=== PATIENT | male | born 2000 | race Caucasian/White ===

== ENCOUNTER 2024-05-23 15:34 | Outpatient (CLI) | payer OTHER, SELFPAY ==
[2024-05-23 16:12] LABS: Hematocrit 45.1 % (42.0-52.0); Hemoglobin 15.3 g/dL (14.0-18.0); Mean Corpuscular HGB Conc 33.9 g/dl (32-36); Mean Corpuscular Hemoglobin 30.1 pg (26-34); Mean Corpuscular Volume 88.6 fl (80-100); Mean Platelet Volume 8.5 fl (7.4-10.4); Platelet Count Result 269 k/mm3 (150-375); Red Blood Count 5.09 M/mm3 (4.6-6.20); Red Cell Distribution Width 13.9 % (11.5-14.5)
[2024-05-23 16:27] LABS: Alanine Aminotransferase 34 U/L (6-50); Albumin Level 3.8 g/dL (3.5-5.1); Alkaline Phosphatase 95 U/L (38-126); Anion Gap 7 mmol/L (4-12); Aspartate Amino Transferase 27 U/L (17-59); Blood Urea Nitrogen 19 mg/dL (9-20); Calcium 9.3 mg/dL (8.4-10.2); Carbon Dioxide 28 mmol/L (22-30); Chloride 102 mmol/L (98-107); Cholesterol 116 mg/dL (0-200); Estimated Glomerular Filt Rate > 60; Glucose 120 mg/dL (65-110); HDL Direct 45 mg/dL; Potassium 4.3 mmol/L (3.4-5.0); Sodium 137 mmol/L (137-145); Triglycerides 70 mg/dL (<150)
--- OUTSIDE RECORDS SUMMARY | 2024-05-23 16:37 | XMS_ITS | Encounter Summary ---
Author Organization [facility] Address [address] [place] [place] [address] Care Team Providers Care Material Control Associate Name Role Phone Cierra Villarreal MD Primary Care Provider [phone] Encounter Details Date Type Department Care Team (Late st Contact Info) Description 11/11/2020 Telephone [facility] - Diabetes [address] [address] Denia Greenberg MD Social History Tobacco Use Types Packs/Day Years Used Date Smoking Tobacco: Never Smokeless Tobacco: Never Alcohol Use Standard Drinks/Week Comments No 0 (1 standard drink = 0.6 oz pur e alcohol) Sex and Gender Information Value Date Recorded Sex Assigned at Not on file Gender Identity Not on file Sexual Orientation Not on file COVID-19 Exposure Response Date Recorded In the last month, have you been in contact with someone who was confirmed or suspected to have Coronavirus / COVID-19? No / Unsure 10/16/2020 3:18 PM CDT documented as of this encounter Functional Status Functional Status Response Date of Assess ment Is person deaf or have serious hearing difficult y? No 10/03/2018 Is person blind or have serious difficulty seein g? No 10/03/2018 Does person have serious dif ficulty walking/climbing stairs? No 10/03/2018 Does person have difficulty dressing/bathing? Ye s 10/03/2018 Does person have difficulty doing errands alone? Yes 10/03/2018 Cognitive Status Response Date of Assessm ent Does person have difficulty concentrating/remembering/making decisions? Yes 10/03/2018 documented as of this encounter Miscellaneous Notes * Telephone Encounter - Eleanor Ramos RN - 11/11/2020 2:59 PM CDT Mom called to report Dex has a low grade temp and runny nose since Tuesday. I referred mom to rope rider. States bgs have been elevated. Negative ketones. I recommended mom to give corrections q 2hours. I asked mom to call if moderate/large ketones develop or if vomiting occurs. She states he has an appetite. Denies nausea/vomiting. To call exchange or emergency line if needed. Current bg/ketones 277 negative documented in this encounter Plan of Treatment Not on file documented as of this encounter Visit Diagnoses Not on filedocumented in this encounter Care Teams Material Control Associate Relationship Specialty Start Date End Date Cierra Villarreal MD [address] [place], [place] [phone] PCP - General Family Medicine 06/13/18 documented as of this encounter
--- OUTSIDE RECORDS SUMMARY | 2024-05-23 16:37 | XMS_ITS | Encounter Summary ---
Author Organization [facility] Address [address] [facility] [place] [address] Care Team Providers Care Vice President Education Name Role Phone Cierra Villarreal MD Primary Care Provider [phone] Encounter Details Date Type Department Care Team (Late st Contact Info) Description 03/15/2021 Telephone [facility] - Endocrinology [address] [place] [phone] Aundrea Yoo, DO [address] [place] [address] Social History Tobacco Use Types Packs/Day Years Used Date Smoking Tobacco: Never Smokeless Tobacco: Never Alcohol Use Standard Drinks/Week Comments No 0 (1 standard drink = 0.6 oz pur e alcohol) AUDIT-C Answer Date Recorded Q1: How often do you have a drink containing alc ohol? Never 02/09/2021 Average Number of Drinks Not on file 021 Frequency of Binge Drinking Not on file 01/22 Sex and Gender Information Value Date Recorded Sex Assigned at Not on file Gender Identity Not on file Sexual Orientation Not on file COVID-19 Exposure Response Date Recorded In the last month, have you been in contact with someone who was confirmed or suspected to have Coronavirus / COVID-19? No / Unsure 02/19/2021 3:26 PM RECONNAISSANCE MAN documented as of this encounter Functional Status Functional Status Response Date of Assess ment Is person deaf or have serious hearing difficult y? No 02/09/2021 Is person blind or have serious difficulty seein g? No 02/09/2021 Does person have serious dif ficulty walking/climbing stairs? Yes 02/09/2021 Does person have difficulty dressing/bathing? Ye s 10/03/2018 Does person have difficulty doing errands alone? Yes 02/09/2021 Cognitive Status Response Date of Assessm ent Does person have difficulty concentrating/remembering/making decisions? Yes 02/09/2021 documented as of this encounter Miscellaneous Notes * Telephone Encounter - Laurel Reid RN - 06/09/2021 1:39 PM CDT Monae from pharmacy calling with questions in regards to Precision strips. Was sent to [facility] [phone] * Telephone Encounter - Aundrea Yoo DO - 03/15/2021 3:41 PM RECONNAISSANCE MAN Endocrine after hours call Dex is a 20 y/o male with type 1 diabetes treated with multiple daily injections. Mom called through the answering service leaving message: I have a question about the dosage of the basaglar I returned mom's call and she provided additional information that she forgot to give Dex his basaglar last night. She asked if she should give 11 units now and 11 units at 10:30. I recommended okay to do if blood sugar is not very high. If blood sugar is very high, give 22 units now, 22 units tomorrow at 6 or 7 PM, 22 units at normal time on Tuesday. NNAISSANCE MAN documented in this encounter Plan of Treatment Not on file documented as of this encounter Visit Diagnoses Not on filedocumented in this encounter Care Teams Vice President Education Relationship Specialty Start Date End Date Cierra Villarreal MD [address] [place] [phone] PCP - General Family Medicine 06/13/18 documented as of this encounter
--- OUTSIDE RECORDS SUMMARY | 2024-05-23 16:37 | XMS_ITS | Encounter Summary ---
Author Organization [facility] Address [address] [facility] [place] [address] Care Team Providers Care Director Distribution Name Role Phone Cierra Villarreal MD Primary Care Provider [phone] Reason for Visit * Reason Onset Date Comments MEDICATION REFILL 04/06/2021 Encounter Details Date Type Department Care Team (Late st Contact Info) Description 04/06/2021 Refill [facility] - Diabetes [facility] [address] [place] [address] Jelena Pack, TRANSPORT TRUCK DRIVER-CARTRIDGE GAUGER [address] [place] [address] MEDICATION REFILL Social History Tobacco Use Types Packs/Day Years [...] on file Sexual Orientation Not on file documented as of this encounter Functional Status [...] Yes 02/09/2021 documented as of this encounter Plan of Treatment Not on file documented as of this encounter Visit Diagnoses Diagnosis Type 1 diabetes mellitus without complication (HCC)- Primary Type I (juvenile type) diabetes mellitus without mention of complication, not stated as uncontrolled documented in this encounter Care Teams Director Distribution Relationship Specialty Start Date End Date Cierra Villarreal MD [address] [place] [phone] PCP - General Family Medicine 06/13/18 documented as of this encounter
--- OUTSIDE RECORDS SUMMARY | 2024-05-23 16:37 | XMS_ITS | Encounter Summary ---
Author Organization [facility] Address [address] [facility] [place] [address] Care Team Providers Care First Aid Nurse Name Role Phone Cierra Villarreal MD Primary Care Provider [phone] Marilu Westfall MD Primary Care Provider [phone] Cierra Villarreal MD Primary Care Provider [phone] Reason for Visit * Reason Onset Date Comments Refill Request 04/23/2014 Please fax rx fo r test strips [facility] will [facility] on time. [facility] on [address] in [place]. Please change directions to test 12 times a day (not 10-12) Encounter Details Date Type Department Care Team (Late st Contact Info) Description 04/23/[address] [facility] - Diabetes [address] [address] Denia Greenberg MD Refill Request (Please fax rx for test strips to local [facility] as mail order will not arrive on time. [facility] on [address] in [place]. Please change directions to test 12 times a day (not 10-12)) Social History Tobacco Use Types Packs/Day Years Used Date Smoking Tobacco: Never Alcohol Use Standard Drinks/Week Comments Not Asked 0 (1 standard drink = 0.6 oz pur e alcohol) Sex and Gender Information Value Date Recorded Sex Assigned at Not on file Gender Identity Not on file Sexual Orientation Not on file documented as of this encounter Functional Status Functional Status Response Date of Assess ment Is person deaf or have maryellen us hearing difficulty? No 01/14/2014 Is person blind or have seri ous difficulty seeing? No 01/14/2014 Does person have serious dif ficulty walking/climbing stairs? No 01/14/2014 Does person have difficulty dressing/bathing? n/ a 01/14/2014 Does person have difficulty doing errands alone? hx of Downs Syndrome 01/14/2014 Cognitive Status Response Date of Assessm ent Does person have difficulty concentrating/remembering/making decisions? Yes 01/14/2014 documented as of this encounter Plan of Treatment Not on file documented as of this encounter Visit Diagnoses Not on filedocumented in this encounter Additional Health Concerns Infection Onset Date Last Indicated Resolved Time MRSA 01/28/2015 01/28/2015 10/22/2015 12:0 6 PM CDT documented as of this encounter Care Teams First Aid Nurse Relationship Specialty Start Date End Date Cierra Villarreal MD [address] [facility] [address] [place] [phone] PCP - General Family Medicine 11/27/13 05/31/17 Marilu Westfall MD [address] [place] [address] PCP - General 06/01/17 06/12/18 Cierra Villarreal MD [address] [place] [phone] PCP - General Family Medicine 06/13/18 documented as of this encounter
--- OUTSIDE RECORDS SUMMARY | 2024-05-23 16:37 | XMS_ITS | Clinical Summary ---
Author Organization [facility] Address [address] [facility] [place] [address] Care Team Providers Care Three Dimensional Art Instructor Name Role Phone Cierra Villarreal MD Primary Care Provider Source Comments [facility],non-owned Affiliates and Associated Physician Practices is amultiple site organization consisting of ambulatory clinics and hospital sitesin [place], [place], [place] and [place]. This disclosure is being madepursuant to the Care Everywhere program and may not contain all information available regarding this patient. Last updated 17.[facility] Allergies Active Allergy Reactions Criticality Noted Date Comments Latex Skin Reactions,Rash,Unknown Medium 01/28/20 15 Rash Rash Sulfa Drugs Rash Medium 07/16/2011 Medications * Be aware that medications may not be up to date on this document. Alwaysverify current medications with the patient. Medication Sig Dispensed Refills Start Date End Date Status Blood Glucose Monitoring Suppl (ACCU-CHEK SHARONDA SMARTVIEW) W/DEVICE KIT kit Use to test blood sugar 12 times daily 1 Kit 1 04/24/2014 Active Blood Glucose Monitoring Suppl (PRECISION XTRA MONITOR) [place] Use to test blood ketones when blood sugar is greater than 250 or when ill. 1 Device 1 02/25/2015 Active Blood Glucose Monitoring Suppl (ONE TOUCH ULTRA MINI) W/DEVICE KIT Use to test blood sugar 12 times daily 1 Kit 0 10/01/2015 Active GLUCAGON EMERGENCY injectionIndication s:Type 1 diabetes mellitus without complication, with long-term current use of insulin (HCC) Inject 1 mg into muscle as needed 2 kit 07/19/2017 Active Additional Information Patient not taking.Reason: Other, Informant: Other, Reported on 11/16/2023 ACCU-CHEK FASTCLIX LANCETS Use to check blood sugar 5-9 times a day or as directed. 204 Each 11 06/26/2018 Active polyethylene glycol 3350 (MIRALAX) packet Take 17 (seventeen) g by mouth once daily Active glucagon (GLUCAGEN) injection Inject 1 (one) mg into muscle as needed (administer for severe low blood sugar as directed.) 2 Each 10/17/2020 Active Additional Information Patient not taking.Reason: Other, Reported on 11/16/2023 PRECISION XTRA STRP Use to test blood ketones when blood sugar is > 250 or when ill. 100 strip 1 03/16/2021 Active Insulin Syringe-Needle U-100 (BD INSULIN SYRINGE ULTRAFINE) 31G X 15/64 0.3 ML syringeIndications: Type 1 diabetes mellitus without complication (HCC) Use to administer Humalog and Lantus as directed up to 6 injections daily 200 Each 11 04/06/2021 Active insulin lispro (HumaLOG;ADMelog) 100 UNIT/ML pen Administer 1 unit per 6-12 grams carbohydrates. Max daily dose 75 units. 30 mL 4 11/23/2021 Active glucagon (GlucaGen HypoKit) injection Inject 1 (one) mg into muscle as needed (for severe low blood sugar) 1 Each 1 02/09/2022 Active Additional Information Patient not taking.Reason: Other, Reported on 11/16/2023 Glucagon, rDNA, (Glucagon Emergency) 1 MG KIT Administer 1 mg intramuscularly for severe low blood sugar 2 Each 02/09/2022 Active insulin syringe-needle (Bd Ultrafine Ii) 31G X 5/16 0.3 ML syringeIndications: Type 1 diabetes mellitus without complication (HCC) USE FOR INSULIN UP TO 6 TIMES DAILY 200 Each 11 02/11/2022 Active Basaglar KwikPen (Basaglar) penIndications:Type 1 diabetes mellitus without complication, with long-term current use of insulin (HCC) ADMINISTER 18 UNITS UNDER THE SKIN AT BEDTIME OR DIRECTED 15 mL 1 08/18/2022 Active Additional Information Patient not taking.Reason: Other, Reported on 11/16/2023 blood glucose (OneTouch Verio) test stripIndications:Ty pe 1 diabetes mellitus without complication (HCC) USE TO TEST BLOOD SUGAR 4-6 TIMES DAILY 200 strip 11 09/28/2022 Active Lancets (ONETOUCH DELICA PLUS 33G EXTRA FINE LANCET)Indications: Type 1 diabetes mellitus without complication (HCC) USE TO TEST BLOOD GLUCOSE 5 TO 9 TIMES DAILY DIRECTED 200 Each 10/05/2022 Active Ketone Blood Test (PRECISION XTRA) STRPIndications:Typ e 1 diabetes mellitus without complication (HCC) Use to test blood ketones if blood sugar is over 250 or ill 25 strip 11 10/13/2022 Active acetone,urine, (Ketostix) stripIndications:Un controlled type 1 diabetes mellitus with hyperglycemia (HCC) Use as needed (use when blood sugar is greater than 300 or when ill.) 100 strip 11 10/13/2022 Active Additional Information Patient not taking.Reason: Other, Reported on 11/16/2023 OneTouch Delica Lancets 30G MISCIndications:Typ e 1 diabetes mellitus without complication (HCC) Use 1 Each as directed USE Up to 12 TIMES DAILY DIRECTED 200 Each 5 11/02/2022 Active Insulin Glargine (LANTUS SC) Inject 20 Units subcutaneously at bedtime Active Active Problems Problem Noted Date Diagnosed Date Elevated anti-tissue transglutaminase (tTG) IgA level 02/16/2018 Down's syndrome 01/08/2013 Overview (09/08/2016): Type 1 diabetes mellitus without complication Overview (10/03/2015): Diagnosed 01/14/2011 at [facility] Transferred to [facility] 04/20/2012 Assessment & Plan (08/23/2019 8:05 AM CDT): 1) no changes today 2) keep up the good work 3) return in 3 months Assessment & Plan (09/28/2018 10:26 AM CDT): 1) reduce dinner to 1 per 8 2) reduce snack to 1 per 12 3) call as needed to review blood sugars 4) return in [address] Greenberg Assessment & Plan (09/08/2016 8:58 AM CDT): 1) no changes at this time 2) keep up the good work 3) call as needed to review blood sugars 4) return in [address] Greenberg Assessment & Plan (05/17/2016 1:03 PM CDT): 1) no changes at this time 2) call as needed to review blood sugars 3) return in 3 months for [facility], [address] 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 (F LUZONE; FLULAVAL; FLUARIX; AFLURIA QUADRIVALENT; 6MO+), 0.5 ML (IIV4) 02/09/2022,01/23/2021,02/22/2019, 017,01/06/2016,02/24/2015,11/26/2013 Family History Medical History Relation Name Comments Diabetes Sister Relation Name Status Comments Sister Social History Tobacco Use Types Packs/Day Years Used Date Smoking Tobacco: Never Passive Smoke Exposure: Never Smokeless Tobacco: Never Tobacco Cessation:Counseling Given: Not Answered Alcohol Use Standard Drinks/Week Comments No 0 (1 standard drink = 0.6 oz pur e alcohol) AUDIT-C Answer Date Recorded Q1: How often do you have a drink containing alcohol? Never 11/22/2023 Q2: How many drinks containi ng alcohol do you have on a typical day when you are drinking? Patient does not drink Q3: How often do you have si x or more drinks on one occasion? Never 11/22/2023 Sex and Gender Information Value Date Recorded Sex Assigned at Not on file Gender Identity Not on file Sexual Orientation Not on file Last Filed Vital Signs Vital Sign Reading Time Taken Comments Blood Pressure 139/107 11/22/2023 9:30 AM CDT pt removed bp multiple times Pulse 117 11/22/2023 9:30 AM CDT Temperature 36.3 C (97.4 F) 11/22/2023 8:30 AM CDT Respiratory Rate 19 11/22/2023 9:30 AM CDT Oxygen Saturation 94% 11/22/2023 9:5 0 AM CDT Inhaled Oxygen Concentration - - Weight 71.1 kg (156 lb 12 oz) 11/22/2023 6:30 AM CDT Height 153.5 cm (5' 0.43 ) 11/22/2023 6 :30 AM CDT Body Mass Index 30.18 11/22/2023 6:30 AM CDT Plan of Treatment Health Maintenance Due Date Last Done Comments DIABETES RETINOPATHY SCREENING 05/15/2013 HIV SCREENING 2016 HPV VACCINE (1 - Male 3-dose series) 2016 MENINGOCOCCAL (Group B) VACCINE SHARED DECISION-MAKING (1 of 2 - Standard) 2017 HEPATITIS C SCREENING 11/21/2019 DIABETES-FOOT EXAM WITH MONOFILAMENT 11/26/2019 DIABETES-SERUM CREATININE 11/26/2019 10/17/2017 DTAP/TDAP/TD VACCINES (1 - Tdap) 2020 HEPATITIS B VACCINE (1 of 3 - 19+ 3-dose series) 2020 PNEUMOCOCCAL VACCINE (1 of 2 - PCV) 2020 DIABETES-HGB A1C 11/24/2022 05/25/2022, , 10/12/2021, Additional history exists COVID-19 VACCINE ( - season) 2023 12/03/2020, 05/26/2020, 05/03/2020 INFLUENZA VACCINE (#1) 2023 2, 01/23/2021, 02/22/2019, Additional history exists DEPRESSION SCREENING 02/22/2024 DIABETES - URINE PROTEIN SCREENING 02/22/2024 10/03/2018 ZOSTER VACCINE (1 of 2) 11/26/2051 HIB VACCINE Aged Out No longer eligi ble based on patient's age to complete this topic MENINGOCOCCAL GROUPS A/C/Y/W VACCINE Aged Out No longer eligible based on patient's age to complete this topic Procedures Procedure Name Priority Date/Time Associated Diagnosis Comments HEMOGLOBIN A1C - POCT INTERFACED Routine 05/25/2022 11:02 AM CDT MICROALB/CREAT RATIO URINE RANDOM PANEL Routine 10/03/2018 7:43 AM CDT Type 1 diabetes mellitus without complication BASIC METABOLIC PANEL (CALCIUM TOTAL) Routine 10/17/2017 12:37 PM CDT Type 1 diabetes mellitus without complication from Last 3 Months or Most Recently Relevant to Health Maintenance Results * (ABNORMAL) HEMOGLOBIN A1C - POCT INTERFACED (05/25/2022 11:02 AM CDT) Hemoglobin A1C POCT 7.1(H) <5.7 % 05/25/2022 11:14 AM CDT [facility] Estimated Average Glucose 157 mg/dL 05/25/2022 11:14 AM T [facility] Blood BLOOD SPECIMEN / Unknown 05/25/2022 11:02 AM CDT 05/25/2022 11:14 AM CDT Narrative [facility] - 05/25/2022 11:14 AM CDT HbA1c Interpretation: Normal: < 5.7% Pre-diabetes: 5.7-6.4% Diabetes: Equal to or greater than 6.5% This test should only be used to monitor, not diagnose diabetes. Test results diagnostic of diabetes should be repeated by another method with a different assay principle for confirmation. Treatment target values recommended by ADA and other clinical organizations should be used to evaluate metabolic control in patients. Patients with a hemoglobin of <7 or >24 should not be tested using this method. Patients known to have these conditions should be assayed by a test employing a different assay principle. Glycated hemoglobin F is not measured by the DCA HbA1c assay. At very high levels of hemoglobin F (> 10%), HbA1c is lower than expected. Patients with HbS or HbE should not be tested using this device. HbS or HbE cause a higher result than expected. Conditions such as hemolytic anemia, polycythemia, homozygous and HbC, can result in decreased life span of the red blood cells, which causes HbA1c results to be lower than expected. The Siemens DCA assay for the measurement of HbA1c is a National Glycohemoglobin Standardization Program (NGSP) certified method. Denia Greenberg MD LAB - POINT OF CARE ORDERABLES Performing Organization Address [facility] de Phone Number [facility] [address] [place] [phone] * MICROALB/CREAT RATIO URINE RANDOM PANEL (10/03/2018 7:43 AM CDT) Creatinine Urine 86.79 mg/dL 10/04/19 19 8:16 AM CDT [facility] Microalbumin Urine <0.5 <1.7 mg/dL 10/03/2018 8:16 AM T [facility] Microalbumin/Crea tinine Ratio <6 <30 mg/g 10/03/2018 8:16 AM T [facility] Urine URINE SPECIMEN OBTAINED BY CLEAN CATCH PROCEDURE / Unknown Collection / Unknown 10/03/2018 7:43 AM CDT 10/03/2018 7:55 AM CDT Alber TREJO LAB - URINE DANYELL LEONARDO ORDERABLES Performing Organization Address [facility] Co de Phone Number [facility] [address] [place] [phone] * BASIC METABOLIC PANEL (CALCIUM TOTAL) (10/17/2017 12:37 PM CDT) Glucose 79 70 - 105 mg/dL 10/17/2017 2:01 PM CDT [facility] Sodium 138 136 - 145 mmol/L 10/17/2017 2:01 PM CDT [facility] Potassium 4.3 3.5 - 5.1 mmol/L 10/17/2017 2:01 PM T [facility] Chloride 107 98 - 107 mmol/L 10/17/2017 2:01 PM CDT [facility] CO2 23 20 - 28 mmol/L 10/17/2017 2:01 PM T [facility] Calcium 9.42 9.08 - 10.48 mg/dL 10/17/2017 2:01 PM CDT [facility] Anion Gap 8 5 - 20 mmol/L 10/17/2017 2:01 PM CDT [facility] BUN 17.1 5.3 - 18.7 mg/dL 10/17/2017 2:01 PM T [facility] Creatinine 0.93 0.61 - 1.07 mg/dL 10/17/2017 2:01 PM CDT [facility] eGFR by MDRD mL/min/1.7 3m2 10/17/2017 2:01 PM T [facility] Comment: eGFR calculations are not performed for children under 18 years old. eGFR by MDRD mL/min/1.7 3m2 10/17/2017 2:01 PM T [facility] Comment: eGFR calculations are not performed for children under 18 years old. Blood BLOOD SPECIMEN / Unknown Venipuncture / Unknown 10/17/2017 12:37 PM CDT 10/17/2017 1:24 PM T Denia Greenberg MD LAB - CHEMISTRY LIBBY [facility]USSEIN [facility] Organization Address City/State/ZIP Co de Phone Number [facility] [address] [place] [address] from Last 3 Months or Most Recently Relevant to Health Maintenance Care Teams Three Dimensional Art Instructor Relationship Specialty Start Date End Date Cierra Villarreal MD [address] [place] [phone] PCP - General Family Medicine 06/13/18
--- OUTSIDE RECORDS SUMMARY | 2024-05-23 16:37 | XMS_ITS | Encounter Summary ---
Author Organization [facility] Address [address] [facility] [place] [address] Care Team Providers Care Communication Technician Name Role Phone Cierra Villarreal MD Primary Care Provider [phone] Reason for Visit * Reason Onset Date Comments Refill Request 06/25/2019 New prescription for syringes, Dex is using syringes for basaglar and admelog- 6 syringes a day, Only getting 1 box of 100 from pharmacy Encounter Details Date Type Department Care Team (Late st Contact Info) Description 06/25/2019 Telephone [facility] Pediatrics - Endocrinology [address] [place] [address] Ayaka Agarwal Refill Request (New prescription for syringesDex is using syringes for basaglar and admelog- 6 syringes a day, Only getting 1 box of 100 from pharmacy) Social History Tobacco Use Types Packs/Day Years [...] Yes 10/03/2018 documented as of this encounter Plan of Treatment Not on file documented as of this encounter Visit Diagnoses Not on filedocumented in this encounter Care Teams Communication Technician Relationship Specialty Start Date End Date Cierra Villarreal MD [address] [place] [phone] PCP - General Family Medicine 06/13/18 documented as of this encounter
--- OUTSIDE RECORDS SUMMARY | 2024-05-23 16:37 | XMS_ITS | Encounter Summary ---
Author Organization [facility] Address [address] [facility] [place] [address] Care Team Providers Care Manufacturing Scheduler Name Role Phone Marilu Westfall MD Primary Care Provider [phone] Cierra Villarreal MD Primary Care Provider Reason for Visit * Reason Onset Date Comments Blood Glucose (Sugar) Review 09/09/2017 Ple ase call mom to review blood sugars. She has noticed blood sugars around 2pm are in the 200-300 range lately. Encounter Details Date Type Department Care Team (Late st Contact Info) Description 09/09/2017 Telephone [facility] Pediatrics - Endocrinology [address] [place] [address] Ayaka Agarwal Blood Glucose (Sugar) Review (Please call mom to review blood sugars. She has noticed blood sugars around 2pm are in the 200-300 range lately. ) Social History Tobacco Use Types Packs/Day Years [...] or have maryellen us hearing difficulty? No 02/03/2015 Is person blind or have seri ous difficulty seeing? No 02/03/2015 Does person have serious dif ficulty walking/climbing stairs? No 02/03/2015 Does person have difficulty dressing/bathing? Ye s-age and delayed 02/03/2015 Does person have difficulty doing errands alone? Yes-age and delayed 02/03/2015 Cognitive Status Response Date of Assessm ent Does person have difficulty concentrating/remembering/making decisions? age and pt delayed 02/03/2015 documented as of this encounter Plan of Treatment Not on file documented as of this encounter Visit Diagnoses Not on filedocumented in this encounter Care Teams Manufacturing Scheduler Relationship Specialty Start Date End Date Marilu Westfall MD [address] [place] [address] PCP - General 06/01/17 06/12/18 Cierra Villarreal MD [address] [place] [phone] PCP - General Family Medicine 06/13/18 documented as of this encounter
--- OUTSIDE RECORDS SUMMARY | 2024-05-23 16:37 | XMS_ITS | Encounter Summary ---
Author Organization [facility] Address [address] [facility] [place] [address] Care Team Providers Care Head Doffer Name Role Phone Cierra Villarreal MD Primary Care Provider [phone] Marilu Westfall MD Primary Care Provider [phone] Cierra Villarreal MD Primary Care Provider [phone] Reason for Visit * Reason Onset Date Comments Blood Sugar Problem 10/24/2014 Mom is still noticing elevated blood sugars at the mid-afternoon check (between 1:15-2:00PM). Please call to review blood sugars and further changes that need to be made. Encounter Details Date Type Department Care Team (Late st Contact Info) Description 10/24/2014 Telephone [facility] Pediatrics - Diabetes [address] [address] Denia Greenberg MD Blood Sugar Problem (Mom is still noticing elevated blood sugars at the mid-afternoon check (between 1:15-2:00PM). Please call to review blood sugars and further changes that need to be made.) Social History Tobacco Use Types Packs/Day Years [...] documented as of this encounter Care Teams Head Doffer Relationship Specialty Start Date End Date Cierra Villarreal MD [address] [place] [phone] PCP - General Family Medicine 11/27/13 05/31/17 Marilu Westfall MD [address] [place] [address] PCP - General 06/01/17 06/12/18 Cierra Villarreal MD [address] [place] [phone] PCP - General Family Medicine 06/13/18 documented as of this encounter
--- OUTSIDE RECORDS SUMMARY | 2024-05-23 16:37 | XMS_ITS | Encounter Summary ---
Author Organization [facility] Address [address] [facility] [place] [address] Care Team Providers Care Daub Color Mixer Name Role Phone Cierra Villarreal MD Primary Care Provider Reason for Visit * Reason Comments Refill Request Encounter Details Date Type Department Care Team (Late st Contact Info) Description 11/16/2020 Refill [facility] Pediatrics - Diabetes [address] [address] Denia Greenberg MD Refill Request Social History Tobacco Use Types Packs/Day Years [...] Diagnosis Type 1 diabetes mellitus without complication (HCC) Type I (juvenile type) diabetes mellitus without mention of complication, not stated as uncontrolled documented in this encounter Care Teams Daub Color Mixer Relationship Specialty Start Date End Date Cierra Villarreal MD [address] [place], [place] [phone] PCP - General Family Medicine 06/13/18 documented as of this encounter
--- OUTSIDE RECORDS SUMMARY | 2024-05-23 16:37 | XMS_ITS | Encounter Summary ---
Author Organization [facility] Address [address] [facility] [address] Care Team Providers Care Rn Float Name Role Phone Cierra Villarreal MD Primary Care Provider Reason for Visit * Reason Comments Refill Request Encounter Details Date Type Department Care Team (Late st Contact Info) Description 03/06/2021 Refill [facility] Pediatrics - Diabetes [address] [address] Denia Greenberg MD Refill Request Social History [...] COVID-19? No / Unsure 02/19/2021 3:26 PM CERTIFIED ORTHOTIC FITTER documented as of this encounter Functional Status [...] on filedocumented in this encounter Care Teams Rn Float Relationship Specialty Start Date End Date Cierra Villarreal MD [address] [place] [phone] PCP - General Family Medicine 06/13/18 documented as of this encounter
--- OUTSIDE RECORDS SUMMARY | 2024-05-23 16:37 | XMS_ITS | Encounter Summary ---
Author Organization [facility] Address [address] [facility] [place] [address] Care Team Providers Care Inventory Accountant Name Role Phone Cierra Villarreal MD Primary Care Provider [phone] Encounter Details Date Type Department Care Team (Late st Contact Info) Description 11/13/2018 Telephone [facility] Pediatrics - Diabetes [address] [address] Alber Fiore, VARGHESE-SUPERVISOR WATER SOFTENER SERVICE [address] [place] [address] Social History Tobacco Use Types Packs/Day Years [...] encounter Miscellaneous Notes * Telephone Encounter - Augustina Schuster RN - 11/13/2018 9:19 AM CDT I spoke with Dex Cottrell's mom who called to report blood glucose logs. Please see doc flowsheet.Per protocol I have changed his dinner insulin to carb ratio to 1:7. documented in this encounter Plan of Treatment Not on file documented as of this encounter Visit Diagnoses Not on filedocumented in this encounter Care Teams Inventory Accountant Relationship Specialty Start Date End Date Cierra Villarreal MD [address] [place] [phone] PCP - General Family Medicine 06/13/18 documented as of this encounter
--- OUTSIDE RECORDS SUMMARY | 2024-05-23 16:37 | XMS_ITS | Encounter Summary ---
Author Organization [facility] Address [address] [facility] [place] [place] [address] Care Team Providers Care Group Social Worker Name Role Phone Cierra Villarreal MD Primary Care Provider [phone] Marilu Westfall MD Primary Care Provider [phone] Cierra Villarreal MD Primary Care Provider [phone] Reason for Visit * Reason Onset Date Comments MEDICATION REFILL 10/01/2015 Encounter Details Date Type Department Care Team (Late st Contact Info) Description 10/01/2015 Refill [facility] - Diabetes [address] [address] Keely Frye, VISUAL BASIC .NET DEVELOPER-HEARING STENOGRAPHER Retired MEDICATION REFILL Social History Tobacco Use Types [...] delayed 02/03/2015 documented as of this encounter Miscellaneous Notes * Telephone Encounter - Tammi Lopes RN - 10/01/2015 2:48 PM CDT Received prior authorization for accuchek test strips. Called and spoke with pharmacy. Pharmacy informed me they [place]. They can only get 200 test strips every 20 days with[place]ight [place]. Pharmacist ran through [employer] ultra mini meter and test strips 200 for 20 days and went through with no problem. documented in this encounter Plan of Treatment Not on file documented as of this encounter Visit Diagnoses Not on filedocumented in this encounter Additional Health Concerns Infection Onset Date Last Indicated Resolved Time MRSA 01/28/2015 01/28/2015 10/22/2015 12:0 6 PM CDT documented as of this encounter Care Teams Group Social Worker Relationship Specialty Start Date End Date Cierra Villarreal MD [address] [place] [phone] PCP - General Family Medicine 11/27/13 05/31/17 Marilu Westfall MD [address] [place] [address] PCP - General 06/01/17 06/12/18 Cierra Villarreal MD [address] [facility] [address] [place] [address] PCP - General Family Medicine 06/13/18 documented as of this encounter
--- OUTSIDE RECORDS SUMMARY | 2024-05-23 16:37 | XMS_ITS | Encounter Summary ---
Author Organization [facility] Address [address] [facility] [place] [address] Care Team Providers Care Sampler Radioactive Waste Name Role Phone Cierra Villarreal MD Primary Care Provider [phone] Reason for Visit * Reason Comments Refill Request Encounter Details Date Type Department Care Team (Late st Contact Info) Description 05/05/2019 Refill [facility] Pediatrics - Diabetes [address] [address] Denia Greenberg MD Refill Request Social History [...] uncontrolled documented in this encounter Care Teams Sampler Radioactive Waste Relationship Specialty Start Date End Date Cierra Villarreal MD [address] [place], [place] [phone] PCP - General Family Medicine 06/13/18 documented as of this encounter
--- OUTSIDE RECORDS SUMMARY | 2024-05-23 16:37 | XMS_ITS | Encounter Summary ---
Author Organization [facility] Address [address] [facility] [place] [address] Care Team Providers Care Client Analyst Name Role Phone Cierra Villarreal MD Primary Care Provider [phone] Marilu Westfall MD Primary Care Provider [phone] Cierra Villarreal MD Primary Care Provider [phone] Reason for Visit * Reason Onset Date Comments Blood Sugar Problem 02/20/2015 Encounter Details Date Type Department Care Team (Late st Contact Info) Description 02/20/2015 Telephone [facility] Pediatrics - Endocrinology [facility] [place] [address] Denia Greenberg MD Blood Sugar Problem Social History Tobacco Use Types Packs/Day Years [...] encounter Miscellaneous Notes * Telephone Encounter - Robbie Fonseca RN - 02/20/2015 11:22 AM CST I returned mom's call, lengthy conversation. Dex has been fighting a bug since the weekend. Hada low grade temp 99-100' for one day, has been sleeping in more. Seems to be feeling fine now. Bgs elevated at meals. I advised ok to adjust meal ratios until back to baseline. Has appt in 4 days. PLAN per injection protocol: B change from 1:6 to 1:5 L change from 1:15 to 1:12 D change from 1:9 to 1:8 I reviewed sick day management at length. Mom to call as needed. ERIES SPECIALIST documented in this encounter Plan of Treatment Not on file documented as of this encounter Visit Diagnoses Not on filedocumented in this encounter Additional Health Concerns Infection Onset Date Last Indicated Resolved Time MRSA 01/28/2015 01/28/2015 10/22/2015 12:0 6 PM CDT documented as of this encounter Care Teams Client Analyst Relationship Specialty Start Date End Date Cierra Villarreal MD [address] [facility] [address] [place], [place] PCP - General Family Medicine 11/27/13 05/31/17 Marilu Westfall MD [address] [place] [address] PCP - General 06/01/17 06/12/18 Cierra Villarreal MD [address] [place] [address] PCP - General Family Medicine 06/13/18 documented as of this encounter
--- OUTSIDE RECORDS SUMMARY | 2024-05-23 16:37 | XMS_ITS | Encounter Summary ---
Author Organization [facility] Address [address] [place] [address] Care Team Providers Care Fund Controller Name Role Phone Marilu Westfall MD Primary Care Provider [phone] Cierra Villarreal MD Primary Care Provider [phone] Reason for Visit * Reason Onset Date Comments Refill Request 05/22/2018 Please call in t 33g Delica lancets- 30g not covered any more. If those arent covered any lancets will do. Encounter Details Date Type Department Care Team (Late st Contact Info) Description 05/22/2018 Telephone [facility] Pediatrics - Endocrinology [address] [place] [address] Ayaka Agarwal Refill Request (Please call in the 33g Delica lancets- 30g not covered any more. If those arent covered any lancets will do. ) Social History Tobacco Use Types Packs/Day [...] on filedocumented in this encounter Care Teams Fund Controller Relationship Specialty Start Date End Date Marilu Westfall MD [address] [place] [address] PCP - General 06/01/17 06/12/18 Cierra Villarreal MD [address] [place] [phone] PCP - General Family Medicine 06/13/18 documented as of this encounter
--- OUTSIDE RECORDS SUMMARY | 2024-05-23 16:37 | XMS_ITS | Encounter Summary ---
Author Organization [facility] Address [address] [facility] [place] [address] Care Team Providers Care Shift Mgr Name Role Phone Marilu Westfall MD Primary Care Provider Cierra Villarreal MD Primary Care Provider Encounter Details Date Type Department Care Team (Late st Contact Info) Description 10/05/2017 Telephone [facility] - Diabetes [address] [address] Denia Greenberg MD Social History [...] on filedocumented in this encounter Care Teams Shift Mgr Relationship Specialty Start Date End Date Marilu Westfall MD [address] [place] [address] PCP - General 06/01/17 06/12/18 Cierra Villarreal MD [address] [place] [phone] PCP - General Family Medicine 06/13/18 documented as of this encounter
--- OUTSIDE RECORDS SUMMARY | 2024-05-23 16:37 | XMS_ITS | Encounter Summary ---
Author Organization [facility] Address [address] [facility] [place] [address] Care Team Providers Care Light Industrial Name Role Phone Cierra Villarreal MD Primary Care Provider Encounter Details Date Type Department Care Team (Late st Contact Info) Description 10/08/2022 Telephone [facility] Pediatrics - Diabetes [address] [address] Denia Greenberg MD Social History Tobacco Use Types Packs/Day Years Used Date Smoking Tobacco: Never Passive Smoke Exposure: Never Smokeless Tobacco: Never Alcohol Use Standard [...] encounter Miscellaneous Notes * Telephone Encounter - Cristi Tang - 10/27/2022 11:09 AM CDT Attempted to reach out to family in regards to pre-op teaching for Dex's procedure on the . He will be having a double ear exam with wax removal. Arrival time is 0700. NPO at 0000 with only clear liquids until 0530. Left message on machine for Mom to call back. * Telephone Encounter - Cristi Tang - 10/14/2022 4:05 PM CDT PA for Precision Xtra Ketone Strips for 100 strips per 30 days. Approved 10/14/22-10/14/23. Mom called and let know. * Telephone Encounter - Cristi Tang - 10/14/2022 1:14 PM CDT PA for Precision Xtra Ketone strips [facility] to [place] [facility] * Telephone Encounter - Cristi Tang - 10/08/2022 4:36 PM CDT School Letter faxed to [phone] documented in this encounter Plan of Treatment Not on file documented as of this encounter Visit Diagnoses Not on filedocumented in this encounter Care Teams Light Industrial Relationship Specialty Start Date End Date Cierra Villarreal MD [address] [place] [phone] PCP - General Family Medicine 06/13/18 documented as of this encounter
--- OUTSIDE RECORDS SUMMARY | 2024-05-23 16:37 | XMS_ITS | Encounter Summary ---
Author Organization [facility] Address [address] [place] [place] [address] Care Team Providers Care Hydrochloric Area Supervisor Name Role Phone Cierra Villarreal MD Primary Care Provider [phone] Marilu Westfall MD Primary Care Provider [phone] Cierra Villarreal MD Primary Care Provider [phone] Encounter Details Date Type Department Care Team (Late st Contact Info) Description 01/10/2017 Telephone [facility] - Diabetes [address] [address] Denia Greenberg MD Social History Tobacco Use [...] on filedocumented in this encounter Care Teams Hydrochloric Area Supervisor Relationship Specialty Start Date End Date Cierra Villarreal MD [address] [facility] [address] [place] [address] PCP - General Family Medicine 11/27/13 05/31/17 Marilu Westfall MD [address] [place] [address] PCP - General 06/01/17 06/12/18 Cierra Villarreal MD [address] [phone] PCP - General Family Medicine 06/13/18 documented as of this encounter
--- OUTSIDE RECORDS SUMMARY | 2024-05-23 16:37 | XMS_ITS | Encounter Summary ---
Author Organization [facility] Address [address] [facility] [place] [address] Care Team Providers Care Watchguard Name Role Phone Cierra Villarreal MD Primary Care Provider [phone] Encounter Details Date Type Department Care Team (Late st Contact Info) Description 06/02/2021 Telephone [facility] Pediatrics - Diabetes Mgmt [address] [place] [address] Jelena Pack, NAV[employer] SENIOR OFFICER-DIAGNOSTIC TECHNICIAN [facility] [place] [address] Social History Tobacco Use Types Packs/Day Years [...] Exposure Response Date Recorded In the last 10 days, have yo u been in contact with someone who was confirmed or suspected to have Coronavirus/COVID-19? No / Unsure 06/04/2021 4:06 PM CDT documented as of this encounter [...] Telephone Encounter - Eleanor Ramos RN - 06/04/2021 3:39 PM CDT Appeal resubmitted with Authorized Supervisor [employer] Designation form attached to [place]. * Telephone Encounter - Eleanor Ramos RN - 06/03/2021 1:26 PM CDT Mom called to report they have missed basaglar dose last night of 22 units. Unable to check for ketones. Denies any symptoms. Going to give normal correction now with meal. Plan to give 22 units now and then follow below: 13: now 1330 04/14: 5pm 0415: 9pm To call with any concerns or ketones. * Telephone Encounter - Eleanor Ramos RN - 06/02/2021 3:49 PM CDT Appeal letter sent to [place] for precision xtra blood ketone strips. documented in this encounter Plan of Treatment Not on file documented as of this encounter Visit Diagnoses Not on filedocumented in this encounter Care Teams Watchguard Relationship Specialty Start Date End Date Cierra Villarreal MD [address] [place] [phone] PCP - General Family Medicine 06/13/18 documented as of this encounter
--- OUTSIDE RECORDS SUMMARY | 2024-05-23 16:37 | XMS_ITS | Encounter Summary ---
Author Organization [facility] Address [address] [facility] [place] [address] Care Team Providers Care Mental Health Assistant Name Role Phone Chrissy Richards MD Primary Care Provider [phone] Cierra Villarreal MD Primary Care Provider [phone] Marilu Westfall MD Primary Care Provider [phone] Cierra Villarreal MD Primary Care Provider [phone] Reason for Visit * Reason Onset Date Comments Letter for School or Work 11/01/2012 Encounter Details Date Type Department Care Team (Late st Contact Info) Description 11/01/2012 Telephone [facility] Pediatrics - Diabetes [address] [address] Keely Frye, TELEPHONE INFORMATION CLERK-PHARMACY LABORATORY TECHNICIAN Retired Letter for School or Work Social History Tobacco Use Types Packs/Day Years Used Date Smoking Tobacco: Never Alcohol Use Standard Drinks/Week Comments Not Asked 0 (1 standard drink = 0.6 oz pur e alcohol) Sex and Gender Information Value Date Recorded Sex Assigned at Not on file Gender Identity Not on file Sexual Orientation Not on file documented as of this encounter Miscellaneous Notes * Telephone Encounter - Anat Yusuf RN - 11/01/2012 3:44 PM CDT Returned mother's call regarding need for school letter. Noted changes recommended on 10/25/12 to increase lunch to 1:20 and to increase pm snack to 0.5: 12. Will fax letter to school. documented in this encounter Plan of Treatment Not on file documented as of this encounter Visit Diagnoses Not on filedocumented in this encounter Additional Health Concerns Infection Onset Date Last Indicated Resolved Time MRSA 01/28/2015 01/28/2015 10/22/2015 12:0 6 PM CDT documented as of this encounter Care Teams Mental Health Assistant Relationship Specialty Start Date End Date Chrissy Richards MD [address] [place] [phone] PCP - General 07/02/11 11/26/13 Cierra Villarreal MD [address] [place] [phone] PCP - General Family Medicine 11/27/13 05/31/17 Marilu Westfall MD [address] [place] [address] PCP - General 06/01/17 06/12/18 Cierra Villarreal MD [address] [place] [phone] PCP - General Family Medicine 06/13/18 documented as of this encounter
--- OUTSIDE RECORDS SUMMARY | 2024-05-23 16:37 | XMS_ITS | Encounter Summary ---
Author Organization [facility] Address [address] [facility] [place] [address] Care Team Providers Care Parking Enforcement Officer Name Role Phone Chrissy Richards MD Primary Care Provider [phone] Cierra Villarreal MD Primary Care Provider [phone] Marilu Westfall MD Primary Care Provider [phone] Cierra Villarreal MD Primary Care Provider [phone] Reason for Visit * Reason Onset Date Comments Blood Sugar Problem 12/18/2012 Please call mom to review blood sugars and make changes Encounter Details Date Type Department Care Team (Late st Contact Info) Description 12/18/2012 Telephone [facility] Pediatrics - Diabetes [address] [address] Denia Greenberg MD Blood Sugar Problem (Please call mom to review blood sugars and make changes) Social History Tobacco Use Types Packs/Day Years Used Date Smoking Tobacco: Never Alcohol Use Standard Drinks/Week Comments Not Asked 0 (1 standard drink = 0.6 oz pur e alcohol) Sex and Gender Information Value Date Recorded Sex Assigned at Not on file Gender Identity Not on file Sexual Orientation Not on file documented as of this encounter Plan of Treatment Not on file documented as of this encounter Visit Diagnoses Not on filedocumented in this encounter Additional Health Concerns Infection Onset Date Last Indicated Resolved Time MRSA 01/28/2015 01/28/2015 10/22/2015 12:0 6 PM CDT documented as of this encounter Care Teams Parking Enforcement Officer Relationship Specialty Start Date End Date Chrissy Richards MD [address] [place] [address] PCP - General 07/02/11 11/26/13 Cierra Villarreal MD [address] [place] [phone] PCP - General Family Medicine 11/27/13 05/31/17 Marilu Westfall MD [address] [place] [address] PCP - General 06/01/17 06/12/18 Cierra Villarreal MD [address] [place] [address] [address] [place] [phone] PCP - General Family Medicine 06/13/18 documented as of this encounter
--- OUTSIDE RECORDS SUMMARY | 2024-05-23 16:37 | XMS_ITS | Encounter Summary ---
Author Organization [facility] Address [address] [facility] [place] [address] Care Team Providers Care Router Operator Pin Name Role Phone Cierra Villarreal MD Primary Care Provider [phone] Encounter Details Date Type Department Care Team (Late st Contact Info) Description 06/09/2021 Telephone [facility] Pediatrics - Diabetes [address] [address] Denia Greenberg MD Social History [...] Telephone Encounter - Eleanor Ramos RN - 09/03/2021 4:08 PM CDT Mom called to report that Dex has been running low intermittently at meal times. She states that he does not go to bed until 0100 in the morning. He wakes often at 1330/1400 and does not eat until 1500. Often eats 4 meals a day. She states she has been adjusting his doses as needed. We discussed subtracting 15g from total meal and dosing appropriately at that time. No patterns noted per mom. Per protocol, no changes at this time. To call as needed. B 1:5.5 L 1:8 D 1:8 Snack 1:12 Correction >150 20 units basaglar * Telephone Encounter - Lenora Land RN - 06/09/2021 4:27 PM CDT Mom tried e-mailing us blood sugars. Confirmed e-mail address with mom. Still haven't gotten the e-mail from mom. Sent mom an e-mail from us so she has our correct e-mail address. Mom's e-mail: [email or web address] documented in this encounter Plan of Treatment Not on file documented as of this encounter Visit Diagnoses Not on filedocumented in this encounter Care Teams Router Operator Pin Relationship Specialty Start Date End Date Cierra Villarreal MD [address] [place] [phone] PCP - General Family Medicine 06/13/18 documented as of this encounter
--- OUTSIDE RECORDS SUMMARY | 2024-05-23 16:37 | XMS_ITS | Encounter Summary ---
Author Organization [facility] Address [address] [facility] [place] [address] Care Team Providers Care Subway Car Repairer Name Role Phone Cierra Villarreal MD Primary Care Provider Encounter Details Date Type Department Care Team (Late st Contact Info) Description 08/21/2019 Telephone [facility] Pediatrics - Diabetes [address] [address] Alber Fiore APRN-DEVOPS SOLUTIONS ARCHITECT 1 [place] [address] Social History Tobacco Use Types Packs/Day Years [...] have Coronavirus / COVID-19? No / Unsure 08/21/2019 10:59 AM CDT documented as of this encounter Functional [...] on filedocumented in this encounter Care Teams Subway Car Repairer Relationship Specialty Start Date End Date Cierra Villarreal MD [address] [place] [phone] PCP - General Family Medicine 06/13/18 documented as of this encounter
--- OUTSIDE RECORDS SUMMARY | 2024-05-23 16:37 | XMS_ITS | Encounter Summary ---
Author Organization [facility] Address [address] [facility] [place] [address] Care Team Providers Care Sand Technician Name Role Phone Cierra Villarreal MD Primary Care Provider [phone] Marilu Westfall MD Primary Care Provider [phone] Cierra Villarreal MD Primary Care Provider [phone] Reason for Visit * Reason Onset Date Comments MEDICATION REFILL 06/26/2015 Encounter Details Date Type Department Care Team (Late st Contact Info) Description 06/26/2015 Refill [facility] - Diabetes [address] [address] Denia Greenberg MD MEDICATION REFILL Social History Tobacco Use Types [...] documented as of this encounter Care Teams Sand Technician Relationship Specialty Start Date End Date Cierra Villarreal MD [address] [place] [phone] PCP - General Family Medicine 11/27/13 05/31/17 Marilu Westfall MD [address] [place] [address] PCP - General 06/01/17 06/12/18 Cierra Villarreal MD [address] [facility] [address] [place] [address] PCP - General Family Medicine 06/13/18 documented as of this encounter
--- OUTSIDE RECORDS SUMMARY | 2024-05-23 16:37 | XMS_ITS | Encounter Summary ---
Author Organization [facility] Address [address] [facility] [address] Care Team Providers Care Crime Scene Examiner Name Role Phone Cierra Villarreal MD Primary Care Provider [phone] Reason for Visit * Reason Onset Date Comments MEDICATION REFILL 11/01/2022 Encounter Details Date Type Department Care Team (Late st Contact Info) Description 11/01/2022 Refill [facility] Pediatrics - Diabetes [address] [address] Jelena Pack MEDICATION REFILL Social History Tobacco Use Types Packs/Day Years Used Date Smoking Tobacco: Never Passive Smoke Exposure: Never Smokeless Tobacco: Never Alcohol Use Standard Drinks/Week Comments No 0 (1 standard drink = 0.6 oz pur e alcohol) AUDIT-C Answer Date Recorded Q1: How often do you have a drink containing alc ohol? Never 11/02/2022 Average Number of Drinks Not on file 023 Frequency of Binge Drinking Not on file 10/22 Sex and Gender Information Value Date Recorded [...] Diagnosis Type 1 diabetes mellitus without complication Type I (juvenile type) diabetes mellitus without mention of complication, not stated as uncontrolled documented in this encounter Care Teams Crime Scene Examiner Relationship Specialty Start Date End Date Cierra Villarreal MD [address] [place], [place] [phone] PCP - General Family Medicine 06/13/18 documented as of this encounter
--- OUTSIDE RECORDS SUMMARY | 2024-05-23 16:37 | XMS_ITS | Encounter Summary ---
Author Organization [facility] Address [address] [place] [address] Care Team Providers Care Tent Worker Name Role Phone Chirssy Richards MD Primary Care Provider [phone] Cierra Villarreal MD Primary Care Provider [phone] Marilu Westfall MD Primary Care Provider [phone] Cierra Villarreal MD Primary Care Provider [phone] Reason for Visit * Reason Onset Date Comments Refill Request 09/03/2013 Mom called, need s refill for syringes sent to [facility] in [place]. Encounter Details Date Type Department Care Team (Late st Contact Info) Description 09/03/2013 Telephone [facility] Pediatrics - Diabetes [address] [address] Denia Greenberg MD Refill Request (Mom called, needs refill for syringes sent to [facility] in [place]. ) Social History Tobacco Use Types Packs/Day [...] documented as of this encounter Care Teams Tent Worker Relationship Specialty Start Date End Date Chrissy Richards MD [address] [place] [address] PCP - General 07/02/11 11/26/13 Cierra Villarreal MD [address] [place] [phone] PCP - General Family Medicine 11/27/13 05/31/17 Marilu Westfall MD [address] [place] [address] PCP - General 06/01/17 06/12/18 Cierra Villarreal MD [address] [place] [phone] PCP - General Family Medicine 06/13/18 documented as of this encounter
--- OUTSIDE RECORDS SUMMARY | 2024-05-23 16:37 | XMS_ITS | Encounter Summary ---
Author Organization [facility] Address [address] [facility] [address] Care Team Providers Care Order Entry Name Role Phone Cierra Villarreal MD Primary Care Provider [phone] Encounter Details Date Type Department Care Team (Late st Contact Info) Description 05/26/2021 Refill [facility] Pediatrics - Diabetes Mgmt [address] [place] [address] Jelena Pack, METROLOGY MANAGER-HISTOPATHOLOGY TECHNICIAN [address] [place] [address] Social History Tobacco Use Types Packs/Day Years [...] Telephone Encounter - Eleanor Ramos RN - 05/27/2021 11:45 AM CDT Received denial from [place] for precision xtra ketone strips. Will send for urine ketone strips. * Telephone Encounter - Cristi Tang - 05/26/2021 4:16 PM CDT PA sent through CoverMyMeds to [place] for Precision Xtra blood ketone strips. documented in this encounter Plan of Treatment Not on file documented as of this encounter Visit Diagnoses Diagnosis Uncontrolled type 1 diabetes mellitus with hyperglycemia (HCC) documented in this encounter Care Teams Order Entry Relationship Specialty Start Date End Date Cierra Villarreal MD [address] [place], [place] [phone] PCP - General Family Medicine 06/13/18 documented as of this encounter
--- OUTSIDE RECORDS SUMMARY | 2024-05-23 16:37 | XMS_ITS | Encounter Summary ---
Author Organization [facility] Address [address] [facility] [place] [address] Care Team Providers Care Cake Puller Name Role Phone Cierra Villarreal MD Primary Care Provider Encounter Details Date Type Department Care Team (Late st Contact Info) Description 01/21/2020 Telephone [facility] Pediatrics - Endocrinology [address] [place] [address] Alber Fiore APRN-SENIOR ASSISTANT MANAGER [address] [place] [address] Social History Tobacco Use Types Packs/Day Years [...] or suspected to have Coronavirus / COVID-19? Unable to assess 01/09/2020 1:57 PM SUPERVISOR COMMISSARY PRODUCTION documented as of this encounter Functional Status [...] Telephone Encounter - Augustina Schuster RN - 01/21/2020 9:21 AM CST Diabetes Sick Call Patient: Dex Cottrell Date: 01/21/2020 Mom called into report the following: He did not take his insulin for snack last night and did not take his basaglar 22 units, typically given at 11pm. Current Blood Glucose: 398 Current Ketone result: moderate Last insulin given: Humalog: Dinner time yesterday Symptoms: none. Plan: Per Dr. Greenberg: Give 5 units now with syringe. Give 22 units of basaglar now. Push sugar free fluid. Recheck blood glucose and urine ketones in two hours. Schedule for getting basaglar back on track: 01/20 give basaglar 0930 12/ give basaglar at 1230 12/2 give basaglar at 1530 12/3 give basaglar at 2130 12/4 give basaglar at 2300 RVISOR [employer] documented in this encounter Plan of Treatment Not on file documented as of this encounter Visit Diagnoses Not on filedocumented in this encounter Care Teams Cake Puller Relationship Specialty Start Date End Date Cierra Villarreal MD [address] [place] [phone] PCP - General Family Medicine 06/13/18 documented as of this encounter
--- OUTSIDE RECORDS SUMMARY | 2024-05-23 16:37 | XMS_ITS | Encounter Summary ---
Author Organization [facility] Address [address] [facility] [place] [address] Care Team Providers Care Maintenance Worker Municipal Name Role Phone Cierra Villarreal MD Primary Care Provider [phone] Marilu Westfall MD Primary Care Provider [phone] Cierra Villarreal MD Primary Care Provider [phone] Reason for Visit * Reason Onset Date Comments Letter 10/18/2014 Please send an u pdated letter with the new lunch carb ratio of 1 per 8 to the [facility] [phone] Encounter Details Date Type Department Care Team (Late st Contact Info) Description 10/18/2014 Telephone [facility] Pediatrics - Diabetes [address] [address] Denia Greenberg MD Letter (Please send an updated letter with the new lunch carb ratio of 1 per 8 to the [facility] for [facility] [phone]) Social History Tobacco Use Types Packs/Day Years [...] documented as of this encounter Care Teams Maintenance Worker Municipal Relationship Specialty Start Date End Date Cierra Villarreal MD [address] [place] [phone] PCP - General Family Medicine 11/27/13 05/31/17 Marilu Westfall MD [address] [place] [address] PCP - General 06/01/17 06/12/18 Cierra Villarreal MD [address] [place] [phone] PCP - General Family Medicine 06/13/18 documented as of this encounter
--- OUTSIDE RECORDS SUMMARY | 2024-05-23 16:37 | XMS_ITS | Encounter Summary ---
Author Organization [facility] Address [address] [facility] [place] [address] Care Team Providers Care Cosmetics Presser Name Role Phone Cierra Villarreal MD Primary Care Provider Reason for Visit * Reason Onset Date Comments MEDICATION REFILL 11/24/2020 Encounter Details Date Type Department Care Team (Late st Contact Info) Description 11/24/[address] [facility] Pediatrics - Diabetes [address] [address] Denia Greenberg MD MEDICATION REFILL Social History [...] Telephone Encounter - Anat Yusuf RN - 11/24/2020 5:21 PM CDT Returned call to mother after receiving message from mother needs refill on syringes. documented in this encounter Plan of Treatment Not on file documented as of this encounter Visit Diagnoses Not on filedocumented in this encounter Care Teams Cosmetics Presser Relationship Specialty Start Date End Date Cierra Villarreal MD [address] [place] [phone] PCP - General Family Medicine 06/13/18 documented as of this encounter
--- OUTSIDE RECORDS SUMMARY | 2024-05-23 16:37 | XMS_ITS | Encounter Summary ---
Author Organization [facility] Address [address] [facility] [place] [address] Care Team Providers Care Voice Engineer Name Role Phone Chrissy Richards MD Primary Care Provider [phone] Cierra Villarreal MD Primary Care Provider [phone] Marilu Westfall MD Primary Care Provider [phone] Cierra Villarreal MD Primary Care Provider [phone] Reason for Visit * Reason Onset Date Comments General 10/12/2013 Encounter Details Date Type Department Care Team (Late st Contact Info) Description 10/12/2013 Telephone [facility] Pediatrics - Diabetes [address] [address] Denia Greenberg MD General Social History Tobacco Use Types Packs/Day Years [...] Telephone Encounter - Robbie Fonseca RN - 10/12/2013 4:50 PM CDT Our office was notified that we need to call the [facility] help desk [phone] to get a 4 prescription override for test strips for bg testing 5- 6x/day, [facility] [phone]. I called at [phone], office closed at 1645. Notified mother. documented in this encounter Plan of Treatment Not on file documented as of this encounter Visit Diagnoses Not on filedocumented in this encounter Additional Health Concerns Infection Onset Date Last Indicated Resolved Time MRSA 01/28/2015 01/28/2015 10/22/2015 12:0 6 PM CDT documented as of this encounter Care Teams Voice Engineer Relationship Specialty Start Date End Date Chrissy Richards MD [address] [place] [address] PCP - General 07/02/11 11/26/13 Cierra Villarreal MD [address] [place] [phone] PCP - General Family Medicine 11/27/13 05/31/17 Marilu Westfall MD [address] [place] [address] PCP - General 06/01/17 06/12/18 Cierra Villarreal MD [address] [place] [phone] PCP - General Family Medicine 06/13/18 documented as of this encounter
--- OUTSIDE RECORDS SUMMARY | 2024-05-23 16:37 | XMS_ITS | Encounter Summary ---
Author Organization [facility] Address [address] [facility] [place] [address] Care Team Providers Care Rn Telehealth Name Role Phone Cierra Villarreal MD Primary Care Provider Encounter Details Date Type Department Care Team (Late st Contact Info) Description 04/27/2019 Telephone [facility] Pediatrics - Diabetes [address] [address] Alber Fiore, VARGHESE-LOADER ENGINEER [address] [place] [address] Social History Tobacco Use Types Packs/Day Years [...] encounter Miscellaneous Notes * Telephone Encounter - Lissy Walsh RN - 04/30/2019 8:51 AM CDT PA sent to [place] via covermymeds for precision xtra test strips. Addendum: 05/03/19: received denial for precision xtra blood ketones test strips. Called to do peer to peer. Approval received for 6 month for 3 fills total. If additional supply is needed, a new PA must be submitted justifying use. * Telephone Encounter - Augustina Schuster RN - 04/27/2019 5:16 PM CST A prior authorization was put through for precision xtra test strips. R CUTTER MACHINE documented in this encounter Plan of Treatment Not on file documented as of this encounter Visit Diagnoses Not on filedocumented in this encounter Care Teams Rn Telehealth Relationship Specialty Start Date End Date Cierra Villarreal MD [address] [place] [phone] PCP - General Family Medicine 06/13/18 documented as of this encounter
--- OUTSIDE RECORDS SUMMARY | 2024-05-23 16:37 | XMS_ITS | Encounter Summary ---
Author Organization [facility] Address [address] [facility] [place] [address] Care Team Providers Care Training Specialist Name Role Phone Cierra Villarreal MD Primary Care Provider Reason for Visit * Reason Comments Refill Request Encounter Details Date Type Department Care Team (Late st Contact Info) Description 08/20/2020 Refill [facility] Pediatrics - Diabetes [address] [address] Alber Fiore APRN-PECAN CLEANER [address] [place] [address] Refill Request Social History Tobacco Use Types [...] on filedocumented in this encounter Care Teams Training Specialist Relationship Specialty Start Date End Date Cierra Villarreal MD [address] [place] [phone] PCP - General Family Medicine 06/13/18 documented as of this encounter
--- OUTSIDE RECORDS SUMMARY | 2024-05-23 16:37 | XMS_ITS | Encounter Summary ---
Author Organization [facility] Address [address] [place] [address] Care Team Providers Care Retail Reset Merchandiser Name Role Phone Cierra Villarreal MD Primary Care Provider [phone] Marilu Westfall MD Primary Care Provider [phone] Cierra Villarreal MD Primary Care Provider [phone] Reason for Visit * Reason Onset Date Comments MEDICATION REFILL 11/29/2013 Encounter Details Date Type Department Care Team (Late st Contact Info) Description 11/29/2013 Refill [facility] - Diabetes [address] [address] Keely Frye, LINER ROLL CHANGER-MACHINE OPERATOR Retired MEDICATION REFILL Social History Tobacco Use [...] documented as of this encounter Care Teams Retail Reset Merchandiser Relationship Specialty Start Date End Date Cierra Villarreal MD [address] [place] [address] PCP - General Family Medicine 11/27/13 05/31/17 Marilu Westfall MD [address] [place] [address] PCP - General 06/01/17 06/12/18 Cierra Villarreal MD [address] [facility] [address] [place] [phone] PCP - General Family Medicine 06/13/18 documented as of this encounter
--- OUTSIDE RECORDS SUMMARY | 2024-05-23 16:37 | XMS_ITS | Encounter Summary ---
Author Organization [facility] Address [address] [facility] [place] [address] Care Team Providers Care Supervisory Training Specialist Name Role Phone Cierra Villarreal MD Primary Care Provider [phone] Marilu Westfall MD Primary Care Provider [phone] Cierra Villarreal MD Primary Care Provider [phone] Reason for Visit * Reason Onset Date Comments Refill Request 04/23/[address] strip RX to 12 times a day. When we use 10-12 times per day the insurance company goes with 10 times per day. Per [employer] this is what should be on the rx for the max number of test strips. Encounter Details Date Type Department Care Team (Late st Contact Info) Description 04/23/2014 Telephone [facility] Pediatrics - Diabetes [address] [address] Denia Greenberg MD Refill Request (Please change test strip RX to 12 times a day. When we use 10-12 times per day the insurance company goes with 10 times per day. Per [employer] this is what should be on the rx for the max number of test strips. ) Social History Tobacco Use Types Packs/Day [...] documented as of this encounter Care Teams Supervisory Training Specialist Relationship Specialty Start Date End Date Cierra Villarreal MD [address] [facility] [address] [place] [phone] PCP - General Family Medicine 11/27/13 05/31/17 Marilu Westfall MD [address] [place] [address] PCP - General 06/01/17 06/12/18 Cierra Villarreal MD [address] [place] [phone] PCP - General Family Medicine 06/13/18 documented as of this encounter
--- OUTSIDE RECORDS SUMMARY | 2024-05-23 16:37 | XMS_ITS | Encounter Summary ---
Author Organization [facility] Address [address] [facility] [place] [address] Care Team Providers Care Practice Assistant Name Role Phone Cierra Villarreal MD Primary Care Provider Encounter Details Date Type Department Care Team (Late st Contact Info) Description 11/15/2019 Telephone [facility] Pediatrics - Diabetes [address] [address] Alber Fiore, VARGHESE-JAZZ SINGER [address] [place] [address] Social History Tobacco Use Types Packs/Day Years [...] Miscellaneous Notes * Telephone Encounter - Eleanor aWng RN - 11/15/2019 11:13 AM CDT PA sent for precision xtra blood ketone strips. documented in this encounter Plan of Treatment Not on file documented as of this encounter Visit Diagnoses Not on filedocumented in this encounter Care Teams Practice Assistant Relationship Specialty Start Date End Date Cierra Villarreal MD [address] [place] [phone] PCP - General Family Medicine 06/13/18 documented as of this encounter
--- OUTSIDE RECORDS SUMMARY | 2024-05-23 16:37 | XMS_ITS | Encounter Summary ---
Author Organization [facility] Address [address] [facility] [place] [address] Care Team Providers Care Shipping And Receiving Clerk Name Role Phone Cierra Villarreal MD Primary Care Provider [phone] Reason for Visit * Reason Onset Date Comments Opened In Error 12/17/2019 Encounter Details Date Type Department Care Team (Late st Contact Info) Description 12/17/2019 Refill [facility] Pediatrics - Endocrinology [address] [address] Alber Fiore, VETERANS SERVICES SPECIALIST-UNDERWRITING SALES REPRESENTATIVE [address] [place] [address] Opened In Error Social History Tobacco Use Types Packs/Day Years [...] on filedocumented in this encounter Care Teams Shipping And Receiving Clerk Relationship Specialty Start Date End Date Cierra Villarreal MD [address] [place] [phone] PCP - General Family Medicine 06/13/18 documented as of this encounter
[2024-05-23 16:38] LABS: LDL Cholesterol Direct 55 mg/dL
--- OUTSIDE RECORDS SUMMARY | 2024-05-23 16:38 | XMS_ITS | Encounter Summary ---
Author Organization [facility] Address [address] [facility] [place] [address] Care Team Providers Care Door Framer Name Role Phone Cierra Villarreal MD Primary Care Provider [phone] Marilu Westfall MD Primary Care Provider [phone] Cierra Villarreal MD Primary Care Provider [phone] Reason for Visit * Reason Onset Date Comments Blood Sugar Problem 08/13/2014 Please call mom. BS are increasing, had a runny nose but that has cleared up. BS this AM 270. Please call in the AM, has appts with other children this afternoon Encounter Details Date Type Department Care Team (Late st Contact Info) Description 08/13/2014 Telephone [facility] Pediatrics - Diabetes [address] [address] Denia Greenberg MD Blood Sugar Problem (Please call mom. BS are increasing, had a runny nose but that has cleared up. BS this AM 270. Please call in the AM, has appts with other children this afternoon) Social History Tobacco Use Types Packs/Day Years [...] Yes 01/14/2014 documented as of this encounter Miscellaneous Notes * Telephone Encounter - Anat Yusuf RN - 08/13/2014 12:46 PM CDT I attempted return call from mother to review blood sugars. Mother in car and not in position to talk at this time. To call back when can review blood sugars later today after 1500. * Telephone Encounter - Robbie Fonseca RN - 08/13/2014 10:18 AM CDT I returned mom's call for blood sugar review. No answer, left message to call back. documented in this encounter Plan of Treatment Not on file documented as of this encounter Visit Diagnoses Not on filedocumented in this encounter Additional Health Concerns Infection Onset Date Last Indicated Resolved Time MRSA 01/28/2015 01/28/2015 10/22/2015 12:0 6 PM CDT documented as of this encounter Care Teams Door Framer Relationship Specialty Start Date End Date Cierra Villarreal MD [address] [place] [phone] PCP - General Family Medicine 11/27/13 05/31/17 Marilu Westfall MD [address] [place] [address] PCP - General 06/01/17 06/12/18 Cierra Villarreal MD [address] [place] [phone] PCP - General Family Medicine 06/13/18 documented as of this encounter
--- OUTSIDE RECORDS SUMMARY | 2024-05-23 16:38 | XMS_ITS | Referral Summary ---
Author Organization 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 Social History Tobacco Use Types Packs/Day Years Used Date Smoking Tobacco: Never Personal Safety Answer Date Recorded Getting School Help Needed Not on file 04/18 Sex and Gender Information Value Date Recorded Sex Assigned at Not on file Legal Sex Male 8:34 AM EMBEDDED FIRMWARE DEVELOPER Gender Identity Not on file Sexual Orientation Not on file Last Filed Vital Signs Vital Sign Reading Time Taken Comments Blood Pressure 106/65 04/19/2021 2:26 PM EMBEDDED FIRMWARE DEVELOPER Pulse 88 04/19/2021 2:20 PM EMBEDDED FIRMWARE DEVELOPER Temperature 36.2 C (97.2 F) 04/19/2021 2:26 PM EMBEDDED FIRMWARE DEVELOPER Respiratory Rate 18 04/19/2021 2:20 PM EMBEDDED FIRMWARE DEVELOPER Oxygen Saturation 97% 04/19/2021 2:20 PM EMBEDDED FIRMWARE DEVELOPER Inhaled Oxygen Concentration - - Weight 69 kg (152 lb 1.9 oz) 04/19/2021 2:22 PM EMBEDDED FIRMWARE DEVELOPER Height 149.9 cm (4' 11 ) 04/19/2021 2:22 PM EMBEDDED FIRMWARE DEVELOPER Body Mass Index 30.72 04/19/2021 2:22 PM EMBEDDED FIRMWARE DEVELOPER Plan of Treatment Not on file Insurance [facility] Care Teams Naval Special Warfare Medic Relationship Specialty Start Date End Date Pablito Villarreal MD [address] [place] [address] PCP - General 07/14/20
--- OUTSIDE RECORDS SUMMARY | 2024-05-23 16:38 | XMS_ITS | Encounter Summary ---
Author Organization [facility] Address [address] [facility] [place] [address] Care Team Providers Care Manager Leadership Development Name Role Phone Cierra Villarreal MD Primary Care Provider [phone] Marilu Westfall MD Primary Care Provider [phone] Cierra Villarreal MD Primary Care Provider [phone] Reason for Visit * Reason Onset Date Comments Letter 08/15/2014 mom called to lynn smith you received a letter from Sangeeta regarding Dex Encounter Details Date Type Department Care Team (Late st Contact Info) Description 08/15/2014 Telephone [facility] Pediatrics - Diabetes [address] [address] Keely Frye, FLAKING ROLL OPERATOR-SUPERINTENDENT RADIO COMMUNICATIONS Retired Letter (mom called to verify you received a letter from Sangeeta regarding Dex) Social History Tobacco Use Types Packs/Day Years [...] documented as of this encounter Care Teams Manager Leadership Development Relationship Specialty Start Date End Date Cierra Villarreal MD [address] [facility] [address] [place] [address] PCP - General Family Medicine 11/27/13 05/31/17 Marilu Westfall MD [address] [place] [address] PCP - General 06/01/17 06/12/18 Cierra Villarreal MD [address] [facility] [address] [place] [address] PCP - General Family Medicine 06/13/18 documented as of this encounter
--- OUTSIDE RECORDS SUMMARY | 2024-05-23 16:38 | XMS_ITS | Encounter Summary ---
Author Organization [facility] Address [address] [facility] [place] [address] Care Team Providers Care Underwear Welter Name Role Phone Cierra Villarreal MD Primary Care Provider [phone] Marilu Westfall MD Primary Care Provider [phone] Cierra Villarreal MD Primary Care Provider [phone] Reason for Visit * Reason Onset Date Comments Refill Request 08/26/2014 has the test str ip been sent to [facility]. Encounter Details Date Type Department Care Team (Late st Contact Info) Description 08/26/2014 Telephone [facility] Pediatrics - Diabetes [address] [address] Denia Greenberg MD Refill Request (has the test strip been sent to [facility]. ) Social History Tobacco Use Types Packs/Day [...] documented as of this encounter Care Teams Underwear Welter Relationship Specialty Start Date End Date Cierra Villarreal MD [address] [facility] [address] [place] [address] PCP - General Family Medicine 11/27/13 05/31/17 Marilu Westfall MD [address] [place] [address] PCP - General 06/01/17 06/12/18 Cierra Villarreal MD [address] [facility] [address] [place] [address] PCP - General Family Medicine 06/13/18 documented as of this encounter
--- OUTSIDE RECORDS SUMMARY | 2024-05-23 16:38 | XMS_ITS | Encounter Summary ---
Author Organization [facility] Address [address] [facility] [place] [address] Care Team Providers Care Manager Business Management Name Role Phone Cierra Villarreal MD Primary Care Provider [phone] Marilu Westfall MD Primary Care Provider [phone] Cierra Villarreal MD Primary Care Provider [phone] Reason for Visit * Reason Onset Date Comments Letter 08/15/2014 Mom request a le tter be mailed to [facility] stating how many times Dex checks his blood sugars and uses syringes, so their manager of case management can request an increased amount. Blood Sugar Problem 08/15/2014 after change s made by Anat, 08/14-HS 312, 3AM 227, 08/15 AM 331, (dad did forget insulin for dinner last night) Encounter Details Date Type Department Care Team (Late st Contact Info) Description 08/15/2014 Telephone [facility] Pediatrics - Diabetes [address] [address] Denia Greenberg MD Letter (Mom request a letter be mailed to [facility] stating how many times Dex checks his blood sugars and uses syringes, so their manager of case management can request an increased amount. ); Blood Sugar Problem (after changes made by Anat 08/14-HS 312, 3AM 227, 08/15 AM 331, (dad did forget insulin for dinner last night)) Social History Tobacco Use Types Packs/Day Years [...] as of this encounter Care Teams Manager Business Management Relationship Specialty Start Date End Date Cierra Villarreal MD [address] [place] [address] PCP - General Family Medicine 11/27/13 05/31/17 Marilu Westfall MD [address] [place] [address] PCP - General 06/01/17 06/12/18 Cierra Villarreal MD [address] [place] [address] PCP - General Family Medicine 06/13/18 documented as of this encounter
--- OUTSIDE RECORDS SUMMARY | 2024-05-23 16:38 | XMS_ITS | Encounter Summary ---
Author Organization [facility] Address [address] [place] [address] Care Team Providers Care Pourer Metal Name Role Phone Cierra Villarreal MD Primary Care Provider [phone] Marilu Westfall MD Primary Care Provider [phone] Cierra Villarreal MD Primary Care Provider [phone] Reason for Visit * Reason Onset Date Comments MEDICATION REFILL 05/09/2017 Encounter Details Date Type Department Care Team (Late st Contact Info) Description 05/09/2017 Refill [facility] Pediatrics - Endocrinology [address] [place] [address] Alber Fiore, SECURITIES COMPLIANCE EXAMINER-PATHOLOGY TECHNOLOGIST [address] [place] [address] MEDICATION REFILL Social History Tobacco Use Types [...] uncontrolled documented in this encounter Care Teams Pourer Metal Relationship Specialty Start Date End Date Cierra Villarreal MD [address] [facility] [address] [place] [address] PCP - General Family Medicine 11/27/13 05/31/17 Marilu Westfall MD [address] [place] [address] PCP - General 06/01/17 06/12/18 Cierra Villarreal MD [address] [facility] [address] [place] [address] PCP - General Family Medicine 06/13/18 documented as of this encounter
--- OUTSIDE RECORDS SUMMARY | 2024-05-23 16:38 | XMS_ITS | Clinical Summary ---
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 Medical History Medical History Date Comments Type 1 diabetes mellitus wit h ketoacidosis and without coma (HCC) Type 1 diabetes me llitus with ketoacidosis - (Added by TW Conv) Social History Tobacco Use Types Packs/Day Years Used Date Smoking Tobacco: Never Personal Safety Answer Date Recorded Getting School Help Needed Not on file 04/18 Sex and Gender Information Value Date Recorded Sex Assigned at Not on file Legal Sex Male 8:34 AM SUPERVISOR SHAVING AND SPLITTING Gender Identity Not on file Sexual Orientation Not on file Obstetrics History Last Filed Vital Signs Vital Sign Reading Time Taken Comments Blood Pressure 106/65 04/19/2021 2:26 PM SUPERVISOR SHAVING AND SPLITTING Pulse 88 04/19/2021 2:20 PM SUPERVISOR SHAVING AND SPLITTING Temperature 36.2 C (97.2 F) 04/19/2021 2:26 PM SUPERVISOR SHAVING AND SPLITTING Respiratory Rate 18 04/19/2021 2:20 PM SUPERVISOR SHAVING AND SPLITTING Oxygen Saturation 97% 04/19/2021 2:20 PM SUPERVISOR SHAVING AND SPLITTING Inhaled Oxygen Concentration - - Weight 69 kg (152 lb 1.9 oz) 04/19/2021 2:22 PM SUPERVISOR SHAVING AND SPLITTING Height 149.9 cm (4' 11 ) 04/19/2021 2:22 PM SUPERVISOR SHAVING AND SPLITTING Body Mass Index 30.72 04/19/2021 2:22 PM SUPERVISOR SHAVING AND SPLITTING Plan of Treatment Health Maintenance Due Date Last Done Comments Albumin Creatinine Ratio, Urine 2001 Depression Screening 2001 Foot Exam 2001 Hemoglobin A1C 2001 Hepatitis C Screening 2001 TSH Level 2001 eGFR 2001 Dilated Eye Exam 11/26/2011 Lipid Panel 11/26/2011 HPV Vaccines (1 - Male 3-dos e series) 2016 Meningococcal B Vaccine (1 o f 2 - Standard) 2017 Regular Well Visit/Exam 18-64 11/26/2019 Pneumococcal vaccine <65 (1 of 2 - PCV) 2020 DTaP/Tdap/Td Vaccine (7 - Td or Tdap) 10/09/2023 10/08/2013, 12/21/2005, 05/27/2003, Additional history exists Covid-19 Vaccine (4 - 2023-2 5 season) 2023 12/03/2020, 05/26/2020, 05/03/2020 Influenza Vaccine (Season Ended) 2024 01/23/2021, 02/22/2019, 12/13/2017, Additional history exists Hepatitis B Screening Completed 06/12/2002 , 03/06/2002, 01/16/2002 Varicella Vaccines Completed 10/05/2007, 02/25/2003 Insurance [employer] Care Teams Tie Buyer Relationship Specialty Start Date End Date Pablito Villarreal MD [address] [place] [address] PCP - General 07/14/20
--- OUTSIDE RECORDS SUMMARY | 2024-05-23 16:38 | XMS_ITS | Encounter Summary ---
Author Organization [facility] Address [address] [facility] [place] [address] Care Team Providers Care Equip Tech Name Role Phone Cierra Villarreal MD Primary Care Provider [phone] Marilu Westfall MD Primary Care Provider [phone] Cierra Villarreal MD Primary Care Provider [phone] Reason for Visit * Reason Onset Date Comments Refill Request 05/09/2017 insulin syringes , please refill to [facility] Encounter Details Date Type Department Care Team (Late st Contact Info) Description 05/09/2017 Telephone [facility] Pediatrics - Endocrinology [address] [place] [address] Denia Greenberg MD Refill Request (insulin syringes, please refill to [facility]) Social History Tobacco Use Types Packs/Day Years [...] on filedocumented in this encounter Care Teams Equip Tech Relationship Specialty Start Date End Date Cierra Villarreal MD [address] [phone] PCP - General Family Medicine 11/27/13 05/31/17 Marilu Westfall MD [address] [place] [address] PCP - General 06/01/17 06/12/18 Cierra Villarreal MD [address] [place] [phone] PCP - General Family Medicine 06/13/18 documented as of this encounter
--- OUTSIDE RECORDS SUMMARY | 2024-05-23 16:38 | XMS_ITS | Clinical Summary ---
Author Organization [facility] Address [facility] [place] [address] Care Team Providers Care Compensation Manager Name Role Phone Jeffery Serra MD Primary Care Provider [phone] Allergies Active Allergy Reactions Criticality Noted Date Comments Latex Hives,Rash Medium 01/27/2015 Sulfa Antibiotics Rash Medium 07/16/2011 Medications GVOKE HYPOPEN 2-PACK 1 MG/0.2ML Solution Auto-injector Active LANTUS SOLOSTAR 100 UNIT/ML injection (PEN) Inject 20 Units into the skin nightly at bedtime. Active insulin lispro (HUMALOG/ADMELO G) 100 UNIT/ML injection (VIAL) Inject into the skin 4 (four) times daily before meals and nightly. Per SS per parent/regina n 1:8 with breakfast 1:12 with lunch and dinner 1:8 at bedtime. Active polyethylene glycol (GLYCOLAX) packet Take 240 mLs (17 g total) by mouth daily with supper. Dissolve powder in 240 mL milk. Active Active Problems Problem Noted Date Diagnosed Date DKA, type 1 ([facility]) 11/27/2023 Immunizations Name Administration Dates Next Due Fluzone (IIV3, Trivalent, 0.5 ML Prefilled Syrin ) 11/27/2023 Social History Tobacco Use Types Packs/Day Years Used Date Smoking Tobacco: Never Smokeless Tobacco: Never Tobacco Cessation:Counseling Given: Not Answered Alcohol Use Standard Drinks/Week Comments Never 0 (1 standard drink = 0.6 oz pur e alcohol) B1300 Health Literacy Answer Date Recor ded How often do you need to hav e someone help you when you read instructions, pamphlets, or other written material from your doctor or pharmacy? Patient unable to respond 11/27/2023 [facility] Utilities Answer Date Recorded In the past 12 months has th e electric, gas, oil, or water [employer] threatened to shut off services in your home? No 11/27/2023 Humiliation, Afraid, Rape, and Kick questionnair e Answer Date Recorded Within the last year, have y ou been afraid of your partner or ex-partner? No 11/27/2023 Within the last year, have y ou been humiliated or emotionally abused in other ways by your partner or ex-partner? No Within the last year, have y ou been kicked, hit, slapped, or otherwise physically hurt by your partner or ex-partner? No 11/27/2023 Within the last year, have y ou been raped or forced to have any kind of sexual activity by your partner or ex-partner? No 11/27/2023 Social Connection and Isolat ion Panel [NHANES] Answer Date Recorded In a typical week, how many times do you talk on the phone with family, friends, or neighbors? Patient unable to answer 11/27/2023 How often do you get togethe r with friends or relatives? More than three times a week 11/27/2023 How often do you attend chur or faith services? Patient unable to answer 11/27/2023 Do you belong to any clubs o r organizations such as hinduism groups, unions, fraternal or athletic groups, or school groups? Patient unable to answer 11/27/2023 How often do you attend meet ings of the clubs or organizations you belong to? Patient unable to answer 11/27/2023 Are you , , di vorced, , never , or living with a partner? Never 11/27/2023 AUDIT-C Answer Date Recorded Q1: How often do you have a drink containing alcohol? Never 11/27/2023 Q2: How many drinks containi ng alcohol do you have on a typical day when you are drinking? Patient does not drink Q3: How often do you have si x or more drinks on one occasion? Never 11/27/2023 Overall Financial Resource Strain (CARDIA) Answe r Date Recorded How hard is it for you to pa y for the very basics like food, housing, medical care, and heating? Not hard at all 11/27/2023 Macanese Wheeler of Occupat ional [facility] - Occupational Stress Questionnaire Answer Date Recorded Do you feel stress - tense, restless, nervous, or anxious, or unable to sleep at night because your mind is troubled all the time - these days? Patient unable to answer 11/27/2023 Exercise Vital Sign Answer Date Recorde d On average, how many days pe r week do you engage in moderate to strenuous exercise (like a brisk walk)? 2 days 11/27/2023 On average, how many minutes do you engage in exercise at this level? 30 min 11/27/2023 Hunger Vital Sign Answer Date Recorded Within the past 12 months, y ou worried that your food would run out before you got the money to buy more. Never true 11/27/19 24 Within the past 12 months, t he food you bought just didn't last and you didn't have money to get more. Never true 11/27/2023 PRAPARE - Transportation Answer Date Re corded In the past 12 months, has l ack of transportation kept you from medical appointments or from getting medications? No 07/2023 In the past 12 months, has l ack of transportation kept you from meetings, work, or from getting things needed for daily living? No 11/27/2023 Housing Stability Vital Sign Answer Jese e Recorded In the last 12 months, was t here a time when you were not able to pay the mortgage or rent on time? No 11/27/2023 In the past 12 months, how m any times have you moved where you were living? 1 11/27/2023 At any time in the past 12 m [facility], were you homeless or living in a retirement (including now)? No 11/27/2023 Sex and Gender Information Value Date Recorded Sex Assigned at Not on file Legal Sex Male 6:55 PM CDT Gender Identity Not on file Sexual Orientation Not on file Last Filed Vital Signs Vital Sign Reading Time Taken Comments Blood Pressure 139/70 12/03/2023 1:46 AM CDT Pulse 97 12/03/2023 1:46 AM CDT Temperature 36.6 C (97.8 F) 12/02/2023 4:39 PM CDT Respiratory Rate 18 12/02/2023 10:47 PM CDT Oxygen Saturation 98% 12/03/2023 1:46 AM CDT Inhaled Oxygen Concentration - - Weight 67.6 kg (149 lb) 12/02/2023 4:39 PM CDT Height 154.9 cm (5' 1 ) 12/02/2023 4:39 PM CDT Body Mass Index 28.15 12/02/2023 4:39 PM CDT Plan of Treatment Health Maintenance Due Date Last Done Comments Kidney Health Evaluation 2001 Lipid Panel 2001 Annual Physical 2004 Pneumococcal Vaccine: Pediatrics (0 to 5 Years) and At-Risk Patients (6 to 64 Years) (1 of 2 - PCV) 11/26/2007 HPV Vaccines (1 - Male 3-dose series) 2016 Meningococcal B Vaccine (1 of 2 - Standard) 2017 Diabetes: Retinopathy Eye Exam 11/26/2019 Hepatitis C 11/26/2019 Hemoglobin A1C 11/24/2022 05/25/2022, 01/22, 10/12/2021, Additional history exists DTaP, Tdap and Td Vaccines (6 - Td or Tdap) 10/09/2023 10/08/2013, 12/21/2005, 05/27/2003, Additional history exists COVID-19 Vaccine ( - season) 2023 01/06/2023, 02/24/2022, 12/03/2020, Additional history exists Hepatitis B Vaccines Completed 06/12/2002, 03/06/2002, 01/16/2002 Meningococcal Vaccine Completed 10/17/2018, 014 RSV Immunizations Under 20 Months Aged Out No longer eligible based on patient's age to complete this topic Additional Health Concerns Infection Onset Date Last Indicated 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
[2024-05-23 16:45] LABS: Creatinine Urine 128.2 mg/dL
[2024-05-23 16:58] LABS: Thyroid Stimulating Hormone < 0.015 uIU/mL (0.465-4.680)
[2024-05-23 17:08] LABS: MALB Creatinine Ratio < 4.7 mg/g (0-30); Microalbumin Urine Random < 6.0 mg/L (0-16.7)
[2024-05-23 17:25] LABS: Iron 90 ug/dL (49-181)
[2024-05-23 17:34] LABS: Percent Iron Saturation 31 % (20-50)
[2024-05-23 17:42] LABS: Free T4 Free Thyroxine 3.53 ng/dL (0.78-2.19)
[2024-05-23 17:49] LABS: Vitamin D 25 Hydroxy 41.1 ng/mL
[2024-05-27 16:18] LABS: Thyroid Stimulating Immunoglob <89 % baseline (<140)
== END 2024-05-23 15:35 | disposition home or self-care (01) ==
LOC: ANHLAB 15:36
PROVIDERS: PCP Family Medicine; Visit Provider Internal Medicine
DX: E10.9 Type 1 diabetes mellitus without complications (principal)
CPT/HCPCS: 36415; 80053; 80061; 82043; 82306; 82607; 83519; 83540; 83550; 84439; 84443; 84445; 85027

== ENCOUNTER 2024-07-11 17:07 | Outpatient (CLI) | payer OTHER, SELFPAY ==
--- OUTSIDE RECORDS SUMMARY | 2024-07-11 17:09 | XMS_ITS | Encounter Summary ---
Author Organization [facility] Address [address] [place] [address] Care Team Providers Care Slp Teacher Name Role Phone Cierra Villarreal MD Primary Care Provider [phone] Encounter Details Date Type Department Care Team (Late st Contact Info) Description 08/21/2019 Telephone [facility] Pediatrics - Diabetes [address] [address] Alber Fiore, VARGHESE-GUN SEALING MACHINE OPERATOR [address] [place] [address] Social History Tobacco Use Types Packs/Day Years Used Date Smoking Tobacco: Never Smokeless Tobacco: Never Alcohol Use Standard Drinks/Week Comments No 0 (1 standard drink = 0.6 oz pur e alcohol) Sex and Gender Information Value Date Recorded Sex Assigned at Not on file 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 POTTERY KILN BUILDER Gender Identity Not on file Sexual Orientation Not on file COVID-19 Exposure Response Date Recorded In the last month, have you been in contact with someone who was confirmed or suspected to have Coronavirus / COVID-19? No / Unsure 08/21/2019 10:59 AM CDT documented as of this encounter Functional Status * Is person deaf or have serious hearing difficulty? Answer Date of Assessment Author No 10/03/2018 8:25 AM Patricio Shay RN * Is person blind or have serious difficulty seeing? Answer Date of Assessment Author No 10/03/2018 8:25 AM Patricio Shay RN * Does person have serious difficulty walking/climbing stairs? Answer Date of Assessment Author No 10/03/2018 8:25 AM Patricio Shay RN * Does person have difficulty dressing/bathing? Answer Date of Assessment Author Yes 10/03/2018 8:25 AM Patricio Shay RN * Does person have difficulty doing errands alone? Answer Date of Assessment Author Yes 10/03/2018 8:25 AM Patricio Shay RN documented as of this encounter Mental Status * Does person have difficulty concentrating/remembering/making decisions? Answer Entry Date Author Yes 10/03/2018 8:25 AM Patricio Shay RN documented in this encounter Plan of Treatment Not on file documented as of this encounter Visit Diagnoses Not on filedocumented in this encounter Care Teams Slp Teacher Relationship Specialty Start Date End Date Cierra Villarreal MD [address] [place] [phone] PCP - General Family Medicine 06/13/18 documented as of this encounter
--- OUTSIDE RECORDS SUMMARY | 2024-07-11 17:09 | XMS_ITS | Encounter Summary ---
Author Organization [facility] Address [address] [facility] [place] [address] Care Team Providers Care Glass Checker Name Role Phone Marilu Westfall MD Primary Care Provider [phone] Cierra Villarreal MD Primary Care Provider Encounter Details Date Type Department Care Team (Late st Contact Info) Description 10/05/2017 Telephone [facility] - Diabetes [address] [address] Denia Greenberg MD Social History Tobacco Use Types Packs/Day Years Used Date Smoking Tobacco: Never Smokeless Tobacco: Never Alcohol Use Standard Drinks/Week Comments No 0 (1 standard drink = 0.6 oz pur e alcohol) Sex and Gender Information Value Date Recorded Sex Assigned at Not on file 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 ZIPPER 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 Answer Date of Assessment Author No 02/03/2015 9:09 AM Betzaida Alexis RN * Is person blind or have serious difficulty seeing? Answer Date of Assessment Author No 02/03/2015 9:09 AM Betzaida Alexis RN * Does person have serious difficulty walking/climbing stairs? Answer Date of Assessment Author No 02/03/2015 9:09 AM Betzaida Alexis RN * Does person have difficulty dressing/bathing? Answer Date of Assessment Author Yes 02/03/2015 9:09 AM Betzaida Alexis RN * Does person have difficulty doing errands alone? Answer Date of Assessment Author Yes 02/03/2015 9:09 AM Betzaida Alexis RN documented as of this encounter Mental Status * Does person have difficulty concentrating/remembering/making decisions? Answer Entry Date Author 02/03/2015 9:09 AM Betzaida Alexis RN documented in this encounter Plan of Treatment Not on file documented as of this encounter Visit Diagnoses Not on filedocumented in this encounter Care Teams Glass Checker Relationship Specialty Start Date End Date Marilu Westfall MD [address] [place] [address] PCP - General 06/01/17 06/12/18 Cierra Villarreal MD [address] [phone] PCP - General Family Medicine 06/13/18 documented as of this encounter
--- OUTSIDE RECORDS SUMMARY | 2024-07-11 17:09 | XMS_ITS | Encounter Summary ---
Author Organization [facility] Address [address] [facility] [place] [address] Care Team Providers Care Marble Cleaner Name Role Phone Cierra Villarreal MD Primary Care Provider [phone] Reason for Visit * Reason Onset Date Comments Refill Request 06/25/2019 New prescription for syringes, Dex is using syringes for basaglar and admelog- 6 syringes a day, Only getting 1 box of 100 from pharmacy Encounter Details Date Type Department Care Team (Late st Contact Info) Description 06/25/2019 Telephone [facility] - Endocrinology [address] [place] [address] Ayaka Agarwal Refill Request (New prescription [...] on file 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 Gender Identity Not on file Sexual Orientation [...] on filedocumented in this encounter Care Teams Marble Cleaner Relationship Specialty Start Date End Date Cierra Villarreal MD [address] [place] [phone] PCP - General Family Medicine 06/13/18 documented as of this encounter
--- OUTSIDE RECORDS SUMMARY | 2024-07-11 17:09 | XMS_ITS | Encounter Summary ---
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 Answer Date of Assessment Author No 02/03/2015 9:09 AM INDUSTRIAL CLEANER Betzaida Zuniga RN * Is person blind or have [...] Betzaida Alexis RN documented in this encounter Miscellaneous Notes * Telephone Encounter - Tammi Lopes, RN - 10/01/2015 2:48 PM CDT Received prior authorization for accuchek test strips. Called and spoke with pharmacy. Pharmacy informed me they switched to [place] Medicaid. They can only get 200 test strips every 20 days with[place]ight [place] Medicaid. Pharmacist ran through [employer] ultra mini meter and test strips 200 [...] documented as of this encounter Care Teams Doormaker Relationship Specialty Start Date End Date Cierra Villarreal MD [address] [place] [phone] PCP - General Family Medicine 11/27/13 05/31/17 Marilu Westfall MD [address] [place] [address] PCP - General 06/01/17 06/12/18 Cierra Villarreal MD [address] [place], [place] [phone] PCP - General Family Medicine 06/13/18 documented as of this encounter
--- OUTSIDE RECORDS SUMMARY | 2024-07-11 17:09 | XMS_ITS | Encounter Summary ---
Author Organization [facility] Address [address] [facility] [place] [address] Care Team Providers Care Teachers Assistant Name Role Phone Cierra Villarreal MD Primary Care Provider [phone] Marilu Westfall MD Primary Care Provider [phone] Cierra Villarreal MD Primary Care Provider [phone] Reason for Visit * Reason Onset Date Comments MEDICATION REFILL 06/26/2015 Encounter Details Date Type Department Care Team (Late st Contact Info) Description 06/26/2015 Refill [facility] - Diabetes [address] [address] Denia Greenberg MD MEDICATION REFILL Social History Tobacco Use Types Packs/Day Years Used Date Smoking Tobacco: Never Alcohol Use Standard Drinks/Week Comments No 0 (1 standard drink = 0.6 oz pur e alcohol) Sex and Gender Information Value Date Recorded Sex Assigned at Not on file 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 Answer Date of Assessment Author No 02/03/2015 9:09 AM DIESEL TRACTOR ENGINE MECHANIC Betzaida Zuniga RN * Is person blind [...] documented as of this encounter Care Teams Teachers Assistant Relationship Specialty Start Date End Date Cierra Villarreal MD [address] [facility] [address] [place] [phone] PCP - General Family Medicine 11/27/13 05/31/17 Marilu Westfall MD [address] [place] [address] PCP - General 06/01/17 06/12/18 Cierra Villarreal MD [address] [facility] [address] [place] [phone] PCP - General Family Medicine 06/13/18 documented as of this encounter
--- OUTSIDE RECORDS SUMMARY | 2024-07-11 17:09 | XMS_ITS | Encounter Summary ---
Author Organization [facility] Address [address] [place] [address] Care Team Providers Care Catholic Priest Name Role Phone Cierra Villarreal MD Primary Care Provider Encounter Details Date Type Department Care Team (Late st Contact Info) Description 11/15/2019 Telephone [facility] Pediatrics - Diabetes [address] [address] Alber Fiore APRN-[facility]IT[facility] [place] [address] Social History Tobacco Use Types Packs/Day Years Used Date Smoking Tobacco: Never Smokeless Tobacco: Never Alcohol Use Standard Drinks/Week Comments No 0 (1 standard drink = 0.6 oz pur e alcohol) Sex and Gender Information Value Date Recorded Sex Assigned at Not on file 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 Answer Date of Assessment Author No 10/03/2018 8:25 AM Patricio Shay RN * Is person blind or have serious difficulty seeing? Answer Date of Assessment Author No 10/03/2018 8:25 AM Particio Shay RN * Does person have serious difficulty walking/climbing stairs? Answer Date of Assessment Author No 10/03/2018 8:25 AM CDT Patricio Bhatti RN * Does person have difficulty dressing/bathing? Answer Date of Assessment Author Yes 10/03/2018 8:25 AM CDT Patricio Bhatti RN * Does person have difficulty doing errands alone? Answer Date of Assessment Author Yes 10/03/2018 8:25 AM CDT Patricio Bhatti RN documented as of this encounter Mental Status * Does person have difficulty concentrating/remembering/making decisions? Answer Entry Date Author Yes 10/03/2018 8:25 AM CDT Patricio Bhatti RN documented in this encounter Miscellaneous Notes * Telephone Encounter - Eleanor Wang RN - 11/15/2019 11:13 AM CDT PA sent for [employer] xtra blood ketone strips. documented in this encounter Plan of Treatment Not on file documented as of this encounter Visit Diagnoses Not on filedocumented in this encounter Care Teams Catholic Priest Relationship Specialty Start Date End Date Cierra Villarreal MD [address] [place] [phone] PCP - General Family Medicine 06/13/18 documented as of this encounter
--- OUTSIDE RECORDS SUMMARY | 2024-07-11 17:09 | XMS_ITS | Encounter Summary ---
Author Organization [facility] Address [address] [place] [address] Care Team Providers Care Membership Correspondent Name Role Phone Cierra Villarreal MD Primary Care Provider [phone] Marilu Westfall MD Primary Care Provider [phone] Cierra Villarreal MD Primary Care Provider [phone] Reason for Visit * Reason Onset Date Comments Blood Sugar Problem 10/24/2014 Mom is still noticing elevated blood sugars at the mid-afternoon check (between 1:15-2:00PM). Please call to review blood sugars and further changes that need to be made. 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 Answer Date of Assessment Author No 01/14/2014 9:10 AM Patricio Green RN * Is person blind or have serious difficulty seeing? Answer Date of Assessment Author No 01/14/2014 9:10 AM Patricio Green RN * Does person have serious difficulty walking/climbing stairs? Answer Date of Assessment Author No 01/14/2014 9:10 AM Patricio Green RN * Does person have difficulty dressing/bathing? Answer Date of Assessment Author 01/14/2014 9:10 AM Patricio Green RN * Does person have difficulty doing errands alone? Answer Date of Assessment Author 01/14/2014 9:10 AM Patricio Green RN documented as of this encounter Mental Status * Does person have difficulty concentrating/remembering/making decisions? 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
--- OUTSIDE RECORDS SUMMARY | 2024-07-11 17:09 | XMS_ITS | Data Portability ---
Author Organization [facility] Address [address] [place] [address] Care Team Providers Care Die Maker Name Role Phone CIERA DOZIER Primary Care Provider Unavailabl e Assessment No assessment recorded. Plan of Treatment Reminders Order Date Submit Date Provider Last Modified By Organization Details Last Modified Time Details Appointments None record ed. Lab None record ed. Referral None record ed. Procedures None record ed. Surgeries None record ed. Imaging None record ed. Medication Orders None record ed. Patient TargetsNo targets recorded. 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 I agree with the resident's assessment and plan as documented with the following addendum: None. Dr. Maribel Ho MD Attending Physician, [facility]. [email or web address] Not available 09/08/2023 10:27:03 Reason for Referral None Reported. Results Created Date Observation Date Name Description Value Unit Range Abnormal Flag Note LastModifiedBy Organization Detail LastModifiedTime 01/29/20 20 01/29/2020 XR, abdom en No observ ation record ed. [email or web address] Not Available 2019 19:11:52 11/28/19 24 ECG 12-le ad [facility] [address] [place] [address] [facility] [place] [address], [place] Test Date: 2023-02 0-06 Pat Name: TRISTA Love ment: 41 Sully carr ID: [id number] Room: [id number] Gender : Male Techni devin: KH : 2000-02 0-05 Reques aspen By: OKSANA Ng Order Number : [id number] Bebeto aguilar MD: Parveen Galicia Measur ements Interv als Gifford Rate: 146 P: 65 KS: 121 QRS: 73 QRSD: 93 T: 19 QT: 274 QTc: 428 Interp retive Statem ents SINUS TACHYC ARDIA, POSSIB LE ATRIAL FLUTTE R INCOMP LETE RIGHT BUNDLE BRANCH BLOCK [90+ ms QRS DURATI ON, TERMIN AL R IN V1/V2, 40+ ms S IN I/aVL/ V4/V5/ V6] ABNORM AL RHYTHM ECG No previo us ECG availa ble for compar macy Electr onical ly signed by Parveen Galicia at -6-2 024 23:30: 38 CDT [email or web address] [facility] [address] [facility], [place], [address], 12/14/2023 15:12:37 12/02/19 24 XR, chest [facility] [place] [address] [facility] [place] 1 [facility] [address] [place] [id number] EXAMIN ATION: Chest X-Ray 1 View ACCESS ION: [id number] EXAM DATE/T ODALYS: 2023 5:50 PM REASON FOR EXAM: Cough. Sully t has Down syndro me. COMPAR MACY: None. TECHNI QUE: Single uprigh t/semi uprigh t/supi ne fronta l projec tion view of the chest was obtain ed. FINDIN GS: There is no focal infilt rate or consol idativ e change . Heart size is within normal limits for techni que. Pulmon franky vascul ature is within normal limits for techni que. There is no large pleura l effusi on or pneumo thorax . ===== IMPRES MICHA:= ==== 1. NO ACUTE CARDIO PULMON FRANKY RAWLS. Referr ed By: Franco benites ly Signed By: Kyler chinchilla MD on 2023 6:29 PM Interp reted By: Kyler chinchilla MD, 2023 6:[address], [place], [address], 12/14/2023 15:12:37 Result Notes None recorded. 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 Procedures Surgical History None recorded. Imaging Results Imaging Date Name Status LastModified by Organiz ation Details LastModified Time 01/29/2020 XR, abdomen completed Information n ot available 02/04/2020 19:11:52 11/28/2023 ECG 12-lead completed [address], [place], [address], 12/14/2023 15:12:37 12/02/2023 XR, chest completed [address], [place], [address], 12/14/2023 15:12:37 Procedure Notes None recorded. Medical Equipment None Reported. Allergies Allergen ID Allergen Name Allergen Category Reaction Reaction Severity Criticality Documentation Date Start Date Code Code System Note Provider Name and Address Organization Details Recorded Time 764727 latex environme nt,medica tion Not available Not available Not available 01/20/20182014 63990 91 RxNorm Other react ions and sever ities : 'Skin React ions' . Nixon Rosario Attn: Jeremi g,[address] [facility], [place], [address] , [facility] 0 11:50:51 30253 Substance with sulfonami de structure and antibacte rial mechanism of action (substanc e) medicatio n rash Not available Not available 09/27/2016 91317 8003 SNOMED Avani Goldstein CMA [facility], [place] - [facility] 7 14:56:07 Medications Name Sig Start Date Stop Date Status Note LastModified by Organization Details LastModified Time Glucagon Emergency Kit 1 mg solution for injection active Not Available Not Availabl e Not Available Lantus U-100 Insulin 100 unit/mL subcutaneous solution 13 units by sub-q route. active Not Available Not Available No t Available insulin lispro (U-100) 100 unit/mL subcutaneous solution active Not Available Not Available Not Available Ketostix strips active Not Available Not Available Not Available Lantus Solostar U-100 Insulin 100 unit/mL (3 mL) subcutaneous pen INJECT 21 UNITS UNDER THE SKIN EVERY EVENING active Not Available Not Available No t Available Precision Xtra B-Ketone strips USE TO TEST BLOOD KETONES IF BLOOD SUGAR IS OVER 250 OR ILL active Not Available Not Available No t Available Accu-Chek FastClix Lancing Device active Not Available Not Availab le Not Available OneTouch Verio test strips TEST BLOOD SUGAR FIVE TIMES DAILY active Not Available Not Available No t Available TRUEplus Insulin 0.3 mL 31 gauge x 5/16 syringe USE 6 TIMES DAILY active Not Available Not Available No t Available TRUEplus Insulin 0.5 mL 29 gauge x 1/2 syringe USE WITH INSULIN FIVE TIMES DAILY active Not Available Not Available No t Available OneTouch Delica Lancets 30 gauge active Not Available Not Available Not Available TRUEplus Pen Needle 29 gauge x 1/2 USE SIX TIMES DAILY active Not Available Not Available No t Available TRUEplus Pen Needle 32 gauge x 5/32 USE WITH INSULIN FIVE TIMES DAILY active Not Available Not Available No t Available OneTouch Ultra Blue Test Strip active Not Available Not Available Not Available OneTouch Delica Plus Lancet 33 gauge TEST BLOOD SUGAR 5 TIMES DAILY active Not Available Not Available No t Available Gvoke HypoPen 2-Pack 1 mg/0.2 mL subcutaneous auto-injector active Not Available Not Availabl e Not Available Vitals Date Recorded Body height Body mass index (BMI) Body mass index (BMI) Percentile per age and sex Body weight Body temperature Heart rate Oxygen saturation Oxygen saturation in Arterial blood by Pulse oximetry Systolic blood pressure Diastolic blood pressure Provider Name and Address Organization Details Last Updated DateTime 9 152.4 cm 31.2 kg/m2 98 % 77382.3 4 g 98.3 [degF] 74 /min 96 % 96 % 104 mm[Hg] 70 mm[Hg] Edna Roche [facility] 9 16:59:08 Date Recorded Body temperature Body height Body mass index (BMI) Body weight Heart rate Oxygen saturation Oxygen saturation in Arterial blood by Pulse oximetry Systolic blood pressure Diastolic blood pressure Provider Name and Address Organization Details Last Updated DateTime 4 97.8 [degF] 149.86 cm 34.8 kg/m2 10737.2 4 g 108 /min 98 % 98 % 125 mm[Hg] 87 mm[Hg] Kristin Good MA [facility] 4 14:51:22 Social History Question Answer Notes LastModified by Fantex ion Details LastModified Time Tobacco Smoking Status Never Smoker Edna humphreys [facility] 10/16/2018 16:54:05 What Was The Date Of Your Most Recent Tobacco Screening? 08/13/2019 Information not available 08/13/2019 Sex: Unknown Functional Status Question Answer Note LastModified by Asteelizat ion Details LastModified Time Do you or have you ever used smokeless tobacco? Never used smokeless tobacco Information not available 08/13/2019 Do you or have you ever used e-cigarettes or vape? Never used electronic cigarettes [facility] Information not available 08/13/2019 Mental Status None recorded. Family History Nothing Reported. Medical History No medical history recorded. Immunizations Vaccine Type Date Status Note Provider Nam e and Address Organization Details Recorded Time Influenza, split virus, quadrivalent, PF 6 completed Cierra Villarreal MD Attn: [address] [place], [address], [place] [facility] 12/06/2019 11:50:57 Influenza, split virus, quadrivalent, PF 4 completed Cierra Villarreal MD Attn: Accounting[address] [place], [address], [place] [facility] 12/06/2019 11:50:57 COVID-19, mRNA, LNP-S, PF, 30 mcg/0.3 mL dose 1 completed Tana Hand[place] null, [place] [facility] 12/18/2020 12:59:38 COVID-19, mRNA, LNP-S, PF, 30 mcg/0.3 mL dose 1 completed [place] Hand[place], [place] [facility] 12/18/2020 12:59:43 Influenza, split virus, quadrivalent, PF 8 completed Not Available [facility] 03/10/2019 02:49:14 meningococcal MCV4P 9 completed Not Available [facility] 03/10/2019 02:43:38 DTaP-IPV 3 completed Cierra Villarreal MD Attn: Accounting[address] [place], [address], [place] [facility] 12/06/2019 11:53:42 OWxX-Qzp-GCK 3 completed Cierra Villarreal MD Attn: Accounting[address] [place], [address], [place] [facility] 12/06/2019 11:53:43 XMvL-Txf-KLO 3 completed Cierra Villarreal MD Attn: Accounting[address] [place], [address], [place] [facility] 12/06/2019 11:53:42 DTP-Hib 4 completed Cierra Villarreal MD Attn: Accounting[address] , [place], [address], [place] [facility] 12/06/2019 11:53:42 DTaP-IPV 6 completed Cierra Villarreal MD Attn: Accounting,[address] [facility], [place], [address], [place] [facility] 12/06/2019 11:53:42 Tdap 4 completed Cierra Villarreal MD Attn: Accounting,[address] [facility], [place], [place], [address] [place] [address], [place] [facility] 12/06/2019 11:53:43 Hep B, adolescent or pediatric 2 completed Cierra Villarreal MD Attn: Accounting,[address] [facility], [place], [place], [address] [place] [address], [place] [facility] 12/06/2019 11:53:43 Hep B, adolescent or pediatric 3 completed Cierra Villarreal MD Attn: Accounting,[address] [facility], [place], [place], [address] [place] [address], [place] [facility] 12/06/2019 11:53:42 Hep B, adolescent or pediatric 3 completed Cierra Villarreal MD Attn: Accounting,[address] [facility], [place], [address], [place] [facility] 12/06/2019 11:53:43 MMR 4 completed Cierra Villarreal MD Attn: Accounting[address] [facility], [place], [address], [place] [facility] 12/06/2019 11:53:42 MMR 6 completed Cierra Villarreal MD Attn: Accounting,[address] [facility], [place], [address], [place] [facility] 12/06/2019 11:53:42 varicella 4 completed Cierra Villarreal MD Attn: Accounting,[address] [facility], [place], [address], [place] [facility] 12/06/2019 11:53:42 varicella 8 completed Cierra Villarreal MD Attn: Accounting,[address] [facility], [place], [address], [place] [facility] 12/06/2019 11:53:43 meningococcal MCV4P 4 completed Cierra Villarreal MD Attn: Accounting,[address] [facility], [place], [address], [place] [facility] 12/06/2019 11:53:42 Hep A, unspecified formulation 1 completed Cierra Villarreal MD Attn: Accounting,[address] [facility], [place], [place], [address] [place] [address], [place] [facility] 12/06/2019 11:53:42 Hep A, unspecified formulation 4 completed Cierra Villarreal MD Attn: Accounting,[address] [facility], [place], [place], [address] [place] [address], [place] [facility] 12/06/2019 11:53:42 influenza, unspecified formulation 4 completed Cierra Villarreal MD Attn: Accounting,[address] [facility], [place], [address], [place] [facility] 12/06/2019 11:53:42 influenza, unspecified formulation 5 completed Cierra Villarreal MD Attn: Accounting,[address] [facility], [place], [address], [place] [facility] 12/06/2019 11:53:43 influenza, unspecified formulation 8 completed Cierra Villarreal MD Attn: Accounting,[address] [facility], [place], [address], [place] [facility] 12/06/2019 11:53:43 influenza, unspecified formulation 9 completed Cierra Villarreal MD Attn: Accounting,[address], [place], [address], [place] [facility] 12/06/2019 11:53:42 influenza, unspecified formulation 1 completed Cierra Villarreal MD Attn: Accounting,[address], [place], [address], [place] [facility] 12/06/2019 11:53:43 influenza, unspecified formulation 3 completed Cierra Villarreal MD Attn: Accounting,[address], [place], [address], [facility] 12/06/2019 11:50:57 Past Encounters Encounter ID Performer Location Encounter Start Date Encounter Closed Date Diagnosis/Indication Diagnosis SNOMED-CT Code Diagnosis ICD10 Code Diagnosis Note [id number] Tracy Alcantar-Yaw cline MD [facility] ([address]) [address] [place] [address] 09/27/2016 14:42:02 09/28/2016 13:30:51 History and physical examination, sports participation 636883492 Z02.5 - History of Downs Syndrome. Mom denies cardiac defects but pt sees cardiologi st regularly- Mom denies hearing defects, visual acuity defects- Discussed weight and importance of eating healthy as a family despite pt being predispose d to obesity- Discussed risk of thyroid disorder but mom denies symptoms at this time- Will require modificati on of sports in school which he [id number] Cierra Villarreal MD [address] [address] 12/13/2017 10:37:54 12/15/2017 10:49:42 Active or passive immunization 839206320 Z23 [id number] Cierra Villarreal MD [place] [address] [facility] [address] [place] [address] 01/20/2018 16:23:14 01/30/2018 10:18:03 Well child 530554291 Z00.129 Discussed diet, exercise and puberty. Complete t risomy 21 syndrome 88513516 Q90.9 reviewed developmen t and puberty in downs syndrome [id number] Cierra Villarreal MD [place] [address] [address] 10/16/2018 16:33:12 10/20/2018 10:08:00 Active or passive immunization 968731640 Z23 reviewed and updated Well child visit 8746970 09 Z00.129 Reviewed healthy eating and activity [id number] Cierra Villarreal MD [place] [address] [address] 08/13/2019 13:18:12 08/20/2019 12:05:11 Loss of hair 402635954 L65.9 Discussed dx and tx options- advised needs to have thyroid checked. He is due for his blood work with endocrin and will follow up in a few months if nothing comes of the endocrin work up . [id number] Cierra [facility]real MD [facility] [address] [place] [address] 09/24/2019 12:37:32 09/25/2019 13:38:12 Loss of hair 502843108 L65.9 resolved- blood work normal likely related to stress. Encouraged healthy hair care. [id number] Cierra Villarreal MD [address] [address] 12/06/2019 08:27:01 12/10/2019 11:43:32 Complete trisomy 21 syndrome 09255147 Q90.9 reviewed developmen t in downs syndrome- guardian paper work completed. Autistic disorder 333234 003 F84.0 overall stable with lots of family support. He is unable to perform self care [id number] ROSARIO CARRILLO MD [address] [address] 09/06/2023 14:36:34 09/08/2023 12:12:11 Autism spectrum disorder 71886338 F84.0 - Pts mother wanted the pt to have state ID- Filled in the form: Applicatio n for an [place] Person with a disability indentific ation card.- His mother had no concerns in the officePlan :- apt PRN Health Concerns Section Related Observation LastModified by Organization Detai ls LastModified Time None Recorded Concern Status LastModified by Organization Details LastModified Time None Recorded Advance Directives Directive None Recorded Payers Encounter Date Sequence Insurance Name Policy Number Policy Lane Covered Member ID Lane Member ID Guarantor Name 10/16/2018 1 [facility] PRIOR TO 08/21/2020 (MEDICAID REPLACEMENT - HMO) Trista Cottrell [id number] Bernice Cottrell 08/13/2019 1 [facility] PRIOR TO 08/21/2020 (MEDICAID REPLACEMENT - HMO) Trista Cottrell [id number] Bernice Cottrell 09/24/2019 1 [facility] PRIOR TO 08/21/2020 (MEDICAID REPLACEMENT - HMO) Trista Cottrell [id number] Bernice Cottrell 12/06/2019 1 [facility] PRIOR TO 08/21/2020 (MEDICAID REPLACEMENT - HMO) Trista Cottrell [id number] Bernice Cottrell 09/06/2023 1 [facility] (MEDICAID HMO) [id number] Trista Cottrell [id number] Bernice Cottrell Notes Date Note Type Note Provider Name and Address Organization Details Recorded Time 10/16/2018 text/html Generic HPI TemplateReported bypatient.Notes:Bolivar lebron doing well. He has T1DM and follows with endocrine. Mother reports he is very picky eater and has difficulty communicating. Cierra Villarreal MD Attn: [address] [place], [address], [facility] 10/19/2018 17:34:28 08/13/2019 text/html Generic HPI TemplateReported bypatient.Notes:Over the last few months has had increasing thinning of hair- with some patches that are senior publications specialist but continues to have some hair growth. Cierra Villarreal MD Attn: Accounting[address] [place], [address], [facility] 08/19/2019 22:17:57 09/24/2019 text/html Generic HPI TemplateReported bypatient.Notes:Hair has improved thickness and was seen by endocrine and blood work was normal. Cierra Villarreal MD Attn: Accounting,[address] [facility], [place], [address], [facility] 09/24/2019 15:51:59 12/06/2019 text/html Generic HPI TemplateReported bypatient.Notes:Overal l doing well. He has T1DM and follows with endocrine. Mother reports he is very picky eater and has difficulty communicating. Cierra Villarreal MD Attn: Accounting,[address] [facility], [place], [address], [facility] 12/09/2019 11:49:53 09/06/2023 text/html 22 yr old adult with ASD here with parents. Parents brought in application for [place] person with disability identification card form filled in. Mother states she has no concerns today. MARIBEL HO MD Attn: Accounting[address] [facility], [place], [address], [facility] 09/08/2023 10:27:06
--- OUTSIDE RECORDS SUMMARY | 2024-07-11 17:09 | XMS_ITS | Encounter Summary ---
Author Organization [facility] Address [address] [place] [address] Care Team Providers Care First Assistant Manager Name Role Phone Chrissy Richards MD Primary Care Provider [phone] Cierra Villarreal MD Primary Care Provider [phone] Marilu Westfall MD Primary Care Provider [phone] Cierra Villarreal MD Primary Care Provider [phone] Reason for Visit * Reason Onset Date Comments Letter for School or Work 11/01/2012 Encounter Details Date Type Department Care Team (Late st Contact Info) Description 11/01/2012 Telephone [facility] Pediatrics - Diabetes [address] [address] Keely Frye, RUNNER MAN-LOAN PROCESSOR Retired Letter for School or Work Social History Tobacco Use Types Packs/Day Years Used Date Smoking Tobacco: Never Alcohol Use Standard Drinks/Week Comments Not Asked 0 (1 standard drink = 0.6 oz pur e alcohol) Sex and Gender Information Value Date Recorded Sex Assigned at Not on file 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
--- OUTSIDE RECORDS SUMMARY | 2024-07-11 17:09 | XMS_ITS | Encounter Summary ---
Author Organization [facility] Address [address] [place] [address] Care Team Providers Care House Carpenter Name Role Phone Cierra Villarreal MD Primary Care Provider [phone] Reason for Visit * Reason Comments Refill Request Encounter Details Date Type Department Care Team (Late st Contact Info) Description 05/05/2019 Refill [facility] Pediatrics - Diabetes [address] [address] Denia Greenberg MD Refill Request Social History Tobacco Use Types Packs/Day Years Used Date Smoking Tobacco: Never Smokeless Tobacco: Never Alcohol Use Standard Drinks/Week Comments No 0 (1 standard drink = 0.6 oz pur e alcohol) Sex and Gender Information Value Date Recorded Sex Assigned at Not on file 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
--- OUTSIDE RECORDS SUMMARY | 2024-07-11 17:09 | XMS_ITS | Encounter Summary ---
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 No / Unsure 02/19/2021 3:26 PM RADIO TELEVISION TECHNICAL DIRECTOR documented as of this encounter Functional Status * Is person deaf or have serious hearing difficulty? Answer Date of Assessment Author No 02/09/2021 9:37 AM Guero Roy RN * Is person blind or have serious difficulty seeing? Answer Date of Assessment Author No 02/09/2021 9:37 AM Guero Roy RN * Does person have serious difficulty walking/climbing stairs? Answer Date of Assessment Author Yes 02/09/2021 9:37 AM Geuro Roy RN * Does person have difficulty dressing/bathing? Answer Date of Assessment Author Yes 10/03/2018 8:25 AM Patricio Shay RN * Does person have difficulty doing errands alone? Answer Date of Assessment Author Yes 02/09/2021 9:37 AM Guero Roy RN documented as of this encounter Mental Status * Does person have difficulty concentrating/remembering/making decisions? Answer Entry Date Author Yes 02/09/2021 9:37 AM Guero Roy RN documented in this encounter Plan of Treatment Not on file documented as of this encounter Visit Diagnoses Not on filedocumented in this encounter Care Teams Bonding Equipment Operator Relationship Specialty Start Date End Date Cierra Villarreal MD [address] [place] [address] PCP - General Family Medicine 06/13/18 documented as of this encounter
--- OUTSIDE RECORDS SUMMARY | 2024-07-11 17:09 | XMS_ITS | Encounter Summary ---
Author Organization [facility] Address [address] [place] [address] Care Team Providers Care Manager Life Sciences Name Role Phone Cierra Villarreal MD Primary Care Provider [phone] Encounter Details Date Type Department Care Team (Late st Contact Info) Description 04/27/2019 Telephone [facility] Pediatrics - Diabetes [address] [address] Alber Fiore APRN-EVP GENERAL COUNSEL 1 [place] [address] Social History Tobacco Use Types Packs/Day Years Used Date Smoking Tobacco: Never Smokeless Tobacco: Never Alcohol Use Standard Drinks/Week Comments No 0 (1 standard drink = 0.6 oz pur e alcohol) Sex and Gender Information Value Date Recorded Sex Assigned at Not on file 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 OPTICAL 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 Addendum: 05/03/19: [...] put through for precision xtra test strips. CAL EFFECTS LINE UP PERSON documented in this encounter Plan of Treatment Not on file documented as of this encounter Visit Diagnoses Not on filedocumented in this encounter Care Teams Manager Life Sciences Relationship Specialty Start Date End Date Cierra Villarreal MD [address] [place], [place] [phone] PCP - General Family Medicine 06/13/18 documented as of this encounter
--- OUTSIDE RECORDS SUMMARY | 2024-07-11 17:09 | XMS_ITS | Encounter Summary ---
Author Organization [facility] Address [address] [facility] [place] [address] Care Team Providers Care Network Control Supervisor Name Role Phone Cierra Villarreal MD Primary Care Provider [phone] Marilu Westfall MD Primary Care Provider [phone] Cierra Villarreal MD Primary Care Provider [phone] Reason for Visit * Reason Onset Date Comments MEDICATION REFILL 11/29/2013 Encounter Details Date Type Department Care Team (Late st Contact Info) Description 11/29/2013 Refill [facility] - Diabetes [address] [address] Keely Frye, FLOORING HELPER-PROMOTIONS PRODUCER Retired MEDICATION REFILL Social History Tobacco Use Types Packs/Day Years Used Date Smoking Tobacco: Never Alcohol Use Standard Drinks/Week Comments Not Asked 0 (1 standard drink = 0.6 oz pur e alcohol) Sex and Gender Information Value Date Recorded Sex Assigned at Not on file 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 Gender Identity Not on file Sexual Orientation Not on file documented as of this encounter Plan of Treatment Not on file documented as of this encounter Visit Diagnoses Not on filedocumented in this encounter Additional Health Concerns Infection Onset Date Last Indicated Resolved Time MRSA 01/28/2015 01/28/2015 10/22/2015 12:0 6 PM CDT documented as of this encounter Care Teams Network Control Supervisor Relationship Specialty Start Date End Date Cierra Villarreal MD [address] [facility] [address] [place] [address] PCP - General Family Medicine 11/27/13 05/31/17 Marilu Westfall MD [address] [place] [address] PCP - General 06/01/17 06/12/18 Cierra Villarreal MD [address] [facility] [address] [place] [address] PCP - General Family Medicine 06/13/18 documented as of this encounter
--- OUTSIDE RECORDS SUMMARY | 2024-07-11 17:09 | XMS_ITS | Encounter Summary ---
Author Organization [facility] Address [address] [facility] [place] [address] Care Team Providers Care Professor Of Violin Name Role Phone Cierra Villarreal MD Primary Care Provider [phone] Marilu Westfall MD Primary Care Provider [phone] Cierra Villarreal MD Primary Care Provider [phone] Reason for Visit * Reason Onset Date Comments MEDICATION REFILL 05/09/2017 Encounter Details Date Type Department Care Team (Late st Contact Info) Description 05/09/2017 Refill [facility] Pediatrics - Endocrinology [address] [place] [address] Alber Fiore, WAREHOUSE ORDER PULLER-STUDENT NURSE [address] [place] [address] MEDICATION REFILL Social History Tobacco Use Types Packs/Day Years Used Date Smoking Tobacco: Never Smokeless Tobacco: Never Alcohol Use Standard Drinks/Week Comments No 0 (1 standard drink = 0.6 oz pur e alcohol) Sex and Gender Information Value Date Recorded Sex Assigned at Not on file 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 YARD WAREHOUSE WORKER Gender Identity Not on file Sexual Orientation [...] uncontrolled documented in this encounter Care Teams Professor Of Violin Relationship Specialty Start Date End Date Cierra Villarreal MD [address] [place] [phone] PCP - General Family Medicine 11/27/13 05/31/17 Marilu Westfall MD [address] [place] [address] PCP - General 06/01/17 06/12/18 Cierra Villarreal MD [address] [place] [phone] PCP - General Family Medicine 06/13/18 documented as of this encounter
--- OUTSIDE RECORDS SUMMARY | 2024-07-11 17:09 | XMS_ITS | Encounter Summary ---
Author Organization [facility] Address [address] [facility] [place] [address] Care Team Providers Care Hand Nailer Name Role Phone Cierra Villarreal MD Primary Care Provider Encounter Details Date Type Department Care Team (Late st Contact Info) Description 01/21/2020 Telephone [facility] Pediatrics - Endocrinology [address] [place] [address] Alber Fiore APRN-FLATBED STITCHER 1 [place] [address] Social History Tobacco Use Types Packs/Day Years Used Date Smoking Tobacco: Never Smokeless Tobacco: Never Alcohol Use Standard Drinks/Week Comments No 0 (1 standard drink = 0.6 oz pur e alcohol) Sex and Gender Information Value Date Recorded Sex Assigned at Not on file 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 HEADEND TECHNICIAN Gender Identity Not on file Sexual Orientation Not on file COVID-19 Exposure Response Date Recorded In the last month, have you been in contact with someone who was confirmed or suspected to have Coronavirus / COVID-19? Unable to assess 01/09/2020 1:57 PM HEADEND TECHNICIAN documented as of this encounter Functional Status [...] Patricio Shay RN documented in this encounter Miscellaneous Notes [...] back on track: 01/20 give basaglar 0930 01/21 give basaglar at 1230 12 give basaglar at 1530 01/23 give basaglar at 2130 01/24 give basaglar at 2300 END TECHNICIAN documented in this encounter Plan of Treatment Not on file documented as of this encounter Visit Diagnoses Not on filedocumented in this encounter Care Teams Hand Nailer Relationship Specialty Start Date End Date Cierra Villarreal MD [address] [place] [phone] PCP - General Family Medicine 06/13/18 documented as of this encounter
--- OUTSIDE RECORDS SUMMARY | 2024-07-11 17:09 | XMS_ITS | Encounter Summary ---
Author Organization [facility] Address [address] [facility] [place] [address] Care Team Providers Care Showroom Consultant Name Role Phone Cierra Villarreal MD Primary Care Provider [phone] Encounter Details Date Type Department Care Team (Late st Contact Info) Description 06/02/2021 Telephone [facility] Pediatrics - Diabetes [facility] [address] [place] [address] Jelena Pack, MUD GRINDER-AUTOMOBILE REPOSSESSOR [facility] [place] [address] Social History Tobacco Use Types Packs/Day Years [...] on file 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 * Telephone Encounter - Eleanor Ramos RN - 06/03/2021 1:26 PM CDT Mom called to report they have missed basaglar dose last night of 22 units. Unable to check for ketones. Denies any symptoms. Going to give normal correction now with meal. Plan to give 22 units now and then follow below: 06/03: now 1330 0414: 5pm 04/15: 9pm To call with any concerns or ketones. * Telephone Encounter - Eleanor Ramos RN - 06/02/2021 3:49 PM CDT Appeal letter sent to [place] for precision xtra blood ketone strips. documented in this encounter Plan of Treatment Not on file documented as of this encounter Visit Diagnoses Not on filedocumented in this encounter Care Teams Showroom Consultant Relationship Specialty Start Date End Date Cierra Villarreal MD [address] [place] [phone] PCP - General Family Medicine 06/13/18 documented as of this encounter
--- OUTSIDE RECORDS SUMMARY | 2024-07-11 17:09 | XMS_ITS | Encounter Summary ---
Author Organization [facility] Address [address] [facility] [place] [address] Care Team Providers Care Cooperative Extension Agent Name Role Phone Cierra Villarreal MD Primary Care Provider Reason for Visit * Reason Comments Refill Request Encounter Details Date Type Department Care Team (Late st Contact Info) Description 11/16/2020 Refill [facility] Pediatrics - Diabetes [address] [address] Denia Greenberg MD Refill Request Social History Tobacco Use Types Packs/Day Years Used Date Smoking Tobacco: Never Smokeless Tobacco: Never Alcohol Use Standard Drinks/Week Comments No 0 (1 standard drink = 0.6 oz pur e alcohol) Sex and Gender Information Value Date Recorded Sex Assigned at Not on file 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
--- OUTSIDE RECORDS SUMMARY | 2024-07-11 17:09 | XMS_ITS | Encounter Summary ---
Author Organization [facility] Address [address] [facility] [place] [address] Care Team Providers Care Flight Data Technician Name Role Phone Cierra Villarreal MD Primary Care Provider [phone] Marilu Westfall MD Primary Care Provider [phone] Cierra Villarreal MD Primary Care Provider [phone] Reason for Visit * Reason Onset Date Comments Letter 10/18/2014 Please send an u pdated letter with the new lunch carb ratio of 1 per 8 to the [facility] [phone] Encounter Details Date Type Department Care Team (Late st Contact Info) Description 10/18/2014 Telephone [facility] Pediatrics - Diabetes [address] [address] Denia Greenberg MD Letter (Please send an updated letter with the new lunch carb ratio of 1 per 8 to the [facility] [phone]) Social History Tobacco Use Types Packs/Day Years Used Date Smoking Tobacco: Never Alcohol Use Standard Drinks/Week Comments No 0 (1 standard drink = 0.6 oz pur e alcohol) Sex and Gender Information Value Date Recorded Sex Assigned at Not on file 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
--- OUTSIDE RECORDS SUMMARY | 2024-07-11 17:09 | XMS_ITS | Encounter Summary ---
Author Organization [facility] Address [address] [facility] [place] [address] Care Team Providers Care Water Purifier Operator Name Role Phone Cierra Villarreal MD Primary Care Provider [phone] Marilu Westfall MD Primary Care Provider [phone] Cierra Villarreal MD Primary Care Provider [phone] Reason for Visit * Reason Onset Date Comments Blood Sugar Problem 02/20/2015 Encounter Details Date Type Department Care Team (Late st Contact Info) Description 02/20/2015 Telephone [facility] Pediatrics - Endocrinology [facility] [place] [address] Denia Greenberg MD Blood Sugar Problem Social History Tobacco Use Types Packs/Day Years Used Date Smoking Tobacco: Never Alcohol Use Standard Drinks/Week Comments No 0 (1 standard drink = 0.6 oz pur e alcohol) Sex and Gender Information Value Date Recorded Sex Assigned at Not on file 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 Answer Date of Assessment Author No 02/03/2015 9:09 AM SILK SCREEN FRAME ASSEMBLER Betzaida Zuniga RN * Is person blind [...] at length. Mom to call as needed. SCREEN FRAME ASSEMBLER documented in this encounter Plan of Treatment Not on file documented as of this encounter Visit Diagnoses Not on filedocumented in this encounter Additional Health Concerns Infection Onset Date Last Indicated Resolved Time MRSA 01/28/2015 01/28/2015 10/22/2015 12:0 6 PM CDT documented as of this encounter Care Teams Water Purifier Operator Relationship Specialty Start Date End Date Cierra Villarreal MD [address] [phone] PCP - General Family Medicine 11/27/13 05/31/17 Marilu Westfall MD [address] [place] [address] PCP - General 06/01/17 06/12/18 Cierra Villarreal MD [address] [phone] PCP - General Family Medicine 06/13/18 documented as of this encounter
--- OUTSIDE RECORDS SUMMARY | 2024-07-11 17:09 | XMS_ITS | Encounter Summary ---
Author Organization [facility] Address [address] [facility] [place] [address] Care Team Providers Care Apprentice Painter Brush Name Role Phone Cierra Villarreal MD Primary Care Provider Encounter Details Date Type Department Care Team (Late st Contact Info) Description 11/13/2018 Telephone [facility] Pediatrics - Diabetes [address] [address] Alber Fiore APRN-CRITICAL [place] [address] Social History Tobacco Use Types Packs/Day Years Used Date Smoking Tobacco: Never Smokeless Tobacco: Never Alcohol Use Standard Drinks/Week Comments No 0 (1 standard drink = 0.6 oz pur e alcohol) Sex and Gender Information Value Date Recorded Sex Assigned at Not on file 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 PULLEY MAN Gender Identity Not on file Sexual Orientation [...] on filedocumented in this encounter Care Teams Apprentice Painter Brush Relationship Specialty Start Date End Date Cierra Villarreal MD [address] [place] [phone] PCP - General Family Medicine 06/13/18 documented as of this encounter
--- OUTSIDE RECORDS SUMMARY | 2024-07-11 17:09 | XMS_ITS | Encounter Summary ---
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 Mom's e-mail: [email or web address] documented in this encounter Plan of Treatment Not on file documented as of this encounter Visit Diagnoses Not on filedocumented in this encounter Care Teams Supervisor Last Model Department Relationship Specialty Start Date End Date Cierra Villarreal MD [address] [place] [phone] PCP - General Family Medicine 06/13/18 documented as of this encounter
--- OUTSIDE RECORDS SUMMARY | 2024-07-11 17:09 | XMS_ITS | Encounter Summary ---
Author Organization [facility] Address [address] [place] [address] Care Team Providers Care Building Associate Name Role Phone Cierra Villarreal MD Primary Care Provider [phone] Reason for Visit * Reason Onset Date Comments MEDICATION REFILL 11/24/2020 Encounter Details Date Type Department Care Team (Late st Contact Info) Description 11/24/2020 Refill [facility] Pediatrics - Diabetes [address] [address] Denia Greenberg MD MEDICATION REFILL Social History Tobacco Use Types Packs/Day Years Used Date Smoking Tobacco: Never Smokeless Tobacco: Never Alcohol Use Standard Drinks/Week Comments No 0 (1 standard drink = 0.6 oz pur e alcohol) Sex and Gender Information Value Date Recorded Sex Assigned at Not on file 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 SYNTHETIC PLASTERER Gender Identity Not on file Sexual Orientation [...] of Assessment Author No 10/03/2018 8:25 AM EMILIAT Patricio Bhatti RN * Does person have difficulty dressing/bathing? Answer Date of Assessment Author Yes 10/03/2018 8:25 AM EMILIAT Patricio Bhatti RN * Does person have [...] on filedocumented in this encounter Care Teams Building Associate Relationship Specialty Start Date End Date Cierra Villarreal MD [address] [place] [phone] PCP - General Family Medicine 06/13/18 documented as of this encounter
--- OUTSIDE RECORDS SUMMARY | 2024-07-11 17:09 | XMS_ITS | Encounter Summary ---
Author Organization [facility] Address [address] [facility] [place] [address] Care Team Providers Care Mechanical Maintenance Technician Name Role Phone Cierra Villarreal MD Primary Care Provider Reason for Visit * Reason Comments Refill Request Encounter Details Date Type Department Care Team (Late st Contact Info) Description 08/20/2020 Refill [facility] Pediatrics - Diabetes [address] [address] Alber Fiore APRN-TIE WORKER 1 [place] [address] Refill Request Social History Tobacco Use Types Packs/Day Years Used Date Smoking Tobacco: Never Smokeless Tobacco: Never Alcohol Use Standard Drinks/Week Comments No 0 (1 standard drink = 0.6 oz pur e alcohol) Sex and Gender Information Value Date Recorded Sex Assigned at Not on file 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 RUSSIAN RUBBER Gender Identity Not on file Sexual Orientation Not on file documented as of this encounter Functional Status * Is person deaf or have serious hearing difficulty? Answer Date of Assessment Author No 10/03/2018 8:25 AM CDT Patricio Bhatti RN * Is person blind or have [...] on filedocumented in this encounter Care Teams Mechanical Maintenance Technician Relationship Specialty Start Date End Date Cierra Villarreal MD [address] [place] [phone] PCP - General Family Medicine 06/13/18 documented as of this encounter
--- OUTSIDE RECORDS SUMMARY | 2024-07-11 17:09 | XMS_ITS | Encounter Summary ---
Author Organization [facility] Address [address] [place] [address] Care Team Providers Care Material Dispatcher Name Role Phone Cierra Villarreal MD Primary Care Provider [phone] Encounter Details Date Type Department Care Team (Late st Contact Info) Description 03/15/2021 Telephone [facility] Pediatric[facility] - Endocrinology [address] [place] [address] Aundrea Yoo, DO [address] [place] [address] Social History Tobacco Use Types Packs/Day Years [...] on file 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 FELT DYEING MACHINE TENDER Gender Identity Not on file Sexual Orientation Not on file COVID-19 Exposure Response Date Recorded In the last month, have you been in contact with someone who was confirmed or suspected to have Coronavirus / COVID-19? No / Unsure 02/19/2021 3:26 PM FELT DYEING MACHINE TENDER documented as of this encounter Functional Status * Is person deaf or have serious hearing difficulty? Answer Date of Assessment Author No 02/09/2021 9:37 AM Guero Roy RN * Is person blind or have serious difficulty seeing? Answer Date of Assessment Author No 02/09/2021 9:37 AM FELT DYEING MACHINE TENDER Guero Olguin RN * Does person have serious difficulty walking/climbing stairs? Answer Date of Assessment Author Yes 02/09/2021 9:37 AM Guero Roy RN * Does person have difficulty dressing/bathing? Answer Date of Assessment Author Yes 10/03/2018 8:25 AM CDT Patricio Bhatti RN * Does person have difficulty doing errands alone? Answer Date of Assessment Author Yes 02/09/2021 9:37 AM FELT DYEING MACHINE TENDER Guero Olguin RN documented as of this encounter Mental Status * Does person have difficulty concentrating/remembering/making decisions? Answer Entry Date Author Yes 02/09/2021 9:37 AM Guero Roy RN documented in this encounter Miscellaneous Notes * Telephone Encounter - Laurel Reid RN - 06/09/2021 1:39 PM CDT Monae from pharmacy calling with questions in regards to Precision strips. Was sent to [facility] [phone] * Telephone Encounter - Aundrea Yoo DO - 03/15/2021 3:41 PM FELT DYEING MACHINE TENDER Endocrine after hours call Dex is a [...] 22 units at normal time on Tuesday. DYEING MACHINE TENDER documented in this encounter Plan of Treatment Not on file documented as of this encounter Visit Diagnoses Not on filedocumented in this encounter Care Teams Material Dispatcher Relationship Specialty Start Date End Date Cierra Villarreal MD [address] [place] [phone] PCP - General Family Medicine 06/13/18 documented as of this encounter
--- OUTSIDE RECORDS SUMMARY | 2024-07-11 17:09 | XMS_ITS | Encounter Summary ---
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 Never 11/02/2022 7:51 AM CDT Belen Panda RN * Is person deaf or have serious [...] uncontrolled documented in this encounter Care Teams Parts Salesman Relationship Specialty Start Date End Date Cierra Villarreal MD [address] [place] [phone] PCP - General Family Medicine 06/13/18 documented as of this encounter
--- OUTSIDE RECORDS SUMMARY | 2024-07-11 17:09 | XMS_ITS | Encounter Summary ---
Author Organization [facility] Address [address] [place] [address] Care Team Providers Care Fire Boss Name Role Phone Cierra Villarreal MD Primary Care Provider Encounter Details Date Type Department Care Team (Late st Contact Info) Description 11/11/2020 Telephone [facility] Pediatrics - Diabetes [address] [address] Denia Greenberg MD Social History Tobacco Use Types Packs/Day Years Used Date Smoking Tobacco: Never Smokeless Tobacco: Never Alcohol Use Standard Drinks/Week Comments No 0 (1 standard drink = 0.6 oz pur e alcohol) Sex and Gender Information Value Date Recorded Sex Assigned at Not on file 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 Answer Date of Assessment Author No 10/03/2018 8:25 AM EMILIAT Patricio Bhatti RN * Does person have difficulty dressing/bathing? Answer Date of Assessment Author Yes 10/03/2018 8:25 AM EMILIAT Patricio Bhatti RN * Does person have difficulty doing errands alone? Answer Date of Assessment Author Yes 10/03/2018 8:25 AM EMILIAT Patricio Bhatti RN documented as of this encounter Mental Status * Does person have difficulty concentrating/remembering/making decisions? Answer Entry Date Author Yes 10/03/2018 8:25 AM EMILIAT Patricio Bhatti RN documented in this encounter Miscellaneous Notes * Telephone Encounter - Eleanor Ramos RN - 11/11/2020 2:59 PM CDT Mom called to report Dex has a low grade temp and runny nose since Tuesday. I referred mom to dictating machine transcriber. States bgs have been elevated. Negative ketones. [...] on filedocumented in this encounter Care Teams Fire Boss Relationship Specialty Start Date End Date Cierra Villarreal MD [address] [place], [place] [phone] PCP - General Family Medicine 06/13/18 documented as of this encounter
--- OUTSIDE RECORDS SUMMARY | 2024-07-11 17:09 | XMS_ITS | Encounter Summary ---
Author Organization [facility] Address [address] [place] [address] Care Team Providers Care Support Services Tech Name Role Phone Cierra Villarreal MD Primary Care Provider [phone] Encounter Details Date Type Department Care Team (Late st Contact Info) Description 05/26/2021 Refill [facility] Pediatrics - Diabetes Mgmt [address] [place] [address] Jelena Pack, GIMP TACKER-AUDIO VISUAL DESIGN ENGINEER [address] [place] [address] Social History Tobacco Use Types Packs/Day Years [...] on file 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 HEALTH AND NUTRITION SPECIALIST Gender Identity Not on file Sexual Orientation [...] 05/27/2021 11:45 AM CDT Received denial from [facility] for precision xtra ketone strips. Will send for urine ketone strips. * Telephone Encounter - Cristi Tang - 05/26/2021 4:16 PM CDT PA sent through [employer] to [facility] for Precision Xtra blood ketone strips. documented in this encounter Plan of Treatment Not on file documented as of this encounter Visit Diagnoses Diagnosis Uncontrolled type 1 diabetes mellitus with hyperglycemia (HCC) documented in this encounter Care Teams Support Services Tech Relationship Specialty Start Date End Date Cierra Villarreal MD [address] [phone] PCP - General Family Medicine 06/13/18 documented as of this encounter
--- OUTSIDE RECORDS SUMMARY | 2024-07-11 17:09 | XMS_ITS | Encounter Summary ---
Author Organization [facility] Address [address] [place] [address] Care Team Providers Care Plastic Surgery Manager Name Role Phone Chrissy Richards MD Primary Care Provider [phone] Cierra Villarreal MD Primary Care Provider [phone] Marilu Westfall MD Primary Care Provider [phone] Cierra Villarreal MD Primary Care Provider [phone] Reason for Visit * Reason Onset Date Comments General 10/12/2013 Encounter Details Date Type Department Care Team (Late st Contact Info) Description 10/12/2013 Telephone [facility] Pediatrics - Diabetes [address] [address] Denia Greenberg MD General Social History Tobacco Use Types Packs/Day Years Used Date Smoking Tobacco: Never Alcohol Use Standard Drinks/Week Comments Not Asked 0 (1 standard drink = 0.6 oz pur e alcohol) Sex and Gender Information Value Date Recorded Sex Assigned at Not on file 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 I called at [phone], office closed at [phone]. Notified mother. documented in this encounter Plan of Treatment Not on file documented as of this encounter Visit Diagnoses Not on filedocumented in this encounter Additional Health Concerns Infection Onset Date Last Indicated Resolved Time MRSA 01/28/2015 01/28/2015 10/22/2015 12:0 6 PM CDT documented as of this encounter Care Teams Plastic Surgery Manager Relationship Specialty Start Date End Date Chrissy Richards MD [address] [place] [phone] PCP - General 07/02/11 11/26/13 Cierra Villarreal MD [address] [place] [phone] PCP - General Family Medicine 11/27/13 05/31/17 Marilu Westfall MD [address] [place] [address] PCP - General 06/01/17 06/12/18 Cierra Villarreal MD [address] [place] [phone] PCP - General Family Medicine 06/13/18 documented as of this encounter
--- OUTSIDE RECORDS SUMMARY | 2024-07-11 17:09 | XMS_ITS | Clinical Summary ---
Author Organization [facility] Address [address] [place] [address] Care Team Providers Care Voice Engineer Name Role Phone Cierra Villarreal MD Primary Care Provider Source Comments [facility],non-owned Affiliates and Associated Physician Practices is amultiple site organization consisting of ambulatory clinics and hospital sitesin [place], [place], [place] and [place]. This disclosure is being madepursuant to the Care Everywhere program and may not contain all information available regarding this patient. Last updated 17.[facility] Allergies Active Allergy Reactions Criticality Noted Date Comments Latex Skin Reactions,Rash,Unknown Medium 01/28/20 15 Rash Rash Sulfa Drugs Rash Medium 07/16/2011 Medications * Be aware that medications may not be up to date on this document. Alwaysverify current medications with the patient. Blood Glucose Monitoring Suppl (ACCU-CHEK SHARONDA SMARTVIEW) W/DEVICE KIT kit Use to test blood sugar 12 times daily 1 Kit 1 04/25/19 15 Active Blood Glucose Monitoring Suppl (PRECISION XTRA MONITOR) [place] Use to test blood ketones when blood sugar is greater than 250 or when ill. 1 Device 1 02/25/19 16 Active Blood Glucose Monitoring Suppl (ONE TOUCH ULTRA MINI) W/DEVICE KIT Use to test blood sugar 12 times daily 1 Kit 0 10/01/19 16 Active GLUCAGON EMERGENCY injectionIndicati ons:Type 1 diabetes mellitus without complication, with long-term current use of insulin (HCC) Inject 1 mg into muscle as needed 2 kit 07/20/19 18 Active Additional Information Patient not taking.Reason: Other, Informant: Other, Reported on 11/16/2023 ACCU-CHEK FASTCLIX LANCETS Use to check blood sugar 5-9 times a day or as directed. 204 Each 11 06/27/19 19 Active polyethylene glycol 3350 (MIRALAX) packet Take 17 (seventeen) g by mouth once daily Active glucagon (GLUCAGEN) injection Inject 1 (one) mg into muscle as needed (administer for severe low blood sugar as directed.) 2 Each 10/18/19 21 Active Additional Information Patient not taking.Reason: Other, Reported on 11/16/2023 PRECISION XTRA STRP Use to test blood ketones when blood sugar is > 250 or when ill. 100 strip 1 03/16/19 22 Active Insulin Syringe-Needle U-100 (BD INSULIN SYRINGE ULTRAFINE) 31G X 15/64 0.3 ML syringeIndication s:Type 1 diabetes mellitus without complication (HCC) Use to administer Humalog and Lantus as directed up to 6 injections daily 200 Each 11 04/06/19 22 Active insulin lispro (HumaLOG;ADMelog) 100 UNIT/ML pen Administer 1 unit per 6-12 grams carbohydrates. Max daily dose 75 units. 30 mL 4 11/24/19 22 Active glucagon (GlucaGen HypoKit) injection Inject 1 (one) mg into muscle as needed (for severe low blood sugar) 1 Each 1 02/10/20 22 Active Additional Information Patient not taking.Reason: Other, Reported on 11/16/2023 Glucagon, rDNA, (Glucagon Emergency) 1 MG KIT Administer 1 mg intramuscularly for severe low blood sugar 2 Each 02/10/20 22 Active insulin syringe-needle (Bd Ultrafine Ii) 31G X 5/16 0.3 ML syringeIndication s:Type 1 diabetes mellitus without complication (HCC) USE FOR INSULIN UP TO 6 TIMES DAILY 200 Each 11 02/12/20 22 Active Basaglar KwikPen (Basaglar) penIndications:Ty pe 1 diabetes mellitus without complication, with long-term current use of insulin (HCC) ADMINISTER 18 UNITS UNDER THE SKIN AT BEDTIME OR DIRECTED 15 mL 1 08/19/19 Active Additional Information Patient not taking.Reason: Other, Reported on 11/16/2023 blood glucose (OneTouch Verio) test stripIndications: Type 1 diabetes mellitus without complication (HCC) USE TO TEST BLOOD SUGAR 4-6 TIMES DAILY 200 strip 11 09/29/19 Active Lancets (ONETOUCH DELICA PLUS 33G EXTRA FINE LANCET)Indication s:Type 1 diabetes mellitus without complication (HCC) USE TO TEST BLOOD GLUCOSE 5 TO 9 TIMES DAILY DIRECTED 200 Each 10/06/19 Active Ketone Blood Test (PRECISION XTRA) STRPIndications:T ype 1 diabetes mellitus without complication (HCC) Use to test blood ketones if blood sugar is over 250 or ill 25 strip 11 10/14/19 Active acetone,urine, (Ketostix) stripIndications: Uncontrolled type 1 diabetes mellitus with hyperglycemia (HCC) Use as needed (use when blood sugar is greater than 300 or when ill.) 100 strip 11 10/14/19 Active Additional Information Patient not taking.Reason: Other, Reported on 11/16/2023 OneTouch Delica Lancets 30G MISCIndications:T ype 1 diabetes mellitus without complication (HCC) Use 1 Each as directed USE Up to 12 TIMES DAILY DIRECTED 200 Each 5 11/03/19 Active Insulin Glargine (LANTUS SC) Inject 20 Units subcutaneously at bedtime Active Active Problems Problem Noted Date Diagnosed Date Elevated anti-tissue transglutaminase (tTG) IgA level 02/16/2018 Down's syndrome 01/08/2013 Overview (09/08/2016): Type 1 diabetes mellitus without complication Overview (10/03/2015): Diagnosed 01/14/2011 at [facility] Transferred to [facility] 04/20/2012 Assessment & Plan (08/23/2019 8:05 AM [...] 09/30/2015 Bilateral impacted cerumen 0 03/02/2018 Immunizations Immunization Administration Dates Next Due Gaudena primary monoval ent 12+ yr 0.3mL Purple cap 12/03/2020,05/26/2020,05/03/2020 INFLUENZA VACCINE 01/09/2013 INFLUENZA VACCINE, QUADR. 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 Gender Identity Not on file Sexual Orientation Not on file Last Filed Vital Signs Vital Sign Reading Time Taken Comments Blood Pressure 139/107 11/22/2023 9:30 AM CDT pt removed bp multiple times Pulse 117 11/22/2023 9:30 AM CDT Temperature 36.3 C (97.4 F) 11/22/2023 8:30 AM CDT Respiratory Rate 19 11/22/2023 9:30 AM CDT Oxygen Saturation 94% 11/22/2023 9: 50 AM CDT Inhaled Oxygen Concentration - - [...] ( - season) 2023 12/03/2020, 05/26/2020, 05/03/2020 DEPRESSION SCREENING 02/22/2024 DIABETES - URINE PROTEIN SCREENING 02/22/2024 10/03/2018 INFLUENZA VACCINE (Season Ended) 2024 02/09/2022, 01/23/2021, 02/22/2019, Additional history exists ZOSTER VACCINE (1 of 2) 11/26/2051 HIB [...] - POCT INTERFACED (05/25/2022 11:02 AM CDT) [facility] Hemoglobin A1C POCT 7.1(H) <5.7 % 05/25/2022 11:14 AM CDT [facility] Estimated Average Glucose 157 mg/dL 05/25/2022 11:14 AM T [facility] Blood BLOOD SPECIMEN / Unknown 05/25/2022 11:02 AM CDT 05/25/2022 11:14 AM CDT Narrative [facility] - 05/25/2022 11:14 AM CDT HbA1c [...] MD LAB - POINT OF CARE ORDERABLES Final Result Performing Organization Address [facility] de Phone Number [facility] [address] [place] [phone] * MICROALB/CREAT RATIO URINE RANDOM PANEL (10/03/2018 7:43 AM CDT) Creatinine Urine 86.79 mg/dL 10/04/19 19 8:16 AM CDT [facility] Microalbumin Urine <0.5 <1.7 mg/dL 10/03/2018 8:16 AM T [facility] Microalbumin/Crea tinine Ratio <6 <30 mg/g 10/03/2018 8:16 AM T [facility] Urine URINE SPECIMEN OBTAINED BY CLEAN CATCH PROCEDURE / Unknown Collection / Unknown 10/03/2018 7:43 AM CDT 10/03/2018 7:55 AM CDT Alber Fiore APRN-ENDOSCOPY TECHNICAN LAB - URINE CHEMISTRY O RDERABLES Final Result Performing Organization Address [facility] de Phone Number [facility] [address] [place] [address] * BASIC METABOLIC PANEL (CALCIUM TOTAL) (10/17/2017 12:37 PM CDT) Glucose 79 70 - 105 mg/dL 10/17/2017 2:01 PM CDT [facility] Sodium 138 136 - 145 mmol/L 10/17/2017 2:01 PM CDT [facility] Potassium 4.3 3.5 - 5.1 mmol/L 10/17/2017 2:01 PM T [facility] Chloride 107 98 - 107 mmol/L 10/17/2017 2:01 PM CDT [facility] CO2 23 20 - 28 mmol/L 10/17/2017 2:01 PM CDT [facility] Calcium 9.42 9.08 - 10.48 mg/dL 10/17/2017 2:01 PM T [facility] Anion Gap 8 5 - 20 mmol/L 10/17/2017 2:01 PM CDT [facility] BUN 17.1 5.3 - 18.7 mg/dL 10/17/2017 2:01 PM T [facility] Creatinine 0.93 0.61 - 1.07 mg/dL 10/17/2017 2:01 PM T [facility] eGFR by MDRD mL/min/1.7 3m2 10/17/2017 2:01 PM [facility] Comment: eGFR calculations are not performed for children under 18 years old. eGFR by MDRD mL/min/1.7 3m2 10/17/2017 2:01 PM T [facility] Comment: eGFR calculations are not performed for children under 18 years old. Blood BLOOD SPECIMEN / Unknown Venipuncture / Unknown 10/17/2017 12:37 PM CDT 10/17/2017 1:24 PM CDT Denia Greenberg MD LAB - CHEMISTRY ORDERABLES Shannan lebron Result [facility] [address] [facility] [place] [address] from Last 3 Months or Most Recently Relevant to Health Maintenance Insurance [employer]AN [facility] Care Teams Voice Engineer Relationship Specialty Start Date End Date Cierra Villarreal MD [address] [facility] [address] [place] [address] PCP - General Family Medicine 06/13/18
--- OUTSIDE RECORDS SUMMARY | 2024-07-11 17:09 | XMS_ITS | Encounter Summary ---
Author Organization [facility] Address [address] [place] [address] Care Team Providers Care Vaccine Key Customer Leader Name Role Phone Cierra Villarreal MD Primary Care Provider [phone] Marilu Westfall MD Primary Care Provider [phone] Cierra Villarreal MD Primary Care Provider [phone] Encounter Details Date Type Department Care Team (Late st Contact Info) Description 01/10/2017 Telephone [facility] - Diabetes [address] [address] Denia Greenberg MD Social History Tobacco Use Types Packs/Day Years Used Date Smoking Tobacco: Never Smokeless Tobacco: Never Alcohol Use Standard Drinks/Week Comments No 0 (1 standard drink = 0.6 oz pur e alcohol) Sex and Gender Information Value Date Recorded Sex Assigned at Not on file 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 Answer Date of Assessment Author No 02/03/2015 9:09 AM AUDIOLOGY DOCTOR Betzaida Zuniga RN * Is person blind [...] on filedocumented in this encounter Care Teams Vaccine Key Customer Leader Relationship Specialty Start Date End Date Cierra Villarreal MD [address] [place] [phone] PCP - General Family Medicine 11/27/13 05/31/17 Marilu Westfall MD [address] [place] [address] PCP - General 06/01/17 06/12/18 Cierra Villarreal MD [address] [place] [phone] PCP - General Family Medicine 06/13/18 documented as of this encounter
--- OUTSIDE RECORDS SUMMARY | 2024-07-11 17:09 | XMS_ITS | Encounter Summary ---
Author Organization [facility] Address [address] [place] [address] Care Team Providers Care Air Hoist Operator Name Role Phone Cierra Villarreal MD Primary Care Provider [phone] Reason for Visit * Reason Onset Date Comments Opened In Error 12/17/2019 Encounter Details Date Type Department Care Team (Late st Contact Info) Description 12/17/2019 Refill [facility] Pediatrics - Endocrinology [address] [facility] 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
--- OUTSIDE RECORDS SUMMARY | 2024-07-11 17:09 | XMS_ITS | Encounter Summary ---
Author Organization [facility] Address [address] [facility] [place] [address] Care Team Providers Care Clinical Specialist Name Role Phone Marilu Westfall MD Primary Care Provider [phone] Cierra Villarreal MD Primary Care Provider Reason for Visit * Reason Onset Date Comments Blood Glucose (Sugar) Review 09/09/2017 Ple ase call mom to review blood sugars. She has noticed blood sugars around 2pm are in the 200-300 range lately. Encounter Details Date Type Department Care Team (Late st Contact Info) Description 09/09/[address] 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 Answer Date of Assessment Author Yes 02/03/2015 9:09 AM Betzaida Alexis RN * Does person have difficulty doing errands alone? Answer Date of Assessment Author Yes 02/03/2015 9:09 AM Betzaida Alexis RN documented as of this encounter Mental Status * Does person have difficulty concentrating/remembering/making decisions? Answer Entry Date Author 02/03/2015 9:09 AM Deshawn Alexis RN documented in this encounter Plan of Treatment Not on file documented as of this encounter Visit Diagnoses Not on filedocumented in this encounter Care Teams Clinical Specialist Relationship Specialty Start Date End Date Marilu Westfall MD [address] [place] [address] PCP - General 06/01/17 06/12/18 Cierra Villarreal MD [address] [place] [phone] PCP - General Family Medicine 06/13/18 documented as of this encounter
--- OUTSIDE RECORDS SUMMARY | 2024-07-11 17:09 | XMS_ITS | Encounter Summary ---
Author Organization [facility] Address [address] [facility] [place] [address] Care Team Providers Care Physical Therapy Technician Name Role Phone Chrissy Richards MD Primary Care Provider [phone] Cierra Villarreal MD Primary Care Provider [phone] Marilu Westfall MD Primary Care Provider [phone] Cierra Villarreal MD Primary Care Provider [phone] Reason for Visit * Reason Onset Date Comments Refill Request 09/03/2013 Mom called, need s refill for syringes sent to [facility] in [place]. Encounter Details Date Type Department Care Team (Late st Contact Info) Description 09/03/2013 Telephone [facility] Pediatrics - Diabetes [address] [address] Denia Greenberg MD Refill Request (Mom called, needs refill for syringes sent to [facility] in [place]. 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 Gender Identity Not on file Sexual Orientation Not on file documented as of this encounter Plan of Treatment Not on file documented as of this encounter Visit Diagnoses Not on filedocumented in this encounter Additional Health Concerns Infection Onset Date Last Indicated Resolved Time MRSA 01/28/2015 01/28/2015 10/22/2015 12:0 6 PM CDT documented as of this encounter Care Teams Physical Therapy Technician Relationship Specialty Start Date End Date Chrissy Richards MD [address] [place] [phone] PCP - General 07/02/11 11/26/13 Cierra Villarreal MD [address] [place] [phone] PCP - General Family Medicine 11/27/13 05/31/17 Marilu Westfall MD [address] [place] [phone] PCP - General 06/01/17 06/12/18 Cierra Villarreal MD [address] [place] [phone] PCP - General Family Medicine 06/13/18 documented as of this encounter
--- OUTSIDE RECORDS SUMMARY | 2024-07-11 17:09 | XMS_ITS | Encounter Summary ---
Author Organization [facility] Address [address] [place] [address] Care Team Providers Care Weight Reducing Technician Name Role Phone Cierra Villarreal MD Primary Care Provider [phone] Marilu Westfall MD Primary Care Provider [phone] Cierra Villarreal MD Primary Care Provider [phone] Reason for Visit * Reason Onset Date Comments Refill Request 05/09/2017 insulin syringes , [facility] Encounter Details Date Type Department Care Team (Late st Contact Info) Description 05/09/2017 Telephone [facility] Pediatrics - Endocrinology [address] [place] [address] Denia Greenberg MD Refill Request (insulin syringes, [facility]) Social History Tobacco Use Types Packs/Day Years Used Date Smoking Tobacco: Never Smokeless Tobacco: Never Alcohol Use Standard Drinks/Week Comments No 0 (1 standard drink = 0.6 oz pur e alcohol) Sex and Gender Information Value Date Recorded Sex Assigned at Not on file 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
--- OUTSIDE RECORDS SUMMARY | 2024-07-11 17:09 | XMS_ITS | Encounter Summary ---
Author Organization [facility] Address [address] [facility] [place] [address] Care Team Providers Care Camp Nurse Name Role Phone Cierra Villarreal MD Primary Care Provider [phone] Marilu Westfall MD Primary Care Provider [phone] Cierra Villarreal MD Primary Care Provider [phone] Reason for Visit * Reason Onset Date Comments Refill Request 04/23/2014 Please fax rx fo r test [facility] on [facility]. [facility] on [address] in [place]. Please change directions to test 12 times a day (not 10-12) Encounter Details Date Type Department Care Team (Late st Contact Info) Description 04/23/2014 Telephone [facility] Pediatrics - Diabetes [address] [address] Denia Greenberg MD Refill Request (Please fax rx for test strips to local [facility] as mail order will not arrive on time. [facility] on [address] in [place]. 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
--- OUTSIDE RECORDS SUMMARY | 2024-07-11 17:09 | XMS_ITS | Encounter Summary ---
Author Organization [facility] Address [address] [facility] [place] [address] Care Team Providers Care Computerized Mill Mill Recorder Name Role Phone Cierra Villarreal MD Primary Care Provider [phone] Marilu Westfall MD Primary Care Provider [phone] Cierra Villarreal MD Primary Care Provider [phone] Reason for Visit * Reason Onset Date [...] (Late st Contact Info) Description 04/23/2014 Telephone [facility] Pediatrics - Diabetes [address] [address] Denia Greenberg MD Refill Request (Please change [...] file 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
--- OUTSIDE RECORDS SUMMARY | 2024-07-11 17:09 | XMS_ITS | Encounter Summary ---
Author Organization [facility] Address [address] [facility] [place] [address] Care Team Providers Care Geriatrics Physician Name Role Phone Cierra Villarreal MD Primary Care Provider [phone] Reason for Visit * Reason Onset Date Comments MEDICATION REFILL 04/06/2021 Encounter Details Date Type Department Care Team (Late st Contact Info) Description 04/06/2021 Refill [facility] Pediatrics - Diabetes [facility] [address] [place] [address] Jelena Pack, ENT SURGEON-GLORY HOLE TENDER [address] [place] [address] MEDICATION REFILL Social History Tobacco Use Types [...] on file 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
--- OUTSIDE RECORDS SUMMARY | 2024-07-11 17:09 | XMS_ITS | Encounter Summary ---
Author Organization [facility] Address [address] [place] [address] Care Team Providers Care All Around Presser Name Role Phone Marilu Westfall MD Primary Care Provider Cierra Villarreal MD Primary Care Provider [phone] Reason for Visit * Reason Onset Date Comments Refill Request 05/22/2018 Please call in t 33g Delica lancets- 30g not covered any more. If those arent covered any lancets will do. 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
--- OUTSIDE RECORDS SUMMARY | 2024-07-11 17:09 | XMS_ITS | Encounter Summary ---
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 Answer Date of Assessment Author No 02/09/2021 9:37 AM FIRE AND SAFETY HELPER Guero Olguin RN * Is person blind or have [...] for Precision Xtra Ketone strips [facility] * Telephone Encounter - Cristi Tang - 10/08/2022 4:36 PM CDT School Letter faxed to [phone] documented in this encounter Plan of Treatment Not on file documented as of this encounter Visit Diagnoses Not on filedocumented in this encounter Care Teams Splicer Helper Relationship Specialty Start Date End Date Cierra Villarreal MD [address] [place] [phone] PCP - General Family Medicine 06/13/18 documented as of this encounter
--- OUTSIDE RECORDS SUMMARY | 2024-07-11 17:09 | XMS_ITS | Encounter Summary ---
Author Organization [facility] Address [address] [place] [address] Care Team Providers Care Bundle Shaker Name Role Phone Chirssy Richards MD Primary Care Provider [phone] Cierra Villarreal MD Primary Care Provider [phone] Marilu Westfall MD Primary Care Provider [phone] Cierra Villarreal MD Primary Care Provider [phone] Reason for Visit * Reason Onset Date Comments Blood Sugar Problem 12/18/2012 Please call mom to review blood sugars and make changes Encounter Details Date Type Department Care Team (Late st Contact Info) Description 12/18/2012 Telephone [facility] Pediatrics - Diabetes [address] [address] Denia Greenberg MD Blood Sugar Problem (Please call mom to review blood sugars and make changes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 Gender Identity Not on file Sexual Orientation Not on file documented as of this encounter Plan of Treatment Not on file documented as of this encounter Visit Diagnoses Not on filedocumented in this encounter Additional Health Concerns Infection Onset Date Last Indicated Resolved Time MRSA 01/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
--- OUTSIDE RECORDS SUMMARY | 2024-07-11 17:10 | XMS_ITS | Referral Summary ---
Author Organization [facility] Address [address] [place] [address] Care Team Providers Care Window Trimmer Apprentice Name Role Phone Pablito Villarreal MD Primary Care Provider [phone] Jimmy Velez MD Unavailable Encounters Date Type Department Care Team Description 06/11/2024 Orders Only [facility] Surgery [facility] Floor [address] [place] [phone] Yoselin Sol RN Graves' disease (Primary Dx) from Last 3 Months Allergies Active Allergy Reactions Criticality Noted Date [...] on file Legal Sex Male 8:34 AM BUILDING ARCHITECTURAL DESIGNER Gender Identity Not on file Sexual Orientation Not on file Last Filed Vital Signs Vital Sign Reading Time Taken Comments Blood Pressure 106/65 04/19/2021 2:26 PM BUILDING ARCHITECTURAL DESIGNER Pulse 88 04/19/2021 2:20 PM BUILDING ARCHITECTURAL DESIGNER Temperature 36.2 C (97.2 F) 04/19/2021 2:26 PM BUILDING ARCHITECTURAL DESIGNER Respiratory Rate 18 04/19/2021 2:20 PM BUILDING ARCHITECTURAL DESIGNER Oxygen Saturation 97% 04/19/2021 2:20 PM BUILDING ARCHITECTURAL DESIGNER Inhaled Oxygen Concentration - - Weight 69 kg (152 lb 1.9 oz) 04/19/2021 2:22 PM BUILDING ARCHITECTURAL DESIGNER Height 149.9 cm (4' 11 ) 04/19/2021 2:22 PM BUILDING ARCHITECTURAL DESIGNER Body Mass Index 30.72 04/19/2021 2:22 PM BUILDING ARCHITECTURAL DESIGNER Plan of Treatment Not on file [place] [address] [place] [address] Care Teams Window Trimmer Apprentice Relationship Specialty Start Date End Date Pablito Villarreal MD [address] [place] [address] PCP - General 07/14/20 Jimmy Velez MD [address] [place] [address] Referring Physician Internal Medicine 06/06/24
--- OUTSIDE RECORDS SUMMARY | 2024-07-11 17:10 | XMS_ITS | Encounter Summary ---
Author Organization [facility] Address [address] [place] [address] Care Team Providers Care Transfer Station Attendant Name Role Phone Cierra Villarreal MD Primary Care Provider [phone] Marilu Westfall MD Primary Care Provider [phone] Cierra Villarreal MD Primary Care Provider [phone] Reason for Visit * Reason Onset Date Comments Letter 08/15/2014 mom called to lynn simth you received a letter from [place] regarding Dex Encounter Details Date Type Department Care Team (Late st Contact Info) Description 08/15/2014 Telephone [facility] Pediatrics - Diabetes [address] [address] Keely Frye, FACTORY HELPER-KIDS CLUB ATTENDANT Retired Letter (mom called to verify you received a letter from [place] regarding Dex) Social History Tobacco Use Types Packs/Day Years Used Date Smoking Tobacco: Never Alcohol Use Standard Drinks/Week Comments No 0 (1 standard drink = 0.6 oz pur e alcohol) Sex and Gender Information Value Date Recorded Sex Assigned at Not on file 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 WATCHER Gender Identity Not on file Sexual Orientation [...] Infection Onset Date Last Indicated Resolved Time [facility] 01/28/2015 01/28/2015 10/22/2015 12:0 6 PM CDT documented as of this encounter Care Teams Transfer Station Attendant Relationship Specialty Start Date End Date Cierra Villarreal MD [address] [place] [phone] PCP - General Family Medicine 11/27/13 05/31/17 Marilu Westfall MD [address] [place] [address] PCP - General 06/01/17 06/12/18 Cierra Villarreal MD [address] [place] [phone] PCP - General Family Medicine 06/13/18 documented as of this encounter
--- OUTSIDE RECORDS SUMMARY | 2024-07-11 17:10 | XMS_ITS | Encounter Summary ---
Author Organization [facility] Address [address] [facility] [place] [address] Care Team Providers Care Bacteriologist Industrial Name Role Phone Cierra iVllarreal MD Primary Care Provider [phone] Marilu Westfall MD Primary Care Provider [phone] Cierra Villarreal MD Primary Care Provider [phone] Reason for Visit * Reason Onset Date Comments Refill Request 08/26/2014 has the test str ip been sent to [facility]. Encounter Details Date Type Department Care Team (Late st Contact Info) Description 08/26/2014 Telephone [facility] Pediatrics - Diabetes [address] [address] Denia Greenberg MD Refill Request (has the test strip been sent to [facility]. 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
--- OUTSIDE RECORDS SUMMARY | 2024-07-11 17:10 | XMS_ITS | Encounter Summary ---
Author Organization [facility] Address [address] [facility] [place] [address] Care Team Providers Care Trainmaster Name Role Phone Cierra Villarreal MD Primary Care Provider [phone] Marilu Westfall MD Primary Care Provider [phone] Cierra Villarreal MD Primary Care Provider [phone] Reason for Visit * Reason Onset Date Comments Blood Sugar Problem 08/13/2014 Please call mom. BS are increasing, had a runny nose but that has cleared up. BS this AM 270. 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
--- OUTSIDE RECORDS SUMMARY | 2024-07-11 17:10 | XMS_ITS | Clinical Summary ---
Author Organization 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 Encounters Date Type Department Care Team Description 06/11/2024 Orders Only [facility] Floor [address] [place] [address] Yoselin Sol RN Graves' disease (Primary Dx) from Last 3 Months Medical History Medical History Date Comments Type [...] on file Legal Sex Male 8:34 AM PATENT DRAFTER Gender Identity Not on file Sexual Orientation Not on file Obstetrics History Last Filed Vital Signs Vital Sign Reading Time Taken Comments Blood Pressure 106/65 04/19/2021 2:26 PM PATENT DRAFTER Pulse 88 04/19/2021 2:20 PM PATENT DRAFTER Temperature 36.2 C (97.2 F) 04/19/2021 2:26 PM PATENT DRAFTER Respiratory Rate 18 04/19/2021 2:20 PM PATENT DRAFTER Oxygen Saturation 97% 04/19/2021 2:20 PM PATENT DRAFTER Inhaled Oxygen Concentration - - Weight 69 kg (152 lb 1.9 oz) 04/19/2021 2:22 PM PATENT DRAFTER Height 149.9 cm (4' 11 ) 04/19/2021 2:22 PM PATENT DRAFTER Body Mass Index 30.72 04/19/2021 2:22 PM PATENT DRAFTER Plan of Treatment Health Maintenance Due Date [...] 01/16/2002 Varicella Vaccines Completed 10/05/2007, 02/25/2003 Insurance [facility] Care Teams Application Helper Relationship Specialty Start Date End Date Pablito Villarreal MD [address] [place] [address] PCP - General 07/14/20 Jimmy Velez MD [address] [address] Referring Physician Internal Medicine 06/06/24
--- OUTSIDE RECORDS SUMMARY | 2024-07-11 17:10 | XMS_ITS | Encounter Summary ---
Author Organization [facility] Address [address] [facility] [place] [address] Care Team Providers Care Lead Janitor Name Role Phone Cierra Villarreal MD Primary Care Provider [phone] Marilu Westfall MD Primary Care Provider [phone] Cierra Villarreal MD Primary Care Provider [phone] Reason for Visit * Reason Onset Date Comments Letter 08/15/2014 Mom request a le tter be mailed to [place] stating how many times Dex checks his blood sugars and uses syringes, so their hospice case manager can request an increased amount. Blood Sugar Problem 08/15/2014 after change s made by Anat, 08/14-HS 312, 3AM 227, 08/15 AM 331, (dad did forget insulin for dinner last night) Encounter Details Date Type Department Care Team (Late st Contact Info) Description 08/15/2014 Telephone [facility] Pediatrics - Diabetes [address] [address] Denia Greenberg MD Letter (Mom request a letter be mailed to [place] stating how many times Dex checks his blood sugars and uses syringes, so their hospice case manager can request an increased amount. 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
[2024-07-11 19:10] LABS: Alanine Aminotransferase 38 U/L (6-50); Albumin Level 4.1 g/dL (3.5-5.1); Alkaline Phosphatase 104 U/L (38-126); Anion Gap 9 mmol/L (4-12); Aspartate Amino Transferase 36 U/L (17-59); Bilirubin,Total 0.8 mg/dL (0.2-1.3); Blood Urea Nitrogen 20 mg/dL (9-20); Calcium 9.9 mg/dL (8.4-10.2); Carbon Dioxide 23 mmol/L (22-30); Chloride 107 mmol/L (98-107); Estimated Glomerular Filt Rate > 60; Glucose 64 mg/dL (65-110); Potassium 5.2 mmol/L (3.4-5.0); Sodium 139 mmol/L (137-145)
[2024-07-11 19:37] LABS: Free T4 Free Thyroxine 4.05 ng/dL (0.78-2.19)
[2024-07-11 19:41] LABS: Thyroid Stimulating Hormone < 0.015 uIU/mL (0.465-4.680); Total Triiodothyronine (T3) 5.27 NG/ML (0.97-1.69)
== END 2024-07-11 17:08 | disposition home or self-care (01) ==
LOC: ANHLAB 17:08
PROVIDERS: PCP Family Medicine; Visit Provider Internal Medicine
DX: E05.00 Thyrotoxicosis with diffuse goiter without thyrotoxic crisis or storm (principal); E10.9 Type 1 diabetes mellitus without complications; R63.4 Abnormal weight loss
CPT/HCPCS: 36415; 80053; 84439; 84443; 84480

== ENCOUNTER 2024-08-08 15:57 | Outpatient (CLI) | payer OTHER, SELFPAY ==
[2024-08-08 16:32] LABS: Alanine Aminotransferase 33 U/L (6-50); Albumin Level 3.6 g/dL (3.5-5.1); Alkaline Phosphatase 95 U/L (38-126); Anion Gap 7 mmol/L (4-12); Aspartate Amino Transferase 29 U/L (17-59); Bilirubin,Total 0.5 mg/dL (0.2-1.3); Blood Urea Nitrogen 18 mg/dL (9-20); Calcium 9.2 mg/dL (8.4-10.2); Carbon Dioxide 28 mmol/L (22-30); Chloride 103 mmol/L (98-107); Estimated Glomerular Filt Rate > 60; Glucose 175 mg/dL (65-110); Potassium 4.5 mmol/L (3.4-5.0); Sodium 138 mmol/L (137-145); Total Protein 6.4 g/dL (6.3-8.2)
[2024-08-08 17:03] LABS: Thyroid Stimulating Hormone < 0.015 uIU/mL (0.465-4.680); Total Triiodothyronine (T3) 2.01 NG/ML (0.82-1.58)
[2024-08-08 17:10] LABS: Free T4 Free Thyroxine 3.56 ng/dL (0.78-2.19)
--- OUTSIDE RECORDS SUMMARY | 2024-08-08 17:33 | XMS_ITS | Encounter Summary ---
Author Organization [facility] Address [address] [place] [address] Care Team Providers Care Product Safety Tester Name Role Phone Cierra Villarreal MD Primary Care Provider [phone] Marilu Westfall MD Primary Care Provider [phone] Cierra Villarreal MD Primary Care Provider [phone] Reason for Visit * Reason Onset Date Comments MEDICATION REFILL 06/26/2015 Encounter Details Date Type Department Care Team (Late st Contact Info) Description 06/26/2015 Refill [facility] - Diabetes [address] [address] Denia Greenberg MD MEDICATION REFILL Social History Tobacco Use Types Packs/Day Years Used Date Smoking Tobacco: Never Alcohol Use Standard Drinks/Week Comments No 0 (1 standard drink = 0.6 oz pur e alcohol) Sex and Gender Information Value Date Recorded Sex Assigned at Not on file 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 EDITOR PRODUCER Gender Identity Not on file Sexual Orientation Not on file documented as of this encounter Functional Status * Is person deaf or have serious hearing difficulty? Answer Date of Assessment Author No 02/03/2015 9:09 AM EDITOR PRODUCER Betzaida Zuniga RN * Is person blind [...] documented as of this encounter Care Teams Product Safety Tester Relationship Specialty Start Date End Date Cierra Villarreal MD [address] [facility] [address] [place] [phone] PCP - General Family Medicine 11/27/13 05/31/17 Marilu Westfall MD [address] [place] [address] PCP - General 06/01/17 06/12/18 Cierra Villarreal MD [address] [place] [phone] PCP - General Family Medicine 06/13/18 documented as of this encounter
--- OUTSIDE RECORDS SUMMARY | 2024-08-08 17:33 | XMS_ITS | Encounter Summary ---
Author Organization [facility] Address [address] [place] [address] Care Team Providers Care Batting Machine Operator Insulation Name Role Phone Chrissy Richards MD Primary Care Provider [phone] Cierra Villarreal MD Primary Care Provider [phone] Marilu Westfall MD Primary Care Provider [phone] Cierra Villarreal MD Primary Care Provider [phone] Reason for Visit * Reason Onset Date Comments Blood Sugar Problem 12/18/2012 Please call mom to review blood sugars and make changes Encounter Details Date Type Department Care Team (Late st Contact Info) Description 12/18/2012 Telephone [facility] Pediatrics - Diabetes [address] [address] Denia Greenberg MD Blood Sugar Problem (Please call mom to review blood sugars and make changes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 PATIENT MONITOR Gender Identity Not on file Sexual Orientation Not on file documented as of this encounter Plan of Treatment Not on file documented as of this encounter Visit Diagnoses Not on filedocumented in this encounter Additional Health Concerns Infection Onset Date Last Indicated Resolved Time MRSA 01/28/2015 01/28/2015 10/22/2015 12:0 6 PM CDT documented as of this encounter Care Teams Batting Machine Operator Insulation Relationship Specialty Start Date End Date Chrissy Richards MD [address] [place] [address] PCP - General 07/02/11 11/26/13 Cierra Villarreal MD [address] [place] [phone] PCP - General Family Medicine 11/27/13 05/31/17 Marilu Westfall MD [address] [place] [address] PCP - General 06/01/17 06/12/18 Cierra Villarreal MD [address] [place] [phone] PCP - General Family Medicine 06/13/18 documented as of this encounter
--- OUTSIDE RECORDS SUMMARY | 2024-08-08 17:33 | XMS_ITS | Encounter Summary ---
Author Organization [facility] Address [address] [facility] [address] Care Team Providers Care Revenue Stamp Cutter Name Role Phone Cierra Villarreal MD Primary Care Provider Reason for Visit * Reason Onset Date Comments Opened In Error 12/17/2019 Encounter Details Date Type Department Care Team (Late st Contact Info) Description 12/17/2019 Refill [facility] Pediatrics - Endocrinology [address] [facility] 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
--- OUTSIDE RECORDS SUMMARY | 2024-08-08 17:33 | XMS_ITS | Encounter Summary ---
Author Organization [facility] Address [address] [facility] [place] [address] Care Team Providers Care Mortgage Advisor Name Role Phone Cierra Villarreal MD Primary Care Provider [phone] Encounter Details Date Type Department Care Team (Late st Contact Info) Description 06/02/2021 Telephone [facility] Pediatrics - Diabetes [facility] [address] [place] [address] Jelena Pack, CHARGING CRANE OPERATOR-COBOL MAINFRAME DEVELOPER [facility] [place] [address] Social History Tobacco Use Types Packs/Day Years [...] on file 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 * Telephone Encounter - Eleanor Ramos RN [...] 3:49 PM CDT Appeal letter sent to [place] for precision xtra blood ketone strips. documented in this encounter Plan of Treatment Not on file documented as of this encounter Visit Diagnoses Not on filedocumented in this encounter Care Teams Mortgage Advisor Relationship Specialty Start Date End Date Cierra Villarreal MD [address] [place] [phone] PCP - General Family Medicine 06/13/18 documented as of this encounter
--- OUTSIDE RECORDS SUMMARY | 2024-08-08 17:33 | XMS_ITS | Encounter Summary ---
Author Organization [facility] Address [address] [place] [address] Care Team Providers Care Log Raft Worker Name Role Phone Cierra Villarreal MD Primary Care Provider Encounter Details Date Type Department Care Team (Late st Contact Info) Description 11/15/2019 Telephone [facility] Pediatrics - Diabetes [address] [address] Alber Fiore [place] [address] Social History Tobacco Use Types Packs/Day Years Used Date Smoking Tobacco: Never Smokeless Tobacco: Never Alcohol Use Standard Drinks/Week Comments No 0 (1 standard drink = 0.6 oz pur e alcohol) Sex and Gender Information Value Date Recorded Sex Assigned at Not on file 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 documented in this encounter Plan of Treatment Not on file documented as of this encounter Visit Diagnoses Not on filedocumented in this encounter Care Teams Log Raft Worker Relationship Specialty Start Date End Date Cierra Villarreal MD [address] [place] [phone] PCP - General Family Medicine 06/13/18 documented as of this encounter
--- OUTSIDE RECORDS SUMMARY | 2024-08-08 17:33 | XMS_ITS | Encounter Summary ---
Author Organization [facility] Address [address] [facility] [place] [address] Care Team Providers Care Pipe Fitter Ammonia Name Role Phone Marilu Westfall MD Primary Care Provider [phone] Cierra Villarreal MD Primary Care Provider [phone] Reason for Visit * Reason Onset Date Comments Refill Request 05/22/2018 Please call in t 33g Delica lancets- 30g not covered any more. If those arent covered any lancets will do. Encounter Details Date Type Department Care Team (Late st Contact Info) Description 05/22/2018 Telephone [facility] Pediatrics - Endocrinology [address] [place] [address] Ayaka Agarwal Refill Request (Please call in [...] on file 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 CENTRIFUGE SEPARATOR OPERATOR Gender Identity Not on file Sexual [...] on filedocumented in this encounter Care Teams Pipe Fitter Ammonia Relationship Specialty Start Date End Date Marilu Westfall MD [address] [place] [address] PCP - General 06/01/17 06/12/18 Cierra Villarreal MD [address] [place] [phone] PCP - General Family Medicine 06/13/18 documented as of this encounter
--- OUTSIDE RECORDS SUMMARY | 2024-08-08 17:33 | XMS_ITS | Encounter Summary ---
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 Will send for urine ketone strips. * Telephone Encounter - Cristi Tang - 05/26/2021 4:16 PM CDT PA sent through [employer] to [place] for Precision Xtra blood ketone strips. documented in this encounter Plan of Treatment Not on file documented as of this encounter Visit Diagnoses Diagnosis Uncontrolled type 1 diabetes mellitus with hyperglycemia (HCC) documented in this encounter Care Teams Grinder Relationship Specialty Start Date End Date Cierra Villarreal MD [address] [phone] PCP - General Family Medicine 06/13/18 documented as of this encounter
--- OUTSIDE RECORDS SUMMARY | 2024-08-08 17:33 | XMS_ITS | Encounter Summary ---
Author Organization [facility] Address [address] [facility] [place] [address] Care Team Providers Care File Machine Operator Name Role Phone Cierra Villarreal MD Primary Care Provider Reason for Visit * Reason Comments Refill Request Encounter Details Date Type Department Care Team (Late st Contact Info) Description 08/20/[address] 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
--- OUTSIDE RECORDS SUMMARY | 2024-08-08 17:33 | XMS_ITS | Encounter Summary ---
Author Organization [facility] Address [address] [facility] [place] [address] Care Team Providers Care Ham Rolling Machine Operator Name Role Phone Cierra Villarreal MD Primary Care Provider [phone] Marilu Westfall MD Primary Care Provider [phone] Cierra Villarreal MD Primary Care Provider [phone] Reason for Visit * Reason Onset Date Comments MEDICATION REFILL 10/01/2015 Encounter Details Date Type Department Care Team (Late st Contact Info) Description 10/01/2015 Refill [facility] - Diabetes [address] [address] Keely Frye, POOL HALL INSPECTOR-VINYL FLOORING INSTALLER Retired MEDICATION REFILL Social History Tobacco Use Types Packs/Day Years Used Date Smoking Tobacco: Never Alcohol Use Standard Drinks/Week Comments No 0 (1 standard drink = 0.6 oz pur e alcohol) Sex and Gender Information Value Date Recorded Sex Assigned at Not on file 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 REPAIR SERVICE DISPATCHER Gender Identity Not on file Sexual Orientation Not on file documented as of this encounter Functional Status * Is person deaf or have serious hearing difficulty? Answer Date of Assessment Author No 02/03/2015 9:09 AM REPAIR SERVICE DISPATCHER Betzaida Zuniga RN * Is person blind [...] Pharmacy informed me they switched [place] straight [place] Medicaid. They can only get 200 test strips every 20 days withstraight [place] Medicaid. Pharmacist ran through [employer] ultra mini meter and test strips 200 [...] documented as of this encounter Care Teams Ham Rolling Machine Operator Relationship Specialty Start Date End Date Cierra Villarreal MD [address] [place] [phone] PCP - General Family Medicine 11/27/13 05/31/17 Marilu Westfall MD [address] [place] [address] PCP - General 06/01/17 06/12/18 Cierra Villarreal MD [address] [place], [place] [phone] PCP - General Family Medicine 06/13/18 documented as of this encounter
--- OUTSIDE RECORDS SUMMARY | 2024-08-08 17:33 | XMS_ITS | Encounter Summary ---
Author Organization [facility] Address [address] [facility] [address] [place] [address] Phone Care Team Providers Care Vp Celebrity Services Name Role Phone Pablito Villarreal MD Primary Care Provider [phone] Jimmy Velez MD Unavailable [phone] Reason for Visit * Reason Onset Date Comments Medical Question/Miscellaneous 08/07/2024 Encounter Details Date Type Department Care Team (Late st Contact Info) Description 08/07/2024 Telephone [facility] Surgery [address] [facility] Floor 8 [place] [address] Marianne Aparicio MD [address] [facility] [phone] [place], [place] [id number] Medical Question/Miscellaneous Social History Tobacco Use Types Packs/Day Years Used Date Smoking Tobacco: Never Personal Safety Answer Date Recorded Getting School Help Needed Not on file 04/18 Sex and Gender Information Value Date Recorded Sex Assigned at Not on file Legal Sex Male 8:34 AM BEAD STRINGER Gender Identity Not on file Sexual Orientation Not on file documented as of this encounter Miscellaneous Notes * Telephone Encounter - Amor Andrade - 08/07/2024 3:16 PM CDT Patient Query: Ultrasound Was an attempt to transfer to the assigned clinical staff or backline? No Reason for call?: patient's mother wanting to speak with RN with several questions about the Ultrasound for 08/14. Who is the caller: Bernice What is the best number for them to contact for a call back: [phone] Last office visit: Visit date not found Date of Surgery: No surgery found documented in this encounter Plan of Treatment Not on file documented as of this encounter Visit Diagnoses Not on filedocumented in this encounter Care Teams Vp Celebrity Services Relationship Specialty Start Date End Date Pablito Villarreal MD [address] [place] [address] PCP - General 07/14/20 Jimmy Velez MD [address] [address] Referring Physician Internal Medicine 06/06/24 documented as of this encounter
--- OUTSIDE RECORDS SUMMARY | 2024-08-08 17:33 | XMS_ITS | Encounter Summary ---
Author Organization [facility] Address [address] [facility] [place] [address] Care Team Providers Care Motor Room Controller Name Role Phone Cierra Villarreal MD Primary Care Provider [phone] Encounter Details Date Type Department Care Team (Late st Contact Info) Description 03/15/2021 Telephone [facility] Pediatrics - Endocrinology [address] [place] [address] Aundrea Yoo, DO [address] [place] [address] Social History Tobacco Use Types Packs/Day Years [...] on file 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 POT HOLDER BINDER Gender Identity Not on file Sexual Orientation Not on file COVID-19 Exposure Response Date Recorded In the last month, have you been in contact with someone who was confirmed or suspected to have Coronavirus / COVID-19? No / Unsure 02/19/2021 3:26 PM POT HOLDER BINDER documented as of this encounter Functional Status * Is person deaf or have serious hearing difficulty? Answer Date of Assessment Author No 02/09/2021 9:37 AM Guero Roy RN * Is person blind or have serious difficulty seeing? Answer Date of Assessment Author No 02/09/2021 9:37 AM POT HOLDER BINDER Guero Olguin RN * Does person have serious difficulty walking/climbing stairs? Answer Date of Assessment Author Yes 02/09/2021 9:37 AM Guero Roy RN * Does person have difficulty dressing/bathing? Answer Date of Assessment Author Yes 10/03/2018 8:25 AM CDT Patricio Bhatti RN * Does person have difficulty doing errands alone? Answer Date of Assessment Author Yes 02/09/2021 9:37 AM POT HOLDER BINDER Guero Olguin RN documented as of this encounter Mental Status * Does person have difficulty concentrating/remembering/making decisions? Answer Entry Date Author Yes 02/09/2021 9:37 AM Guero Roy RN documented in this encounter Miscellaneous Notes * Telephone Encounter - Laurel Reid RN - 06/09/2021 1:39 PM CDT Monae from pharmacy calling with questions in regards to Precision strips. Was sent to [facility] [phone] * Telephone Encounter - Aundrea Yoo DO - 03/15/2021 3:41 PM POT HOLDER BINDER Endocrine after hours call Dex is a [...] 22 units at normal time on Tuesday. HOLDER BINDER documented in this encounter Plan of Treatment Not on file documented as of this encounter Visit Diagnoses Not on filedocumented in this encounter Care Teams Motor Room Controller Relationship Specialty Start Date End Date Cierra Villarreal MD [address] [place] [phone] PCP - General Family Medicine 06/13/18 documented as of this encounter
--- OUTSIDE RECORDS SUMMARY | 2024-08-08 17:33 | XMS_ITS | Encounter Summary ---
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
--- OUTSIDE RECORDS SUMMARY | 2024-08-08 17:33 | XMS_ITS | Encounter Summary ---
Author Organization [facility] Address [address] [facility] [place] [address] Care Team Providers Care Drawer In Hand Name Role Phone Cierra Villarreal MD Primary Care Provider Encounter Details Date Type Department Care Team (Late st Contact Info) Description 04/27/2019 Telephone [facility] Pediatrics - Diabetes [address] [address] Alber Fiore APRN-[place] [address] Social History Tobacco Use Types Packs/Day Years Used Date Smoking Tobacco: Never Smokeless Tobacco: Never Alcohol Use Standard Drinks/Week Comments No 0 (1 standard drink = 0.6 oz pur e alcohol) Sex and Gender Information Value Date Recorded Sex Assigned at Not on file 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 DENTAL CERAMIST Gender Identity Not on file Sexual Orientation [...] 04/30/2019 8:51 AM CDT PA sent to [place] via [employer] for precision xtra test strips. Addendum: 05/03/19: [...] put through for precision xtra test strips. [place] CERAMIST documented in this encounter Plan of Treatment Not on file documented as of this encounter Visit Diagnoses Not on filedocumented in this encounter Care Teams Drawer In Hand Relationship Specialty Start Date End Date Cierra Villarreal MD [address] [place], [place] [phone] PCP - General Family Medicine 06/13/18 documented as of this encounter
--- OUTSIDE RECORDS SUMMARY | 2024-08-08 17:33 | XMS_ITS | Encounter Summary ---
Author Organization [facility] Address [address] [facility] [place] [address] Care Team Providers Care Homebound Teacher Name Role Phone Cierra Villarreal MD Primary Care Provider [phone] Marilu Westfall MD Primary Care Provider [phone] Cierra Villarreal MD Primary Care Provider [phone] Reason for Visit * Reason Onset Date Comments Blood Sugar Problem 02/20/2015 Encounter Details Date Type Department Care Team (Late st Contact Info) Description 02/20/2015 Telephone [facility] Pediatrics - Endocrinology [facility] [place] [address] Denia Greenberg MD Blood Sugar Problem Social History Tobacco Use Types Packs/Day Years Used Date Smoking Tobacco: Never Alcohol Use Standard Drinks/Week Comments No 0 (1 standard drink = 0.6 oz pur e alcohol) Sex and Gender Information Value Date Recorded Sex Assigned at Not on file 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 SCIENCE INTERPRETER Gender Identity Not on file Sexual Orientation Not on file documented as of this encounter Functional Status * Is person deaf or have serious hearing difficulty? Answer Date of Assessment Author No 02/03/2015 9:09 AM SCIENCE INTERPRETER Betzaida Zuniga RN * Is person blind [...] at length. Mom to call as needed. 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
--- OUTSIDE RECORDS SUMMARY | 2024-08-08 17:33 | XMS_ITS | Encounter Summary ---
Author Organization [facility] Address [address] [facility] [place] [address] Care Team Providers Care Manager Revenue Name Role Phone Cierra Villarreal MD Primary Care Provider [phone] Marilu Westfall MD Primary Care Provider [phone] Cierra Villarreal MD Primary Care Provider [phone] Reason for Visit * Reason Onset Date Comments Letter 10/18/2014 Please send an u pdated letter with the new lunch carb ratio of 1 per 8 to the [facility] [phone] Encounter Details Date Type Department Care Team (Late st Contact Info) Description 10/18/2014 Telephone [facility] Pediatrics - Diabetes [address] [address] Denia Greenberg MD Letter (Please send an updated letter with the new lunch carb ratio of 1 per 8 to the [facility] [phone]) Social History Tobacco Use Types Packs/Day Years Used Date Smoking Tobacco: Never Alcohol Use Standard Drinks/Week Comments No 0 (1 standard drink = 0.6 oz pur e alcohol) Sex and Gender Information Value Date Recorded Sex Assigned at Not on file 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 WIND UP OPERATOR Gender Identity Not on file Sexual [...] as of this encounter Care Teams Manager Revenue Relationship Specialty Start Date End Date Cierra Villarreal MD [address] [facility] [address] [place] [address] PCP - General Family Medicine 11/27/13 05/31/17 Marilu Westfall MD [address] [place] [address] PCP - General 06/01/17 06/12/18 Cierra Villarreal MD [address] [place] [address] PCP - General Family Medicine 06/13/18 documented as of this encounter
--- OUTSIDE RECORDS SUMMARY | 2024-08-08 17:33 | XMS_ITS | Encounter Summary ---
Author Organization [facility] Address [address] [facility] [place] [address] Care Team Providers Care Wildlife Biology Internship Name Role Phone Cierra Villarreal MD Primary Care Provider Reason for Visit * Reason Comments Refill Request Encounter Details Date Type Department Care Team (Late st Contact Info) Description 05/05/2019 Refill [facility] Pediatrics - Diabetes [address] [address] Denia Greenberg MD Refill Request Social History Tobacco Use Types Packs/Day Years Used Date Smoking Tobacco: Never Smokeless Tobacco: Never Alcohol Use Standard Drinks/Week Comments No 0 (1 standard drink = 0.6 oz pur e alcohol) Sex and Gender Information Value Date Recorded Sex Assigned at Not on file 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
--- OUTSIDE RECORDS SUMMARY | 2024-08-08 17:33 | XMS_ITS | Encounter Summary ---
Author Organization [facility] Address [address] [facility] [place] [address] Care Team Providers Care Head Of Drama Name Role Phone Cierra Villarreal MD Primary Care Provider [phone] Marilu Westfall MD Primary Care Provider [phone] Cierra Villarreal MD Primary Care Provider [phone] Reason for Visit * Reason Onset Date Comments Refill Request 04/23/2014 Please fax rx fo [facility] will [facility] arrive on time. [facility] on [address] in [place]. Please change directions to test 12 times a day (not 10-12) Encounter Details Date Type Department Care Team (Late st Contact Info) Description 04/23/2014 Telephone [facility] Pediatrics - Diabetes [address] [address] Denia Greenberg MD Refill Request (Please fax rx for test strips to local [facility] as mail order will not arrive on time. [facility] on [address] in [place]. Please change directions to test 12 times a day (not 10-12)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 SPIRAL TUBE WINDER Gender Identity Not on file Sexual Orientation [...] as of this encounter Care Teams Head Of Drama Relationship Specialty Start Date End Date Cierra Villarreal MD [address] [place] [phone] PCP - General Family Medicine 11/27/13 05/31/17 Marilu Westfall MD [address] [place] [address] PCP - General 06/01/17 06/12/18 Cierra Villarreal MD [address] [place] [phone] PCP - General Family Medicine 06/13/18 documented as of this encounter
--- OUTSIDE RECORDS SUMMARY | 2024-08-08 17:33 | XMS_ITS | Encounter Summary ---
Author Organization [facility] Address [address] [place] [address] Care Team Providers Care Clinical Data Research Name Role Phone Cierra Villarreal MD Primary Care Provider [phone] Reason for Visit * Reason Onset Date Comments MEDICATION REFILL 04/06/2021 Encounter Details Date Type Department Care Team (Late st Contact Info) Description 04/06/2021 Refill [facility] Pediatrics - Diabetes [facility] [address] [place] [address] Jelena Pack, NURSERY SUPERVISOR-SYSTEMS APPLICATIONS PROGRAMMING LEAD [address] [place] [address] MEDICATION REFILL Social History Tobacco Use Types [...] on file 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 IT AUDIT MANAGER Gender Identity Not on file Sexual [...] uncontrolled documented in this encounter Care Teams Clinical Data Research Relationship Specialty Start Date End Date Cierra Villarreal MD [address] [place] [phone] PCP - General Family Medicine 06/13/18 documented as of this encounter
--- OUTSIDE RECORDS SUMMARY | 2024-08-08 17:33 | XMS_ITS | Encounter Summary ---
Author Organization [facility] Address [address] [facility] [place] [address] Care Team Providers Care Business Developer Name Role Phone Cierra Villarreal MD Primary Care Provider [phone] Marilu Westfall MD Primary Care Provider [phone] Cierra Villarreal MD Primary Care Provider [phone] Reason for Visit * Reason Onset Date Comments Blood Sugar Problem 10/24/2014 Mom is still noticing elevated blood sugars at the mid-afternoon check (between 1:15-2:00PM). Please call to review blood sugars and further changes that need to be made. Encounter Details Date Type Department Care Team (Late st Contact Info) Description 10/24/2014 Telephone [facility] Pediatrics - Diabetes [address] [address] Denia Greenberg MD Blood Sugar Problem (Mom [...] on file 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 DATA CONTROL CLERK SUPERVISOR Gender Identity Not on file Sexual Orientation [...] documented as of this encounter Care Teams Business Developer Relationship Specialty Start Date End Date Cierra Villarreal MD [address] [phone] PCP - General Family Medicine 11/27/13 05/31/17 Marilu Westfall MD [address] [place] [phone] PCP - General 06/01/17 06/12/18 Cierra Villarreal MD [address] [facility] [address] [place] [address] PCP - General Family Medicine 06/13/18 documented as of this encounter
--- OUTSIDE RECORDS SUMMARY | 2024-08-08 17:33 | XMS_ITS | Encounter Summary ---
Author Organization [facility] Address [address] [place] [address] Care Team Providers Care Traffic I Manager Name Role Phone Cierra Villarreal MD Primary Care Provider Encounter Details Date Type Department Care Team (Late st Contact Info) Description 08/21/2019 Telephone [facility] Pediatrics - Diabetes [address] [address] Alber Fiore, VARGHESE-JITNEY DRIVER [address] [place] [address] Social History Tobacco Use Types Packs/Day Years Used Date Smoking Tobacco: Never Smokeless Tobacco: Never Alcohol Use Standard Drinks/Week Comments No 0 (1 standard drink = 0.6 oz pur e alcohol) Sex and Gender Information Value Date Recorded Sex Assigned at Not on file 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 TESTING DIRECTOR Gender Identity Not on file Sexual [...] on filedocumented in this encounter Care Teams Traffic I Manager Relationship Specialty Start Date End Date Cierra Villarreal MD [address] [place] [phone] PCP - General Family Medicine 06/13/18 documented as of this encounter
--- OUTSIDE RECORDS SUMMARY | 2024-08-08 17:33 | XMS_ITS | Encounter Summary ---
Author Organization [facility] Address [address] [place] [address] Care Team Providers Care Midwife [facility] Owner Name Role Phone Cierra Villarreal MD Primary Care Provider [phone] Encounter Details Date Type Department Care Team (Late st Contact Info) Description 11/11/2020 Telephone [facility] Pediatrics - Diabetes [address] [address] Denia Greenberg MD Social History Tobacco Use Types Packs/Day Years Used Date Smoking Tobacco: Never Smokeless Tobacco: Never Alcohol Use Standard Drinks/Week Comments No 0 (1 standard drink = 0.6 oz pur e alcohol) Sex and Gender Information Value Date Recorded Sex Assigned at Not on file 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 TITLE OFFICER Gender Identity Not on file Sexual Orientation [...] nose since Tuesday. I referred mom to lockstitch sleeve setter. States bgs have been elevated. Negative ketones. [...] on filedocumented in this encounter Care Teams Midwife [facility] Birth Center Owner Relationship Specialty Start Date End Date Cierra Villarreal MD [address] [place], [place] [phone] PCP - General Family Medicine 06/13/18 documented as of this encounter
--- OUTSIDE RECORDS SUMMARY | 2024-08-08 17:33 | XMS_ITS | Clinical Summary ---
Author Organization [facility] Address [address] [facility] [place] [address] Care Team Providers Care Cone Tender Name Role Phone Cierra Villarreal MD Primary Care Provider Source Comments [facility],non-owned Affiliates and Associated Physician Practices is amultiple site organization consisting of ambulatory clinics and hospital sitesin [place], [place], [place] and [place]. This disclosure is being madepursuant to the Care Everywhere program and may not contain all information available regarding this patient. 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 Gender Identity Not on file Sexual [...] 6:30 AM CDT Height 153.5 cm (5' 0.43) 11/22/2023 6 :30 AM CDT Body Mass [...] - POCT INTERFACED (05/25/2022 11:02 AM CDT) [facility] Hemoglobin A1C POCT 7.1(H) <5.7 % 05/25/2022 11:14 AM CDT [facility] Estimated Average Glucose 157 mg/dL 05/25/2022 11:14 AM T [facility] Blood BLOOD SPECIMEN / Unknown 05/25/2022 11:02 AM CDT 05/25/2022 11:14 AM CDT Narrative [facility] - 05/25/2022 11:14 AM CDT HbA1c [...] CARE ORDERABLES Final Result Performing Organization Address [facility] de Phone Number [facility] [address] [place] [phone] * MICROALB/CREAT RATIO URINE RANDOM PANEL (10/03/2018 7:43 AM CDT) Creatinine Urine 86.79 mg/dL 10/04/19 19 8:16 AM CDT [facility] Microalbumin Urine <0.5 <1.7 mg/dL 10/03/2018 8:16 AM T [facility] Microalbumin/Crea tinine Ratio <6 <30 mg/g 10/03/2018 8:16 AM T [facility] Urine URINE SPECIMEN OBTAINED BY CLEAN CATCH PROCEDURE / Unknown Collection / Unknown 10/03/2018 7:43 AM CDT 10/03/2018 7:55 AM CDT Alber Fiore APRN-PUBLIC RELATIONS WRITER LAB - URINE CHEMISTRY O RDERABLES Final Result Performing Organization Address [facility] de Phone Number [facility] [address] [place] [phone] * BASIC METABOLIC PANEL (CALCIUM TOTAL) (10/17/2017 12:37 PM CDT) Glucose 79 70 - 105 mg/dL 10/17/2017 2:01 PM CDT [facility] Sodium 138 136 - 145 mmol/L 10/17/2017 2:01 PM CDT [facility] Potassium 4.3 3.5 - 5.1 mmol/L 10/17/2017 2:01 PM T [facility] Chloride 107 98 - 107 mmol/L 10/17/2017 2:01 PM CDT [facility] CO2 23 20 - 28 mmol/L 10/17/2017 2:01 PM CDT [facility] Calcium 9.42 9.08 - 10.48 mg/dL 10/17/2017 2:01 PM T [facility] Anion Gap 8 5 - 20 mmol/L 10/17/2017 2:01 PM CDT [facility] BUN 17.1 5.3 - 18.7 mg/dL 10/17/2017 2:01 PM T [facility] Creatinine 0.93 0.61 - 1.07 mg/dL 10/17/2017 2:01 PM T [facility] eGFR by MDRD mL/min/1.7 3m2 10/17/2017 2:01 PM [facility] Comment: eGFR calculations are not performed for children under 18 years old. eGFR by MDRD mL/min/1.7 3m2 10/17/2017 2:01 PM T [facility] Comment: eGFR calculations are not performed for children under 18 years old. Blood BLOOD SPECIMEN / Unknown Venipuncture / Unknown 10/17/2017 12:37 PM CDT 10/17/2017 1:24 PM CDT Denia Greenberg MD LAB - CHEMISTRY ORDERABLES Shannan lebron Result [facility] [address] [facility] [place] [place] [address] from Last 3 Months or Most Recently Relevant to Health Maintenance Insurance [employer] [facility] Care Teams Cone Tender Relationship Specialty Start Date End Date Cierra Villarreal MD [address] [facility] [address] [place] [address] PCP - General Family Medicine 06/13/18
--- OUTSIDE RECORDS SUMMARY | 2024-08-08 17:33 | XMS_ITS | Encounter Summary ---
Author Organization [facility] Address [address] [facility] [address] Care Team Providers Care Enhanced Environmental Operator Name Role Phone Cierra Villarreal MD Primary Care Provider [phone] Reason for Visit * Reason Comments Refill Request Encounter Details Date Type Department Care Team (Late st Contact Info) Description 03/06/2021 Refill [facility] Pediatrics - Diabetes [address] [address] Denia Greenberg MD Refill Request Social History [...] on file 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 OPERATIONS EXPERT Gender Identity Not on file Sexual Orientation Not on file COVID-19 Exposure Response Date Recorded In the last month, have you been in contact with someone who was confirmed or suspected to have Coronavirus / COVID-19? No / Unsure 02/19/2021 3:26 PM OPERATIONS EXPERT documented as of this encounter Functional Status [...] on filedocumented in this encounter Care Teams Enhanced Environmental Operator Relationship Specialty Start Date End Date Cierra Villarreal MD [address] [place] [phone] PCP - General Family Medicine 06/13/18 documented as of this encounter
--- OUTSIDE RECORDS SUMMARY | 2024-08-08 17:33 | XMS_ITS | Encounter Summary ---
Author Organization [facility] Address [address] [facility] [place] [address] Care Team Providers Care Typing Office Worker Name Role Phone Cierra Villarreal MD Primary Care Provider [phone] Encounter Details Date Type Department Care Team (Late st Contact Info) Description 11/13/2018 Telephone [facility] Pediatrics - Diabetes [address] [address] Alber Fiore APRN-[facility] [place] [address] Social History Tobacco Use Types Packs/Day Years Used Date Smoking Tobacco: Never Smokeless Tobacco: Never Alcohol Use Standard Drinks/Week Comments No 0 (1 standard drink = 0.6 oz pur e alcohol) Sex and Gender Information Value Date Recorded Sex Assigned at Not on file 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
--- OUTSIDE RECORDS SUMMARY | 2024-08-08 17:33 | XMS_ITS | Encounter Summary ---
Author Organization [facility] Address [address] [facility] [place] [address] Care Team Providers Care Campaign Consultant Name Role Phone Cierra Villarreal MD Primary Care Provider Encounter Details Date Type Department Care Team (Late st Contact Info) Description 01/21/2020 Telephone [facility] Pediatrics - Endocrinology [address] [place] [address] Alber Fiore APRN-NOZZLE AND SLEEVE WORKER [address] [place] [address] Social History Tobacco Use Types Packs/Day Years Used Date Smoking Tobacco: Never Smokeless Tobacco: Never Alcohol Use Standard Drinks/Week Comments No 0 (1 standard drink = 0.6 oz pur e alcohol) Sex and Gender Information Value Date Recorded Sex Assigned at Not on file 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 NETBACKUP ADMIN Gender Identity Not on file Sexual Orientation Not on file COVID-19 Exposure Response Date Recorded In the last month, have you been in contact with someone who was confirmed or suspected to have Coronavirus / COVID-19? Unable to assess 01/09/2020 1:57 PM NETBACKUP ADMIN documented as of this encounter Functional Status [...] at 2130 01/24 give basaglar at 2300 ACKUP ADMIN documented in this encounter Plan of Treatment Not on file documented as of this encounter Visit Diagnoses Not on filedocumented in this encounter Care Teams Campaign Consultant Relationship Specialty Start Date End Date Cierra Villarreal MD [address] [place] [phone] PCP - General Family Medicine 06/13/18 documented as of this encounter
--- OUTSIDE RECORDS SUMMARY | 2024-08-08 17:33 | XMS_ITS | Encounter Summary ---
Author Organization [facility] Address [address] [facility] [place] [address] Care Team Providers Care Narcotics And/Or Vice Detective Name Role Phone Chrissy Richards MD Primary Care Provider [phone] Cierra Villarreal MD Primary Care Provider [phone] Marilu Westfall MD Primary Care Provider [phone] Cierra Villarreal MD Primary Care Provider [phone] Reason for Visit * Reason Onset Date Comments General 10/12/2013 Encounter Details Date Type Department Care Team (Late st Contact Info) Description 10/12/2013 Telephone [facility] Pediatrics - Diabetes [address] [address] Denia Greenberg MD General Social History Tobacco Use Types Packs/Day Years Used Date Smoking Tobacco: Never Alcohol Use Standard Drinks/Week Comments Not Asked 0 (1 standard drink = 0.6 oz pur e alcohol) Sex and Gender Information Value Date Recorded Sex Assigned at Not on file 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 [phone]. I called at [phone], office closed at 1645. Notified mother. documented in this encounter Plan of Treatment Not on file documented as of this encounter Visit Diagnoses Not on filedocumented in this encounter Additional Health Concerns Infection Onset Date Last Indicated Resolved Time MRSA 01/28/2015 01/28/2015 10/22/2015 12:0 6 PM CDT documented as of this encounter Care Teams Narcotics And/Or Vice Detective Relationship Specialty Start Date End Date Chrissy Richards MD [address] [place] [phone] PCP - General 07/02/11 11/26/13 Cierra Villarreal MD [address] [place] [phone] PCP - General Family Medicine 11/27/13 05/31/17 Marilu Westfall MD [address] [place] [address] PCP - General 06/01/17 06/12/18 Cierra Villarreal MD [address] [place] [phone] PCP - General Family Medicine 06/13/18 documented as of this encounter
--- OUTSIDE RECORDS SUMMARY | 2024-08-08 17:33 | XMS_ITS | Encounter Summary ---
Author Organization [facility] Address [address] [facility] [place] [address] Care Team Providers Care Equity Director Name Role Phone Cierra Villarreal MD Primary Care Provider [phone] Marilu Westfall MD Primary Care Provider [phone] Cierra Villarreal MD Primary Care Provider [phone] Encounter Details Date Type Department Care Team (Late st Contact Info) Description 01/10/2017 Telephone [facility] - Diabetes [address] [address] Denia Greenberg MD Social History Tobacco Use Types Packs/Day Years Used Date Smoking Tobacco: Never Smokeless Tobacco: Never Alcohol Use Standard Drinks/Week Comments No 0 (1 standard drink = 0.6 oz pur e alcohol) Sex and Gender Information Value Date Recorded Sex Assigned at Not on file 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 CHANGE MANAGEMENT EXPERT Gender Identity Not on file Sexual Orientation Not on file documented as of this encounter Functional Status * Is person deaf or have serious hearing difficulty? Answer Date of Assessment Author No 02/03/2015 9:09 AM CHANGE MANAGEMENT EXPERT Betzaida Zuniga RN * Is person blind [...] on filedocumented in this encounter Care Teams Equity Director Relationship Specialty Start Date End Date Cierra Villarreal MD [address] [place] [phone] PCP - General Family Medicine 11/27/13 05/31/17 Marilu Westfall MD [address] [place] [address] PCP - General 06/01/17 06/12/18 Cierra Villarreal MD [address] [place] [phone] PCP - General Family Medicine 06/13/18 documented as of this encounter
--- OUTSIDE RECORDS SUMMARY | 2024-08-08 17:33 | XMS_ITS | Encounter Summary ---
Author Organization [facility] Address [address] [facility] [place] [address] Care Team Providers Care Court Recorder Name Role Phone Chrissy Richards MD Primary Care Provider [phone] Cierra Villarreal MD Primary Care Provider [phone] Marilu Westfall MD Primary Care Provider [phone] Cierra Villarreal MD Primary Care Provider [phone] Reason for Visit * Reason Onset Date Comments Refill Request 09/03/2013 Mom called, need s refill for syringes sent to [facility] [place]. Encounter Details Date Type Department Care Team (Late st Contact Info) Description 09/03/[address] [facility] Pediatrics - Diabetes [address] [address] Denia Greenberg MD Refill Request (Mom called, needs refill for syringes sent to [facility] in [place]. 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 Gender Identity Not on file Sexual Orientation Not on file documented as of this encounter Plan of Treatment Not on file documented as of this encounter Visit Diagnoses Not on filedocumented in this encounter Additional Health Concerns Infection Onset Date Last Indicated Resolved Time MRSA 01/28/2015 01/28/2015 10/22/2015 12:0 6 PM CDT documented as of this encounter Care Teams Court Recorder Relationship Specialty Start Date End Date Chrissy Richards MD [address] [place] [phone] PCP - General 07/02/11 11/26/13 Cierra Villarreal MD [address] [place] [phone] PCP - General Family Medicine 11/27/13 05/31/17 Marilu Westfall MD [address] [place] [phone] PCP - General 06/01/17 06/12/18 Cierra Villarreal MD [address] [place] [phone] PCP - General Family Medicine 06/13/18 documented as of this encounter
--- OUTSIDE RECORDS SUMMARY | 2024-08-08 17:33 | XMS_ITS | Encounter Summary ---
Author Organization [facility] Address [address] [place] [address] Care Team Providers Care Special Librarian Name Role Phone Cierra Villarreal MD Primary Care Provider Reason for Visit * Reason Comments Refill Request Encounter Details Date Type Department Care Team (Late st Contact Info) Description 11/16/2020 Refill [facility] Pediatrics - Diabetes [address] [address] Denia Greenberg MD Refill Request Social History Tobacco Use Types Packs/Day Years Used Date Smoking Tobacco: Never Smokeless Tobacco: Never Alcohol Use Standard Drinks/Week Comments No 0 (1 standard drink = 0.6 oz pur e alcohol) Sex and Gender Information Value Date Recorded Sex Assigned at Not on file 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
--- OUTSIDE RECORDS SUMMARY | 2024-08-08 17:33 | XMS_ITS | Encounter Summary ---
Author Organization [facility] Address [address] [place] [address] Care Team Providers Care Ornament Setter Name Role Phone Cierra Villarreal MD Primary Care Provider [phone] Marilu Westfall MD Primary Care Provider [phone] Cierra Villarreal MD Primary Care Provider [phone] Reason for Visit * Reason Onset Date Comments MEDICATION REFILL 11/29/2013 Encounter Details Date Type Department Care Team (Late st Contact Info) Description 11/29/2013 Refill [facility] - Diabetes [address] [address] Keely Frye, POLE TESTER-BALANCE BRIDGE ASSEMBLER Retired MEDICATION REFILL Social History Tobacco Use Types Packs/Day Years Used Date Smoking Tobacco: Never Alcohol Use Standard Drinks/Week Comments Not Asked 0 (1 standard drink = 0.6 oz pur e alcohol) Sex and Gender Information Value Date Recorded Sex Assigned at Not on file 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 FINAL DRESSING CUTTER Gender Identity Not on file Sexual Orientation Not on file documented as of this encounter Plan of Treatment Not on file documented as of this encounter Visit Diagnoses Not on filedocumented in this encounter Additional Health Concerns Infection Onset Date Last Indicated Resolved Time MRSA 01/28/2015 01/28/2015 10/22/2015 12:0 6 PM CDT documented as of this encounter Care Teams Ornament Setter Relationship Specialty Start Date End Date Cierra Villarreal MD [address] [facility] [address] [place] [phone] PCP - General Family Medicine 11/27/13 05/31/17 Marilu Westfall MD [address] [place] [phone] PCP - General 06/01/17 06/12/18 Cierra Villarreal MD [address] [facility] [address] [place] [address] PCP - General Family Medicine 06/13/18 documented as of this encounter
--- OUTSIDE RECORDS SUMMARY | 2024-08-08 17:33 | XMS_ITS | Encounter Summary ---
Author Organization [facility] Address [address] [facility] [place] [address] Care Team Providers Care Health Policy Analyst Name Role Phone Chrissy Richards MD Primary Care Provider [phone] Cierra Villarreal MD Primary Care Provider [phone] Marilu Westfall MD Primary Care Provider [phone] Cierra Villarreal MD Primary Care Provider [phone] Reason for Visit * Reason Onset Date Comments Letter for School or Work 11/01/2012 Encounter Details Date Type Department Care Team (Late st Contact Info) Description 11/01/2012 Telephone [facility] Pediatrics - Diabetes [address] [address] Keely Frye, ROLLER MAKER-DESIGN EDITOR Retired Letter for School or Work Social History Tobacco Use Types Packs/Day Years Used Date Smoking Tobacco: Never Alcohol Use Standard Drinks/Week Comments Not Asked 0 (1 standard drink = 0.6 oz pur e alcohol) Sex and Gender Information Value Date Recorded Sex Assigned at Not on file 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 TILE MOLDER HAND Gender Identity Not on file Sexual Orientation [...] documented as of this encounter Care Teams Health Policy Analyst Relationship Specialty Start Date End Date Chrissy Richards MD [address] [place] [phone] PCP - General 07/02/11 11/26/13 Cierra Villarreal MD [address] [place] [phone] PCP - General Family Medicine 11/27/13 05/31/17 Marilu Westfall MD [address] [place] [phone] PCP - General 06/01/17 06/12/18 Cierra Villarreal MD [address] [place] [phone] PCP - General Family Medicine 06/13/18 documented as of this encounter
--- OUTSIDE RECORDS SUMMARY | 2024-08-08 17:33 | XMS_ITS | Encounter Summary ---
Author Organization [facility] Address [address] [place] [address] Care Team Providers Care Board Member Name Role Phone Cierra Villarreal MD Primary Care Provider Reason for Visit * Reason Onset Date Comments Refill Request 06/25/2019 New prescription for syringes, Dex is using syringes for basaglar and admelog- 6 syringes a day, Only getting 1 box of 100 from pharmacy Encounter Details Date Type Department Care Team (Late st Contact Info) Description 06/25/2019 Telephone [facility] Pediatrics - Endocrinology [address] [place] [address] Ayaka Agarwal Refill Request (New prescription [...] on file 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 SPANISH 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
--- OUTSIDE RECORDS SUMMARY | 2024-08-08 17:33 | XMS_ITS | Encounter Summary ---
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
--- OUTSIDE RECORDS SUMMARY | 2024-08-08 17:33 | XMS_ITS | Encounter Summary ---
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 Answer Date of Assessment Author No 02/09/2021 9:37 AM HAIR SPINNING MACHINE OPERATOR Guero Olguin RN * Is person blind [...] for Precision Xtra Ketone strips sent to [place] through [employer] * Telephone Encounter - Cristi Tang - 10/08/2022 4:36 PM CDT School Letter faxed to [phone] documented in this encounter Plan of Treatment Not on file documented as of this encounter Visit Diagnoses Not on filedocumented in this encounter Care Teams Food Science Professor Relationship Specialty Start Date End Date Cierra Villarreal MD [address] [place] [phone] PCP - General Family Medicine 06/13/18 documented as of this encounter
--- OUTSIDE RECORDS SUMMARY | 2024-08-08 17:33 | XMS_ITS | Encounter Summary ---
Author Organization [facility] Address [address] [place] [address] Phone Care Team Providers Care Technology Specialist Name Role Phone Pablito Villarreal MD Primary Care Provider [phone] Jimmy Velez MD Unavailable [phone] Encounter Details Date Type Department Care Team (Late st Contact Info) Description 08/08/2024 Telephone [facility] Floor [address] [place] [address] Yoselin Sol RN Social History Tobacco Use Types Packs/Day Years Used Date Smoking Tobacco: Never Personal Safety Answer Date Recorded Getting School Help Needed Not on file 04/18 Sex and Gender Information Value Date Recorded Sex Assigned at Not on file Legal Sex Male 8:34 AM COLLECTION ADVISOR Gender Identity Not on file Sexual Orientation Not on file documented as of this encounter Miscellaneous Notes * Telephone Encounter - Yoselin Sol RN - 08/08/2024 9:20 AM CDT Returned pt's mother's phone call and left message to call back if she still has questions to discuss. Office number provided. Yoselin Sol RN Clinical Nurse Coordinator to Dr. Hernan Swain and Dr. [facility] Department of Surgery - Division of Surgical Oncology documented in this encounter Plan of Treatment Not on file documented as of this encounter Visit Diagnoses Not on filedocumented in this encounter Care Teams Technology Specialist Relationship Specialty Start Date End Date Pablito Villarreal MD [address] [place] [address] PCP - General 07/14/20 Jimmy Velez MD [address] [address] Referring Physician Internal Medicine 06/06/24 documented as of this encounter
--- OUTSIDE RECORDS SUMMARY | 2024-08-08 17:33 | XMS_ITS | Encounter Summary ---
Author Organization [facility] Address [address] [place] [address] Care Team Providers Care Driller Operator Name Role Phone Marilu Westfall MD Primary Care Provider Cierra Villarreal MD Primary Care Provider Reason for Visit * Reason Onset Date Comments Blood Glucose (Sugar) Review 09/09/2017 Ple ase call mom to review blood sugars. She has noticed blood sugars around 2pm are in the 200-300 range lately. 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
--- OUTSIDE RECORDS SUMMARY | 2024-08-08 17:33 | XMS_ITS | Encounter Summary ---
Author Organization [facility] Address [address] [facility] [place] [address] Care Team Providers Care Machinist Outside Name Role Phone Cierra Villarreal MD Primary Care Provider [phone] Reason for Visit * Reason Onset Date Comments MEDICATION REFILL 11/24/2020 Encounter Details Date Type Department Care Team (Late st Contact Info) Description 11/24/2020 Refill [facility] Pediatrics - Diabetes [address] [address] Denia Greenberg MD MEDICATION REFILL Social History Tobacco Use Types Packs/Day Years Used Date Smoking Tobacco: Never Smokeless Tobacco: Never Alcohol Use Standard Drinks/Week Comments No 0 (1 standard drink = 0.6 oz pur e alcohol) Sex and Gender Information Value Date Recorded Sex Assigned at Not on file 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 SENIOR C DEVELOPER Gender Identity Not on file Sexual [...] on filedocumented in this encounter Care Teams Machinist Outside Relationship Specialty Start Date End Date Cierra Villarreal MD [address] [place] [phone] PCP - General Family Medicine 06/13/18 documented as of this encounter
--- OUTSIDE RECORDS SUMMARY | 2024-08-08 17:33 | XMS_ITS | Encounter Summary ---
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 Mom's e-mail: [email or web address] documented in this encounter Plan of Treatment Not on file documented as of this encounter Visit Diagnoses Not on filedocumented in this encounter Care Teams Extraction Machine Operator Relationship Specialty Start Date End Date Cierra Villarreal MD [address] [place] [phone] PCP - General Family Medicine 06/13/18 documented as of this encounter
--- OUTSIDE RECORDS SUMMARY | 2024-08-08 17:33 | XMS_ITS | Data Portability ---
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 I agree with the resident's assessment and plan as documented with the following addendum: None. Dr. Maribel Ho MD Attending Physician, [facility]. [email or web address] Not available 09/08/2023 10:27:03 Reason for Referral None Reported. Results Created Date Observation Date Name Description Value Unit Range Abnormal Flag Note LastModifiedBy Organization Detail LastModifiedTime 01/29/20 20 01/29/2020 XR, abdom en No observ ation record ed. [email or web address] Not Available 2019 19:11:52 11/28/19 24 ECG 12-le ad [facility] [address] [facility] [place] [address] [facility] [place] [address], [place] Test Date: 2023-02 0-06 Pat Name: TRISTA Love ment: 41 [address] carr ID: [id number] Room: [id number] Gender : Male Techni devin: KH : 2000-02 0-05 Reques aspen By: OKSANA Ng Order Number : [id number] Bebeto aguilar MD: Parveen Galicia Measur ements Interv als [place] Rate: 146 P: 65 VT: 121 QRS: 73 QRSD: 93 T: 19 [...] at -6-2 024 23:30: 38 CDT [email or web address] [facility] system, [place], [address], 12/14/2023 15:12:37 12/02/19 24 XR, chest [facility] [place] [address] [facility] - [place] [address] [facility] [address] [place] [address] EXAMIN ATION: Chest X-Ray 1 View ACCESS ION: [id number] EXAM DATE/T ODALYS: 2023 5:50 PM REASON [...] By: Kyler chinchilla MD, 2023 6:27 PM [email or web address] [facility] system, [place], [address], 12/14/2023 15:12:37 Result Notes Documentation Provider Name and Address Organization Details Recorded Time Xr, Chest : [facility] [place] [address] [address] EXAMINATION: Chest X-Ray 1 View EXAM DATE/TIME: 12/02/2023 5:50 PM REASON FOR EXAM: Cough. Patient has Down syndrome. COMPARISON: None. TECHNIQUE: Single upright/semiupright/supine frontal projection view of the chest was obtained. FINDINGS: There is no focal infiltrate or consolidative change. Heart size is within normal limits for technique. Pulmonary vasculature is within normal limits for technique. There is no large pleural effusion or pneumothorax. ===== IMPRESSION:===== 1. NO ACUTE CARDIOPULMONARY FINDINGS. Referred By: Interpreted By: Kyler Wise MD, 12/02/2023 6:27 PM Ciera Dozier MD Attn: Accounting,[address] [facility], [place], [address], [facility] 12/14/2023 15:12:38 Problems Name Problem SNOMED Code Status Onset Date Resolution Date Notes Provider Name and Address Organization Details Recorded Time Type 1 diabetes mellitus 43944648 Active 013 Nixon Rosario Attn: Monalisain g,[address] [facility], [place], [address], [facility] 0 11:52:48 Reflex sympathetic dystrophy of lower extremity Active 012 Nixon Rosario Attn: Jeremi aguilar,[address] [facility], [place], [address], [facility] 0 11:52:48 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Veezeon on 11/06/2023 through Direct Message along with the following message body content: Patient Name: TRISTA HUMPHRIES. Patient : 2000. Patient . Karina Davis 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 Mother stated patient has had nausea and vomiting today. Labs in ED showed BHB 2.3, glucose 362, Cr 1.11. Patient was agitated, not allowing staff to treat him, ripping off EKG leads. Given Bendryl 25 mg IV x2, Haldol 5 mg IV, Ativan 2 mg IV x2 without significant improvement. Patient started on Precedex infusion. ICU consulted for further care. Past Medical History: Diagnosis Date Diabetes mellitus ([facility]) Down syndrome, unspecified ([facility]) History reviewed. No pertinent surgical history. Social History Tobacco Use Smoking status: Never Smokeless tobacco: Never Substance Use Topics Alcohol use: Never Drug use: Never No family history on file. Prior to Admission medications Not on File Allergies Allergen Reactions Latex Rash, Hives and Unknown Rash Rash Sulfa Antibiotics Rash ROS: Review of Systems Unable to perform ROS: Psychiatric disorder Gastrointestinal: Positive for nausea and vomiting. Physical Exam Filed Vitals: 11/26/23 1841 11/26/23 1915 11/26/23192411/26/232040 BP: (!) 138/99 110/66 Pulse: Resp: Temp: 97.6 degreeF (36.4 degreeC) TempSrc: Temporal SpO2: Weight: 70.8 kg (156 lb) Height: 1.549 m (5' 1) No intake/output data recorded. Physical Exam: Physical Exam Constitutional: Comments: Sleeping Cardiovascular: Rate and Rhythm: Regular rhythm. Tachycardia present. Pulses: Normal pulses. Heart sounds: Normal heart sounds. Pulmonary: Effort: Pulmonary effort is normal. Breath sounds: Normal breath sounds. No wheezing, rhonchi or rales. Abdominal: Palpations: Abdomen is soft. Musculoskeletal: Right lower leg: No edema. Left lower leg: No edema. Neurological: Comments: Lethargic but will arouse to stimulation Data: Recent Labs Lab 11/26/231949 WBC 10.93 RBC 5.52 HGB 16.3 HCT 49.9 MCV 90.4 MCH 29.5 MCHC 32.7 PLT 355 RDW 13.4 MPV 9.3 Recent Labs Lab 11/26/231949 NA 139 K 4.8 CL 101 CO2 18.6* AGAP 19.4* BUN 21* CR 1.11 BUNCREATININ 18.9 GLU 362* CA 10.5* Recent Labs Lab 11/26/231949 TP 7.7 ALB 3.6 TBIL 1.2 ALKP 124 AST 21 ALT 31 No results for input(s): APTT, INR in the last 168 hours. Invalid input(s): PT No results for input(s): TROP, CPK, MB in the last 168 hours. No results for input(s): LACTICACID, PROCT in the last 168 hours. No results for input(s): PH, PCO2, PO2, [id number], BICARBWB, BASEDEFICIT, BASEEXCESS in the last 168 hours. Physician/QUALITY ASSURANCE SPECIALIST/PA can use ideal body weight (IBW) to determine the target ordered volume for Crystalloid Fluid Administration if all of the following conditions are met. [place] body weight (IBW) was used to determine target ordered volume for Crystalloid Fluid Administration. Last Recorded Weight 11/26/231914 Weight: 70.8 kg (156 lb) [place] body weight: 52.3 kg (115 lb 4.8 oz) Adjusted ideal body weight: 59.7 kg (131 lb 9.3 oz) Patient is obese (defined as BMI >30). Body mass index is 29.48 kg/mA?. Imaging: --- EKG/tele: --- Microbiology: --- Glucose (over past 24h): --- Net I/O (this admission): --- Assessment/Plan: Assessment: DKA Agitation IDDM Down's syndrome Plan: -Will continue Precedex and wean as tolerated. Goal to keep patient from pulling at lines, hurting self/staff. -Will obtain EKG when able -DKA protocol -Will place additional PIV -Follow UOP, electrolytes -BMP q4h -Supportive Care INFECTIOUS DISEASES: -Risk Stratification for CDI: _ (7) History of CDI _ (3) Tube Feeding _ (2) Renal Failure requiring HD or transplant _ (2) Use of Immunosuppressants (past 90 days) _ (2) Antibiotics w/in past 14 days _ (2) Receipt of cephalosporins _ (2) Underlying infection (treatment with Abx) _ (2) Non-surgical admission X (2) ICU admission _ (1) Malignancy (chemo or radiation past 5 years) _ (1) Age > 65 _ (1) Previous Hospitalization w/in 30 days Total Score= + 2 (Score greater than 7 = increased risk for CDI) -Plan: 1. Will utilize H2RA's over PPI's except when specifically contraindicated. 2. Will de-escalate all antibiotics as quickly as possible. Nutrition: NPO DVT prophylaxis: Lovenox GI prophylaxis: NA IV access: PIV Tubes: NA Family discussion: Mother updated by ED staff Activity: bed rest Code status: Full Code I spent 60 minutes of critical care time providing direct care to this critically ill patient excluding teaching and procedures. 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 Mother stated patient has had nausea and vomiting today. Labs in ED showed BHB 2.3, glucose 362, Cr 1.11. Patient was agitated, not allowing staff to treat him, ripping off EKG leads. Given Bendryl 25 mg IV x2, Haldol 5 mg IV, Ativan 2 mg IV x2 without significant improvement. Patient started on Precedex infusion. ICU consulted for further care. Past Medical History: Diagnosis Date Diabetes mellitus (CMS/HCC HHS/HCC) Down syndrome, unspecified (HHS/HCC) History reviewed. No pertinent surgical history. Social History Tobacco Use Smoking status: Never Smokeless tobacco: Never Substance Use Topics Alcohol use: Never Drug use: Never No family history on file. Prior to Admission medications Not on File Allergies Allergen Reactions Latex Rash, Hives and Unknown Rash Rash Sulfa Antibiotics Rash ROS: Review of Systems Unable to perform ROS: Psychiatric disorder Gastrointestinal: Positive for nausea and vomiting. Physical Exam Filed Vitals: 11/26/23 1841 10/05/191411/26/23192411/26/232040 BP: (!) 138/99 110/66 Pulse: Resp: Temp: 97.6 degreeF (36.4 degreeC) TempSrc: Temporal SpO2: Weight: 70.8 kg (156 lb) Height: 1.549 m (5' 1) No intake/output data recorded. Physical Exam: Physical Exam Constitutional: Comments: Sleeping Cardiovascular: Rate and Rhythm: Regular rhythm. Tachycardia present. Pulses: Normal pulses. Heart sounds: Normal heart sounds. Pulmonary: Effort: Pulmonary effort is normal. Breath sounds: Normal breath sounds. No wheezing, rhonchi or rales. Abdominal: Palpations: Abdomen is soft. Musculoskeletal: Right lower leg: No edema. Left lower leg: No edema. Neurological: Comments: Lethargic but will arouse to stimulation Data: Recent Labs Lab 11/26/231949 WBC 10.93 RBC 5.52 HGB 16.3 HCT 49.9 MCV 90.4 MCH 29.5 MCHC 32.7 PLT 355 RDW 13.4 MPV 9.3 Recent Labs Lab 11/26/231949 NA 139 K 4.8 CL 101 CO2 18.6* AGAP 19.4* BUN 21* CR 1.11 BUNCREATININ 18.9 GLU 362* CA 10.5* Recent Labs Lab 11/26/231949 TP 7.7 ALB 3.6 TBIL 1.2 ALKP 124 AST 21 ALT 31 No results for input(s): APTT, INR in the last 168 hours. Invalid input(s): PT No results for input(s): TROP, CPK, MB in the last 168 hours. No results for input(s): LACTICACID, PROCT in the last 168 hours. No results for input(s): PH, PCO2, PO2, [id number], BICARBWB, BASEDEFICIT, BASEEXCESS in the last 168 hours. Physician/QUALITY ASSURANCE SPECIALIST/PA can use ideal body weight (IBW) to determine the target ordered volume for Crystalloid Fluid Administration if all of the following conditions are met. [place] body weight (IBW) was used to determine target ordered volume for Crystalloid Fluid Administration. Last Recorded Weight 11/26/231914 Weight: 70.8 kg (156 lb) [place] body weight: 52.3 kg (115 lb 4.8 oz) Adjusted ideal body weight: 59.7 kg (131 lb 9.3 oz) Patient is obese (defined as BMI >30). Body mass index is 29.48 kg/mA?. Imaging: --- EKG/tele: --- Microbiology: --- Glucose (over past 24h): --- Net I/O (this admission): --- Assessment/Plan: Assessment: DKA Agitation IDDM Down's syndrome Plan: -Will continue Precedex and wean as tolerated. Goal to keep patient from pulling at lines, hurting self/staff. -Will obtain EKG when able -DKA protocol -Will place additional PIV -Follow UOP, electrolytes -BMP q4h -Supportive Care When patient is transitioned off of insulin infusion and deemed to be stable from a metabolic standpoint, would discharge home. Prolonged hospitalization may lead to continued need for sedatives. INFECTIOUS DISEASES: -Risk Stratification for CDI: _ (7) History of CDI _ (3) Tube Feeding _ (2) Renal Failure requiring HD or transplant _ (2) Use of Immunosuppressants (past 90 days) _ (2) Antibiotics w/in past 14 days _ (2) Receipt of cephalosporins _ (2) Underlying infection (treatment with Abx) _ (2) Non-surgical admission X (2) ICU admission _ (1) Malignancy (chemo or radiation past 5 years) _ (1) Age > 65 _ (1) Previous Hospitalization w/in 30 days Total Score= + 2 (Score greater than 7 = increased risk for CDI) -Plan: 1. Will utilize H2RA's over PPI's except when specifically contraindicated. 2. Will de-escalate all antibiotics as quickly as possible. Nutrition: NPO DVT prophylaxis: Lovenox GI prophylaxis: NA IV access: PIV Tubes: NA Family discussion: Mother updated by ED staff Activity: bed rest Code status: Full Code I spent 60 minutes of critical care time providing direct care to this critically ill patient excluding teaching and procedures. 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 Mother stated patient has had nausea and vomiting today. Labs in ED showed BHB 2.3, glucose 362, Cr 1.11. Patient was agitated, not allowing staff to treat him, ripping off EKG leads. Given Bendryl 25 mg IV x2, Haldol 5 mg IV, Ativan 2 mg IV x2 without significant improvement. Patient started on Precedex infusion. ICU consulted for further care. Past Medical History: Diagnosis Date Diabetes mellitus ([facility]) Down syndrome, unspecified ([facility]) History reviewed. No pertinent surgical history. Social History Tobacco Use Smoking status: Never Smokeless tobacco: Never Substance Use Topics Alcohol use: Never Drug use: Never No family history on file. Prior to Admission medications Not on File Allergies Allergen Reactions Latex Rash, Hives and Unknown Rash Rash Sulfa Antibiotics Rash ROS: Review of Systems Unable to perform ROS: Psychiatric disorder Gastrointestinal: Positive for nausea and vomiting. Physical Exam Filed Vitals: 11/26/23 1841 11/26/23 1915 11/26/23 1925 11/26/232040 BP: (!) 138/99 110/66 Pulse: Resp: Temp: 97.6 degreeF (36.4 degreeC) TempSrc: Temporal SpO2: Weight: 70.8 kg (156 lb) Height: 1.549 m (5' 1) No intake/output data recorded. Physical Exam: Physical Exam Constitutional: Comments: Sleeping Cardiovascular: Rate and Rhythm: Regular rhythm. Tachycardia present. Pulses: Normal pulses. Heart sounds: Normal heart sounds. Pulmonary: Effort: Pulmonary effort is normal. Breath sounds: Normal breath sounds. No wheezing, rhonchi or rales. Abdominal: Palpations: Abdomen is soft. Musculoskeletal: Right lower leg: No edema. Left lower leg: No edema. Neurological: Comments: Lethargic but will arouse to stimulation Data: Recent Labs Lab 11/26/231949 WBC 10.93 RBC 5.52 HGB 16.3 HCT 49.9 MCV 90.4 MCH 29.5 MCHC 32.7 PLT 355 RDW 13.4 MPV 9.3 Recent Labs Lab 11/26/231949 NA 139 K 4.8 CL 101 CO2 18.6* AGAP 19.4* BUN 21* CR 1.11 BUNCREATININ 18.9 GLU 362* CA 10.5* Recent Labs Lab 11/26/231949 TP 7.7 ALB 3.6 TBIL 1.2 ALKP 124 AST 21 ALT 31 No results for input(s): APTT, INR in the last 168 hours. Invalid input(s): PT No results for input(s): TROP, CPK, MB in the last 168 hours. No results for input(s): LACTICACID, PROCT in the last 168 hours. No results for input(s): PH, PCO2, PO2, [id number], BICARBWB, BASEDEFICIT, BASEEXCESS in the last 168 hours. Physician/QUALITY ASSURANCE SPECIALIST/PA can use ideal body weight (IBW) to determine the target ordered volume for Crystalloid Fluid Administration if all of the following conditions are met. [place] body weight (IBW) was used to determine target ordered volume for Crystalloid Fluid Administration. Last Recorded Weight 11/26/231914 Weight: 70.8 kg (156 lb) [place] body weight: 52.3 kg (115 lb 4.8 oz) Adjusted ideal body weight: 59.7 kg (131 lb 9.3 oz) Patient is obese (defined as BMI >30). Body mass index is 29.48 kg/mA?. Imaging: --- EKG/tele: --- Microbiology: --- Glucose (over past 24h): --- Net I/O (this admission): --- Assessment/Plan: Assessment: DKA Agitation IDDM Down's syndrome Plan: -Will hold on Precedex for now and consider ketamine and versed for sedation. Goal to keep patient from pulling at lines, hurting self/staff. -Will obtain EKG when able -DKA protocol -Will place additional PIV -Follow UOP, electrolytes -BMP q4h -Supportive Care When patient is transitioned off of insulin infusion and deemed to be stable from a metabolic standpoint, would discharge home. Prolonged hospitalization may lead to continued need for sedatives. INFECTIOUS DISEASES: -Risk Stratification for CDI: _ (7) History of CDI _ (3) Tube Feeding _ (2) Renal Failure requiring HD or transplant _ (2) Use of Immunosuppressants (past 90 days) _ (2) Antibiotics w/in past 14 days _ (2) Receipt of cephalosporins _ (2) Underlying infection (treatment with Abx) _ (2) Non-surgical admission X (2) ICU admission _ (1) Malignancy (chemo or radiation past 5 years) _ (1) Age > 65 _ (1) Previous Hospitalization w/in 30 days Total Score= + 2 (Score greater than 7 = increased risk for CDI) -Plan: 1. Will utilize H2RA's over PPI's except when specifically contraindicated. 2. Will de-escalate all antibiotics as quickly as possible. Nutrition: NPO DVT prophylaxis: Lovenox GI prophylaxis: NA IV access: PIV Tubes: NA Family discussion: Mother updated by ED staff Activity: bed rest Code status: Full Code I spent 60 minutes of critical care time providing direct care to this critically ill patient excluding teaching and procedures. Cleve Payan DO 11/26/23 10:14 PM Signed by: CLEVE PAYAN 11/26/2023 11:13 PM Cierra Villarreal MD Attn: Polly,[address] [place], [address], [place] [facility] 11/30/2023 09:18:50 Medical Equipment None Reported. Allergies Allergen ID Allergen Name Allergen Category Reaction Reaction Severity Criticality Documentation Date Start Date Code Code System Note Provider Name and Address Organization Details Recorded Time 056620 latex environme nt,medica tion Not available Not available Not available 01/20/20182014 68673 91 RxNorm Other react ions and sever ities : 'Skin React ions' . Nixon Rosario Attn: Jeremi g,[address] [facility] [place], [address], [facility] 0 11:50:51 23900 Substance with sulfonami de structure and antibacte rial mechanism of action (substanc e) medicatio n rash Not available Not available 09/27/2016 21402 8003 SNOMED Avani Goldstein CMA null, [place] [facility] 7 14:56:07 Medications Name Sig Start Date [...] e Not Available Vitals Date Recorded Body temperature Body height Body mass index (BMI) Body weight Heart rate Oxygen saturation Oxygen saturation in Arterial blood by Pulse oximetry Systolic blood pressure Diastolic blood pressure Provider Name and Address Organization Details Last Updated DateTime 4 97.8 [degF] 149.86 cm 34.8 kg/m2 60382.2 4 g 108 /min 98 % 98 % 125 mm[Hg] 87 mm[Hg] Kristin Good MA [facility] 4 14:51:22 Date Recorded Body height Body mass index (BMI) Body mass index (BMI) [Percentile] Per age and sex Body weight Body temperature Heart rate Oxygen saturation Oxygen saturation in Arterial blood by Pulse oximetry Systolic blood pressure Diastolic blood pressure Provider Name and Address Organization Details Last Updated DateTime 9 152.4 cm 31.2 kg/m2 98 % 29956.3 4 g 98.3 [degF] 74 /min 96 % 96 % 104 mm[Hg] 70 mm[Hg] Edna Lamascarltonhelen [facility] 9 16:59:08 Social History Question Answer Notes LastModified by Xceive Details LastModified Time Tobacco Smoking Status Never Smoker Edna Kaley [facility] 10/16/2018 16:54:05 What Was The Date Of Your Most Recent Tobacco Screening? 08/13/2019 Information not available 08/13/2019 Sex: Unknown Functional Status Question Answer Note LastModified by Xceive Details LastModified Time Do you or have you ever used smokeless tobacco? Never used smokeless tobacco Information not available 08/13/2019 Do you or have you ever used e-cigarettes or vape? Never used electronic cigarettes Information not available 08/13/2019 Mental Status None recorded. Family History Nothing Reported. Medical History No medical history recorded. Immunizations Vaccine Type Date Status Note Provider Nam e and Address Organization Details Recorded Time Influenza, split virus, quadrivalent, PF 6 completed Cierra Villarreal MD Attn: Accounting,[address] [place], [address], [facility] 12/06/2019 11:50:57 Influenza, split virus, quadrivalent, PF 4 completed Cierra Villarreal MD Attn: Accounting,[address] [facility], [place], [address], [place] [facility] 12/06/2019 11:50:57 COVID-19, mRNA, LNP-S, PF, 30 mcg/0.3 mL dose 1 completed Tana Handley null, [place] [facility] 12/18/2020 12:59:38 COVID-19, mRNA, LNP-S, PF, 30 mcg/0.3 mL dose 1 completed Tana Handley null, [place] [facility] 12/18/2020 12:59:43 Influenza, split virus, quadrivalent, PF 8 completed Not Available [facility] 03/10/2019 02:49:14 meningococcal MCV4P 9 completed Not Available [facility] 03/10/2019 02:43:38 DTaP-IPV 3 completed Cierra Villarreal MD Attn: Accounting,[address] [facility], [place], [address], [place] [facility] 12/06/2019 11:53:42 FWuA-Pet-TMT 3 completed Cierra Villarreal MD Attn: Accounting,[address] [facility], [place], [address], [place] [facility] 12/06/2019 11:53:43 SSeU-Kdy-XMD 3 completed Cierra Villarreal MD Attn: Accounting,[address] [facility], [place], [address], [place] [facility] 12/06/2019 11:53:42 DTP-Hib 4 completed Cierra Villarreal MD Attn: Accounting,[address] [facility], [place], [address], [place] [facility] 12/06/2019 11:53:42 DTaP-IPV 6 completed Cierra Villarreal MD Attn: Accounting,204 1 [place], [address], [place] [facility] 12/06/2019 11:53:42 Tdap 4 completed Cierra Villarreal MD Attn: Accounting,204 1 [facility], [place], [address], [place] [facility] 12/06/2019 11:53:43 Hep B, adolescent or pediatric 2 completed Cierra Villarreal MD Attn: Accounting,204 1 [facility], [place], [address], [place] [facility] 12/06/2019 11:53:43 Hep B, adolescent or pediatric 3 completed Cierra Villarreal MD Attn: Accounting,204 1 [facility], [place], [address], [place] [facility] 12/06/2019 11:53:42 Hep B, adolescent or pediatric 3 completed Cierra Villarreal MD Attn: Accounting,204 1 [facility], [place], [address], [place] [facility] 12/06/2019 11:53:43 MMR 4 completed Cierra Villarreal MD Attn: Accounting,204 1 [facility], [place], [address], [place] [facility] 12/06/2019 11:53:42 MMR 6 completed Cierra Villarreal MD Attn: Accounting,204 1 [facility], [place], [address], [place] [facility] 12/06/2019 11:53:42 varicella 4 completed Cierra Villarreal MD Attn: Accounting,204 1 [facility], [place], [address], [place] [facility] 12/06/2019 11:53:42 varicella 8 completed Cierra Villarreal MD Attn: Accounting,204 1 [facility], [place], [address], [place] [facility] 12/06/2019 11:53:43 meningococcal MCV4P 4 completed Cierra Villarreal MD Attn: Accounting,204 1 [facility], [place], [place], [address] [place] [address], [place] [facility] 12/06/2019 11:53:42 Hep A, unspecified formulation 1 completed Cierra Villarreal MD Attn: Accounting,204 1 [facility], [place], [address], [place] [facility] 12/06/2019 11:53:42 Hep A, unspecified formulation 4 completed Cierra Villarreal MD Attn: Accounting,204 1 [facility], [place], [place], [address] [place] [address], [place] [facility] 12/06/2019 11:53:42 influenza, unspecified formulation 4 completed Cierra Villarreal MD Attn: Accounting,204 1 [facility], [place], [place], [address] [place] [address], [place] [facility] 12/06/2019 11:53:42 influenza, unspecified formulation 5 completed Cierra Villarreal MD Attn: Accounting,204 1 [facility], [place], [place], [address] [place] [address], [place] [facility] 12/06/2019 11:53:43 influenza, unspecified formulation 8 completed Cierra Villarreal MD Attn: Accounting,204 1 [facility], [place], [place], [address] [place] [address], [place] [facility] 12/06/2019 11:53:43 influenza, unspecified formulation 9 completed Cierra Villarreal MD Attn: Accounting,204 1 [facility], [place], [place], [address] [place] [address], [place] [facility] 12/06/2019 11:53:42 influenza, unspecified formulation 1 completed Cierra Villarreal MD Attn: Accounting,204 1 [facility], [place], [address] [place] [address], [place] [facility] 12/06/2019 11:53:43 influenza, unspecified formulation 3 completed Cierra Villarreal MD Attn: Accounting,204 1 [facility], [place], [place], [address] [place] [address], [facility] - [facility] 12/06/2019 11:50:57 Past Encounters Encounter ID Performer Location Encounter Start Date Encounter Closed Date Diagnosis/Indication Diagnosis SNOMED-CT Code Diagnosis ICD10 Code Diagnosis Note [id number] MD Nadya Morgan FP (VERENA 300) [address] [facility] [place] [address] 09/27/2016 14:42:02 09/28/2016 13:30:51 History and physical examination, sports participation 615800918 Z02.5 - History of Downs Syndrome. Mom denies cardiac defects but pt sees cardiologi st regularly- Mom denies hearing defects, visual acuity defects- Discussed weight and importance of eating healthy as a family despite pt being predispose d to obesity- Discussed risk of thyroid disorder but mom denies symptoms at this time- Will require modificati on of sports in school which he [id number] MD OF [facility] [address] [address] 12/13/2017 10:37:54 12/15/2017 10:49:42 Active or passive immunization 949520806 Z23 [id number] MD OF [facility] [address] [address] 01/20/2018 16:23:14 01/30/2018 10:18:03 Well child 667177733 Z00.129 Discussed diet, exercise and puberty. 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 He is due for his blood work with endocrin and will follow up in a few months if nothing comes of the endocrin work up . [id number] Cierra Villarreal MD [facility] [address] [address] 09/24/2019 12:37:32 09/25/2019 13:38:12 Loss of hair 813889025 L65.9 resolved- blood work normal likely related to stress. Encouraged healthy hair care. 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 Autistic disorder 007470 003 F84.0 overall stable with lots of family support. He is unable to perform self care [id number] ROSARIO CARRILLO MD [place] [address] [address] 09/06/2023 14:36:34 09/08/2023 12:12:11 Autism spectrum disorder 89057435 F84.0 - Pts mother wanted the pt to have state ID- Filled in the form: Applicatio n for an [place] Person with a disability indentific ation card.- His mother had no concerns in the officePlan :- apt PRN Health Concerns Section Related Observation LastModified by Organization Detai ls LastModified Time None Recorded Concern Status LastModified by Organization Details LastModified Time None Recorded Advance Directives Directive None Recorded Payers Insurance Date Sequence Insurance Name Policy Number Policy Lane Covered Member ID Lane Member ID Guarantor Name 09/06/2023 1 [facility] - DOS PRIOR TO 2020 (MEDICAID REPLACEMENT - HMO) Trista Humphries [id number] Bernice Humphries 09/06/2023 1 [facility] (MEDICAID HMO) [id number] Trista Humphries [id number] Bernice Humphries 09/06/2023 1 [facility] (MEDICAID HMO) Trista Humphries [id number] Bernice Humphries Notes Date Note Type Note Provider Name and Address Organization Details Recorded Time 10/16/2018 text/html Generic HPI TemplateReported bypatient.Notes:Bolivar leborn doing well. He has T1DM and follows with endocrine. Mother reports he is very picky eater and has difficulty communicating. Cierra Villarreal MD Attn: Accounting,20 [address] [facility], [place], [address], [facility] - [facility] 10/19/2018 17:34:28 08/13/2019 text/html Generic HPI TemplateReported bypatient.Notes:Over the last few months has had increasing thinning of hair- with some patches that are supervisory it specialist but continues to have some hair growth. Cierra Villarreal MD Attn: Accounting,20 [address] [place], [address], [facility] - [facility] 08/19/2019 22:17:57 09/24/2019 text/html Generic HPI TemplateReported bypatient.Notes:Hair has improved thickness and was seen by endocrine and blood work was normal. Cierra Villarreal MD Attn: Accounting, 41 [facility], [place], [address], [facility] - [facility] 09/24/2019 15:51:59 12/06/2019 text/html Generic HPI TemplateReported bypatient.Notes:Bolivar lebron doing well. He has T1DM and follows with endocrine. Mother reports he is very picky eater and has difficulty communicating. Cierra Villarreal MD Attn: Accounting,20 [address] [facility], [place], [address], [place] [facility] 12/09/2019 11:49:53 09/06/2023 text/html 22 yr old adult with ASD here with parents. Parents brought in application for [place] person with disability identification card form filled in. Mother states she has no concerns today. MARIBEL HO MD Attn: Accounting,20 [address] [place], [address], [place] [facility] 09/08/2023 10:27:06
--- OUTSIDE RECORDS SUMMARY | 2024-08-08 17:34 | XMS_ITS | Encounter Summary ---
Author Organization [facility] Address [address] [facility] [place] [address] Care Team Providers Care Metal Polisher Name Role Phone Marilu Westfall MD Primary Care Provider [phone] Cierra Villarreal MD Primary Care Provider [phone] Encounter Details Date Type Department Care Team (Late st Contact Info) Description 10/05/2017 Telephone [facility] - Diabetes [address] [address] Denia Greenberg MD Social History Tobacco Use Types Packs/Day Years Used Date Smoking Tobacco: Never Smokeless Tobacco: Never Alcohol Use Standard Drinks/Week Comments No 0 (1 standard drink = 0.6 oz pur e alcohol) Sex and Gender Information Value Date Recorded Sex Assigned at Not on file 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
--- OUTSIDE RECORDS SUMMARY | 2024-08-08 17:34 | XMS_ITS | Encounter Summary ---
Author Organization [facility] Address [address] [facility] [place] [address] Care Team Providers Care Gmat Tutor Name Role Phone Cierra Villarreal MD Primary Care Provider [phone] Marilu Westfall MD Primary Care Provider [phone] Cirera Villarreal MD Primary Care Provider [phone] Reason for Visit * Reason Onset Date Comments Refill Request 05/09/2017 insulin syringes , [facility] to [facility] Encounter Details Date Type Department Care Team (Late st Contact Info) Description 05/09/2017 Telephone [facility] Pediatrics - Endocrinology [address] [place] [address] Denia Greenberg MD Refill Request (insulin syringes, please refill to [facility]) Social History Tobacco Use Types Packs/Day Years Used Date Smoking Tobacco: Never Smokeless Tobacco: Never Alcohol Use Standard Drinks/Week Comments No 0 (1 standard drink = 0.6 oz pur e alcohol) Sex and Gender Information Value Date Recorded Sex Assigned at Not on file 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
--- OUTSIDE RECORDS SUMMARY | 2024-08-08 17:34 | XMS_ITS | Encounter Summary ---
Author Organization [facility] Address [address] [facility] [place] [address] Care Team Providers Care Glass Unloading Equipment Tender Name Role Phone Cierra Villarreal MD Primary Care Provider [phone] Marilu Westfall MD Primary Care Provider [phone] Cierra Villarreal MD Primary Care Provider [phone] Reason for Visit * Reason Onset Date Comments Letter 08/15/2014 mom called to lynn smith you received a letter from [place] regarding Dex Encounter Details Date Type Department Care Team (Late st Contact Info) Description 08/15/2014 Telephone [facility] Pediatrics - Diabetes [address] [address] Keely Frye, EDGING SUPERVISOR-OPERATIONS SUPPORT PROFESSIONALS Retired Letter (mom called to verify you received a letter from [place] regarding Dex) Social History Tobacco Use Types Packs/Day Years Used Date Smoking Tobacco: Never Alcohol Use Standard Drinks/Week Comments No 0 (1 standard drink = 0.6 oz pur e alcohol) Sex and Gender Information Value Date Recorded Sex Assigned at Not on file 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 Gender Identity Not on file Sexual Orientation [...] Infection Onset Date Last Indicated Resolved Time RUST 01/28/2015 01/28/2015 10/22/2015 12:0 6 PM CDT documented as of this encounter Care Teams Glass Unloading Equipment Tender Relationship Specialty Start Date End Date Cierra Villarreal MD [address] [place] [address] PCP - General Family Medicine 11/27/13 05/31/17 Marilu Westfall MD [address] [place] [address] PCP - General 06/01/17 06/12/18 Cierra Villarreal MD [address] [place] [address] PCP - General Family Medicine 06/13/18 documented as of this encounter
--- OUTSIDE RECORDS SUMMARY | 2024-08-08 17:34 | XMS_ITS | Referral Summary ---
Author Organization [facility] Address [address] [place] [address] Care Team Providers Care Aquaculture Farm Manager Name Role Phone Pablito Villarreal MD Primary Care Provider [phone] Jimmy Velez MD Unavailable [phone] Encounters Date Type Department Care Team Description 08/08/2024 Telephone [facility] Surgery [address] [place] [address] Floor 5 [place] [address] Yoselin Sol RN 08/07/2024 Telephone [facility] Surgery [address] [place] [address] Floor 8 [place] [address] Marianne Aparicio MD Medical Question/Miscellaneous 06/11/2024 Orders Only [facility] Surgery [address] [place] [address] Floor 5 [place] [address] Yoselin Sol, NEIDA Graves' disease (Primary Dx) from Last 3 [...] on file Legal Sex Male 8:34 AM EMERGENCY MEDCL EMT Gender Identity Not on file Sexual Orientation Not on file Last Filed Vital Signs Vital Sign Reading Time Taken Comments Blood Pressure 106/65 04/19/2021 2:26 PM EMERGENCY MEDCL EMT Pulse 88 04/19/2021 2:20 PM EMERGENCY MEDCL EMT Temperature 36.2 C (97.2 F) 04/19/2021 2:26 PM EMERGENCY MEDCL EMT Respiratory Rate 18 04/19/2021 2:20 PM EMERGENCY MEDCL EMT Oxygen Saturation 97% 04/19/2021 2:20 PM EMERGENCY MEDCL EMT Inhaled Oxygen Concentration - - Weight 69 kg (152 lb 1.9 oz) 04/19/2021 2:22 PM EMERGENCY MEDCL EMT Height 149.9 cm (4' 11) 04/19/2021 2:22 PM EMERGENCY MEDCL EMT Body Mass Index 30.72 04/19/2021 2:22 PM EMERGENCY MEDCL EMT Plan of Treatment Not on file Insurance Care Teams Aquaculture Farm Manager Relationship Specialty Start Date End Date Pablito Villarreal MD [address] [place] [address] PCP - General 07/14/20 Jimmy Velez MD [address] [address] Referring Physician Internal Medicine 06/06/24
--- OUTSIDE RECORDS SUMMARY | 2024-08-08 17:34 | XMS_ITS | Encounter Summary ---
Author Organization [facility] [employer] Address [address] [facility] [place] [address] Care Team Providers Care Assistant Store Leader Name Role Phone Cierra Villarreal MD Primary Care Provider [phone] Marilu Westfall MD Primary Care Provider [phone] Cierra Villarreal MD Primary Care Provider [phone] Reason for Visit * Reason Onset Date Comments Letter 08/15/2014 Mom request a le tter be mailed to [place] stating how many times Dex checks his blood sugars and uses syringes, so their case maker can request an increased amount. Blood Sugar Problem 08/15/2014 after change s made by Anat, 08/14-HS 312, 3AM 227, 08/15 AM 331, (dad did forget insulin for dinner last night) Encounter Details Date Type Department Care Team (Late st Contact Info) Description 08/15/2014 Telephone [facility] Pediatrics - Diabetes [address] [address] Denia Greenberg MD Letter (Mom request a letter be mailed to [place] stating how many times Dex checks his blood sugars and uses syringes, so their case maker can request an increased amount. 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
--- OUTSIDE RECORDS SUMMARY | 2024-08-08 17:34 | XMS_ITS | Encounter Summary ---
Author Organization [facility] Address [address] [facility] [address] Care Team Providers Care School Library Media Specialist Name Role Phone Cierra Villarreal MD Primary Care Provider [phone] Marilu Westfall MD Primary Care Provider [phone] Cierra Villarreal MD Primary Care Provider [phone] Reason for Visit * Reason Onset Date Comments Refill Request 08/26/2014 has the test str ip been sent to [facility]. Encounter Details Date Type Department Care Team (Late st Contact Info) Description 08/26/2014 Telephone [facility] Pediatrics - Diabetes [address] [address] Denia Greenberg MD Refill Request (has the test strip been sent to [facility]. 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
--- OUTSIDE RECORDS SUMMARY | 2024-08-08 17:34 | XMS_ITS | Encounter Summary ---
Author Organization [facility] Address [address] [facility] [place] [address] Care Team Providers Care Manager Costing Name Role Phone Cierra Villarreal MD Primary Care Provider [phone] Marilu Westfall MD Primary Care Provider [phone] Cierra Villarreal MD Primary Care Provider [phone] Reason for Visit * Reason Onset Date Comments Blood Sugar Problem 08/13/2014 Please call mom. BS are increasing, had a runny nose but that has cleared up. BS this AM 270. 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
--- OUTSIDE RECORDS SUMMARY | 2024-08-08 17:34 | XMS_ITS | Encounter Summary ---
Author Organization [facility] Address [address] [place] [address] Care Team Providers Care Behavioral Health Specialist Name Role Phone Cierra Villarreal MD Primary Care Provider [phone] Marilu Westfall MD Primary Care Provider [phone] Cierra Villarreal MD Primary Care Provider [phone] Reason for Visit * Reason Onset Date Comments MEDICATION REFILL 05/09/2017 Encounter Details Date Type Department Care Team (Late st Contact Info) Description 05/09/2017 Refill [facility] Pediatrics - Endocrinology [address] [place] [address] Alber Fiore, HAND BUTTON SPLITTER-BICYCLE RACER [address] [place] [address] MEDICATION REFILL Social History Tobacco Use Types Packs/Day Years Used Date Smoking Tobacco: Never Smokeless Tobacco: Never Alcohol Use Standard Drinks/Week Comments No 0 (1 standard drink = 0.6 oz pur e alcohol) Sex and Gender Information Value Date Recorded Sex Assigned at Not on file 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
--- OUTSIDE RECORDS SUMMARY | 2024-08-08 17:34 | XMS_ITS | Clinical Summary ---
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 Encounters Date Type Department Care Team Description 08/08/2024 Telephone [facility] Surgery [address] [place] [address] Floor 5 [place] [address] Yoselin Sol RN 08/07/2024 Telephone [facility] [address] [place] [address] Floor 8 [place] [address] Marianne Aparicio MD Medical Question/Miscellaneous 06/11/2024 Orders Only [facility] [address] [place] [address] Floor 5 [place] [address] Yoselin Sol RN Graves' disease [...] on file Legal Sex Male 8:34 AM METAL STAMPING MACHINE OPERATOR Gender Identity Not on file Sexual Orientation Not on file Obstetrics History Last Filed Vital Signs Vital Sign Reading Time Taken Comments Blood Pressure 106/65 04/19/2021 2:26 PM METAL STAMPING MACHINE OPERATOR Pulse 88 04/19/2021 2:20 PM METAL STAMPING MACHINE OPERATOR Temperature 36.2 C (97.2 F) 04/19/2021 2:26 PM METAL STAMPING MACHINE OPERATOR Respiratory Rate 18 04/19/2021 2:20 PM METAL STAMPING MACHINE OPERATOR Oxygen Saturation 97% 04/19/2021 2:20 PM METAL STAMPING MACHINE OPERATOR Inhaled Oxygen Concentration - - Weight 69 kg (152 lb 1.9 oz) 04/19/2021 2:22 PM METAL STAMPING MACHINE OPERATOR Height 149.9 cm (4' 11) 04/19/2021 2:22 PM METAL STAMPING MACHINE OPERATOR Body Mass Index 30.72 04/19/2021 2:22 PM METAL STAMPING MACHINE OPERATOR Plan of Treatment Health Maintenance Due Date [...] 01/16/2002 Varicella Vaccines Completed 10/05/2007, 02/25/[address] [place] [address] [place] [address] [place] [address] Care Teams Embossing Unit Operator Relationship Specialty Start Date End Date Pablito Villarreal MD [address] [place] [address] PCP - General 07/14/20 Jimmy Velez MD [address] [address] Referring Physician Internal Medicine 06/06/24
== END 2024-08-08 15:58 | disposition home or self-care (01) ==
LOC: ANHLAB 15:58
PROVIDERS: PCP Family Medicine; Visit Provider Internal Medicine
DX: E05.90 Thyrotoxicosis, unspecified without thyrotoxic crisis or storm (principal); E10.9 Type 1 diabetes mellitus without complications; R63.4 Abnormal weight loss; E05.00 Thyrotoxicosis with diffuse goiter without thyrotoxic crisis or storm
CPT/HCPCS: 36415; 80053; 84439; 84443; 84480

== ENCOUNTER 2024-09-21 14:42 | Outpatient (CLI) | payer OTHER, SELFPAY ==
--- OUTSIDE RECORDS SUMMARY | 2024-09-21 14:45 | XMS_ITS | Encounter Summary ---
Author Organization [facility] Address [address] [place] [address] Care Team Providers Care Garnett Fixer Name Role Phone Cierra Villarreal MD Primary Care Provider [phone] Marilu Westfall MD Primary Care Provider [phone] Cierra Villarreal MD Primary Care Provider [phone] Reason for Visit * Reason Onset Date Comments Blood Sugar Problem 10/24/2014 Mom is still noticing elevated blood sugars at the mid-afternoon check (between 1:15-2:00PM). Please call to review blood sugars and further changes that need to be made. 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 Gender Identity Not on file Sexual Orientation [...] Entry Date Author Yes 01/14/2014 9:10 AM Patrciio Green RN documented in this encounter Plan of Treatment Not on file documented as of this encounter Visit Diagnoses Not on filedocumented in this encounter Additional Health Concerns Infection Onset Date Last Indicated Resolved Time MRSA 01/28/2015 01/28/2015 10/22/2015 12:0 6 PM CDT documented as of this encounter Care Teams Garnett Fixer Relationship Specialty Start Date End Date Cierra Villarreal MD [address] [address] PCP - General Family Medicine 11/27/13 05/31/17 Marilu Westfall MD [address] [place] [address] PCP - General 06/01/17 06/12/18 Cierra Villarreal MD [address] [facility] [address] [place] [address] PCP - General Family Medicine 06/13/18 documented as of this encounter
--- OUTSIDE RECORDS SUMMARY | 2024-09-21 14:45 | XMS_ITS | Clinical Summary ---
Author Organization [facility] [employer] Address [address] [facility] [place] [address] Care Team Providers Care Pattern Generator Operator Name Role Phone Cierra Villarreal MD Primary Care Provider Source Comments [facility],non-owned Affiliates and Associated Physician Practices is amultiple site organization consisting of ambulatory clinics and hospital sitesin [place], [place], [place] and [place]. This disclosure is being madepursuant to the Care Everywhere program and may not contain all information available regarding this patient. Last updated 17.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 Gender Identity Not on file Sexual [...] URINE PROTEIN SCREENING 02/22/2024 10/03/2018 INFLUENZA VACCINE (#1) 2024 2, 01/23/2021, 02/22/2019, Additional history exists ZOSTER VACCINE [...] - POCT INTERFACED (05/25/2022 11:02 AM CDT) [facility] Hemoglobin A1C POCT 7.1(H) <5.7 % 05/25/2022 11:14 AM CDT [facility] Estimated Average Glucose 157 mg/dL 05/25/2022 11:14 AM T [facility] Blood BLOOD SPECIMEN / Unknown 05/25/2022 11:02 AM CDT 05/25/2022 11:14 AM CDT Narrative [facility] - 05/25/2022 11:14 AM CDT [...] CARE ORDERABLES Final Result Performing Organization Address [facility] de Phone Number [facility] [address] [place] [address] * MICROALB/CREAT RATIO URINE RANDOM PANEL (10/03/2018 7:43 AM CDT) Creatinine Urine 86.79 mg/dL 10/04/19 19 8:16 AM CDT [facility] Microalbumin Urine <0.5 <1.7 mg/dL 10/03/2018 8:16 AM T [facility] Microalbumin/Crea tinine Ratio <6 <30 mg/g 10/03/2018 8:16 AM T [facility] Urine URINE SPECIMEN OBTAINED BY CLEAN CATCH PROCEDURE / Unknown Collection / Unknown 10/03/2018 7:43 AM CDT 10/03/2018 7:55 AM CDT Alber Fiore APRN-CARPET WEAVER LAB - URINE CHEMISTRY O RDERABLES Final Result Performing Organization Address [facility] de Phone Number [facility] [address] [place] [address] * BASIC METABOLIC PANEL (CALCIUM TOTAL) (10/17/2017 12:37 PM CDT) Glucose 79 70 - 105 mg/dL 10/17/2017 2:01 PM CDT [facility] Sodium 138 136 - 145 mmol/L 10/17/2017 2:01 PM CDT [facility] Potassium 4.3 3.5 - 5.1 mmol/L 10/17/2017 2:01 PM T [facility] Chloride 107 98 - 107 mmol/L 10/17/2017 2:01 PM CDT [facility] CO2 23 20 - 28 mmol/L 10/17/2017 2:01 PM CDT [facility] Calcium 9.42 9.08 - 10.48 mg/dL 10/17/2017 2:01 PM T [facility] Anion Gap 8 5 - 20 mmol/L 10/17/2017 2:01 PM CDT [facility] BUN 17.1 5.3 - 18.7 mg/dL 10/17/2017 2:01 PM T [facility] Creatinine 0.93 0.61 - 1.07 mg/dL 10/17/2017 2:01 PM T [facility] eGFR by MDRD mL/min/1.7 3m2 10/17/2017 2:01 PM [facility] Comment: eGFR calculations are not performed for children under 18 years old. eGFR by MDRD mL/min/1.7 3m2 10/17/2017 2:01 PM T [facility] Comment: eGFR calculations are not performed for children under 18 years old. Blood BLOOD SPECIMEN / Unknown Venipuncture / Unknown 10/17/2017 12:37 PM CDT 10/17/2017 1:24 PM CDT Denia Gerenberg MD LAB - CHEMISTRY ORDERABLES Shannan lebron Result [facility] [address] [facility] [place] [address] from Last 3 Months or Most Recently Relevant to Health Maintenance Insurance F?rsat Bu F?rsat [employer] [facility] Care Teams Pattern Generator Operator Relationship Specialty Start Date End Date Cierra Villarreal MD [address] [facility] [address] [place] [address] PCP - General Family Medicine 06/13/18
--- OUTSIDE RECORDS SUMMARY | 2024-09-21 14:45 | XMS_ITS | Encounter Summary ---
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 Answer Date of Assessment Author No 02/09/2021 9:37 AM SILVER CLEANER Guero Olguin RN * Is person blind [...] for Precision Xtra Ketone strips [facility] [place] [facility] * Telephone Encounter - Cristi Tang - 10/08/2022 4:36 PM CDT School Letter faxed to [phone] documented in this encounter Plan of Treatment Not on file documented as of this encounter Visit Diagnoses Not on filedocumented in this encounter Care Teams Data Communications Software Consultant Relationship Specialty Start Date End Date Cierra Villarreal MD [address] [place] [phone] PCP - General Family Medicine 06/13/18 documented as of this encounter
--- OUTSIDE RECORDS SUMMARY | 2024-09-21 14:45 | XMS_ITS | Encounter Summary ---
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 Mom's e-mail: [email or web address] documented in this encounter Plan of Treatment Not on file documented as of this encounter Visit Diagnoses Not on filedocumented in this encounter Care Teams Multimedia Manager Relationship Specialty Start Date End Date Cierra Villarreal MD [address] [place] [phone] PCP - General Family Medicine 06/13/18 documented as of this encounter
--- OUTSIDE RECORDS SUMMARY | 2024-09-21 14:45 | XMS_ITS | Encounter Summary ---
Author Organization [facility] Address [address] [place] [address] Care Team Providers Care Synthetic Soil Blocks Pulper Name Role Phone Cierra Villarreal MD Primary Care Provider [phone] Marilu Westfall MD Primary Care Provider [phone] Cierra Villarreal MD Primary Care Provider [phone] Reason for Visit * Reason Onset Date Comments MEDICATION REFILL 06/26/2015 Encounter Details Date Type Department Care Team (Late st Contact Info) Description 06/26/2015 Refill [facility] - Diabetes [address] [address] Denia Greenberg MD MEDICATION REFILL Social History Tobacco Use Types Packs/Day Years Used Date Smoking Tobacco: Never Alcohol Use Standard Drinks/Week Comments No 0 (1 standard drink = 0.6 oz pur e alcohol) Sex and Gender Information Value Date Recorded Sex Assigned at Not on file 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 Answer Date of Assessment Author No 02/03/2015 9:09 AM PAPER CAP MACHINE OPERATOR Betzaida Zuniga RN * Is person blind [...] documented as of this encounter Care Teams Synthetic Soil Blocks Pulper Relationship Specialty Start Date End Date Cierra Villarreal MD [address] [facility] [address] [place] [phone] PCP - General Family Medicine 11/27/13 05/31/17 Marilu Westfall MD [address] [place] [address] PCP - General 06/01/17 06/12/18 Cierra Villarreal MD [address] [place] [phone] PCP - General Family Medicine 06/13/18 documented as of this encounter
--- OUTSIDE RECORDS SUMMARY | 2024-09-21 14:45 | XMS_ITS | Encounter Summary ---
Author Organization [facility] Address [address] [facility] [place] [address] Care Team Providers Care Tape Weaver Name Role Phone Cierra Villarreal MD Primary Care Provider Reason for Visit * Reason Comments Refill Request Encounter Details Date Type Department Care Team (Late st Contact Info) Description 05/05/2019 Refill [facility] Pediatrics - Diabetes [address] [address] Denia Greenberg MD Refill Request Social History Tobacco Use Types Packs/Day Years Used Date Smoking Tobacco: Never Smokeless Tobacco: Never Alcohol Use Standard Drinks/Week Comments No 0 (1 standard drink = 0.6 oz pur e alcohol) Sex and Gender Information Value Date Recorded Sex Assigned at Not on file 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
--- OUTSIDE RECORDS SUMMARY | 2024-09-21 14:45 | XMS_ITS | Encounter Summary ---
Author Organization [facility] Address [address] [facility] [place] [address] Care Team Providers Care Product Lead Name Role Phone Cierra Villarreal MD Primary Care Provider Encounter Details Date Type Department Care Team (Late st Contact Info) Description 11/13/2018 Telephone [facility] Pediatrics - Diabetes [address] [address] Alber Fiore APRN-[facility] [place] [address] Social History Tobacco Use Types Packs/Day Years Used Date Smoking Tobacco: Never Smokeless Tobacco: Never Alcohol Use Standard Drinks/Week Comments No 0 (1 standard drink = 0.6 oz pur e alcohol) Sex and Gender Information Value Date Recorded Sex Assigned at Not on file 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
--- OUTSIDE RECORDS SUMMARY | 2024-09-21 14:45 | XMS_ITS | Encounter Summary ---
Author Organization [facility] Address [address] [facility] [place] [place] [address] Care Team Providers Care Willow Machine Operator Name Role Phone Cierra Villarreal MD Primary Care Provider Encounter Details Date Type Department Care Team (Late st Contact Info) Description 04/27/2019 Telephone [facility] Pediatrics - Diabetes [address] [address] Alber Fiore APRN-SKIN TOGGLER [address] [place] [address] Social History Tobacco Use Types Packs/Day Years Used Date Smoking Tobacco: Never Smokeless Tobacco: Never Alcohol Use Standard Drinks/Week Comments No 0 (1 standard drink = 0.6 oz pur e alcohol) Sex and Gender Information Value Date Recorded Sex Assigned at Not on file 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 Addendum: 05/03/19: [...] put through for precision xtra test strips. SMISSION AND COORDINATION ENGINEER documented in this encounter Plan of Treatment Not on file documented as of this encounter Visit Diagnoses Not on filedocumented in this encounter Care Teams Willow Machine Operator Relationship Specialty Start Date End Date Cierra Villarreal MD [address] [place], [place] [phone] PCP - General Family Medicine 06/13/18 documented as of this encounter
--- OUTSIDE RECORDS SUMMARY | 2024-09-21 14:45 | XMS_ITS | Encounter Summary ---
Author Organization [facility] Address [address] [place] [address] Care Team Providers Care Carpet Cleaning Technician Name Role Phone Marilu Westfall MD Primary Care Provider [phone] Cierra Villarreal MD Primary Care Provider [phone] Reason for Visit * Reason Onset Date Comments Refill Request 05/22/2018 Please call in t 33g Delica lancets- 30g not covered any more. If those arent covered any lancets will do. 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
--- OUTSIDE RECORDS SUMMARY | 2024-09-21 14:45 | XMS_ITS | Encounter Summary ---
Author Organization [facility] Address [address] [place] [address] Care Team Providers Care Evening Or Night Nurse Supervisor Name Role Phone Cierra Villarreal MD Primary Care Provider [phone] Encounter Details Date Type Department Care Team (Late st Contact Info) Description 06/02/2021 Telephone [facility] Pediatrics - Diabetes [facility] [address] [place] [address] Jelena Pack, PLANT NURSERY WORKER-INSTALLATION TECH [facility] [place] [address] Social History Tobacco Use Types Packs/Day Years [...] on file 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 * Telephone Encounter - Eleanor Ramos RN [...] 3:49 PM CDT Appeal letter sent to [place] for precision xtra blood ketone strips. documented in this encounter Plan of Treatment Not on file documented as of this encounter Visit Diagnoses Not on filedocumented in this encounter Care Teams Evening Or Night Nurse Supervisor Relationship Specialty Start Date End Date Cierra Villarreal MD [address] [place] [phone] PCP - General Family Medicine 06/13/18 documented as of this encounter
--- OUTSIDE RECORDS SUMMARY | 2024-09-21 14:45 | XMS_ITS | Encounter Summary ---
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
--- OUTSIDE RECORDS SUMMARY | 2024-09-21 14:45 | XMS_ITS | Encounter Summary ---
Author Organization [facility] Address [address] [facility] [place] [address] Care Team Providers Care Wire Harness Assembler Name Role Phone Cierra Villarreal MD Primary Care Provider [phone] Marilu Westfall MD Primary Care Provider [phone] Cierra Villarreal MD Primary Care Provider [phone] Reason for Visit * Reason Onset Date Comments Letter 10/18/2014 Please send an u pdated letter with the new lunch carb ratio of 1 per 8 to the [facility] [phone] Encounter Details Date Type Department Care Team (Late st Contact Info) Description 10/18/2014 Telephone [facility] Pediatrics - Diabetes [address] [address] Denia Greenberg MD Letter (Please send an updated letter with the new lunch carb ratio of 1 per 8 to the [facility] [phone]) Social History Tobacco Use Types Packs/Day Years Used Date Smoking Tobacco: Never Alcohol Use Standard Drinks/Week Comments No 0 (1 standard drink = 0.6 oz pur e alcohol) Sex and Gender Information Value Date Recorded Sex Assigned at Not on file 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
--- OUTSIDE RECORDS SUMMARY | 2024-09-21 14:45 | XMS_ITS | Encounter Summary ---
Author Organization [facility] Address [address] [facility] [place] [address] Care Team Providers Care Investigation Division Lieutenant Name Role Phone Cierra Villarreal MD Primary Care Provider Reason for Visit * Reason Onset Date Comments Opened In Error 12/17/2019 Encounter Details Date Type Department Care Team (Late st Contact Info) Description 12/17/2019 Refill [facility] Pediatrics - Endocrinology [address] [facility] 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
--- OUTSIDE RECORDS SUMMARY | 2024-09-21 14:45 | XMS_ITS | Encounter Summary ---
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 Will send for urine ketone strips. * Telephone Encounter - Cristi Tang - 05/26/2021 4:16 PM CDT PA sent through [employer] to [facility] for Precision Xtra blood ketone strips. documented in this encounter Plan of Treatment Not on file documented as of this encounter Visit Diagnoses Diagnosis Uncontrolled type 1 diabetes mellitus with hyperglycemia (HCC) documented in this encounter Care Teams Handle Assembler Relationship Specialty Start Date End Date Cierra Villarreal MD [address] [phone] PCP - General Family Medicine 06/13/18 documented as of this encounter
--- OUTSIDE RECORDS SUMMARY | 2024-09-21 14:46 | XMS_ITS | Referral Summary ---
Author Organization [facility] Address [address] [place] [address] Care Team Providers Care Waiter/Waitress Second Class Name Role Phone Pablito Villarreal MD Primary Care Provider [phone] Jimmy Velez MD Unavailable [phone] Encounters Date Type Department Care Team Description 08/10/2024 Telephone [facility] Surgery [address] [place] [address] Floor 5 [place] [address] Yoselin Sol RN 08/08/2024 Telephone [facility] Surgery [address] [place] [address] Floor 5 [place] [address] Yoselin Sol, NEIDA 08/07/2024 Telephone [facility] Surgery [address] [place] [address] Floor 8 [place] [address] Marianne Aparicio MD Medical Question/Miscellaneous from Last 3 Months Allergies Active Allergy [...] on file Legal Sex Male 8:34 AM VACUUM TANK TENDER Gender Identity Not on file Sexual Orientation Not on file Last Filed Vital Signs Vital Sign Reading Time Taken Comments Blood Pressure 106/65 04/19/2021 2:26 PM VACUUM TANK TENDER Pulse 88 04/19/2021 2:20 PM VACUUM TANK TENDER Temperature 36.2 C (97.2 F) 04/19/2021 2:26 PM VACUUM TANK TENDER Respiratory Rate 18 04/19/2021 2:20 PM VACUUM TANK TENDER Oxygen Saturation 97% 04/19/2021 2:20 PM VACUUM TANK TENDER Inhaled Oxygen Concentration - - Weight 69 kg (152 lb 1.9 oz) 04/19/2021 2:22 PM VACUUM TANK TENDER Height 149.9 cm (4' 11) 04/19/2021 2:22 PM VACUUM TANK TENDER Body Mass Index 30.72 04/19/2021 2:22 PM VACUUM TANK TENDER Plan of Treatment Not on file Insurance Care Teams Waiter/Waitress Second Class Relationship Specialty Start Date End Date Pablito Villarreal MD [address] [place] [address] PCP - General 07/14/20 Jimmy Velez MD [address] [address] Referring Physician Internal Medicine 06/06/24
--- OUTSIDE RECORDS SUMMARY | 2024-09-21 14:46 | XMS_ITS | Encounter Summary ---
Author Organization [facility] Address [address] [facility] [place] [address] Care Team Providers Care Hand I Tube Bender Name Role Phone Cierra Villarreal MD Primary Care Provider [phone] Marilu Westfall MD Primary Care Provider [phone] Cierra Villarreal MD Primary Care Provider [phone] Reason for Visit * Reason Onset Date Comments Refill Request 04/23/2014 [facility]. [facility] on [address] in [place]. Please change directions to test 12 times a day (not 10-12) Encounter Details Date Type Department Care Team (Late st Contact Info) Description 04/23/2014 Telephone [facility] Pediatrics - Diabetes [address] [address] Denia Greenberg MD Refill Request (Please fax rx for test strips to local [facility] as mail order will not arrive on time. [facility] on [address] in [place]. 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
--- OUTSIDE RECORDS SUMMARY | 2024-09-21 14:46 | XMS_ITS | Encounter Summary ---
Author Organization [facility] Address [address] [facility] [place] [address] Care Team Providers Care Wealth Management Director Name Role Phone Cierra Villarreal MD Primary Care Provider [phone] Marilu Westfall MD Primary Care Provider [phone] Cierra Villarreal MD Primary Care Provider [phone] Reason for Visit * Reason Onset Date Comments MEDICATION REFILL 10/01/2015 Encounter Details Date Type Department Care Team (Late st Contact Info) Description 10/01/2015 Refill [facility] - Diabetes [address] [address] Keely Frye, GEOPHYSICAL PROSPECTING PERMIT AGENT-CORPORATE STATISTICAL FINANCIAL ANALYST Retired MEDICATION REFILL Social History Tobacco Use Types Packs/Day Years Used Date Smoking Tobacco: Never Alcohol Use Standard Drinks/Week Comments No 0 (1 standard drink = 0.6 oz pur e alcohol) Sex and Gender Information Value Date Recorded Sex Assigned at Not on file 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 LIBRARY 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 Answer Date of Assessment Author No 02/03/2015 9:09 AM LIBRARY ASSISTANT Betzaida Zuniga RN * Is person blind [...] Pharmacy informed me [place]. They can only get 200 test strips every 20 days with[place]ight [place]. Pharmacist ran through [employer] ultra mini meter and test strips 200 [...] documented as of this encounter Care Teams Wealth Management Director Relationship Specialty Start Date End Date Cierra Villarreal MD [address] [place] [phone] PCP - General Family Medicine 11/27/13 05/31/17 Marilu Westfall MD [address] [place] [address] PCP - General 06/01/17 06/12/18 Cierra Villarreal MD [address] [place], [place] [phone] PCP - General Family Medicine 06/13/18 documented as of this encounter
--- OUTSIDE RECORDS SUMMARY | 2024-09-21 14:46 | XMS_ITS | Encounter Summary ---
Author Organization [facility] Address [address] [facility] [place] [address] Care Team Providers Care Park Superintendent Name Role Phone Chrissy Richards MD Primary Care Provider [phone] Cierra Villarreal MD Primary Care Provider [phone] Marilu Westfall MD Primary Care Provider [phone] Cierra Villarreal MD Primary Care Provider [phone] Reason for Visit * Reason Onset Date Comments Letter for School or Work 11/01/2012 Encounter Details Date Type Department Care Team (Late st Contact Info) Description 11/01/2012 Telephone [facility] Pediatrics - Diabetes [address] [address] Keely Frye, CUTTER OUT-AIR QUALITY CONSULTANT Retired Letter for School or Work Social History Tobacco Use Types Packs/Day Years Used Date Smoking Tobacco: Never Alcohol Use Standard Drinks/Week Comments Not Asked 0 (1 standard drink = 0.6 oz pur e alcohol) Sex and Gender Information Value Date Recorded Sex Assigned at Not on file 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 ACTIVE DIRECTORY SPECIALIST Gender Identity Not on file Sexual [...] documented as of this encounter Care Teams Park Superintendent Relationship Specialty Start Date End Date Chrissy iRchards MD [address] [place] [address] PCP - General 07/02/11 11/26/13 Cierra Villarreal MD [address] [place] [phone] PCP - General Family Medicine 11/27/13 05/31/17 Marilu Westfall MD [address] [place] [address] PCP - General 06/01/17 06/12/18 Cierra Villarreal MD [address] [place] [phone] PCP - General Family Medicine 06/13/18 documented as of this encounter
--- OUTSIDE RECORDS SUMMARY | 2024-09-21 14:46 | XMS_ITS | Encounter Summary ---
Author Organization [facility] Address [address] [facility] [place] [address] Care Team Providers Care Pasteuriser Operator Name Role Phone Cierra Villarreal MD Primary Care Provider [phone] Marilu Westfall MD Primary Care Provider [phone] Cierra Villarreal MD Primary Care Provider [phone] Reason for Visit * Reason Onset Date Comments Letter 08/15/2014 mom called to lynn smith you received a letter from [employer]ange[employer] regarding Dex Encounter Details Date Type Department Care Team (Late st Contact Info) Description 08/15/2014 Telephone [facility] Pediatrics - Diabetes [address] [address] Keely Frye, RESOURCE CONSERVATIONIST-TAFE REGISTRAR Retired Letter (mom called to verify you received a letter from [place] regarding Dex) Social History Tobacco Use Types Packs/Day Years Used Date Smoking Tobacco: Never Alcohol Use Standard Drinks/Week Comments No 0 (1 standard drink = 0.6 oz pur e alcohol) Sex and Gender Information Value Date Recorded Sex Assigned at Not on file 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 PASTRY DECORATOR Gender Identity Not on file Sexual Orientation [...] Infection Onset Date Last Indicated Resolved Time [facility] 01/28/2015 01/28/2015 10/22/2015 12:0 6 PM CDT documented as of this encounter Care Teams Pasteuriser Operator Relationship Specialty Start Date End Date Cierra Villarreal MD [address] [place] [phone] PCP - General Family Medicine 11/27/13 05/31/17 Marilu Westfall MD [address] [place] [address] PCP - General 06/01/17 06/12/18 Cierra Villarreal MD [address] [place] [phone] PCP - General Family Medicine 06/13/18 documented as of this encounter
--- OUTSIDE RECORDS SUMMARY | 2024-09-21 14:46 | XMS_ITS | Encounter Summary ---
Author Organization [facility] Address [address] [facility] [place] [address] Care Team Providers Care Marketing Coordinator Name Role Phone Cierra Villarreal MD Primary Care Provider [phone] Reason for Visit * Reason Onset Date Comments Refill Request 06/25/2019 New prescription for syringes, Dex is using syringes for basaglar and admelog- 6 syringes a day, Only getting 1 box of 100 from pharmacy Encounter Details Date Type Department Care Team (Late st Contact Info) Description 06/25/2019 Telephone [facility] Pediatrics - Endocrinology [address] [place] [address] Ayaka Agarwal Refill Request (New prescription [...] on file 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 OPERA SINGER Gender Identity Not on file Sexual Orientation [...] on filedocumented in this encounter Care Teams Marketing Coordinator Relationship Specialty Start Date End Date Cierra Villarreal MD [address] [place] [phone] PCP - General Family Medicine 06/13/18 documented as of this encounter
--- OUTSIDE RECORDS SUMMARY | 2024-09-21 14:46 | XMS_ITS | Encounter Summary ---
Author Organization [facility] Address [address] [facility] [place] [address] Care Team Providers Care Barrel And Receiver Aligner Name Role Phone Cierra Villarreal MD Primary Care Provider [phone] Marilu Westfall MD Primary Care Provider [phone] Cierra Villarreal MD Primary Care Provider [phone] Reason for Visit * Reason Onset Date Comments MEDICATION REFILL 11/29/2013 Encounter Details Date Type Department Care Team (Late st Contact Info) Description 11/29/2013 Refill [facility] - Diabetes [address] [address] Keely Frye, BUSINESS ANALYSIS SPECIALIST-UPPER CASER Retired MEDICATION REFILL Social History Tobacco Use Types Packs/Day Years Used Date Smoking Tobacco: Never Alcohol Use Standard Drinks/Week Comments Not Asked 0 (1 standard drink = 0.6 oz pur e alcohol) Sex and Gender Information Value Date Recorded Sex Assigned at Not on file 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 JACKERMAN Gender Identity Not on file Sexual Orientation Not on file documented as of this encounter Plan of Treatment Not on file documented as of this encounter Visit Diagnoses Not on filedocumented in this encounter Additional Health Concerns Infection Onset Date Last Indicated Resolved Time MRSA 01/28/2015 01/28/2015 10/22/2015 12:0 6 PM CDT documented as of this encounter Care Teams Barrel And Receiver Aligner Relationship Specialty Start Date End Date Cierra Villarreal MD [address] [facility] [address] [place] [address] PCP - General Family Medicine 11/27/13 05/31/17 Marilu Westfall MD [address] [place] [address] PCP - General 06/01/17 06/12/18 Cierra Villarreal MD [address] [facility] [address] [place] [address] PCP - General Family Medicine 06/13/18 documented as of this encounter
--- OUTSIDE RECORDS SUMMARY | 2024-09-21 14:46 | XMS_ITS | Encounter Summary ---
Author Organization [facility] Address [address] [facility] [address] Care Team Providers Care Clothing Patternmaker Name Role Phone Cierra Villarreal MD Primary Care Provider [phone] Reason for Visit * Reason Comments Refill Request Encounter Details Date Type Department Care Team (Late st Contact Info) Description 08/20/2020 Refill [facility] Pediatrics - Diabetes [address] [address] Alber Fiore APRN-RESOLUTION AGENT [address] [place] [address] Refill Request Social History Tobacco Use Types Packs/Day Years Used Date Smoking Tobacco: Never Smokeless Tobacco: Never Alcohol Use Standard Drinks/Week Comments No 0 (1 standard drink = 0.6 oz pur e alcohol) Sex and Gender Information Value Date Recorded Sex Assigned at Not on file 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 CHEF GERMAN Gender Identity Not on file Sexual Orientation [...] on filedocumented in this encounter Care Teams Clothing Patternmaker Relationship Specialty Start Date End Date Cierra Villarreal MD [address] [place] [phone] PCP - General Family Medicine 06/13/18 documented as of this encounter
--- OUTSIDE RECORDS SUMMARY | 2024-09-21 14:46 | XMS_ITS | Encounter Summary ---
Author Organization [facility] Address [address] [facility] [place] [address] Care Team Providers Care Keyliner Name Role Phone Cierra Villarreal MD Primary Care Provider [phone] Marilu Westfall MD Primary Care Provider [phone] Cierra Villarreal MD Primary Care Provider [phone] Reason for Visit * Reason Onset Date Comments Refill Request 08/26/2014 has the test str ip been sent to [facility]. Encounter Details Date Type Department Care Team (Late st Contact Info) Description 08/26/2014 Telephone [facility] Pediatrics - Diabetes [address] [address] Denia Greenberg MD Refill Request (has the test strip been sent to [facility]. ) Social History Tobacco Use Types Packs/Day Years Used Date Smoking Tobacco: Never Alcohol Use Standard Drinks/Week Comments No 0 (1 standard drink = 0.6 oz pur e alcohol) Sex and Gender Information Value Date Recorded Sex Assigned at Not on file 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 SEARCH ENGINEER Gender Identity Not on file Sexual [...] documented as of this encounter Care Teams Keyliner Relationship Specialty Start Date End Date Cierra Villarreal MD [address] [place] [phone] PCP - General Family Medicine 11/27/13 05/31/17 Marilu Westfall MD [address] [place] [address] PCP - General 06/01/17 06/12/18 Cierra Villarreal MD [address] [place] [phone] PCP - General Family Medicine 06/13/18 documented as of this encounter
--- OUTSIDE RECORDS SUMMARY | 2024-09-21 14:46 | XMS_ITS | Encounter Summary ---
Author Organization [facility] Address [address] [facility] [address] Care Team Providers Care Computer Hardware Technician Name Role Phone Cierra Villarreal MD Primary Care Provider Encounter Details Date Type Department Care Team (Late st Contact Info) Description 08/21/2019 Telephone [facility] Pediatrics - Diabetes [address] [address] Alber Fiore, VARGHESE-AIRCRAFT LINE ASSEMBLER [address] [place] [address] Social History Tobacco Use Types Packs/Day Years Used Date Smoking Tobacco: Never Smokeless Tobacco: Never Alcohol Use Standard Drinks/Week Comments No 0 (1 standard drink = 0.6 oz pur e alcohol) Sex and Gender Information Value Date Recorded Sex Assigned at Not on file 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 BIOMEDICAL ENGINEERING INTERNSHIP Gender Identity Not on file Sexual Orientation [...] on filedocumented in this encounter Care Teams Computer Hardware Technician Relationship Specialty Start Date End Date Cierra Villarreal MD [address] [place] [phone] PCP - General Family Medicine 06/13/18 documented as of this encounter
--- OUTSIDE RECORDS SUMMARY | 2024-09-21 14:46 | XMS_ITS | Encounter Summary ---
Author Organization [facility] Address [address] [place] [address] Care Team Providers Care Supervisor Microbiology Technologists Name Role Phone Chrissy Richards MD Primary Care Provider [phone] Cierra Villarreal MD Primary Care Provider [phone] Marilu Westfall MD Primary Care Provider [phone] Cierra Villarreal MD Primary Care Provider [phone] Reason for Visit * Reason Onset Date Comments Refill Request 09/03/2013 Mom called, need s refill for syringes sent to [facility] in [place]. Encounter Details Date Type Department Care Team (Late st Contact Info) Description 09/03/2013 Telephone [facility] Pediatrics - Diabetes [address] [address] Denia Greenberg MD Refill Request (Mom called, needs refill for syringes sent to [facility] in [place]. 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 TUGBOAT OPERATOR Gender Identity Not on file Sexual Orientation Not on file documented as of this encounter Plan of Treatment Not on file documented as of this encounter Visit Diagnoses Not on filedocumented in this encounter Additional Health Concerns Infection Onset Date Last Indicated Resolved Time MRSA 01/28/2015 01/28/2015 10/22/2015 12:0 6 PM CDT documented as of this encounter Care Teams Supervisor Microbiology Technologists Relationship Specialty Start Date End Date Chrissy Richards MD [address] [place] [phone] PCP - General 07/02/11 11/26/13 Cierra Villarreal MD [address] [place] [phone] PCP - General Family Medicine 11/27/13 05/31/17 Marilu Westfall MD [address] [place] [address] PCP - General 06/01/17 06/12/18 Cierra Villarreal MD [address] [place] [phone] PCP - General Family Medicine 06/13/18 documented as of this encounter
--- OUTSIDE RECORDS SUMMARY | 2024-09-21 14:46 | XMS_ITS | Encounter Summary ---
Author Organization [facility] Address [address] [facility] [place] [address] Care Team Providers Care Loom Blower Name Role Phone Cierra Villarreal MD Primary Care Provider Encounter Details Date Type Department Care Team (Late st Contact Info) Description 01/21/2020 Telephone [facility] Pediatrics - Endocrinology [address] [place] [address] Alber Fiore APRN-RECONCILIATION MACHINE OPERATOR [address] [place] [address] Social History Tobacco Use Types Packs/Day Years Used Date Smoking Tobacco: Never Smokeless Tobacco: Never Alcohol Use Standard Drinks/Week Comments No 0 (1 standard drink = 0.6 oz pur e alcohol) Sex and Gender Information Value Date Recorded Sex Assigned at Not on file 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 RESIDENT SERVICES 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 Unable to assess 01/09/2020 1:57 PM RESIDENT SERVICES DIRECTOR documented as of this encounter Functional [...] at 2130 01/24 give basaglar at 2300 DENT SERVICES DIRECTOR documented in this encounter Plan of Treatment Not on file documented as of this encounter Visit Diagnoses Not on filedocumented in this encounter Care Teams Loom Blower Relationship Specialty Start Date End Date Cierra Villarreal MD [address] [place] [phone] PCP - General Family Medicine 06/13/18 documented as of this encounter
--- OUTSIDE RECORDS SUMMARY | 2024-09-21 14:46 | XMS_ITS | Encounter Summary ---
Author Organization [facility] Address [address] [place] [address] Care Team Providers Care Airplane Pilot Crop Dusting Name Role Phone Cierra Villarreal MD Primary Care Provider [phone] Reason for Visit * Reason Onset Date Comments MEDICATION REFILL 04/06/2021 Encounter Details Date Type Department Care Team (Late st Contact Info) Description 04/06/2021 Refill [facility] Pediatrics - Diabetes [facility] [address] [place] [address] Jelena Pack, TECHNICAL ASSOC-INDUSTRIAL CONVEYOR BELT REPAIRER [address] [place] [address] MEDICATION REFILL Social History Tobacco Use Types [...] on file 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 TUNNEL KILN OPERATOR Gender Identity Not on file Sexual [...] uncontrolled documented in this encounter Care Teams Airplane Pilot Crop Dusting Relationship Specialty Start Date End Date Cierra Villarreal MD [address] [place] [phone] PCP - General Family Medicine 06/13/18 documented as of this encounter
--- OUTSIDE RECORDS SUMMARY | 2024-09-21 14:46 | XMS_ITS | Encounter Summary ---
Author Organization [facility] Address [address] [place] [address] Care Team Providers Care Associate Teacher Name Role Phone Chrissy Richards MD Primary Care Provider [phone] Cierra Villarreal MD Primary Care Provider [phone] Marilu Westfall MD Primary Care Provider [phone] Cierra Villarreal MD Primary Care Provider [phone] Reason for Visit * Reason Onset Date Comments Blood Sugar Problem 12/18/2012 Please call mom to review blood sugars and make changes Encounter Details Date Type Department Care Team (Late st Contact Info) Description 12/18/2012 Telephone [facility] Pediatrics - Diabetes [address] [address] Denia Greenberg MD Blood Sugar Problem (Please [...] file 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 PROJECT ENGINEERING MANAGER Gender Identity Not on file Sexual Orientation Not on file documented as of this encounter Plan of Treatment Not on file documented as of this encounter Visit Diagnoses Not on filedocumented in this encounter Additional Health Concerns Infection Onset Date Last Indicated Resolved Time MRSA 01/28/2015 01/28/2015 10/22/2015 12:0 6 PM CDT documented as of this encounter Care Teams Associate Teacher Relationship Specialty Start Date End Date Chrissy Richards MD [address] [place] [address] PCP - General 07/02/11 11/26/13 Cierra Villarreal MD [address] [place] [phone] PCP - General Family Medicine 11/27/13 05/31/17 Marilu Westfall MD [address] [place] [address] PCP - General 06/01/17 06/12/18 Cierra Villarreal MD [address] [place] [phone] PCP - General Family Medicine 06/13/18 documented as of this encounter
--- OUTSIDE RECORDS SUMMARY | 2024-09-21 14:46 | XMS_ITS | Encounter Summary ---
Author Organization [facility] Address [address] [facility] [place] [address] Care Team Providers Care Automotive Lube Technician Name Role Phone Cierra Villarreal MD Primary Care Provider [phone] Encounter Details Date Type Department Care Team (Late st Contact Info) Description 03/15/2021 Telephone [facility] Pediatrics - Endocrinology [address] [place] [address] Aundrea Yoo, DO [address] [place] [address] Social History Tobacco Use Types Packs/Day Years [...] on file 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 CROTCH PIECE BASTER Gender Identity Not on file Sexual Orientation Not on file COVID-19 Exposure Response Date Recorded In the last month, have you been in contact with someone who was confirmed or suspected to have Coronavirus / COVID-19? No / Unsure 02/19/2021 3:26 PM CROTCH PIECE BASTER documented as of this encounter Functional Status * Is person deaf or have serious hearing difficulty? Answer Date of Assessment Author No 02/09/2021 9:37 AM Guero Roy RN * Is person blind or have serious difficulty seeing? Answer Date of Assessment Author No 02/09/2021 9:37 AM CROTCH PIECE BASTER Guero Olguin RN * Does person have serious difficulty walking/climbing stairs? Answer Date of Assessment Author Yes 02/09/2021 9:37 AM Guero Roy RN * Does person have difficulty dressing/bathing? Answer Date of Assessment Author Yes 10/03/2018 8:25 AM CDT Patricio Bhatti RN * Does person have difficulty doing errands alone? Answer Date of Assessment Author Yes 02/09/2021 9:37 AM CROTCH PIECE BASTER Guero Olguin RN documented as of this encounter Mental Status * Does person have difficulty concentrating/remembering/making decisions? Answer Entry Date Author Yes 02/09/2021 9:37 AM Guero Roy RN documented in this encounter Miscellaneous Notes * Telephone Encounter - Laurel Reid RN - 06/09/2021 1:39 PM CDT Monae from pharmacy calling with questions in regards to Precision strips. Was sent to [facility] [phone] * Telephone Encounter - Aundrea Yoo DO - 03/15/2021 3:41 PM CROTCH PIECE BASTER Endocrine after hours call Dex is a [...] 22 units at normal time on Tuesday. CH PIECE BASTER documented in this encounter Plan of Treatment Not on file documented as of this encounter Visit Diagnoses Not on filedocumented in this encounter Care Teams Automotive Lube Technician Relationship Specialty Start Date End Date Cierra Villarreal MD [address] [place] [phone] PCP - General Family Medicine 06/13/18 documented as of this encounter
--- OUTSIDE RECORDS SUMMARY | 2024-09-21 14:46 | XMS_ITS | Encounter Summary ---
Author Organization [facility] Address [address] [facility] [place] [address] Care Team Providers Care Visitor Services Assistant Name Role Phone Cierra Villarreal MD Primary Care Provider [phone] Marilu Westfall MD Primary Care Provider [phone] Cierra Villarreal MD Primary Care Provider [phone] Encounter Details Date Type Department Care Team (Late st Contact Info) Description 01/10/2017 Telephone [facility] - Diabetes [address] [address] Denia Greenberg MD Social History Tobacco Use Types Packs/Day Years Used Date Smoking Tobacco: Never Smokeless Tobacco: Never Alcohol Use Standard Drinks/Week Comments No 0 (1 standard drink = 0.6 oz pur e alcohol) Sex and Gender Information Value Date Recorded Sex Assigned at Not on file 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 TECHNICIAN TERMINAL AND REPEATER Gender Identity Not on file Sexual Orientation Not on file documented as of this encounter Functional Status * Is person deaf or have serious hearing difficulty? Answer Date of Assessment Author No 02/03/2015 9:09 AM TECHNICIAN TERMINAL AND REPEATER Betzaida Zuniga RN * Is person blind [...] Assessment Author Yes 02/03/2015 9:09 AM Betzaida Aleixs RN documented as of this encounter Mental Status * Does person have difficulty concentrating/remembering/making decisions? Answer Entry Date Author 02/03/2015 9:09 AM Betzaida Alexis RN documented in this encounter Plan of Treatment Not on file documented as of this encounter Visit Diagnoses Not on filedocumented in this encounter Care Teams Visitor Services Assistant Relationship Specialty Start Date End Date Cierra Villarreal MD [address] [place] [phone] PCP - General Family Medicine 11/27/13 05/31/17 Marilu Westfall MD [address] [place] [address] PCP - General 06/01/17 06/12/18 Cierra Villarreal MD [address] [place] [phone] PCP - General Family Medicine 06/13/18 documented as of this encounter
--- OUTSIDE RECORDS SUMMARY | 2024-09-21 14:46 | XMS_ITS | Encounter Summary ---
Author Organization [facility] Address [address] [facility] [place] [address] Care Team Providers Care Roller Inspector Name Role Phone Marilu Westfall MD Primary Care Provider [phone] Cierra Villarreal MD Primary Care Provider Encounter Details Date Type Department Care Team (Late st Contact Info) Description 10/05/2017 Telephone [facility] - Diabetes [address] [address] Denia Greenberg MD Social History Tobacco Use Types Packs/Day Years Used Date Smoking Tobacco: Never Smokeless Tobacco: Never Alcohol Use Standard Drinks/Week Comments No 0 (1 standard drink = 0.6 oz pur e alcohol) Sex and Gender Information Value Date Recorded Sex Assigned at Not on file 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 AUTO DAMAGE APPRAISER Gender Identity Not on file Sexual Orientation [...] on filedocumented in this encounter Care Teams Roller Inspector Relationship Specialty Start Date End Date Marilu Westfall MD [address] [place] [address] PCP - General 06/01/17 06/12/18 Cierra Villarreal MD [address] [phone] PCP - General Family Medicine 06/13/18 documented as of this encounter
--- OUTSIDE RECORDS SUMMARY | 2024-09-21 14:46 | XMS_ITS | Encounter Summary ---
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 Gender Identity Not on file Sexual [...] of Assessment Author 01/14/2014 9:10 AM Patricio rGeen RN * Does person have difficulty doing [...] documented as of this encounter Care Teams Construction Electrician Relationship Specialty Start Date End Date Cierra Villarreal MD [address] [place] [phone] PCP - General Family Medicine 11/27/13 05/31/17 Marilu Westfall MD [address] [place] [address] PCP - General 06/01/17 06/12/18 Cierra Villarreal MD [address] [place] [phone] PCP - General Family Medicine 06/13/18 documented as of this encounter
--- OUTSIDE RECORDS SUMMARY | 2024-09-21 14:46 | XMS_ITS | Encounter Summary ---
Author Organization [facility] Address [address] [place] [address] Care Team Providers Care Wire Machine Cutter Name Role Phone Cierra Villarreal MD Primary Care Provider [phone] Marilu Westfall MD Primary Care Provider [phone] Cierra Villarreal MD Primary Care Provider [phone] Reason for Visit * Reason Onset Date Comments MEDICATION REFILL 05/09/2017 Encounter Details Date Type Department Care Team (Late st Contact Info) Description 05/09/2017 Refill [facility] Pediatrics - Endocrinology [address] [place] [address] Alber Fiore, RAILWAY SIGNAL OPERATOR-TABLE WORKER [address] [place] [address] MEDICATION REFILL Social History Tobacco Use Types Packs/Day Years Used Date Smoking Tobacco: Never Smokeless Tobacco: Never Alcohol Use Standard Drinks/Week Comments No 0 (1 standard drink = 0.6 oz pur e alcohol) Sex and Gender Information Value Date Recorded Sex Assigned at Not on file 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
--- OUTSIDE RECORDS SUMMARY | 2024-09-21 14:46 | XMS_ITS | Encounter Summary ---
Author Organization [facility] Address [address] [facility] [place] [address] Care Team Providers Care Director Of Financial Reporting Name Role Phone Cierra Villarreal MD Primary Care Provider [phone] Reason for Visit * Reason Onset Date Comments MEDICATION REFILL 11/24/2020 Encounter Details Date Type Department Care Team (Late st Contact Info) Description 11/24/2020 Refill [facility] Pediatrics - Diabetes [address] [address] Denia Greenberg MD MEDICATION REFILL Social History Tobacco Use Types Packs/Day Years Used Date Smoking Tobacco: Never Smokeless Tobacco: Never Alcohol Use Standard Drinks/Week Comments No 0 (1 standard drink = 0.6 oz pur e alcohol) Sex and Gender Information Value Date Recorded Sex Assigned at Not on file 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 KETTLE COOK Gender Identity Not on file Sexual Orientation [...] on filedocumented in this encounter Care Teams Director Of Financial Reporting Relationship Specialty Start Date End Date Cierra Villarreal MD [address] [place] [phone] PCP - General Family Medicine 06/13/18 documented as of this encounter
--- OUTSIDE RECORDS SUMMARY | 2024-09-21 14:46 | XMS_ITS | Encounter Summary ---
Author Organization [facility] Address [address] [facility] [place] [address] Care Team Providers Care Irrigation District Manager Name Role Phone Cierra Villarreal MD Primary Care Provider [phone] Encounter Details Date Type Department Care Team (Late st Contact Info) Description 11/11/2020 Telephone [facility] Pediatrics - Diabetes [address] [address] Denia Greenberg MD Social History Tobacco Use Types Packs/Day Years Used Date Smoking Tobacco: Never Smokeless Tobacco: Never Alcohol Use Standard Drinks/Week Comments No 0 (1 standard drink = 0.6 oz pur e alcohol) Sex and Gender Information Value Date Recorded Sex Assigned at Not on file 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 I referred mom to inspection supervisor. States bgs have been elevated. Negative ketones. [...] on filedocumented in this encounter Care Teams Irrigation District Manager Relationship Specialty Start Date End Date Cierra Villarreal MD [address] [place], [place] [phone] PCP - General Family Medicine 06/13/18 documented as of this encounter
--- OUTSIDE RECORDS SUMMARY | 2024-09-21 14:46 | XMS_ITS | Encounter Summary ---
Author Organization [facility] Address [address] [facility] [place] [address] Care Team Providers Care Geopolitics Teacher Name Role Phone Cierra Villarreal MD Primary Care Provider [phone] Marilu Westfall MD Primary Care Provider [phone] Cierra Villarreal MD Primary Care Provider [phone] Reason for Visit * Reason Onset Date Comments Refill Request 05/09/2017 insulin syringes , please refill to [facility] Encounter Details Date Type Department Care Team (Late st Contact Info) Description 05/09/2017 Telephone [facility] Pediatric[facility] - Endocrinology [address] [place] [address] Denia Greenberg MD Refill Request (insulin syringes, please refill to [facility]) Social History Tobacco Use Types Packs/Day Years Used Date Smoking Tobacco: Never Smokeless Tobacco: Never Alcohol Use Standard Drinks/Week Comments No 0 (1 standard drink = 0.6 oz pur e alcohol) Sex and Gender Information Value Date Recorded Sex Assigned at Not on file 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
--- OUTSIDE RECORDS SUMMARY | 2024-09-21 14:46 | XMS_ITS | Encounter Summary ---
Author Organization [facility] Address [address] [facility] [place] [address] Care Team Providers Care Operating System Programmer Name Role Phone Chrissy Richards MD Primary Care Provider [phone] Cierra Villarreal MD Primary Care Provider [phone] Marilu Westfall MD Primary Care Provider [phone] Cierra Villarreal MD Primary Care Provider [phone] Reason for Visit * Reason Onset Date Comments General 10/12/2013 Encounter Details Date Type Department Care Team (Late st Contact Info) Description 10/12/2013 Telephone [facility] Pediatrics - Diabetes [address] [address] Denia Greenberg MD General Social History Tobacco Use Types Packs/Day Years Used Date Smoking Tobacco: Never Alcohol Use Standard Drinks/Week Comments Not Asked 0 (1 standard drink = 0.6 oz pur e alcohol) Sex and Gender Information Value Date Recorded Sex Assigned at Not on file 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 I called at [phone], office closed at 1645. Notified mother. documented in this encounter Plan of Treatment Not on file documented as of this encounter Visit Diagnoses Not on filedocumented in this encounter Additional Health Concerns Infection Onset Date Last Indicated Resolved Time MRSA 01/28/2015 01/28/2015 10/22/2015 12:0 6 PM CDT documented as of this encounter Care Teams Operating System Programmer Relationship Specialty Start Date End Date Chrissy Richards MD [address] [place] [phone] PCP - General 07/02/11 11/26/13 Cierra Villarreal MD [address] [place] [phone] PCP - General Family Medicine 11/27/13 05/31/17 Marilu Westfall MD [address] [place] [address] PCP - General 06/01/17 06/12/18 Cierra Villarreal MD [address] [place] [phone] PCP - General Family Medicine 06/13/18 documented as of this encounter
--- OUTSIDE RECORDS SUMMARY | 2024-09-21 14:46 | XMS_ITS | Encounter Summary ---
Author Organization [facility] Address [address] [facility] [place] [address] Care Team Providers Care Movement Therapist Name Role Phone Cierra Villarreal MD Primary Care Provider [phone] Encounter Details Date Type Department Care Team (Late st Contact Info) Description 11/15/2019 Telephone [facility] Pediatrics - Diabetes [address] [address] Alber Fiore APRN-[facility] [address] Social History Tobacco Use Types Packs/Day Years Used Date Smoking Tobacco: Never Smokeless Tobacco: Never Alcohol Use Standard Drinks/Week Comments No 0 (1 standard drink = 0.6 oz pur e alcohol) Sex and Gender Information Value Date Recorded Sex Assigned at Not on file 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 documented in this encounter Plan of Treatment Not on file documented as of this encounter Visit Diagnoses Not on filedocumented in this encounter Care Teams Movement Therapist Relationship Specialty Start Date End Date Cierra Villarreal MD [address] [place] [phone] PCP - General Family Medicine 06/13/18 documented as of this encounter
--- OUTSIDE RECORDS SUMMARY | 2024-09-21 14:46 | XMS_ITS | Encounter Summary ---
Author Organization [facility] Address [address] [facility] [place] [address] Care Team Providers Care Remote Coders Name Role Phone Cierra Villarreal MD Primary Care Provider [phone] Reason for Visit * Reason Comments Refill Request Encounter Details Date Type Department Care Team (Late st Contact Info) Description 03/06/2021 Refill [facility] Pediatrics - Diabetes [address] [address] Denia Greenberg MD Refill Request Social History [...] on file 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 RIBBON HAND Gender Identity Not on file Sexual Orientation Not on file COVID-19 Exposure Response Date Recorded In the last month, have you been in contact with someone who was confirmed or suspected to have Coronavirus / COVID-19? No / Unsure 02/19/2021 3:26 PM RIBBON HAND documented as of this encounter Functional Status [...] on filedocumented in this encounter Care Teams Remote Coders Relationship Specialty Start Date End Date Cierra Villarreal MD [address] [place] [phone] PCP - General Family Medicine 06/13/18 documented as of this encounter
--- OUTSIDE RECORDS SUMMARY | 2024-09-21 14:46 | XMS_ITS | Encounter Summary ---
Author Organization [facility] Address [address] [facility] [place] [address] Care Team Providers Care Care Center Manager Name Role Phone Cierra Villarreal MD Primary Care Provider [phone] Marilu Westfall MD Primary Care Provider [phone] Cierra Villarreal MD Primary Care Provider [phone] Reason for Visit * Reason Onset Date Comments Blood Sugar Problem 02/20/2015 Encounter Details Date Type Department Care Team (Late st Contact Info) Description 02/20/2015 Telephone [facility] Pediatrics - Endocrinology [facility] [place] [address] Denia Greenberg MD Blood Sugar Problem Social History Tobacco Use Types Packs/Day Years Used Date Smoking Tobacco: Never Alcohol Use Standard Drinks/Week Comments No 0 (1 standard drink = 0.6 oz pur e alcohol) Sex and Gender Information Value Date Recorded Sex Assigned at Not on file 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 Answer Date of Assessment Author No 02/03/2015 9:09 AM WEB APPLICATION TESTER Betzaida Zuniga RN * Is person blind [...] at length. Mom to call as needed. APPLICATION TESTER documented in this encounter Plan of Treatment Not on file documented as of this encounter Visit Diagnoses Not on filedocumented in this encounter Additional Health Concerns Infection Onset Date Last Indicated Resolved Time MRSA 01/28/2015 01/28/2015 10/22/2015 12:0 6 PM CDT documented as of this encounter Care Teams Care Center Manager Relationship Specialty Start Date End Date Cierra Villarreal MD [address] [phone] PCP - General Family Medicine 11/27/13 05/31/17 Marilu Westfall MD [address] [place] [address] PCP - General 06/01/17 06/12/18 Cierra Villarreal MD [address] [phone] PCP - General Family Medicine 06/13/18 documented as of this encounter
--- OUTSIDE RECORDS SUMMARY | 2024-09-21 14:46 | XMS_ITS | Encounter Summary ---
Author Organization [facility] Address [address] [facility] [place] [address] Care Team Providers Care Steel Fabricating Supervisor Name Role Phone Cierra Villarreal MD Primary Care Provider [phone] Marilu Westfall MD Primary Care Provider [phone] Cierra Villarreal MD Primary Care Provider [phone] Reason for Visit * Reason Onset Date Comments Blood Sugar Problem 08/13/2014 Please call mom. BS are increasing, had a runny nose but that has cleared up. BS this AM 270. Please call in the AM, has appts with other children this afternoon Encounter Details Date Type Department Care Team (Late st Contact Info) Description 08/13/[address] [facility] Pediatrics - Diabetes [address] [address] Denia Greenberg MD Blood Sugar Problem (Please [...] on file 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 TRACK PATROL Gender Identity Not on file Sexual Orientation [...] documented as of this encounter Care Teams Steel Fabricating Supervisor Relationship Specialty Start Date End Date Cierra Villarreal MD [address] [facility] [address] [place] [address] PCP - General Family Medicine 11/27/13 05/31/17 Marilu Westfall MD [address] [place] [address] PCP - General 06/01/17 06/12/18 Cierra Villarreal MD [address] [facility] [address] [place] [address] PCP - General Family Medicine 06/13/18 documented as of this encounter
--- OUTSIDE RECORDS SUMMARY | 2024-09-21 14:46 | XMS_ITS | Clinical Summary ---
Author Organization 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 Encounters Date Type Department Care Team Description 08/10/2024 Telephone [facility] Surgery [address] [place] [address] Floor 5 [place] [address] Yoselin Sol RN 08/08/2024 Telephone [facility] Surgery [address] [place] [address] Floor 5 [place] [address] Yoselin Sol RN 08/07/2024 Telephone [facility] Surgery [address] [place] [address] Floor 8 [place] [address] Marianne Aparicio MD Medical Question/Miscellaneous from Last 3 Months Medical History Medical [...] on file Legal Sex Male 8:34 AM ASSOCIATE PROPERTY MANAGER Gender Identity Not on file Sexual Orientation Not on file Obstetrics History Last Filed Vital Signs Vital Sign Reading Time Taken Comments Blood Pressure 106/65 04/19/2021 2:26 PM ASSOCIATE PROPERTY MANAGER Pulse 88 04/19/2021 2:20 PM ASSOCIATE PROPERTY MANAGER Temperature 36.2 C (97.2 F) 04/19/2021 2:26 PM ASSOCIATE PROPERTY MANAGER Respiratory Rate 18 04/19/2021 2:20 PM ASSOCIATE PROPERTY MANAGER Oxygen Saturation 97% 04/19/2021 2:20 PM ASSOCIATE PROPERTY MANAGER Inhaled Oxygen Concentration - - Weight 69 kg (152 lb 1.9 oz) 04/19/2021 2:22 PM ASSOCIATE PROPERTY MANAGER Height 149.9 cm (4' 11) 04/19/2021 2:22 PM ASSOCIATE PROPERTY MANAGER Body Mass Index 30.72 04/19/2021 2:22 PM ASSOCIATE PROPERTY MANAGER Plan of Treatment Health Maintenance Due Date [...] season) 2023 12/03/2020, 05/26/2020, 05/03/2020 Influenza Vaccine (#1) 2024 , 02/22/2019, 12/13/2017, Additional history exists Hepatitis B Screening Completed 06/12/2002 , 03/06/2002, 01/16/2002 Varicella Vaccines Completed 10/05/2007, 02/25/[address] [place] [address] [facility] Care Teams Motorcycle Technician Relationship Specialty Start Date End Date Pablito Villarreal MD [address] [place] [address] PCP - General 07/14/20 Jimmy Velez MD [address] [address] Referring Physician Internal Medicine 06/06/24
--- OUTSIDE RECORDS SUMMARY | 2024-09-21 14:46 | XMS_ITS | Encounter Summary ---
Author Organization [facility] Address [address] [facility] [place] [address] Care Team Providers Care Pinion And Wheel Truer Name Role Phone Cierra Villarreal MD Primary Care Provider Reason for Visit * Reason Comments Refill Request Encounter Details Date Type Department Care Team (Late st Contact Info) Description 11/16/2020 Refill [facility] Pediatrics - Diabetes [address] [address] Denia Greenberg MD Refill Request Social History Tobacco Use Types Packs/Day Years Used Date Smoking Tobacco: Never Smokeless Tobacco: Never Alcohol Use Standard Drinks/Week Comments No 0 (1 standard drink = 0.6 oz pur e alcohol) Sex and Gender Information Value Date Recorded Sex Assigned at Not on file 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
--- OUTSIDE RECORDS SUMMARY | 2024-09-21 14:46 | XMS_ITS | Encounter Summary ---
Author Organization [facility] Address [address] [facility] [place] [address] Care Team Providers Care Software Client Architect Name Role Phone Marilu Westfall MD Primary Care Provider [phone] Cierra Villarreal MD Primary Care Provider Reason for Visit * Reason Onset Date Comments Blood Glucose (Sugar) Review 09/09/2017 Ple ase call mom to review blood sugars. She has noticed blood sugars around 2pm are in the 200-300 range lately. 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
--- OUTSIDE RECORDS SUMMARY | 2024-09-21 14:47 | XMS_ITS | Clinical Summary ---
Author Organization [facility] Address [facility] [place] [address] Care Team Providers Care Financial Reporting Advisor Name Role Phone Jeffery Serra MD Primary Care Provider [phone] Allergies Active Allergy Reactions Criticality Noted Date [...] Noted Date Diagnosed Date DKA, type 1 ([facility]) 11/27/2023 Immunizations Immunization Administration Dates Next Due Fluzone (IIV3, Trivalent, [...] or pharmacy? Patient unable to respond 11/27/2023 [facility] Utilities Answer Date Recorded In the past 12 months has th e electric, gas, oil, or water [employer] threatened to shut off services in your [...] How often do you attend chur or church services? Patient unable to answer 11/27/2023 Do you belong to any clubs o r organizations such as caodaism groups, unions, fraternal or athletic groups, or [...] and heating? Not hard at all 11/27/2023 [place] of Occupat ional [facility] - Occupational Stress Questionnaire Answer Date Recorded [...] any time in the past 12 m [facility], were you homeless or living in a correction (including now)? No 11/27/2023 Sex and Gender [...] 4:39 PM CDT Height 154.9 cm (5' 1) 12/02/2023 4:39 PM CDT Body Mass Index 28.15 12/02/2023 4:39 PM CDT Plan of Treatment Health Maintenance Due Date Last Done Comments Kidney Health Evaluation 2001 Lipid Panel 2001 Annual Physical 2004 HPV Vaccines (1 - Male 3-dose series) 2016 Meningococcal B Vaccine (1 of 2 - Standard) 2017 Diabetes: Retinopathy Eye Exam 11/26/2019 Hepatitis C 11/26/2019 Pneumococcal Vaccine: Pediatrics (0 to 5 Years) and At-Risk Patients (6 to 49 Years) (1 of 2 - PCV) 2020 Hemoglobin A1C 11/24/2022 05/25/2022, 01/22, 10/12/2021, Additional history exists DTaP, Tdap and Td Vaccines (6 - Td or Tdap) 10/09/2023 10/08/2013, 12/21/2005, 05/27/2003, Additional history exists COVID-19 Vaccine ( - 2023- season) 2023 01/06/2023, 02/24/2022, 12/03/2020, Additional history [...] 1:37 AM 11/28/2023 11:51 AM Care Teams Financial Reporting Advisor Relationship Specialty Start Date End Date Jeffery Serra MD [address] [phone] PCP - General FAMILY PRACTICE 12/02/23
--- OUTSIDE RECORDS SUMMARY | 2024-09-21 14:47 | XMS_ITS | Encounter Summary ---
Author Organization [facility] Address [address] [facility] [place] [address] Care Team Providers Care Client Relations Representative Name Role Phone Cierra Villarreal MD Primary Care Provider [phone] Marilu Westfall MD Primary Care Provider [phone] Cierra Villarreal MD Primary Care Provider [phone] Reason for Visit * Reason Onset Date Comments Letter 08/15/2014 Mom request a le tter be mailed to Dennis stating how many times Dex checks his blood sugars and uses syringes, so their keycase assembler can request an increased amount. Blood Sugar Problem 08/15/2014 after change s made by Anat, 08/14-HS 312, 3AM 227, 08/15 AM 331, (dad did forget insulin for dinner last night) Encounter Details Date Type Department Care Team (Late st Contact Info) Description 08/15/2014 Telephone [facility] Pediatrics - Diabetes [address] [address] Denia Greenberg MD Letter (Mom request a letter be mailed to Dennis stating how many times Dex checks his blood sugars and uses syringes, so their keycase assembler can request an increased amount. 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
[2024-09-21 15:20] LABS: Hematocrit 44.5 % (42.0-52.0); Hemoglobin 15.0 g/dL (14.0-18.0); Mean Corpuscular HGB Conc 33.7 g/dl (32-36); Mean Corpuscular Hemoglobin 30.5 pg (26-34); Mean Corpuscular Volume 90.4 fl (80-100); Platelet Count Result 249 k/mm3 (150-375); Red Blood Count 4.92 M/mm3 (4.6-6.20); White Blood Count 5.8 K/mm3 (4.5-10.0)
[2024-09-21 15:32] LABS: Alanine Aminotransferase 26 U/L (6-50); Albumin Level 3.6 g/dL (3.5-5.1); Alkaline Phosphatase 105 U/L (38-126); Anion Gap 6 mmol/L (4-12); Aspartate Amino Transferase 24 U/L (17-59); Bilirubin,Total 0.7 mg/dL (0.2-1.3); Blood Urea Nitrogen 16 mg/dL (9-20); Calcium 9.4 mg/dL (8.4-10.2); Carbon Dioxide 27 mmol/L (22-30); Chloride 103 mmol/L (98-107); Estimated Glomerular Filt Rate > 60; Glucose 113 mg/dL (65-110); Potassium 3.9 mmol/L (3.4-5.0); Sodium 136 mmol/L (137-145); Total Protein 6.5 g/dL (6.3-8.2)
[2024-09-21 15:49] LABS: Free T4 Free Thyroxine 3.15 ng/dL (0.78-2.19)
[2024-09-21 16:05] LABS: Thyroid Stimulating Hormone < 0.015 uIU/mL (0.465-4.680); Total Triiodothyronine (T3) 1.82 NG/ML (0.82-1.58)
== END 2024-09-21 14:43 | disposition home or self-care (01) ==
LOC: ANHLAB 14:43
PROVIDERS: PCP Family Medicine; Visit Provider Internal Medicine
DX: E05.00 Thyrotoxicosis with diffuse goiter without thyrotoxic crisis or storm (principal); E10.9 Type 1 diabetes mellitus without complications; R63.4 Abnormal weight loss
CPT/HCPCS: 36415; 80053; 84439; 84443; 84480; 85027

== ENCOUNTER 2024-10-25 14:19 | Outpatient (CLI) | payer OTHER, SELFPAY ==
--- OUTSIDE RECORDS SUMMARY | 2024-10-25 14:30 | XMS_ITS | Encounter Summary ---
Author Organization [facility] Address [address] [place] [address] Care Team Providers Care Framing Manager Name Role Phone Cierra Villarreal MD Primary Care Provider [phone] Encounter Details Date Type Department Care Team (Late st Contact Info) Description 06/09/2021 Telephone [facility] Pediatrics - Diabetes [address] [address] Denia Greenberg MD Social History [...] on file 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 RECOVERY RN Gender Identity Not on file Sexual Orientation [...] has our correct e-mail address. Mom's e-mail: [email or web address] documented in this encounter Plan of Treatment Not on file documented as of this encounter Visit Diagnoses Not on filedocumented in this encounter Care Teams Framing Manager Relationship Specialty Start Date End Date Cierra Villarreal MD [address] [place] [phone] PCP - General Family Medicine 06/13/18 documented as of this encounter
--- OUTSIDE RECORDS SUMMARY | 2024-10-25 14:31 | XMS_ITS | Encounter Summary ---
Author Organization [facility] Address [address] [facility] [place] [address] Care Team Providers Care Sand Technician Name Role Phone Cierra Villarreal MD Primary Care Provider [phone] Marilu Westfall MD Primary Care Provider [phone] Cierra Villarreal MD Primary Care Provider [phone] Encounter Details Date Type Department Care Team (Late st Contact Info) Description 01/10/2017 Telephone [facility] - Diabetes [address] [address] Denia Greenberg MD Social History Tobacco Use Types Packs/Day Years Used Date Smoking Tobacco: Never Smokeless Tobacco: Never Alcohol Use Standard Drinks/Week Comments No 0 (1 standard drink = 0.6 oz pur e alcohol) Sex and Gender Information Value Date Recorded Sex Assigned at Not on file 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 PLUGMAN Gender Identity Not on file Sexual Orientation Not on file documented as of this encounter Functional Status * Is person deaf or have serious hearing difficulty? Answer Date of Assessment Author No 02/03/2015 9:09 AM PLUGMAN Betzaida Zuniga RN * Is person blind [...] on filedocumented in this encounter Care Teams Sand Technician Relationship Specialty Start Date End Date Cierra Villarreal MD [address] [place] [phone] PCP - General Family Medicine 11/27/13 05/31/17 Marilu Westfall MD [address] [place] [address] PCP - General 06/01/17 06/12/18 Cierra Villarreal MD [address] [place] [phone] PCP - General Family Medicine 06/13/18 documented as of this encounter
--- OUTSIDE RECORDS SUMMARY | 2024-10-25 14:31 | XMS_ITS | Encounter Summary ---
Author Organization [facility] Address [address] [facility] [place] [address] Care Team Providers Care Lab Scientist Name Role Phone Cierra Villarreal MD Primary Care Provider [phone] Encounter Details Date Type Department Care Team (Late st Contact Info) Description 04/27/2019 Telephone [facility] Pediatrics - Diabetes [address] [address] Alber Fiore APRN-AERONAUTICAL ENGINEER [address] [place] [address] Social History Tobacco Use Types Packs/Day Years Used Date Smoking Tobacco: Never Smokeless Tobacco: Never Alcohol Use Standard Drinks/Week Comments No 0 (1 standard drink = 0.6 oz pur e alcohol) Sex and Gender Information Value Date Recorded Sex Assigned at Not on file 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 Addendum: 05/03/19: [...] put through for precision xtra test strips. GER [employer] documented in this encounter Plan of Treatment Not on file documented as of this encounter Visit Diagnoses Not on filedocumented in this encounter Care Teams Lab Scientist Relationship Specialty Start Date End Date Cierra Villarreal MD [address] [place], [place] [phone] PCP - General Family Medicine 06/13/18 documented as of this encounter
--- OUTSIDE RECORDS SUMMARY | 2024-10-25 14:31 | XMS_ITS | Encounter Summary ---
Author Organization 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 No / Unsure 02/19/2021 3:26 PM INTERNATIONAL SOURCING MANAGER documented as of this encounter Functional Status [...] on filedocumented in this encounter Care Teams Reconciliation Specialist Relationship Specialty Start Date End Date Cierra Villarreal MD [address] [place] [phone] PCP - General Family Medicine 06/13/18 documented as of this encounter
--- OUTSIDE RECORDS SUMMARY | 2024-10-25 14:31 | XMS_ITS | Encounter Summary ---
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 No / Unsure 02/19/2021 3:26 PM STEAM FRAME OPERATOR documented as of this encounter Functional Status * Is person deaf or have serious hearing difficulty? Answer Date of Assessment Author No 02/09/2021 9:37 AM Guero Roy RN * Is person blind or have serious difficulty seeing? Answer Date of Assessment Author No 02/09/2021 9:37 AM STEAM FRAME OPERATOR Guero Olguin RN * Does person have serious difficulty walking/climbing stairs? Answer Date of Assessment Author Yes 02/09/2021 9:37 AM Guero Roy RN * Does person have difficulty dressing/bathing? Answer Date of Assessment Author Yes 10/03/2018 8:25 AM CDT Patricio Bhatti RN * Does person have difficulty doing errands alone? Answer Date of Assessment Author Yes 02/09/2021 9:37 AM STEAM FRAME OPERATOR Guero Olguin RN documented as of this encounter Mental Status * Does person have difficulty concentrating/remembering/making decisions? Answer Entry Date Author Yes 02/09/2021 9:37 AM Guero Roy RN documented in this encounter Miscellaneous Notes * Telephone Encounter - Laurel Reid RN - 06/09/2021 1:39 PM CDT Monae from pharmacy calling with questions in regards to Precision strips. Was sent to [facility] [phone] * Telephone Encounter - Aundrea Yoo DO - 03/15/2021 3:41 PM STEAM FRAME OPERATOR Endocrine after hours call Dex is a [...] 22 units at normal time on Tuesday. M FRAME OPERATOR documented in this encounter Plan of Treatment Not on file documented as of this encounter Visit Diagnoses Not on filedocumented in this encounter Care Teams Architectural Job Captain Relationship Specialty Start Date End Date Cierra Villarreal MD [address] [place] [phone] PCP - General Family Medicine 06/13/18 documented as of this encounter
--- OUTSIDE RECORDS SUMMARY | 2024-10-25 14:31 | XMS_ITS | Encounter Summary ---
Author Organization [facility] Address [address] [facility] [place] [address] Care Team Providers Care Special Projects Manager Name Role Phone Cierra Villarreal MD Primary Care Provider [phone] Reason for Visit * Reason Onset Date Comments Opened In Error 12/17/2019 Encounter Details Date Type Department Care Team (Late st Contact Info) Description 12/17/2019 Refill [facility] Pediatrics - Endocrinology [address] [facility] 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
--- OUTSIDE RECORDS SUMMARY | 2024-10-25 14:31 | XMS_ITS | Encounter Summary ---
Author Organization [facility] Address [address] [facility] [place] [address] Care Team Providers Care Salvage Machine Operator Name Role Phone Cierra Villarreal MD Primary Care Provider Encounter Details Date Type Department Care Team (Late st Contact Info) Description 01/21/2020 Telephone [facility] Pediatrics - Endocrinology [address] [place] [address] Alber Fiore APRN-AIRCRAFT INSTRUMENT TESTER [address] [place] [address] Social History Tobacco Use Types Packs/Day Years Used Date Smoking Tobacco: Never Smokeless Tobacco: Never Alcohol Use Standard Drinks/Week Comments No 0 (1 standard drink = 0.6 oz pur e alcohol) Sex and Gender Information Value Date Recorded Sex Assigned at Not on file 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 TYPEWRITERS FUNCTIONAL TESTER Gender Identity Not on file Sexual Orientation Not on file COVID-19 Exposure Response Date Recorded In the last month, have you been in contact with someone who was confirmed or suspected to have Coronavirus / COVID-19? Unable to assess 01/09/2020 1:57 PM TYPEWRITERS FUNCTIONAL TESTER documented as of this encounter Functional Status [...] at 2130 01/24 give basaglar at 2300 WRITERS FUNCTIONAL TESTER documented in this encounter Plan of Treatment Not on file documented as of this encounter Visit Diagnoses Not on filedocumented in this encounter Care Teams Salvage Machine Operator Relationship Specialty Start Date End Date Cierra Villarreal MD [address] [place] [phone] PCP - General Family Medicine 06/13/18 documented as of this encounter
--- OUTSIDE RECORDS SUMMARY | 2024-10-25 14:31 | XMS_ITS | Encounter Summary ---
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
--- OUTSIDE RECORDS SUMMARY | 2024-10-25 14:31 | XMS_ITS | Clinical Summary ---
Author Organization [facility] Address [facility] [place] [address] Care Team Providers Care Insurance Account Manager Name Role Phone Jeffery Serra MD Primary Care Provider [phone] Allergies Active Allergy Reactions Criticality Noted Date [...] Noted Date Diagnosed Date DKA, type 1 ([facility]CC [facility]) 11/27/2023 Immunizations Immunization Administration Dates Next Due [...] or pharmacy? Patient unable to respond 11/27/2023 [facility] Utilities Answer Date Recorded In the past 12 months has th e electric, gas, oil, or water [employer] threatened to shut off services in your [...] How often do you attend chur or mosque services? Patient unable to answer 11/27/2023 Do you belong to any clubs o r organizations such as restoration groups, unions, fraternal or athletic groups, or [...] and heating? Not hard at all 11/27/2023 [place] of Occupat ional [facility] - Occupational Stress Questionnaire Answer Date Recorded [...] any time in the past 12 m [facility], were you homeless or living in a [place] health [place] facility (including now)? No 11/27/2023 Sex and Gender [...] Additional history exists COVID-19 Vaccine ( - 2024- season) 2024 01/06/2023, 02/24/2022, 12/03/2020, Additional history exists Hepatitis [...] 1:37 AM 11/28/2023 11:51 AM Care Teams Insurance Account Manager Relationship Specialty Start Date End Date Jeffery Serra MD [address] [phone] PCP - General FAMILY PRACTICE 12/02/23
--- OUTSIDE RECORDS SUMMARY | 2024-10-25 14:31 | XMS_ITS | Encounter Summary ---
Author Organization [facility] Address [address] [facility] [place] [address] Care Team Providers Care Administrative Staff Supervisor Name Role Phone Chrissy Richards MD Primary Care Provider [phone] Cierra Villarreal MD Primary Care Provider [phone] Marilu Westfall MD Primary Care Provider [phone] Cierra Villarreal MD Primary Care Provider [phone] Reason for Visit * Reason Onset Date Comments Refill Request 09/03/2013 Mom called, need s refill for syringes sent to [facility] in [place]. Encounter Details Date Type Department Care Team (Late st Contact Info) Description 09/03/2013 Telephone [facility] Pediatrics - Diabetes [address] [address] Denia Greenberg MD Refill Request (Mom called, needs refill for syringes sent to [facility] in [place]. 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 Gender Identity Not on file Sexual Orientation Not on file documented as of this encounter Plan of Treatment Not on file documented as of this encounter Visit Diagnoses Not on filedocumented in this encounter Additional Health Concerns Infection Onset Date Last Indicated Resolved Time MRSA 01/28/2015 01/28/2015 10/22/2015 12:0 6 PM CDT documented as of this encounter Care Teams Administrative Staff Supervisor Relationship Specialty Start Date End Date Chrissy Richards MD [address] [place] [phone] PCP - General 07/02/11 11/26/13 Cierra Villarreal MD [address] [place] [phone] PCP - General Family Medicine 11/27/13 05/31/17 Marilu Westfall MD [address] [place] [address] PCP - General 06/01/17 06/12/18 Cierra Villarreal MD [address] [place] [phone] PCP - General Family Medicine 06/13/18 documented as of this encounter
--- OUTSIDE RECORDS SUMMARY | 2024-10-25 14:31 | XMS_ITS | Encounter Summary ---
Author Organization [facility] Address [address] [place] [address] Care Team Providers Care Auto Tune Up Mechanic Name Role Phone Chrissy Richards MD Primary Care Provider [phone] Cierra Villarreal MD Primary Care Provider [phone] Marilu Westfall MD Primary Care Provider [phone] Cierra Villarreal MD Primary Care Provider [phone] Reason for Visit * Reason Onset Date Comments Blood Sugar Problem 12/18/2012 Please call mom to review blood sugars and make changes Encounter Details Date Type Department Care Team (Late st Contact Info) Description 12/18/2012 Telephone [facility] Pediatrics - Diabetes [address] [address] Denia Greenberg MD Blood Sugar Problem (Please call mom to review blood sugars and make changes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 Gender Identity Not on file Sexual Orientation Not on file documented as of this encounter Plan of Treatment Not on file documented as of this encounter Visit Diagnoses Not on filedocumented in this encounter Additional Health Concerns Infection Onset Date Last Indicated Resolved Time MRSA 01/28/2015 01/28/2015 10/22/2015 12:0 6 PM CDT documented as of this encounter Care Teams Auto Tune Up Mechanic Relationship Specialty Start Date End Date Chrissy Richards MD [address] [place] [address] PCP - General 07/02/11 11/26/13 Cierra Villarreal MD [address] [place] [phone] PCP - General Family Medicine 11/27/13 05/31/17 Marilu Westfall MD [address] [place] [address] PCP - General 06/01/17 06/12/18 Cierra Villarreal MD [address] [place] [phone] PCP - General Family Medicine 06/13/18 documented as of this encounter
--- OUTSIDE RECORDS SUMMARY | 2024-10-25 14:31 | XMS_ITS | Encounter Summary ---
Author Organization [facility] Address [address] [place] [place] [address] Care Team Providers Care Senior Research Engineer Name Role Phone Cierra Villarreal MD Primary Care Provider [phone] Marilu Westfall MD Primary Care Provider [phone] Cierra Villarreal MD Primary Care Provider [phone] Reason for Visit * Reason Onset Date Comments Refill Request 05/09/2017 insulin syringes , [facility] Encounter Details Date Type Department Care Team (Late st Contact Info) Description 05/09/2017 Telephone [facility] Pediatrics - Endocrinology [address] [place] [address] Denia Greenberg MD Refill Request (insulin syringes, [facility]) Social History Tobacco Use Types Packs/Day Years Used Date Smoking Tobacco: Never Smokeless Tobacco: Never Alcohol Use Standard Drinks/Week Comments No 0 (1 standard drink = 0.6 oz pur e alcohol) Sex and Gender Information Value Date Recorded Sex Assigned at Not on file 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 [address] [place] [address] PCP - General Family Medicine 11/27/13 05/31/17 Marilu Westfall MD [address] [place] [address] PCP - General 06/01/17 06/12/18 Cierra Villarreal MD [address] [place] [address] PCP - General Family Medicine 06/13/18 documented as of this encounter
--- OUTSIDE RECORDS SUMMARY | 2024-10-25 14:31 | XMS_ITS | Encounter Summary ---
Author Organization [facility] Address [address] [facility] [place] [address] Care Team Providers Care Molder Punch Name Role Phone Cierra Villarreal MD Primary Care Provider [phone] Marilu Westfall MD Primary Care Provider [phone] Cierra Villarreal MD Primary Care Provider [phone] Reason for Visit * Reason Onset Date Comments Blood Sugar Problem 10/24/2014 Mom is still noticing elevated blood sugars at the mid-afternoon check (between 1:15-2:00PM). Please call to review blood sugars and further changes that need to be made. Encounter Details Date Type Department Care Team (Late st Contact Info) Description 10/24/2014 Telephone [facility] Pediatrics - Diabetes [address] [address] Deina Greenberg MD Blood Sugar Problem (Mom is [...] on file 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 QUARTER SEAMER Gender Identity Not on file Sexual Orientation [...] documented as of this encounter Care Teams Molder Punch Relationship Specialty Start Date End Date Cierra Villarreal MD [address] [phone] PCP - General Family Medicine 11/27/13 05/31/17 Marilu Westfall MD [address] [place] [address] PCP - General 06/01/17 06/12/18 Cierra Villarreal MD [address] [facility] [address] [place] [address] PCP - General Family Medicine 06/13/18 documented as of this encounter
--- OUTSIDE RECORDS SUMMARY | 2024-10-25 14:31 | XMS_ITS | Encounter Summary ---
Author Organization [facility] [employer] Address [address] [facility] [place] [address] Care Team Providers Care Neuropsychology Medical Consultant Name Role Phone Cierra Villarreal MD Primary Care Provider [phone] Marilu Westfall MD Primary Care Provider [phone] Cierra Villarreal MD Primary Care Provider [phone] Reason for Visit * Reason Onset Date Comments Letter 08/15/2014 Mom request a le tter be mailed to [employer] stating how many times Dex checks his blood sugars and uses syringes, so their sample case porter can request an increased amount. Blood Sugar Problem 08/15/2014 after change s made by Anat, 08/14-HS 312, 3AM 227, 08/15 AM 331, (dad did forget insulin for dinner last night) Encounter Details Date Type Department Care Team (Late st Contact Info) Description 08/15/2014 Telephone [facility] Pediatrics - Diabetes [address] [address] Denia Greenberg MD Letter (Mom request a letter be mailed to [employer] stating how many times Dex checks his blood sugars and uses syringes, so their sample case porter can request an increased amount. 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
--- OUTSIDE RECORDS SUMMARY | 2024-10-25 14:31 | XMS_ITS | Encounter Summary ---
Author Organization [facility] Address [address] [place] [address] Care Team Providers Care Engine Room Helper Name Role Phone Cierra Villarreal MD Primary Care Provider [phone] Reason for Visit * Reason Onset Date Comments MEDICATION REFILL 04/06/2021 Encounter Details Date Type Department Care Team (Late st Contact Info) Description 04/06/2021 Refill [facility] Pediatrics - Diabetes [facility] [address] [place] [address] Jelena Pack, FAA CERTIFIED POWERPLANT MECHANIC-MANTEL CRAFTSMAN [address] [place] [address] MEDICATION REFILL Social History Tobacco Use Types [...] on file 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
--- OUTSIDE RECORDS SUMMARY | 2024-10-25 14:31 | XMS_ITS | Encounter Summary ---
Author Organization [facility] Address [address] [facility] [address] Care Team Providers Care Emergency Response Officer Name Role Phone Cierra Villarreal MD Primary Care Provider [phone] Reason for Visit * Reason Comments Refill Request Encounter Details Date Type Department Care Team (Late st Contact Info) Description 11/16/2020 Refill [facility] Pediatrics - Diabetes [address] [address] Denia Greenberg MD Refill Request Social History Tobacco Use Types Packs/Day Years Used Date Smoking Tobacco: Never Smokeless Tobacco: Never Alcohol Use Standard Drinks/Week Comments No 0 (1 standard drink = 0.6 oz pur e alcohol) Sex and Gender Information Value Date Recorded Sex Assigned at Not on file 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 YOUTUBER Gender Identity Not on file Sexual Orientation [...] uncontrolled documented in this encounter Care Teams Emergency Response Officer Relationship Specialty Start Date End Date Cierra Villarreal MD [address] [place] [phone] PCP - General Family Medicine 06/13/18 documented as of this encounter
--- OUTSIDE RECORDS SUMMARY | 2024-10-25 14:31 | XMS_ITS | Encounter Summary ---
Author Organization [facility] Address [address] [facility] [place] [address] Care Team Providers Care Policy Service Coordinator Name Role Phone Cierra Villarreal MD Primary Care Provider [phone] Encounter Details Date Type Department Care Team (Late st Contact Info) Description 06/02/2021 Telephone [facility] Pediatrics - Diabetes [facility] [address] [place] [address] Jelena Pack, WRECKING CRANE ENGINE OPERATOR-PRINT PRODUCTION MANAGER [facility] [place] [address] Social History Tobacco Use Types Packs/Day Years [...] on file 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 * Telephone Encounter - Eleanor Ramos RN [...] 3:49 PM CDT Appeal letter sent to [employer] for precision xtra blood ketone strips. documented in this encounter Plan of Treatment Not on file documented as of this encounter Visit Diagnoses Not on filedocumented in this encounter Care Teams Policy Service Coordinator Relationship Specialty Start Date End Date Cierra Villarreal MD [address] [place] [phone] PCP - General Family Medicine 06/13/18 documented as of this encounter
--- OUTSIDE RECORDS SUMMARY | 2024-10-25 14:31 | XMS_ITS | Encounter Summary ---
Author Organization [facility] Address [address] [facility] [place] [address] Care Team Providers Care Research Advisor Name Role Phone Cierra Villarreal MD Primary Care Provider [phone] Marilu Westfall MD Primary Care Provider [phone] Cierra Villarreal MD Primary Care Provider [phone] Reason for Visit * Reason Onset Date Comments Letter 08/15/2014 mom called to lynn smith you received a letter from Sangeeta regarding Dex Encounter Details Date Type Department Care Team (Late st Contact Info) Description 08/15/2014 Telephone [facility] Pediatrics - Diabetes [address] [address] Keely Frye, CAP SEWER-OUTPATIENT FACILITY PHYSICAL THERAPIST Retired Letter (mom called to verify you received a letter from Sangeeta regarding Dex) Social History Tobacco Use Types Packs/Day Years Used Date Smoking Tobacco: Never Alcohol Use Standard Drinks/Week Comments No 0 (1 standard drink = 0.6 oz pur e alcohol) Sex and Gender Information Value Date Recorded Sex Assigned at Not on file 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 Gender Identity Not on file Sexual Orientation [...] Infection Onset Date Last Indicated Resolved Time [facility] 01/28/2015 01/28/2015 10/22/2015 12:0 6 PM CDT documented as of this encounter Care Teams Research Advisor Relationship Specialty Start Date End Date Cierra Villarreal MD [address] [place] [phone] PCP - General Family Medicine 11/27/13 05/31/17 Marilu Westfall MD [address] [place] [address] PCP - General 06/01/17 06/12/18 Cierra Villarreal MD [address] [place] [phone] PCP - General Family Medicine 06/13/18 documented as of this encounter
--- OUTSIDE RECORDS SUMMARY | 2024-10-25 14:31 | XMS_ITS | Encounter Summary ---
Author Organization [facility] Address [address] [facility] [place] [address] Care Team Providers Care Piano Mechanic Name Role Phone Cierra Villarreal MD Primary Care Provider Reason for Visit * Reason Comments Refill Request Encounter Details Date Type Department Care Team (Late st Contact Info) Description 08/20/2020 Refill [facility] Pediatrics - Diabetes [address] [address] Alber Fiore APRN-HUNTING AND FISHING GUIDE [address] [place] [address] Refill Request Social History Tobacco Use Types Packs/Day Years Used Date Smoking Tobacco: Never Smokeless Tobacco: Never Alcohol Use Standard Drinks/Week Comments No 0 (1 standard drink = 0.6 oz pur e alcohol) Sex and Gender Information Value Date Recorded Sex Assigned at Not on file 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
--- OUTSIDE RECORDS SUMMARY | 2024-10-25 14:31 | XMS_ITS | Clinical Summary ---
Author Organization [facility] [employer] Address [address] [place] [address] Care Team Providers Care Industrial Manufacturing Technician Name Role Phone Cierra Villarreal MD Primary Care Provider [phone] Source Comments [facility],non-owned Affiliates and Associated Physician Practices is amultiple site organization consisting of ambulatory clinics and hospital sitesin [place], [place], [place] and [place]. This disclosure is being madepursuant to the Care Everywhere program and may not contain all information available regarding this patient. 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 Gender Identity Not on file Sexual [...] 11/24/2022 05/25/2022, , 10/12/2021, Additional history exists DEPRESSION SCREENING 02/22/2024 DIABETES - URINE PROTEIN SCREENING 02/22/2024 10/03/2018 COVID-19 VACCINE ( season) 2024 12/03/2020, 05/26/2020, 05/03/2020 INFLUENZA VACCINE (#1) 2024 2, 01/23/2021, 02/22/2019, [...] - POCT INTERFACED (05/25/2022 11:02 AM CDT) [facility] Hemoglobin A1C POCT 7.1(H) <5.7 % 05/25/2022 11:14 AM CDT [facility] Estimated Average Glucose 157 mg/dL 05/25/2022 11:14 AM T [facility] Blood BLOOD SPECIMEN / Unknown 05/25/2022 11:02 AM CDT 05/25/2022 11:14 AM CDT Narrative [facility] - 05/25/2022 11:14 AM CDT [...] CARE ORDERABLES Final Result Performing Organization Address [facility] de Phone Number [facility] [address] [place] [address] * MICROALB/CREAT RATIO URINE RANDOM PANEL (10/03/2018 7:43 AM CDT) Creatinine Urine 86.79 mg/dL 10/04/19 19 8:16 AM CDT [facility] Microalbumin Urine <0.5 <1.7 mg/dL 10/03/2018 8:16 AM T [facility] Microalbumin/Crea tinine Ratio <6 <30 mg/g 10/03/2018 8:16 AM T [facility] Urine URINE SPECIMEN OBTAINED BY CLEAN CATCH PROCEDURE / Unknown Collection / Unknown 10/03/2018 7:43 AM CDT 10/03/2018 7:55 AM CDT Alber Fiore APRN-SNIPPER LAB - URINE CHEMISTRY O RDERABLES Final Result Performing Organization Address [facility] de Phone Number [facility] [address] [place] [address] * BASIC METABOLIC PANEL (CALCIUM TOTAL) (10/17/2017 12:37 PM CDT) Glucose 79 70 - 105 mg/dL 10/17/2017 2:01 PM CDT [facility] Sodium 138 136 - 145 mmol/L 10/17/2017 2:01 PM CDT [facility] Potassium 4.3 3.5 - 5.1 mmol/L 10/17/2017 2:01 PM T [facility] Chloride 107 98 - 107 mmol/L 10/17/2017 2:01 PM CDT [facility] CO2 23 20 - 28 mmol/L 10/17/2017 2:01 PM CDT [facility] Calcium 9.42 9.08 - 10.48 mg/dL 10/17/2017 2:01 PM T [facility] Anion Gap 8 5 - 20 mmol/L 10/17/2017 2:01 PM CDT [facility] BUN 17.1 5.3 - 18.7 mg/dL 10/17/2017 2:01 PM T [facility] Creatinine 0.93 0.61 - 1.07 mg/dL 10/17/2017 2:01 PM T [facility] eGFR by MDRD mL/min/1.7 3m2 10/17/2017 2:01 PM [facility] Comment: eGFR calculations are not performed for children under 18 years old. eGFR by MDRD mL/min/1.7 3m2 10/17/2017 2:01 PM T [facility] Comment: eGFR calculations are not performed for children under 18 years old. Blood BLOOD SPECIMEN / Unknown Venipuncture / Unknown 10/17/2017 12:37 PM CDT 10/17/2017 1:24 PM CDT Denia Greenberg MD LAB - CHEMISTRY ORDERABLES Shannan lebron Result [facility] [address] [facility] [place] [address] from Last 3 Months or Most Recently Relevant to Health Maintenance Insurance Functional Neuromodulation HEALTH PLAN [facility] Care Teams Industrial Manufacturing Technician Relationship Specialty Start Date End Date Cierra Villarreal MD [address] [facility] [address] [place] [address] PCP - General Family Medicine 06/13/18
--- OUTSIDE RECORDS SUMMARY | 2024-10-25 14:31 | XMS_ITS | Encounter Summary ---
Author Organization [facility] Address [address] [facility] [place] [address] Care Team Providers Care Public Address System Mechanic Name Role Phone Cierra Villarreal MD Primary Care Provider [phone] Marilu Westfall MD Primary Care Provider [phone] Cierra Villarreal MD Primary Care Provider [phone] Reason for Visit * Reason Onset Date Comments MEDICATION REFILL 05/09/2017 Encounter Details Date Type Department Care Team (Late st Contact Info) Description 05/09/2017 Refill [facility] Pediatrics - Endocrinology [address] [place] [address] Alber Fiore, APPAREL EMBROIDERY DIGITIZER-PROCUREMENT SERVICES MANAGER [address] [place] [address] MEDICATION REFILL Social History Tobacco Use Types Packs/Day Years Used Date Smoking Tobacco: Never Smokeless Tobacco: Never Alcohol Use Standard Drinks/Week Comments No 0 (1 standard drink = 0.6 oz pur e alcohol) Sex and Gender Information Value Date Recorded Sex Assigned at Not on file 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
--- OUTSIDE RECORDS SUMMARY | 2024-10-25 14:31 | XMS_ITS | Encounter Summary ---
Author Organization [facility] Address [address] [place] [address] Care Team Providers Care Sleeping Bag Filler Name Role Phone Cierra Villarreal MD Primary Care Provider Encounter Details Date Type Department Care Team (Late st Contact Info) Description 11/13/2018 Telephone [facility] Pediatrics - Diabetes [address] [address] Alber Fiore APRN-[facility] [place] [address] Social History Tobacco Use Types Packs/Day Years Used Date Smoking Tobacco: Never Smokeless Tobacco: Never Alcohol Use Standard Drinks/Week Comments No 0 (1 standard drink = 0.6 oz pur e alcohol) Sex and Gender Information Value Date Recorded Sex Assigned at Not on file 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
--- OUTSIDE RECORDS SUMMARY | 2024-10-25 14:31 | XMS_ITS | Encounter Summary ---
Author Organization [facility] Address [address] [place] [address] Care Team Providers Care Casino Worker Name Role Phone Marilu Westfall MD Primary Care Provider Cierra Villarreal MD Primary Care Provider Encounter Details Date Type Department Care Team (Late st Contact Info) Description 10/05/2017 Telephone [facility] - Diabetes [address] [address] Denia Greenberg MD Social History Tobacco Use Types Packs/Day Years Used Date Smoking Tobacco: Never Smokeless Tobacco: Never Alcohol Use Standard Drinks/Week Comments No 0 (1 standard drink = 0.6 oz pur e alcohol) Sex and Gender Information Value Date Recorded Sex Assigned at Not on file 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
--- OUTSIDE RECORDS SUMMARY | 2024-10-25 14:31 | XMS_ITS | Encounter Summary ---
Author Organization [facility] Address [address] [place] [address] Care Team Providers Care Hematology Supervisor Name Role Phone Cierra Villarreal MD Primary Care Provider [phone] Marilu Westfall MD Primary Care Provider [phone] Cierra Villarreal MD Primary Care Provider [phone] Reason for Visit * Reason Onset Date [...] st Contact Info) Description 04/23/2014 Telephone [facility] Pediatrics - Diabetes [address] [address] Denia Greenberg MD Refill Request (Please change [...] file 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 MANAGER MEDIA RELATIONS Gender Identity Not on file Sexual Orientation [...] documented as of this encounter Care Teams Hematology Supervisor Relationship Specialty Start Date End Date Cierra Villarreal MD [address] [place] [phone] PCP - General Family Medicine 11/27/13 05/31/17 Marilu Westfall MD [address] [place] [address] PCP - General 06/01/17 06/12/18 Cierra Villarreal MD [address] [place] [phone] PCP - General Family Medicine 06/13/18 documented as of this encounter
--- OUTSIDE RECORDS SUMMARY | 2024-10-25 14:31 | XMS_ITS | Encounter Summary ---
Author Organization [facility] Address [address] [facility] [place] [address] Care Team Providers Care Order Management Specialist Name Role Phone Cierra Villarreal MD Primary Care Provider [phone] Marilu Westfall MD Primary Care Provider [phone] Cierra Villarreal MD Primary Care Provider [phone] Reason for Visit * Reason Onset Date Comments MEDICATION REFILL 10/01/2015 Encounter Details Date Type Department Care Team (Late st Contact Info) Description 10/01/2015 Refill [facility] - Diabetes [address] [address] Keely Frye, COAL HAULER-INDUSTRIAL RELATIONS MANAGER Retired MEDICATION REFILL Social History Tobacco Use Types Packs/Day Years Used Date Smoking Tobacco: Never Alcohol Use Standard Drinks/Week Comments No 0 (1 standard drink = 0.6 oz pur e alcohol) Sex and Gender Information Value Date Recorded Sex Assigned at Not on file 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 Answer Date of Assessment Author No 02/03/2015 9:09 AM SAMMYING MACHINE OPERATOR Betzaida Zuniga RN * Is [...] Pharmacy informed me they switched to straight [place] Medicaid. They can only get 200 test strips every 20 days withstraight [place] Medicaid. Pharmacist ran through [employer] ultra mini meter and test strips 200 [...] documented as of this encounter Care Teams Order Management Specialist Relationship Specialty Start Date End Date Cierra Villarreal MD [address] [place] [phone] PCP - General Family Medicine 11/27/13 05/31/17 Marilu Westfall MD [address] [place] [address] PCP - General 06/01/17 06/12/18 Cierra Villarreal MD [address] [place] [phone] PCP - General Family Medicine 06/13/18 documented as of this encounter
--- OUTSIDE RECORDS SUMMARY | 2024-10-25 14:31 | XMS_ITS | Encounter Summary ---
Author Organization [facility] Address [address] [facility] [place] [facility] [place] [address] Care Team Providers Care Cotton Seed Culler Name Role Phone Cierra Villarreal MD Primary Care Provider [phone] Marilu Westfall MD Primary Care Provider [phone] Cierra Villarreal MD Primary Care Provider [phone] Reason for Visit * Reason Onset Date Comments Blood Sugar Problem 02/20/2015 Encounter Details Date Type Department Care Team (Late st Contact Info) Description 02/20/2015 Telephone [facility] Pediatrics - Endocrinology [facility] [place] [address] Denia Greenberg MD Blood Sugar Problem Social History Tobacco Use Types Packs/Day Years Used Date Smoking Tobacco: Never Alcohol Use Standard Drinks/Week Comments No 0 (1 standard drink = 0.6 oz pur e alcohol) Sex and Gender Information Value Date Recorded Sex Assigned at Not on file 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 THREAD CUTTER TENDER Gender Identity Not on file Sexual Orientation Not on file documented as of this encounter Functional Status * Is person deaf or have serious hearing difficulty? Answer Date of Assessment Author No 02/03/2015 9:09 AM THREAD CUTTER TENDER Betzaida Zuniga RN * Is person blind or have serious difficulty seeing? Answer Date of Assessment Author No 02/03/2015 9:09 AM Betzaida Alexis RN * Does person have serious difficulty walking/climbing stairs? Answer Date of Assessment Author No 02/03/2015 9:09 AM Betzaida Alexis RN * Does person have difficulty dressing/bathing? Answer Date of Assessment Author Yes 02/03/2015 9:09 AM Beztaida Alexis RN * Does person have difficulty [...] at length. Mom to call as needed. 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
--- OUTSIDE RECORDS SUMMARY | 2024-10-25 14:31 | XMS_ITS | Encounter Summary ---
Author Organization [facility] Address [address] [facility] [place] [address] Care Team Providers Care Draw String Knotter Name Role Phone Chrissy Richards MD Primary Care Provider [phone] Cierra Villarreal MD Primary Care Provider [phone] Marilu Westfall MD Primary Care Provider [phone] Cierra Villarreal MD Primary Care Provider [phone] Reason for Visit * Reason Onset Date Comments Letter for School or Work 11/01/2012 Encounter Details Date Type Department Care Team (Late st Contact Info) Description 11/01/2012 Telephone [facility] Pediatrics - Diabetes [address] [address] Keely Frye, SENIOR ANDROID SOFTWARE ENGINEER-YOUTH DEVELOPMENT PROFESSIONAL Retired Letter for School or Work Social History Tobacco Use Types Packs/Day Years Used Date Smoking Tobacco: Never Alcohol Use Standard Drinks/Week Comments Not Asked 0 (1 standard drink = 0.6 oz pur e alcohol) Sex and Gender Information Value Date Recorded Sex Assigned at Not on file 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 OFF TRACK BETTING MANAGER Gender Identity Not on file Sexual [...] documented as of this encounter Care Teams Draw String Knotter Relationship Specialty Start Date End Date Chrissy Richards MD [address] [place] [address] PCP - General 07/02/11 11/26/13 Cierra Villarreal MD [address] [place] [phone] PCP - General Family Medicine 11/27/13 05/31/17 Marilu Westfall MD [address] [place] [address] PCP - General 06/01/17 06/12/18 Cierra Villarreal MD [address] [place] [phone] PCP - General Family Medicine 06/13/18 documented as of this encounter
--- OUTSIDE RECORDS SUMMARY | 2024-10-25 14:31 | XMS_ITS | Clinical Summary ---
Author Organization [facility] Address [address] [place] [address] Care Team Providers Care Handle Rounder Operator Name Role Phone Pablito Villarreal MD Primary Care Provider [phone] Jimmy Velez MD Unavailable [phone] Allergies Active Allergy Reactions Criticality Noted Date Comments Latex Rash,Unknown Medium 01/27/2015 Rash Rash Sulfa (Sulfonamide Antibiotics) Medications propranoloL (INDERAL) 10 mg tablet TAKE 1 TABLET BY MOUTH EVERY 12 HOURS. HOLD IF SYSTOLIC BLOOD PRESSURE IS LESS THAN 100 OR HEART RATE IS LESS THAN 50 Active polyethylene glycol (MIRALAX) 17 gram packet Take 1 packet (17 g total) by mouth daily Active OneTouch Delica Plus Lancet 33 gauge misc USE TO TEST FIVE TIMES DAILY. 5 Active insulin lispro (HumaLOG, ADMELOG) 100 unit/mL pen for injection Administer 1 unit per 6-12 grams carbohydrates. Max daily dose 75 units. 2 Active insulin glargine (LANTUS) 100 unit/mL (3 mL) pen for injection INJECT 20 UNITS UNDER THE SKIN EVERY EVENING 3 Active glucagon (Gvoke HypoPen 1-Pack) 1 mg/0.2 mL auto-injector Active Contour Plus Test Strip strip USE FOUR TIMES DAILY DIRECTED TO TEST BLOOD SUGAR 5 Active Contour Plus Blue Meter misc USE TO MONITOR BLOOD SUGAR SIX TIMES DAILY 5 Active Precision Xtra B-Ketone strip IF BLOOD SUGAR ABOVE 300 5 Active TRUEplus Insulin 0.3 mL 31 gauge x 07/06 syringe USE SIX TIMES EVERY DAY. 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 Encounters Date Type Department Care Team Description 10/09/2024 Telephone [facility] Surgery [address] [place] [address] 8 [place] [address] Marianne Aparicio Med Refill 10/05/2024 2:15 PM CDT Office Visit [facility] Medicine Surgery [address] [place] [address] 5 [place] [address] Marianne Aparicio MD Graves disease (Primary Dx) 10/05/2024 10:05 AM CDT - 10/05/2024 11:59 PM CDT Hospital Encounter [facility] [address] [place] [address] Graves' disease Discharge Disposition: Discharge to home or self care 08/10/2024 [facility] [address] [place] [address] 5 [place] [address] Yoselin Sol RN 08/08/2024 Telephone [facility] Medicine Surgery [address] [place] [address] 5 [place] [address] Yoselin Sol RN 08/07/2024 Telephone [facility] Medicine Surgery [address] [place] [address] 8 [place] [address] Marianne Aparicio MD Medical Question/Miscellaneo us from Last 3 Months Medical History Medical History Date Comments Type 1 diabetes mellitus wit h ketoacidosis and without coma (HCC) Type 1 diabetes me llitus with ketoacidosis - (Added by TW Conv) Social History Tobacco Use Types Packs/Day Years Used Date Smoking Tobacco: Never Smokeless Tobacco: Never Tobacco Cessation:Counseling Given: Not Answered Sex and Gender Information Value Date Recorded Sex Assigned at Not on file Legal Sex Male 8:34 AM BUSINESS RISK CONSULTANT Gender Identity Not on file Sexual Orientation Not on file Obstetrics History Last Filed Vital Signs Vital Sign Reading Time Taken Comments Blood Pressure 102/64 10/05/2024 1:43 PM CDT Pulse 79 10/05/2024 1:43 PM CDT Temperature 36.8 C (98.3 F) 10/05/2024 1:43 PM CDT Respiratory Rate 16 10/05/2024 1:43 PM CDT Oxygen Saturation 96% 10/05/2024 1:43 PM CDT Inhaled Oxygen Concentration - - Weight 58.1 kg (128 lb) 10/05/2024 1:43 PM CDT Height 152.4 cm (5') 10/05/2024 1:43 PM CDT Body Mass Index 25 10/05/2024 1:43 PM CDT Plan of Treatment Health Maintenance [...] 05/26/2020, 05/03/2020 Influenza Vaccine (#1) 2024 , 12/27/2022, 02/09/2022, Additional history exists Hepatitis B Screening Completed 06/12/2002 , 03/06/2002, 01/16/2002 Varicella Vaccines Completed 10/05/2007, 02/25/2003 Procedures Procedure Name Priority Date/Time Associated Diagnosis Comments US THYROID Schedule Routine, Read Routine (OP Routine) 10/05/2024 10:41 AM CDT Graves' disease from Last 3 Months Results * US Thyroid (10/05/2024 10:41 AM CDT) Anatomical Region Laterality Modality Head and Neck N/A Ultrasound 10/05/2024 10:4 3 AM CDT Impressions 10/05/2024 12:51 PM CDT 1. Enlarged and hypervascular thyroid compatible with Graves' disease. Dictated by: Jaswant Vaca M.D. The radiology attending physician has personally reviewed this study, and had reviewed and/or edited this written report and agrees with it. Electronically signed by: Giuseppe Omer M.D. Narrative 10/05/2024 12:51 PM CDT EXAMINATION: THYROID SONOGRAM HISTORY: Hyperthyroidism. Prior Biopsy: No. Patient Risk Factors: None Prior Ultrasound: None FINDINGS: The thyroid is enlarged in size. Furthermore, the thyroid gland is hypervascular with significant internal vascularity. Size right lobe: 4.9 cm craniocaudal, 1.8 cm transverse, 2.4 cm AP. Size left lobe: 5.2 cm craniocaudal, 2 cm transverse, 1.9 cm AP. Size isthmus: 0.4 cm AP. Estimated total number of nodules >/= 1 cm: 0 Number of spongiform nodules >/= 2 cm not described below (TR1): 0 Number of mixed cystic and solid nodules >/= 1.5 cm not described below (TR2): 0 Procedure Note Giuseppe Omer MD - 10/05/2024 EXAMINATION: THYROID SONOGRAM HISTORY: Hyperthyroidism. Prior Biopsy: No. Patient Risk Factors: None Prior Ultrasound: None FINDINGS: The thyroid is enlarged in size. Furthermore, the thyroid gland is hypervascular with significant internal vascularity. Size right lobe: 4.9 cm craniocaudal, 1.8 cm transverse, 2.4 cm AP. Size left lobe: 5.2 cm craniocaudal, 2 cm transverse, 1.9 cm AP. Size isthmus: 0.4 cm AP. Estimated total number of nodules >/= 1 cm: 0 Number of spongiform nodules >/= 2 cm not described below (TR1): 0 Number of mixed cystic and solid nodules >/= 1.5 cm not described below (TR2): 0 IMPRESSION: 1. Enlarged and hypervascular thyroid compatible with Graves' disease. Dictated by: Jaswant Vaca M.D. The radiology attending physician has personally reviewed this study, and had reviewed and/or edited this written report and agrees with it. Electronically signed by: Giuseppe Omer M.D. Marianne Aparicio MD [facility] PROCEDURES Final Result from Last [address] [address] Care Teams Handle Rounder Operator Relationship Specialty Start Date End Date Pablito Villarreal MD [address] [place] [address] PCP - General 07/14/20 Jimmy Velez MD [address] [address] Referring Physician Internal Medicine 06/06/24
--- OUTSIDE RECORDS SUMMARY | 2024-10-25 14:31 | XMS_ITS | Encounter Summary ---
Author Organization [facility] Address [address] [facility] [place] [address] Care Team Providers Care Garment Sewer Hand Name Role Phone Cierra Villarreal MD Primary Care Provider Encounter Details Date Type Department Care Team (Late st Contact Info) Description 08/21/2019 Telephone [facility] Pediatrics - Diabetes [address] [address] Alber Fiore, VARGHESE-REMOTE CONTROL ASSEMBLER [address] [place] [address] Social History Tobacco Use Types Packs/Day Years Used Date Smoking Tobacco: Never Smokeless Tobacco: Never Alcohol Use Standard Drinks/Week Comments No 0 (1 standard drink = 0.6 oz pur e alcohol) Sex and Gender Information Value Date Recorded Sex Assigned at Not on file 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
--- OUTSIDE RECORDS SUMMARY | 2024-10-25 14:31 | XMS_ITS | Encounter Summary ---
Author Organization [facility] Address [address] [facility] [place] [address] Care Team Providers Care Compress Engineer Name Role Phone Chrissy Richards MD Primary Care Provider [phone] Cierra Villarreal MD Primary Care Provider [phone] Marilu Westfall MD Primary Care Provider [phone] Cierra Villarreal MD Primary Care Provider [phone] Reason for Visit * Reason Onset Date Comments General 10/12/2013 Encounter Details Date Type Department Care Team (Late st Contact Info) Description 10/12/2013 Telephone [facility] Pediatrics - Diabetes [address] [address] Denia Greenberg MD General Social History Tobacco Use Types Packs/Day Years Used Date Smoking Tobacco: Never Alcohol Use Standard Drinks/Week Comments Not Asked 0 (1 standard drink = 0.6 oz pur e alcohol) Sex and Gender Information Value Date Recorded Sex Assigned at Not on file 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 I called at [phone], office closed at 1645. Notified mother. documented in this encounter Plan of Treatment Not on file documented as of this encounter Visit Diagnoses Not on filedocumented in this encounter Additional Health Concerns Infection Onset Date Last Indicated Resolved Time MRSA 01/28/2015 01/28/2015 10/22/2015 12:0 6 PM CDT documented as of this encounter Care Teams Compress Engineer Relationship Specialty Start Date End Date Chrissy Richards MD [address] [place] [phone] PCP - General 07/02/11 11/26/13 Cierra Villarreal MD [address] [place] [phone] PCP - General Family Medicine 11/27/13 05/31/17 Marilu Westfall MD [address] [place] [address] PCP - General 06/01/17 06/12/18 Cierra Villarreal MD [address] [place] [phone] PCP - General Family Medicine 06/13/18 documented as of this encounter
--- OUTSIDE RECORDS SUMMARY | 2024-10-25 14:31 | XMS_ITS | Encounter Summary ---
Author Organization [facility] Address [address] [facility] [place] [address] Care Team Providers Care Shop Router Name Role Phone Cierra Villarreal MD Primary Care Provider [phone] Marilu Westfall MD Primary Care Provider [phone] Cierra Villarreal MD Primary Care Provider [phone] Reason for Visit * Reason Onset Date Comments Refill Request 08/26/2014 has the test str ip been sent to [facility]. Encounter Details Date Type Department Care Team (Late st Contact Info) Description 08/26/2014 Telephone [facility] Pediatrics - Diabetes [address] [address] Denia Greenberg MD Refill Request [...] on file 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 ACQUISITION ADVISOR Gender Identity Not on file Sexual [...] documented as of this encounter Care Teams Shop Router Relationship Specialty Start Date End Date Cierra Villarreal MD [address] [place] [phone] PCP - General Family Medicine 11/27/13 05/31/17 Marilu Westfall MD [address] [place] [address] PCP - General 06/01/17 06/12/18 Cierra Villarreal MD [address] [place] [phone] PCP - General Family Medicine 06/13/18 documented as of this encounter
--- OUTSIDE RECORDS SUMMARY | 2024-10-25 14:31 | XMS_ITS | Encounter Summary ---
Author Organization [facility] Address [address] [facility] [place] [address] Care Team Providers Care Clinical Applications Manager Name Role Phone Cierra Villarreal MD Primary Care Provider Encounter Details Date Type Department Care Team (Late st Contact Info) Description 11/11/[address] 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 I referred mom to lacquer mixer. States bgs have been elevated. Negative ketones. [...] filedocumented in this encounter Care Teams Clinical Applications Manager Relationship Specialty Start Date End Date Cierra Villarreal MD [address] [place], [place] [phone] PCP - General Family Medicine 06/13/18 documented as of this encounter
--- OUTSIDE RECORDS SUMMARY | 2024-10-25 14:31 | XMS_ITS | Encounter Summary ---
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 Answer Date of Assessment Author No 02/09/2021 9:37 AM WEATHER ALGORITHM SCIENTIST Guero Olguin RN * Is person blind [...] for Precision Xtra Ketone strips sent to Printer [facility] * Telephone Encounter - Cristi Tang - 10/08/2022 4:36 PM CDT School Letter faxed to [phone] documented in this encounter Plan of Treatment Not on file documented as of this encounter Visit Diagnoses Not on filedocumented in this encounter Care Teams Die Casting Machine Maintainer Relationship Specialty Start Date End Date Cierra Villarreal MD [address] [place] [phone] PCP - General Family Medicine 06/13/18 documented as of this encounter
--- OUTSIDE RECORDS SUMMARY | 2024-10-25 14:31 | XMS_ITS | Encounter Summary ---
Author Organization [facility] Address [address] [facility] [place] [address] Care Team Providers Care Automotive Sales Manager Name Role Phone Cierra Villarreal MD Primary Care Provider [phone] Marilu Westfall MD Primary Care Provider [phone] Cierra Villarreal MD Primary Care Provider [phone] Reason for Visit * Reason Onset Date Comments Blood Sugar Problem 08/13/2014 Please call mom. BS are increasing, had a runny nose but that has cleared up. BS this AM 270. Please call in the AM, has appts with other children this afternoon Encounter Details Date Type Department Care Team (Late st Contact Info) Description 08/13/2014 Telephone 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 [address] [place] [address] PCP - General Family Medicine 11/27/13 05/31/17 Marilu Westfall MD [address] [place] [address] PCP - General 06/01/17 06/12/18 Cierra Villarreal MD [address] [facility] [address] [place] [address] PCP - General Family Medicine 06/13/18 documented as of this encounter
--- OUTSIDE RECORDS SUMMARY | 2024-10-25 14:31 | XMS_ITS | Encounter Summary ---
Author Organization [facility] Address [address] [place] [address] Care Team Providers Care Director Of Event Marketing Name Role Phone Cierra Villarreal MD Primary Care Provider Reason for Visit * Reason Onset Date Comments Refill Request 06/25/2019 New prescription for syringes, Dex is using syringes for basaglar and admelog- 6 syringes a day, Only getting 1 box of 100 from pharmacy Encounter Details Date Type Department Care Team (Late st Contact Info) Description 06/25/2019 Telephone [facility] Pediatrics - Endocrinology [address] [place] [address] Ayaka Agarwal Refill Request (New prescription [...] on file 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
--- OUTSIDE RECORDS SUMMARY | 2024-10-25 14:31 | XMS_ITS | Encounter Summary ---
Author Organization [facility] Address [address] [facility] [place] [address] Care Team Providers Care Grade And Center Marker Name Role Phone Cierra Villarreal MD Primary Care Provider [phone] Encounter Details Date Type Department Care Team (Late st Contact Info) Description 11/15/2019 Telephone [facility] Pediatrics - Diabetes [address] [address] Alber Fiore APRN-[facility] [place] [address] Social History Tobacco Use Types Packs/Day Years Used Date Smoking Tobacco: Never Smokeless Tobacco: Never Alcohol Use Standard Drinks/Week Comments No 0 (1 standard drink = 0.6 oz pur e alcohol) Sex and Gender Information Value Date Recorded Sex Assigned at Not on file 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 CHANNEL MARKETING PROGRAM MANAGER Gender Identity Not on file Sexual [...] 11/15/2019 11:13 AM CDT PA sent for [employer] xtra blood ketone strips. documented in this encounter Plan of Treatment Not on file documented as of this encounter Visit Diagnoses Not on filedocumented in this encounter Care Teams Grade And Center Marker Relationship Specialty Start Date End Date Cierra Villarreal MD [address] [place] [phone] PCP - General Family Medicine 06/13/18 documented as of this encounter
--- OUTSIDE RECORDS SUMMARY | 2024-10-25 14:31 | XMS_ITS | Encounter Summary ---
Author Organization [facility] Address [address] [facility] [place] [address] Care Team Providers Care Color Receiver Name Role Phone Cierra Villarreal MD Primary Care Provider [phone] Reason for Visit * Reason Onset Date Comments MEDICATION REFILL 11/24/2020 Encounter Details Date Type Department Care Team (Late st Contact Info) Description 11/24/2020 Refill [facility] Pediatrics - Diabetes [address] [address] Denia Greenberg MD MEDICATION REFILL Social History Tobacco Use Types Packs/Day Years Used Date Smoking Tobacco: Never Smokeless Tobacco: Never Alcohol Use Standard Drinks/Week Comments No 0 (1 standard drink = 0.6 oz pur e alcohol) Sex and Gender Information Value Date Recorded Sex Assigned at Not on file 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
--- OUTSIDE RECORDS SUMMARY | 2024-10-25 14:31 | XMS_ITS | Encounter Summary ---
Author Organization [facility] Address [address] [place] [address] Care Team Providers Care Cargo Surveyor Name Role Phone Cierra Villarreal MD Primary Care Provider [phone] Marilu Westfall MD Primary Care Provider [phone] Cierra Villarreal MD Primary Care Provider [phone] Reason for Visit * Reason Onset Date Comments MEDICATION REFILL 06/26/2015 Encounter Details Date Type Department Care Team (Late st Contact Info) Description 06/26/2015 Refill [facility] - Diabetes [address] [address] Denia Greenberg MD MEDICATION REFILL Social History Tobacco Use Types Packs/Day Years Used Date Smoking Tobacco: Never Alcohol Use Standard Drinks/Week Comments No 0 (1 standard drink = 0.6 oz pur e alcohol) Sex and Gender Information Value Date Recorded Sex Assigned at Not on file 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 GRADE RECORDER Gender Identity Not on file Sexual Orientation Not on file documented as of this encounter Functional Status * Is person deaf or have serious hearing difficulty? Answer Date of Assessment Author No 02/03/2015 9:09 AM GRADE RECORDER Betzaida Zuniga RN * Is person blind [...] documented as of this encounter Care Teams Cargo Surveyor Relationship Specialty Start Date End Date Cierra Villarreal MD [address] [facility] [address] [place] [phone] PCP - General Family Medicine 11/27/13 05/31/17 Marilu Westfall MD [address] [place] [address] PCP - General 06/01/17 06/12/18 Cierra Villarreal MD [address] [facility] [address] [place] [phone] PCP - General Family Medicine 06/13/18 documented as of this encounter
--- OUTSIDE RECORDS SUMMARY | 2024-10-25 14:31 | XMS_ITS | Encounter Summary ---
Author Organization [facility] Address [address] [facility] [place] [address] Care Team Providers Care Museum Tour Guide Name Role Phone Marilu Westfall MD Primary Care Provider [phone] Cierra Villarreal MD Primary Care Provider [phone] Reason for Visit * Reason Onset Date Comments Refill Request 05/22/2018 Please call in t 33g Delica lancets- 30g not covered any more. If those arent covered any lancets will do. 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
--- OUTSIDE RECORDS SUMMARY | 2024-10-25 14:31 | XMS_ITS | Encounter Summary ---
Author Organization [facility] Address [address] [facility] [place] [address] Care Team Providers Care Executive Team Leader Name Role Phone Cierra Villarreal MD Primary Care Provider [phone] Marilu Westfall MD Primary Care Provider [phone] Cierra Villarreal MD Primary Care Provider [phone] Reason for Visit * Reason Onset Date Comments Refill Request 04/23/2014 [facility]. [facility] [address] in [place]. Please change directions to test 12 times a day (not 10-12) Encounter Details Date Type Department Care Team (Late st Contact Info) Description 04/23/2014 Telephone [facility] Pediatrics - Diabetes [address] [address] Denia Greenberg MD Refill Request (Please fax rx for test strips to local [facility] as mail order will not arrive on time. [facility] on [address] in [place]. 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
--- OUTSIDE RECORDS SUMMARY | 2024-10-25 14:31 | XMS_ITS | Encounter Summary ---
Author Organization [facility] Address [address] [facility] [place] [address] Care Team Providers Care Electronic Assembler Group Leader Name Role Phone Marilu Westfall MD Primary Care Provider [phone] Cierra Villarreal MD Primary Care Provider Reason for Visit * Reason Onset Date Comments Blood Glucose (Sugar) Review 09/09/2017 Ple ase call mom to review blood sugars. She has noticed blood sugars around 2pm are in the 200-300 range lately. Encounter Details Date Type Department Care Team (Late st Contact Info) Description 09/09/2017 Telephone [facility] Pediatrics - Endocrinology [address] [place] [address] Ayaka Agarwal Blood Glucose (Sugar) Review (Please [...] on file 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 GROUP RESERVATIONS COORDINATOR Gender Identity Not on file Sexual Orientation [...] on filedocumented in this encounter Care Teams Electronic Assembler Group Leader Relationship Specialty Start Date End Date Marilu Westfall MD [address] [place] [address] PCP - General 06/01/17 06/12/18 Cierra Villarreal MD [address] [place] [phone] PCP - General Family Medicine 06/13/18 documented as of this encounter
--- OUTSIDE RECORDS SUMMARY | 2024-10-25 14:31 | XMS_ITS | Encounter Summary ---
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 Will send for urine ketone strips. * Telephone Encounter - Cristi Tang - 05/26/2021 4:16 PM CDT PA sent through CoverMyMeds to [facility] for Precision Xtra blood ketone strips. documented in this encounter Plan of Treatment Not on file documented as of this encounter Visit Diagnoses Diagnosis Uncontrolled type 1 diabetes mellitus with hyperglycemia (HCC) documented in this encounter Care Teams Contracts Manager Relationship Specialty Start Date End Date Cierra Villarreal MD [address] [phone] PCP - General Family Medicine 06/13/18 documented as of this encounter
--- OUTSIDE RECORDS SUMMARY | 2024-10-25 14:31 | XMS_ITS | Encounter Summary ---
Author Organization [facility] Address [address] [facility] [place] [address] Care Team Providers Care Numerical Control Nesting Operator Name Role Phone Cierra Villarreal MD Primary Care Provider [phone] Marilu Westfall MD Primary Care Provider [phone] Cierra Villarreal MD Primary Care Provider [phone] Reason for Visit * Reason Onset Date Comments Letter 10/18/2014 Please send an u pdated letter with the new lunch carb ratio of 1 per 8 to the [facility] for [facility] [phone] Encounter Details Date Type Department Care Team (Late st Contact Info) Description 10/18/2014 Telephone [facility] Pediatrics - Diabetes [address] [address] Denia Greenberg MD Letter (Please send an updated letter with the new lunch carb ratio of 1 per 8 to the [facility] for [facility] [phone]) Social History Tobacco Use Types Packs/Day Years Used Date Smoking Tobacco: Never Alcohol Use Standard Drinks/Week Comments No 0 (1 standard drink = 0.6 oz pur e alcohol) Sex and Gender Information Value Date Recorded Sex Assigned at Not on file 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 Gender Identity Not on file Sexual Orientation [...] Date of Assessment Author 01/14/2014 9:10 AM Erum Green RN * Does person have difficulty [...] documented as of this encounter Care Teams Numerical Control Nesting Operator Relationship Specialty Start Date End Date Cierra Villarreal MD [address] [facility] [address] [place] [address] PCP - General Family Medicine 11/27/13 05/31/17 Marilu Westfall MD [address] [place] [address] PCP - General 06/01/17 06/12/18 Cierra Villarreal MD [address] [facility] [address] [place] [address] PCP - General Family Medicine 06/13/18 documented as of this encounter
--- OUTSIDE RECORDS SUMMARY | 2024-10-25 14:31 | XMS_ITS | Encounter Summary ---
Author Organization [facility] Address [address] [facility] [place] [address] Care Team Providers Care Palletizer Operator Name Role Phone Cierra Villarreal MD Primary Care Provider Reason for Visit * Reason Comments Refill Request Encounter Details Date Type Department Care Team (Late st Contact Info) Description 05/05/2019 Refill [facility] Pediatrics - Diabetes [address] [address] Denia Greenberg MD Refill Request Social History Tobacco Use Types Packs/Day Years Used Date Smoking Tobacco: Never Smokeless Tobacco: Never Alcohol Use Standard Drinks/Week Comments No 0 (1 standard drink = 0.6 oz pur e alcohol) Sex and Gender Information Value Date Recorded Sex Assigned at Not on file 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 HAND ICER Gender Identity Not on file Sexual Orientation [...] uncontrolled documented in this encounter Care Teams Palletizer Operator Relationship Specialty Start Date End Date Cierra Villarreal MD [address] [place] [phone] PCP - General Family Medicine 06/13/18 documented as of this encounter
--- OUTSIDE RECORDS SUMMARY | 2024-10-25 14:31 | XMS_ITS | Encounter Summary ---
Author Organization [facility] Address [address] [place] [address] Care Team Providers Care Counter Professional Name Role Phone Cierra Villarreal MD Primary Care Provider [phone] Marilu Westfall MD Primary Care Provider [phone] Cierra Villarreal MD Primary Care Provider [phone] Reason for Visit * Reason Onset Date Comments MEDICATION REFILL 11/29/2013 Encounter Details Date Type Department Care Team (Late st Contact Info) Description 11/29/2013 Refill [facility] - Diabetes [address] [address] Keely Frye, PLUMBING ENGINEERING DRAFTSPERSON-STUNT PERSON Retired MEDICATION REFILL Social History Tobacco Use Types Packs/Day Years Used Date Smoking Tobacco: Never Alcohol Use Standard Drinks/Week Comments Not Asked 0 (1 standard drink = 0.6 oz pur e alcohol) Sex and Gender Information Value Date Recorded Sex Assigned at Not on file 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 MACHINE ADJUSTER LEADER CASE TRIM Gender Identity Not on file Sexual Orientation Not on file documented as of this encounter Plan of Treatment Not on file documented as of this encounter Visit Diagnoses Not on filedocumented in this encounter Additional Health Concerns Infection Onset Date Last Indicated Resolved Time MRSA 01/28/2015 01/28/2015 10/22/2015 12:0 6 PM CDT documented as of this encounter Care Teams Counter Professional Relationship Specialty Start Date End Date Cierra Villarreal MD [address] [facility] [address] [place] [address] PCP - General Family Medicine 11/27/13 05/31/17 Marilu Westfall MD [address] [place] [address] PCP - General 06/01/17 06/12/18 Cierra Villarreal MD [address] [facility] [address] [place] [address] PCP - General Family Medicine 06/13/18 documented as of this encounter
[2024-10-25 15:20] LABS: Free T4 Free Thyroxine 4.21 ng/dL (0.78-2.19)
[2024-10-25 17:01] LABS: Alanine Aminotransferase 33 U/L (6-50); Albumin Level 3.9 g/dL (3.5-5.1); Alkaline Phosphatase 97 U/L (38-126); Anion Gap 10 mmol/L (4-12); Aspartate Amino Transferase 34 U/L (17-59); Bilirubin,Total 0.8 mg/dL (0.2-1.3); Blood Urea Nitrogen 19 mg/dL (9-20); Calcium 9.4 mg/dL (8.4-10.2); Carbon Dioxide 26 mmol/L (22-30); Chloride 104 mmol/L (98-107); Estimated Glomerular Filt Rate > 60; Glucose 138 mg/dL (65-110); Potassium 4.5 mmol/L (3.4-5.0); Sodium 140 mmol/L (137-145); Thyroid Stimulating Hormone < 0.015 uIU/mL (0.465-4.680); Total Protein 6.8 g/dL (6.3-8.2); Total Triiodothyronine (T3) 1.69 NG/ML (0.82-1.58)
== END 2024-10-25 14:20 | disposition home or self-care (01) ==
LOC: ANHLAB 14:20
PROVIDERS: PCP Family Medicine; Visit Provider Internal Medicine
DX: E10.9 Type 1 diabetes mellitus without complications (principal); R63.4 Abnormal weight loss; E05.00 Thyrotoxicosis with diffuse goiter without thyrotoxic crisis or storm
CPT/HCPCS: 36415; 80053; 84439; 84443; 84480

== ENCOUNTER 2024-12-06 15:14 | Outpatient (CLI) | payer OTHER, SELFPAY ==
[2024-12-06 15:58] LABS: Alanine Aminotransferase 30 U/L (6-50); Albumin Level 3.8 g/dL (3.5-5.1); Alkaline Phosphatase 100 U/L (38-126); Anion Gap 6 mmol/L (4-12); Aspartate Amino Transferase 27 U/L (17-59); Bilirubin,Total 0.8 mg/dL (0.2-1.3); Blood Urea Nitrogen 17 mg/dL (9-20); Calcium 9.0 mg/dL (8.4-10.2); Carbon Dioxide 28 mmol/L (22-30); Chloride 103 mmol/L (98-107); Estimated Glomerular Filt Rate > 60; Glucose 136 mg/dL (65-110); Potassium 4.7 mmol/L (3.4-5.0); Sodium 137 mmol/L (137-145); Total Protein 6.7 g/dL (6.3-8.2)
[2024-12-06 16:35] LABS: Thyroid Stimulating Hormone < 0.015 uIU/mL (0.465-4.680); Total Triiodothyronine (T3) 1.62 NG/ML (0.82-1.58)
--- OUTSIDE RECORDS SUMMARY | 2024-12-06 17:24 | XMS_ITS | Encounter Summary ---
Author Organization [facility] Address [address] [facility] [place] [address] Care Team Providers Care Rn Plastics Name Role Phone Marilu Westfall MD Primary Care Provider [phone] Cierra Villarreal MD Primary Care Provider [phone] Reason for Visit * Reason Onset Date Comments Refill Request 05/22/2018 Please call in t 33g Delica lancets- 30g not covered any more. If those arent covered any lancets will do. 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
--- OUTSIDE RECORDS SUMMARY | 2024-12-06 17:24 | XMS_ITS | Encounter Summary ---
Author Organization [facility] Address [address] [place] [address] Care Team Providers Care Color Developer Name Role Phone Cierra Villarreal MD Primary Care Provider [phone] Encounter Details Date Type Department Care Team (Late st Contact Info) Description 06/09/[address] 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 Mom's e-mail: [email or web address] documented in this encounter Plan of Treatment Not on file documented as of this encounter Visit Diagnoses Not on filedocumented in this encounter Care Teams Color Developer Relationship Specialty Start Date End Date Cierra Villarreal MD [address] [place] [phone] PCP - General Family Medicine 06/13/18 documented as of this encounter
--- OUTSIDE RECORDS SUMMARY | 2024-12-06 17:24 | XMS_ITS | Encounter Summary ---
Author Organization [facility] Address [address] [facility] [place] [address] Care Team Providers Care Volunteer Fire Fighter Name Role Phone Cierra Villarreal MD Primary Care Provider [phone] Encounter Details Date Type Department Care Team (Late st Contact Info) Description 06/02/2021 Telephone [facility] Pediatrics - Diabetes [facility] [address] [place] [address] Jelena Pack, DRIVER/REFUSE COLLECTOR-PRECISION CROP MANAGER [facility] [place] [address] Social History Tobacco Use Types Packs/Day Years [...] on file 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 * Telephone Encounter - Eleanor Ramos RN [...] 3:49 PM CDT Appeal letter sent to [employer] for precision xtra blood ketone strips. documented in this encounter Plan of Treatment Not on file documented as of this encounter Visit Diagnoses Not on filedocumented in this encounter Care Teams Volunteer Fire Fighter Relationship Specialty Start Date End Date Cierra Villarreal MD [address] [place] [phone] PCP - General Family Medicine 06/13/18 documented as of this encounter
--- OUTSIDE RECORDS SUMMARY | 2024-12-06 17:24 | XMS_ITS | Encounter Summary ---
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 Will send for urine ketone strips. * Telephone Encounter - Cristi Tang - 05/26/2021 4:16 PM CDT PA sent through CoverMyMeds to [facility] for Precision Xtra blood ketone strips. documented in this encounter Plan of Treatment Not on file documented as of this encounter Visit Diagnoses Diagnosis Uncontrolled type 1 diabetes mellitus with hyperglycemia (HCC) documented in this encounter Care Teams Airplane Electrician Relationship Specialty Start Date End Date Cierra Villarreal MD [address] [phone] PCP - General Family Medicine 06/13/18 documented as of this encounter
--- OUTSIDE RECORDS SUMMARY | 2024-12-06 17:25 | XMS_ITS | Encounter Summary ---
Author Organization [facility] Address [address] [facility] [place] [address] Care Team Providers Care Spray Drier Operator Name Role Phone Cierra Villarreal MD Primary Care Provider Encounter Details Date Type Department Care Team (Late st Contact Info) Description 08/21/2019 Telephone [facility] Pediatrics - Diabetes [address] [address] Alber Fiore, VARGHESE-CHIMNEY SUPERVISOR BR[address] [place] [address] Social History Tobacco Use Types Packs/Day Years Used Date Smoking Tobacco: Never Smokeless Tobacco: Never Alcohol Use Standard Drinks/Week Comments No 0 (1 standard drink = 0.6 oz pur e alcohol) Sex and Gender Information Value Date Recorded Sex Assigned at Not on file 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
--- OUTSIDE RECORDS SUMMARY | 2024-12-06 17:25 | XMS_ITS | Encounter Summary ---
Author Organization [facility] Address [address] [facility] [place] [address] Care Team Providers Care Supervisor Epoxy Fabrication Name Role Phone Cierra Villarreal MD Primary Care Provider Encounter Details Date Type Department Care Team (Late st Contact Info) Description 04/27/2019 Telephone [facility] Pediatrics - Diabetes [address] [address] Alber Fiore APRN-[facility] [place] [address] Social History Tobacco Use Types Packs/Day Years Used Date Smoking Tobacco: Never Smokeless Tobacco: Never Alcohol Use Standard Drinks/Week Comments No 0 (1 standard drink = 0.6 oz pur e alcohol) Sex and Gender Information Value Date Recorded Sex Assigned at Not on file 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 Addendum: 05/03/19: [...] put through for precision xtra test strips. GEMENT EXPERT documented in this encounter Plan of Treatment Not on file documented as of this encounter Visit Diagnoses Not on filedocumented in this encounter Care Teams Supervisor Epoxy Fabrication Relationship Specialty Start Date End Date Cierra Villarreal MD [address] [place], [place] [phone] PCP - General Family Medicine 06/13/18 documented as of this encounter
--- OUTSIDE RECORDS SUMMARY | 2024-12-06 17:25 | XMS_ITS | Encounter Summary ---
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 No / Unsure 02/19/2021 3:26 PM SENIOR IT ENGINEER documented as of this encounter Functional Status * Is person deaf or have serious hearing difficulty? Answer Date of Assessment Author No 02/09/2021 9:37 AM Guero Roy RN * Is person blind or have serious difficulty seeing? Answer Date of Assessment Author No 02/09/2021 9:37 AM SENIOR IT ENGINEER Guero Olguin RN * Does person have serious difficulty walking/climbing stairs? Answer Date of Assessment Author Yes 02/09/2021 9:37 AM Guero Roy RN * Does person have difficulty dressing/bathing? Answer Date of Assessment Author Yes 10/03/2018 8:25 AM CDT Patricio Bhatti RN * Does person have difficulty doing errands alone? Answer Date of Assessment Author Yes 02/09/2021 9:37 AM SENIOR IT ENGINEER Guero Olguin RN documented as of this encounter Mental Status * Does person have difficulty concentrating/remembering/making decisions? Answer Entry Date Author Yes 02/09/2021 9:37 AM Guero Roy RN documented in this encounter Miscellaneous Notes * Telephone Encounter - Laurel Reid RN - 06/09/2021 1:39 PM CDT Monae from pharmacy calling with questions in regards to Precision strips. Was sent to [facility] [phone] * Telephone Encounter - Aundrea Yoo DO - 03/15/2021 3:41 PM SENIOR IT ENGINEER Endocrine after hours call Dex is a [...] 22 units at normal time on Tuesday. OR IT ENGINEER documented in this encounter Plan of Treatment Not on file documented as of this encounter Visit Diagnoses Not on filedocumented in this encounter Care Teams Network Professional Relationship Specialty Start Date End Date Cierra Villarreal MD [address] [place] [phone] PCP - General Family Medicine 06/13/18 documented as of this encounter
--- OUTSIDE RECORDS SUMMARY | 2024-12-06 17:25 | XMS_ITS | Encounter Summary ---
Author Organization [facility] Address [address] [facility] [place] [address] Care Team Providers Care Human Resources Operations Coordinator Name Role Phone Cierra Villarreal MD Primary Care Provider [phone] Marilu Westfall MD Primary Care Provider [phone] Cierra Villarreal MD Primary Care Provider [phone] Reason for Visit * Reason Onset Date Comments Blood Sugar Problem 02/20/2015 Encounter Details Date Type Department Care Team (Late st Contact Info) Description 02/20/2015 Telephone [facility] Pediatrics - Endocrinology [facility] [place] [address] Denia Greenberg MD Blood Sugar Problem Social History Tobacco Use Types Packs/Day Years Used Date Smoking Tobacco: Never Alcohol Use Standard Drinks/Week Comments No 0 (1 standard drink = 0.6 oz pur e alcohol) Sex and Gender Information Value Date Recorded Sex Assigned at Not on file 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 Answer Date of Assessment Author No 02/03/2015 9:09 AM REHAB CARE ASSISTANT Betzaida Zuniga RN * Is person [...] at length. Mom to call as needed. B CARE ASSISTANT documented in this encounter Plan of Treatment Not on file documented as of this encounter Visit Diagnoses Not on filedocumented in this encounter Additional Health Concerns Infection Onset Date Last Indicated Resolved Time MRSA 01/28/2015 01/28/2015 10/22/2015 12:0 6 PM CDT documented as of this encounter Care Teams Human Resources Operations Coordinator Relationship Specialty Start Date End Date Cierra Villarreal MD [address] [phone] PCP - General Family Medicine 11/27/13 05/31/17 Marilu Westfall MD [address] [place] [address] PCP - General 06/01/17 06/12/18 Cierra Villarreal MD [address] [phone] PCP - General Family Medicine 06/13/18 documented as of this encounter
--- OUTSIDE RECORDS SUMMARY | 2024-12-06 17:25 | XMS_ITS | Encounter Summary ---
Author Organization [facility] Address [address] [facility] [place] [address] Care Team Providers Care Dispatch Lead Name Role Phone Cierra Villarreal MD Primary Care Provider [phone] Encounter Details Date Type Department Care Team (Late st Contact Info) Description 01/21/2020 Telephone [facility] Pediatric[facility] - Endocrinology [address] [place] [address] Alber Fiore APRN-ELECTRIC REFRIGERATOR PREPARER [address] [place] [address] Social History Tobacco Use Types Packs/Day Years Used Date Smoking Tobacco: Never Smokeless Tobacco: Never Alcohol Use Standard Drinks/Week Comments No 0 (1 standard drink = 0.6 oz pur e alcohol) Sex and Gender Information Value Date Recorded Sex Assigned at Not on file 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 Unable to assess 01/09/2020 1:57 PM LIQUOR BRIDGE OPERATOR HELPER documented as of this encounter Functional Status [...] at 2130 01/24 give basaglar at 2300 OR BRIDGE OPERATOR HELPER documented in this encounter Plan of Treatment Not on file documented as of this encounter Visit Diagnoses Not on filedocumented in this encounter Care Teams Dispatch Lead Relationship Specialty Start Date End Date Cierra Villarreal MD [address] [place] [phone] PCP - General Family Medicine 06/13/18 documented as of this encounter
--- OUTSIDE RECORDS SUMMARY | 2024-12-06 17:25 | XMS_ITS | Encounter Summary ---
Author Organization [facility] Address [address] [place] [address] Care Team Providers Care Alternative Financing Specialist Name Role Phone Chrissy Richards MD Primary Care Provider Cierra Villarreal MD Primary Care Provider [phone] Marilu Westfall MD Primary Care Provider [phone] Cierra Villarreal MD Primary Care Provider [phone] Reason for Visit * Reason Onset Date Comments Blood Sugar Problem 12/18/2012 Please call mom to review blood sugars and make changes Encounter Details Date Type Department Care Team (Late st Contact Info) Description 12/18/2012 Telephone [facility] Pediatrics - Diabetes [address] [address] Denia Greenberg MD Blood Sugar Problem (Please call mom to review blood sugars and make changes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 Gender Identity Not on file Sexual Orientation Not on file documented as of this encounter Plan of Treatment Not on file documented as of this encounter Visit Diagnoses Not on filedocumented in this encounter Additional Health Concerns Infection Onset Date Last Indicated Resolved Time MRSA 01/28/2015 01/28/2015 10/22/2015 12:0 6 PM CDT documented as of this encounter Care Teams Alternative Financing Specialist Relationship Specialty Start Date End Date Chrissy Richards MD [address] [place] [phone] PCP - General 07/02/11 11/26/13 Cierra Villarreal MD [address] [place] [phone] PCP - General Family Medicine 11/27/13 05/31/17 Marilu Westfall MD [address] [place] [phone] PCP - General 06/01/17 06/12/18 Cierra Vilalrreal MD [address] [place] [phone] PCP - General Family Medicine 06/13/18 documented as of this encounter
--- OUTSIDE RECORDS SUMMARY | 2024-12-06 17:25 | XMS_ITS | Data Portability ---
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 I agree with the resident's assessment and plan as documented with the following addendum: None. Dr. Maribel Ho MD Attending Physician, [facility]. [email or web address] Not available 09/08/2023 10:27:03 10/02/2024 [id number] I was present an d available in the Family Medicine clinic to discuss this patient's care during the appointment. I agree with the resident's assessment and plan as documented. [facility] [email or web address] Not available 10/15/2024 12:00:49 Reason for Referral None Reported. Results Created Date Observation Date Name Description Value Unit Range Abnormal Flag Note LastModifiedBy Organization Detail LastModifiedTime 05/26/1905/25/2022 Hemog lobin A1c/H emogl obin. total in Blood hemoglobin A1C/hemoglob in.total in blood 7.1 % high: 5.7% high Not Available Not Available 09/20/2024 17:24:32 05/26/19 23 05/25/2022 Hemog lobin A1c/H emogl obin. total in Blood glucose mean value [mass/volume ] in blood estimated from glycated hemoglobin 157 mg/dL Not Available Not Available 0 09/20/2024 17:24:32 05/26/19 23 05/25/2022 Hemog lobin A1c/H emogl obin. total in Blood Unknown Analyte HbA1c Interp retati on: Normal : < 5.7% Pre-di abetes : 5.7-6. 4% Diabet es: Equal to or greate r than 6.5% This test should only be used to monito r, not diagno se diabet es. Test result s diagno stic of diabet es should be repeat ed by anothe r method with a differ ent assay princi ple for confir mation . Treatm ent target values recomm ended by ADA and other clinic al organi zation s should be used to evalua te metabo lic contro l in patien ts. Patien ts with a hemogl obin of <7 or >24 should not be tested using this method . Patien ts known to have these condit ions should be assaye d by a test employ ing a differ ent assay princi ple. Glycat ed hemogl obin F is not measur ed by the DCA HbA1c assay. At very high levels of hemogl obin F (> 10%), HbA1c is lower than expect ed. Patien ts with HbS or HbE should not be tested using this device . HbS or HbE cause a higher result than expect ed. Condit ions such as hemoly tic anemia , polycy themia , homozy gous and HbC, can result in decrea sed life span of the red blood cells, which causes HbA1c result s to be lower than expect ed. The [facility] s DCA assay for the measur ement of HbA1c is a Nation al Glycoh emoglo bin Standa rdizat ion Progra m (NGSP) certif ied method . Not Available Not Available 17:24:32 05/26/19 23 05/25/2022 Hemog lobin A1c/H emogl obin. total in Blood interpretati on and review of laboratory results Abnorm al Not Available Not Available 17:24:32 11/22/1911/22/2023 Gluco se [Mass /volu me] in Arter ial blood glucose [mass/volume ] in capillary blood by glucometer 228 mg/dL low: 70mg/d Lhigh: 106mg/ dL high Not Available Not Available 09/20/2024 17:24:41 11/22/1911/22/2023 Gluco se [Mass /volu me] in Arter ial blood specimen source identified Cap Finger stick Not Available Not Available 17:24:41 11/22/1911/22/2023 Gluco se [Mass /volu me] in Arter ial blood interpretati on and review of laboratory results Abnorm al Not Available Not Available 17:24:41 11/22/19 24 11/22/2023 Gluco se [Mass /volu me] in Arter ial blood glucose [mass/volume ] in capillary blood by glucometer 259 mg/dL low: 70mg/d Lhigh: 106mg/ dL high Not Available Not Available 09/20/2024 17:24:41 11/22/1911/22/2023 Gluco se [Mass /volu me] in Arter ial blood specimen source identified Cap Finger stick Not Available Not Available 17:24:41 11/22/1911/22/2023 Gluco se [Mass /volu me] in Arter ial blood interpretati on and review of laboratory results Abnorm al Not Available Not Available 17:24:41 11/26/1911/26/2023 Gluco se [Mass /volu me] in Blood by Autom ated test strip glucose [mass/volume ] in blood by automated test strip 342 mg/dL low: 70mg/d Lhigh: 99mg/d L high Not Available Not Available 09/20/2024 17:24:45 11/26/19 24 11/26/2023 Gluco se [Mass /volu me] in Blood by Autom ated test strip interpretati on and review of laboratory results Abnorm al Not Available Not Available 17:24:45 11/26/1911/26/2023 Magne sium [Mass /volu me] in Serum or Plasm a magnesium [mass/volume ] in serum or plasma 1.8 text: 1.8 - 2.4 mg/dL Not Available Not Available 09/20/2024 17:24:45 11/26/1911/26/2023 Phosp hate [Mass /volu me] in Serum or Plasm a phosphate [mass/volume ] in serum or plasma 7.4 text: 2.5 - 4.9 mg/dL high Not Available Not Available 09/20/2024 17:24:45 11/26/1911/26/2023 Phosp hate [Mass /volu me] in Serum or Plasm a interpretati on and review of laboratory results Abnorm al Not Available Not Available 17:24:45 11/26/19 24 11/26/2023 Lipas e [Enzy matic activ ity/v olume ] in Serum or Plasm a lipase [enzymatic activity/vol ume] in serum or plasma 9 text: 13 - 75 units/ L low Not Available Not Available 09/20/2024 17:24:45 11/26/1911/26/2023 Lipas e [Enzy matic activ ity/v olume ] in Serum or Plasm a interpretati on and review of laboratory results Abnorm al Not Available Not Available 17:24:45 11/26/1911/26/2023 Beta hydro xybut yrate [Mole s/vol ume] in Serum or Plasm a beta hydroxybutyr ate [moles/volum e] in serum or plasma 2.3 text: 0.0 - 0.5 mmol/L critical high Succe ssful Call: LETICIA morris 11/25 08:22 PM to [facility] ([address] MIRE[address],[place] ) [place] [id number] 5. Not Available Not Available 09/20/2024 17:24:45 11/26/19 24 11/26/2023 Beta hydro xybut yrate [Mole s/vol ume] in Serum or Plasm a interpretati on and review of laboratory results Abnorm al Not Available Not Available 17:24:45 10/05/11/26/2023 [employer] 1999 panel - Serum or Plasm a glucose [mass/volume ] in serum or plasma 362 text: 70 - 99 mg/dL high Not Available Not Available 09/20/2024 17:24:45 11/26/19 24 11/26/2023 Compr [employer] 1999 panel - Serum or Plasm a urea nitrogen [mass/volume ] in serum or plasma 21 text: 7 - 18 mg/dL high Not Available Not Available 09/20/2024 17:24:45 11/26/19 24 11/26/2023 [facility] [employer] 1999 panel - Serum or Plasm a creatinine [mass/volume ] in serum or plasma 1.11 text: 0.7 - 1.3 mg/dL Not Available Not Available 09/20/2024 17:24:45 11/26/19 24 11/26/2023 [facility] [employer] 1999 panel - Serum or Plasm a sodium [moles/volum e] in serum or plasma 139 text: 136 - 145 mmol/L Not Available Not Available 09/20/2024 17:24:45 11/26/19 24 11/26/2023 Compr [employer] 1999 panel - Serum or Plasm a potassium [moles/volum e] in serum or plasma 4.8 text: 3.5 - 5.1 mmol/L Not Available Not Available 09/20/2024 17:24:45 11/26/19 24 11/26/2023 [employer] 1999 panel - Serum or Plasm a chloride [moles/volum e] in serum or plasma 101 text: 97 - 115 mmol/L Not Available Not Available 09/20/2024 17:24:45 11/26/19 24 11/26/2023 Compr [employer] 1999 panel - Serum or Plasm a carbon dioxide, total [moles/volum e] in serum or plasma 18.6 text: 21 - 32 mmol/L low Not Available Not Available 09/20/2024 17:24:45 11/26/19 24 11/26/2023 Compr [employer] 1999 panel - Serum or Plasm a calcium [mass/volume ] in serum or plasma 10.5 text: 8.5 - 10.1 mg/dL high Not Available Not Available 09/20/2024 17:24:45 11/26/19 24 11/26/2023 Compr ehens darin metab olic 1999 panel - Serum or Plasm a bilirubin.to tyrese [mass/volume ] in serum or plasma 1.2 text: 0.2 - 1.2 mg/dL THIS ASSAY IS NOT RECOM REGLA D FOR PATIE NTS UNDER GOING TREAT MENT WITH ELTRO MBOPA G DUE TO THE POTEN TIAL FOR FALSE LY ELEVA TORRES RESUL TS. Not Available Not Available 09/20/2024 17:24:45 11/26/19 24 11/26/2023 Compr ehens darin metab olic 1999 panel - Serum or Plasm a protein [mass/volume ] in serum or plasma 7.7 text: 6.4 - 8.2 g/dL Not Available Not Available 09/20/2024 17:24:45 11/26/19 24 11/26/2023 Compr ehens darin metab olic 1999 panel - Serum or Plasm a albumin [mass/volume ] in serum or plasma 3.6 text: 3.4 - 5.0 g/dL Not Available Not Available 09/20/2024 17:24:45 11/26/19 24 11/26/2023 Compr ehens darin metab olic 1999 panel - Serum or Plasm a aspartate aminotransfe rase [enzymatic activity/vol ume] in serum or plasma 21 U/L low: 15U/Lh igh: 37U/L Not Available Not Available 09/20/2024 17:24:45 11/26/19 24 11/26/2023 Compr ehens darin metab olic 1999 panel - Serum or Plasm a alanine aminotransfe rase [enzymatic activity/vol ume] in serum or plasma 31 U/L low: 16U/Lh igh: 60U/L Not Available Not Available 09/20/2024 17:24:45 11/26/19 24 11/26/2023 Compr ehens darin metab olic 2000 panel - Serum or Plasm a alkaline phosphatase [enzymatic activity/vol ume] in serum or plasma 124 U/L low: 50U/Lh igh: 136U/L Not Available Not Available 09/20/2024 17:24:45 11/26/19 24 11/26/2023 Compr ehens darin metab olic 2000 panel - Serum or Plasm a anion gap in serum or plasma by calculation 19.4 text: 2 - 10 mmol/L high Not Available Not Available 09/20/2024 17:24:45 11/26/1911/26/2023 [facility] [employer] darin [employer] 1999 panel - Serum or Plasm a urea nitrogen/cre atinine [mass ratio] in serum or plasma 18.9 low: 6high: 26 Not Available Not Available 09/20/2024 17:24:45 11/26/1911/26/2023 [facility] [employer] darin [employer] 1999 panel - Serum or Plasm a albumin/glob ulin [mass ratio] in serum or plasma 0.9 text: 1.0 - 2.0 ratio low Not Available Not Available 09/20/2024 17:24:45 11/26/1911/26/2023 [facility] [employer] [place] 1999 panel - Serum or Plasm a glomerular filtration rate [volume rate/area] in serum, plasma or blood by creatinine-b ased formula (CKD-epi 2020)/1.73 sq M >90 text: >90 mL/min /1.73 M2 NOTE: eGFR is not calcu lated for patie nts <18 years of age or gende r unkno wn. This is an estim ated GFR calcu latio n using the new CKD EPI creat inine equat ion witho ut race and so does not requi re a corre ction facto r for race. This estim ated GFR shoul d not be used for calcu latin g drug doses . Not Available Not Available 09/20/2024 17:24:45 11/26/1911/26/2023 [facility] [employer] 1999 panel - Serum or Plasm a interpretati on and review of laboratory results Abnorm al Not Available Not Available 17:24:45 11/26/1911/26/2023 CBC W Auto Diffe renti al panel - Blood leukocytes [#/volume] in blood by automated count 10.93 text: 4.5 - 11.0 x10'3/ uL Not Available Not Available 09/20/2024 17:24:45 11/26/19 24 11/26/2023 CBC W Auto Diffe renti al panel - Blood erythrocytes [#/volume] in blood by automated count 5.52 text: 4.70 - 6.10 x10'6/ uL Not Available Not Available 09/20/2024 17:24:45 11/26/1911/26/2023 CBC W Auto Diffe anthony spear panel - Blood hemoglobin [mass/volume ] in blood 16.3 text: 14.0 - 18.0 g/dL Not Available Not Available 09/20/2024 17:24:45 11/26/1911/26/2023 CBC W Auto Diffe anthony spear panel - Blood hematocrit [volume fraction] of blood by calculation 49.9 % low: 43%hig h: 54% Not Available Not Available 09/20/2024 17:24:45 11/26/1911/26/2023 CBC W Auto Diffjocelyne spear panel - Blood MCV [entitic mean volume] in red blood cells 90.4 text: 80.0 - 94.0 fL Not Available Not Available 09/20/2024 17:24:45 11/26/1911/26/2023 CBC W Auto Diffjocelyne spear panel - Blood MCH [entitic mass] 29.5 pg low: 27pghi gh: 31pg Not Available Not Available 09/20/2024 17:24:45 11/26/1911/26/2023 CBC W Auto Diffjocelyne spear panel - Blood MCHC [entitic mass/volume] in red blood cells 32.7 text: 32.0 - 36.0 g/dL Not Available Not Available 09/20/2024 17:24:45 11/26/1911/26/2023 CBC W Auto Diffe anthony spear panel - Blood RDW 13.4 % low: 11.5%h igh: 14.5% Not Available Not Available 09/20/2024 17:24:45 11/26/1911/26/2023 CBC W Auto Diffjocelyne spear panel - Blood platelets [#/volume] in blood 355 text: 130 - 400 x10'3/ uL Not Available Not Available 09/20/2024 17:24:45 11/26/19 24 11/26/2023 CBC W Auto Diffjocelyne spear panel - Blood platelet [entitic mean volume] in blood 9.3 text: 9.3 - 12.2 fL Not Available Not Available 09/20/2024 17:24:45 11/26/19 24 11/26/2023 CBC W Auto Diffe renti al panel - Blood differential cell count method - blood AUTOMA TORRES DIFFER ENTIAL Not Available Not Available 17:24:45 11/26/19 24 11/26/2023 CBC W Auto Diffe renti al panel - Blood neutrophils/ leukocytes in blood by automated count 83.1 % Not Available Not Available 08/23 17:24:45 11/26/19 24 11/26/2023 CBC W Auto Diffe renti al panel - Blood lymphocytes/ leukocytes in blood by automated count 10.1 % Not Available Not Available 08/23 17:24:45 11/26/1911/26/2023 CBC W Auto Diffe renti al panel - Blood monocytes/le ukocytes in blood by automated count 5.1 % Not Available Not Available 08/23 17:24:45 11/26/19 24 11/26/2023 CBC W Auto Diffe renti al panel - Blood eosinophils/ leukocytes in blood by automated count 0.2 % Not Available Not Available 08/23 17:24:45 11/26/1911/26/2023 CBC W Auto Diffe renti al panel - Blood basophils/le ukocytes in blood by automated count 0.6 % Not Available Not Available 08/23 17:24:45 11/26/19 24 11/26/2023 CBC W Auto Diffe renti al panel - Blood immature granulocytes /leukocytes in blood by automated count 0.9 % Not Available Not Available 08/23 17:24:45 11/26/19 24 11/26/2023 CBC W Auto Diffe renti al panel - Blood neutrophils [#/volume] in blood 9.08 text: 1.80 - 7.70 x10'3/ uL high Not Available Not Available 09/20/2024 17:24:45 11/26/19 24 11/26/2023 CBC W Auto Diffe renti al panel - Blood lymphocytes [#/volume] in blood 1.1 text: 1.00 - 4.80 x10'3/ uL Not Available Not Available 09/20/2024 17:24:45 11/26/19 24 11/26/2023 CBC W Auto Diffe renti al panel - Blood monocytes [#/volume] in blood 0.56 text: 0.30 - 0.82 x10'3/ uL Not Available Not Available 09/20/2024 17:24:45 11/26/19 24 11/26/2023 CBC W Auto Diffe renti al panel - Blood eosinophils [#/volume] in blood 0.02 text: 0.04 - 0.54 x10'3/ uL low Not Available Not Available 09/20/2024 17:24:45 11/26/19 24 11/26/2023 CBC W Auto Diffe renti al panel - Blood basophils [#/volume] in blood 0.07 text: 0.01 - 0.08 x10'3/ uL Not Available Not Available 09/20/2024 17:24:45 11/26/19 24 11/26/2023 CBC W Auto Diffe renti al panel - Blood immature granulocytes [#/volume] in blood 0.1 text: 0.00 - 0.49 x10'3/ uL Not Available Not Available 09/20/2024 17:24:45 11/26/19 24 11/26/2023 CBC W Auto Diffe renti al panel - Blood interpretati on and review of laboratory results Abnorm al Not Available Not Available 17:24:45 11/26/19 24 11/26/2023 Gluco se [Mass /volu me] in Blood by Autom ated test strip glucose [mass/volume ] in blood by automated test strip 288 mg/dL low: 70mg/d Lhigh: 99mg/d L high Not Available Not Available 09/20/2024 17:24:45 11/26/19 24 11/26/2023 Gluco se [Mass /volu me] in Blood by Autom ated test strip interpretati on and review of laboratory results Abnorm al Not Available Not Available 17:24:45 11/27/19 24 11/27/2023 Gluco se [Mass /volu me] in Blood by Autom ated test strip glucose [mass/volume ] in blood by automated test strip 133 mg/dL low: 70mg/d Lhigh: 99mg/d L high Not Available Not Available 09/20/2024 17:24:47 11/27/19 24 11/27/2023 Gluco se [Mass /volu me] in Blood by Autom ated test strip interpretati on and review of laboratory results Abnorm al Not Available Not Available 17:24:47 11/27/1911/27/2023 Gluco se [Mass /volu me] in Blood by Autom ated test strip glucose [mass/volume ] in blood by automated test strip 188 mg/dL low: 70mg/d Lhigh: 99mg/d L high Not Available Not Available 09/20/2024 17:24:46 11/27/1911/27/2023 Gluco se [Mass /volu me] in Blood by Autom ated test strip interpretati on and review of laboratory results Abnorm al Not Available Not Available 17:24:46 11/27/1911/27/2023 Gluco se [Mass /volu me] in Blood by Autom ated test strip glucose [mass/volume ] in blood by automated test strip 180 mg/dL low: 70mg/d Lhigh: 99mg/d L high Not Available Not Available 09/20/2024 17:24:46 11/27/1911/27/2023 Gluco se [Mass /volu me] in Blood by Autom ated test strip interpretati on and review of laboratory results Abnorm al Not Available Not Available 17:24:46 11/27/1911/27/2023 Urina lysis dipst ick W Refle x Micro scopi c panel - Urine collection method - specimen URINE CLEAN CATCH Not Available Not Available 17:24:46 11/27/1911/27/2023 Urina lysis dipst ick W Refle x Micro scopi c panel - Urine color of urine LIGHT YELLOW Not Available Not Available 17:24:46 11/27/19 24 11/27/2023 Urina lysis dipst ick W Refle x Micro scopi c panel - Urine clarity of urine CLEAR Not Available Not Available 08/23 17:24:46 11/27/1911/27/2023 Urina lysis dipst ick W Refle x Micro scopi c panel - Urine specific gravity of urine 1.013 low: 1.001h igh: 1.03 Not Available Not Available 09/20/2024 17:24:46 11/27/1911/27/2023 Urina lysis dipst ick W Refle x Micro scopi c panel - Urine pH of urine 5 low: 5high: 9 Not Available Not Available 09/20/2024 17:24:46 11/27/1911/27/2023 Urina lysis dipst ick W Refle x Micro scopi c panel - Urine leukocytes [#/volume] in urine by test strip NEGATI VE text: negati ve Not Available Not Available 09/20/2024 17:24:46 11/27/1911/27/2023 Urina lysis dipst ick W Refle x Micro scopi c panel - Urine nitrite [presence] in urine NEGATI VE text: negati ve Not Available Not Available 09/20/2024 17:24:46 11/27/1911/27/2023 Urina lysis dipst ick W Refle x Micro scopi c panel - Urine protein [mass/volume ] in urine by test strip NEGATI VE text: <30 mg/dL Not Available Not Available 09/20/2024 17:24:46 11/27/1911/27/2023 Urina lysis dipst ick W Refle x Micro scopi c panel - Urine glucose [mass/volume ] in urine 1000 text: normal mg/dL abnormal Not Available Not Available 09/20/2024 17:24:46 11/27/1911/27/2023 Urina lysis dipst ick W Refle x Micro scopi c panel - Urine ketones [mass/volume ] in urine by test strip 100 text: negati ve mg/dL abnormal Succe ssful Call: ETJignesh myers d 11/26 09:55 AM to [facility] ([address]) [place] [id number] 2. Read Back: Yes Not Available Not Available 09/20/2024 17:24:46 11/27/1911/27/2023 Urina lysis dipst ick W Refle x Micro scopi c panel - Urine urobilinogen [units/volum e] in urine by test strip NORMAL text: normal mg/dL Not Available Not Available 09/20/2024 17:24:46 11/27/1911/27/2023 Urina lysis dipst ick W Refle x Micro scopi c panel - Urine bilirubin.to tyrese [mass/volume ] in urine NEGATI VE text: negati ve mg/dL Not Available Not Available 09/20/2024 17:24:46 11/27/1911/27/2023 Urina lysis dipst ick W Refle x Micro scopi c panel - Urine erythrocytes [#/volume] in urine by automated test strip TRACE text: negati ve abnormal Not Available Not Available 09/20/2024 17:24:46 11/27/1911/27/2023 Urina lysis dipst ick W Refle x Micro scopi c panel - Urine hyaline casts [#/area] in urine sediment by microscopy low power field RARE text: /lpf Not Available Not Available 09/20/2024 17:24:46 11/27/1911/27/2023 Urina lysis dipst ick W Refle x Micro scopi c panel - Urine leukocytes [#/area] in urine sediment by microscopy high power field 2 text: <6 /hpf Not Available Not Available 09/20/2024 17:24:46 11/27/1911/27/2023 Urina lysis dipst ick W Refle x Micro scopi c panel - Urine erythrocytes [#/area] in urine sediment by microscopy high power field 2 text: <6 /hpf Not Available Not Available 09/20/2024 17:24:46 11/27/1911/27/2023 Urina lysis dipst ick W Refle x Micro scopi c panel - Urine epithelial cells.[place] [#/area] in urine sediment by microscopy high power field RARE text: /hpf Not Available Not Available 09/20/2024 17:24:46 11/27/1911/27/2023 Urina lysis dipst ick W Refle x Micro scopi c panel - Urine interpretati on and review of laboratory results Abnorm al Not Available Not Available 17:24:46 11/27/19 24 11/27/2023 [facility] 1999 panel - Serum or Plasm a glucose [mass/volume ] in serum or plasma 146 text: 70 - 99 mg/dL high Not Available Not Available 09/20/2024 17:24:46 11/27/19 24 11/27/2023 [facility] 1999 panel - Serum or Plasm a urea nitrogen [mass/volume ] in serum or plasma 19 text: 7 - 18 mg/dL high Not Available Not Available 09/20/2024 17:24:46 11/27/19 24 11/27/2023 [facility] 1999 panel - Serum or Plasm a creatinine [mass/volume ] in serum or plasma 1.13 text: 0.7 - 1.3 mg/dL Not Available Not Available 09/20/2024 17:24:46 11/27/19 24 [facility]27[facility] - Serum or Plasm a sodium [moles/volum e] in serum or plasma 148 text: 136 - 145 mmol/L high Not Available Not Available 09/20/2024 17:24:46 11/27/1911/27/2023 [facility] - Serum or Plasm a potassium [moles/volum e] in serum or plasma 4.4 text: 3.5 - 5.1 mmol/L Not Available Not Available 09/20/2024 17:24:46 11/27/19 24 11/27/2023 [facility] olic 1999 panel - Serum or Plasm a chloride [moles/volum e] in serum or plasma 117 text: 97 - 115 mmol/L high Not Available Not Available 09/20/2024 17:24:46 11/27/1911/27/2023 [facility] - Serum or Plasm a carbon dioxide, total [moles/volum e] in serum or plasma 23.1 text: 21 - 32 mmol/L Not Available Not Available 09/20/2024 17:24:46 11/27/19 24 11/27/2023 [facility] olic 1999 panel - Serum or Plasm a calcium [mass/volume ] in serum or plasma 9.3 text: 8.5 - 10.1 mg/dL Not Available Not Available 09/20/2024 17:24:46 11/27/1911/27/2023 [facility] 1999 panel - Serum or Plasm a anion gap in serum or plasma by calculation 7.9 text: 2 - 10 mmol/L Not Available Not Available 09/20/2024 17:24:46 11/27/1911/27/2023 Basic metab olic 1999 panel - Serum or Plasm a urea nitrogen/cre atinine [mass ratio] in serum or plasma 16.8 low: 6high: 26 Not Available Not Available 09/20/2024 17:24:46 11/27/1911/27/2023 Basic metab olic 1999 panel - Serum or Plasm a glomerular filtration rate [volume rate/area] in serum, plasma or blood by creatinine-b ased formula (CKD-epi 2020)/1.73 sq M >90 text: >90 mL/min /1.73 M2 NOTE: eGFR is not calcu lated for patie nts <18 years of age or gende r unkno wn. This is an estim ated GFR calcu latio n using the new CKD EPI creat inine equat ion witho ut race and so does not requi re a corre ction facto r for race. This estim ated GFR shoul d not be used for calcu latin g drug doses . Not Available Not Available 09/20/2024 17:24:46 11/27/1911/27/2023 Basic metab olic 1999 panel - Serum or Plasm a interpretati on and review of laboratory results Abnorm al Not Available Not Available 17:24:46 11/27/1911/27/2023 Gluco se [Mass /volu me] in Blood by Autom ated test strip glucose [mass/volume ] in blood by automated test strip 183 mg/dL low: 70mg/d Lhigh: 99mg/d L high Not Available Not Available 09/20/2024 17:24:46 11/27/1911/27/2023 Gluco se [Mass /volu me] in Blood by Autom ated test strip interpretati on and review of laboratory results Abnorm al Not Available Not Available 17:24:46 11/27/19 24 11/27/2023 Gluco se [Mass /volu me] in Blood by Autom ated test strip glucose [mass/volume ] in blood by automated test strip 185 mg/dL low: 70mg/d Lhigh: 99mg/d L high Not Available Not Available 09/20/2024 17:24:46 11/27/19 24 11/27/2023 Gluco se [Mass /volu me] in Blood by Autom ated test strip interpretati on and review of laboratory results Abnorm al Not Available Not Available 17:24:46 11/27/19 24 11/27/2023 Gluco se [Mass /volu me] in Blood by Autom ated test strip glucose [mass/volume ] in blood by automated test strip 169 mg/dL low: 70mg/d Lhigh: 99mg/d L high Not Available Not Available 09/20/2024 17:24:46 11/27/19 24 11/27/2023 Gluco se [Mass /volu me] in Blood by Autom ated test strip interpretati on and review of laboratory results Abnorm al Not Available Not Available 17:24:46 11/27/19 24 11/28/2023 Methi cilli n resis tant Staph yloco ccus aureu s [Pres ence] in Speci men by Organ ism speci fic cultu re specimen source identified NASAL Not Available Not Available 0 09/20/2024 17:24:46 11/27/19 24 11/28/2023 Methi cilli n resis tant Staph yloco ccus aureu s [Pres ence] in Speci men by Organ ism speci fic cultu re service comment NO SPECIA L REQUES T Not Available Not Available 17:24:46 11/27/1911/28/2023 Methi cilli n resis tant Staph yloco ccus aureu s [Pres ence] in Speci men by Organ ism speci fic cultu re bacteria identified in specimen by culture METHIC ILLIN RESIST ANT STAPHY LOCOCC US AUREUS ISOLAT ED NO METHIC ILLIN RESIST ANT STAPHY LOCOCC US AUREUS ISOLAT ED critical abnormal Not Available Not Available 09/20/2024 17:24:46 11/27/19 24 11/28/2023 Methi cilli n resis tant Staph yloco ccus aureu s [Pres ence] in Speci men by Organ ism speci fic cultu re interpretati on and review of laboratory results Abnorm al Not Available Not Available 17:24:46 11/27/19 24 11/27/2023 CBC W Auto Diffe renti al panel - Blood leukocytes [#/volume] in blood by automated count 11.76 text: 4.5 - 11.0 x10'3/ uL high Not Available Not Available 09/20/2024 17:24:46 11/27/19 24 11/27/2023 CBC W Auto Diffe renti al panel - Blood erythrocytes [#/volume] in blood by automated count 4.6 text: 4.70 - 6.10 x10'6/ uL low Not Available Not Available 09/20/2024 17:24:46 11/27/19 24 11/27/2023 CBC W Auto Diffe renti al panel - Blood hemoglobin [mass/volume ] in blood 13.8 text: 14.0 - 18.0 g/dL low Not Available Not Available 09/20/2024 17:24:46 11/27/19 24 11/27/2023 CBC W Auto Diffe renti al panel - Blood hematocrit [volume fraction] of blood by calculation 43.9 % low: 43%hig h: 54% Not Available Not Available 09/20/2024 17:24:46 11/27/19 24 11/27/2023 CBC W Auto Diffe renti al panel - Blood MCV [entitic mean volume] in red blood cells 95.4 text: 80.0 - 94.0 fL high Not Available Not Available 09/20/2024 17:24:46 11/27/19 24 11/27/2023 CBC W Auto Diffe renti al panel - Blood MCH [entitic mass] 30 pg low: 27pghi gh: 31pg Not Available Not Available 09/20/2024 17:24:46 11/27/19 24 11/27/2023 CBC W Auto Diffe renti al panel - Blood MCHC [entitic mass/volume] in red blood cells 31.4 text: 32.0 - 36.0 g/dL low Not Available Not Available 09/20/2024 17:24:46 11/27/19 24 11/27/2023 CBC W Auto Diffe renti al panel - Blood RDW 13.9 % low: 11.5%h igh: 14.5% Not Available Not Available 09/20/2024 17:24:46 11/27/19 24 11/27/2023 CBC W Auto Diffe renti al panel - Blood platelets [#/volume] in blood 289 text: 130 - 400 x10'3/ uL Not Available Not Available 09/20/2024 17:24:46 11/27/1911/27/2023 CBC W Auto Diffe renti al panel - Blood platelet [entitic mean volume] in blood 9.1 text: 9.3 - 12.2 fL low Not Available Not Available 09/20/2024 17:24:46 11/27/1911/27/2023 CBC W Auto Diffe renti al panel - Blood differential cell count method - blood AUTOMA TORRES DIFFER ENTIAL Not Available Not Available 17:24:46 11/27/1911/27/2023 CBC W Auto Diffe renti al panel - Blood neutrophils/ leukocytes in blood by automated count 79.2 % Not Available Not Available 08/23 17:24:46 11/27/19 24 11/27/2023 CBC W Auto Diffe renti al panel - Blood lymphocytes/ leukocytes in blood by automated count 11.2 % Not Available Not Available 08/23 17:24:46 11/27/19 24 11/27/2023 CBC W Auto Diffe renti al panel - Blood monocytes/le ukocytes in blood by automated count 8.1 % Not Available Not Available 08/23 17:24:46 11/27/19 24 11/27/2023 CBC W Auto Diffe renti al panel - Blood eosinophils/ leukocytes in blood by automated count 0.1 % Not Available Not Available 08/23 17:24:46 11/27/19 24 11/27/2023 CBC W Auto Diffe renti al panel - Blood basophils/le ukocytes in blood by automated count 0.5 % Not Available Not Available 08/23 17:24:46 11/27/19 24 11/27/2023 CBC W Auto Diffe renti al panel - Blood immature granulocytes /leukocytes in blood by automated count 0.9 % Not Available Not Available 08/23 17:24:46 11/27/19 24 11/27/2023 CBC W Auto Diffe renti al panel - Blood neutrophils [#/volume] in blood 9.32 text: 1.80 - 7.70 x10'3/ uL high Not Available Not Available 09/20/2024 17:24:46 11/27/19 24 11/27/2023 CBC W Auto Diffe renti al panel - Blood lymphocytes [#/volume] in blood 1.32 text: 1.00 - 4.80 x10'3/ uL Not Available Not Available 09/20/2024 17:24:46 11/27/19 24 11/27/2023 CBC W Auto Diffe renti al panel - Blood monocytes [#/volume] in blood 0.95 text: 0.30 - 0.82 x10'3/ uL high Not Available Not Available 09/20/2024 17:24:46 11/27/19 24 11/27/2023 CBC W Auto Diffe renti al panel - Blood eosinophils [#/volume] in blood 0.01 text: 0.04 - 0.54 x10'3/ uL low Not Available Not Available 09/20/2024 17:24:46 11/27/19 24 11/27/2023 CBC W Auto Diffe renti al panel - Blood basophils [#/volume] in blood 0.06 text: 0.01 - 0.08 x10'3/ uL Not Available Not Available 09/20/2024 17:24:46 11/27/19 24 11/27/2023 CBC W Auto Diffe renti al panel - Blood immature granulocytes [#/volume] in blood 0.1 text: 0.00 - 0.49 x10'3/ uL Not Available Not Available 09/20/2024 17:24:46 11/27/19 24 11/27/2023 CBC W Auto Diffe renti al panel - Blood interpretati on and review of laboratory results Abnorm al Not Available Not Available 17:24:46 11/27/19 24 11/27/2023 Basic metab olic 2000 panel - Serum or Plasm a glucose [mass/volume ] in serum or plasma 176 text: 70 - 99 mg/dL high Not Available Not Available 09/20/2024 17:24:46 11/27/19 24 11/27/2023 Basic metab olic 1999 panel - Serum or Plasm a urea nitrogen [mass/volume ] in serum or plasma 23 text: 7 - 18 mg/dL high Not Available Not Available 09/20/2024 17:24:46 11/27/19 24 11/27/2023 Basic metab olic 1999 panel - Serum or Plasm a creatinine [mass/volume ] in serum or plasma 1.12 text: 0.7 - 1.3 mg/dL Not Available Not Available 09/20/2024 17:24:46 11/27/19 24 11/27/2023 Basic metab olic 1999 panel - Serum or Plasm a sodium [moles/volum e] in serum or plasma 145 text: 136 - 145 mmol/L Not Available Not Available 09/20/2024 17:24:46 11/27/19 24 11/27/2023 Basic metab olic 1999 panel - Serum or Plasm a potassium [moles/volum e] in serum or plasma 4.4 text: 3.5 - 5.1 mmol/L Not Available Not Available 09/20/2024 17:24:46 11/27/19 24 11/27/2023 Basic metab olic 1999 panel - Serum or Plasm a chloride [moles/volum e] in serum or plasma 114 text: 97 - 115 mmol/L Not Available Not Available 09/20/2024 17:24:46 11/27/19 24 11/27/2023 Basic metab olic 1999 panel - Serum or Plasm a carbon dioxide, total [moles/volum e] in serum or plasma 19.6 text: 21 - 32 mmol/L low Not Available Not Available 09/20/2024 17:24:46 11/27/19 24 11/27/2023 Basic metab olic 1999 panel - Serum or Plasm a calcium [mass/volume ] in serum or plasma 8.8 text: 8.5 - 10.1 mg/dL Not Available Not Available 09/20/2024 17:24:46 11/27/19 24 11/27/2023 Basic metab olic 1999 panel - Serum or Plasm a anion gap in serum or plasma by calculation 11.4 text: 2 - 10 mmol/L high Not Available Not Available 09/20/2024 17:24:46 11/27/1911/27/2023 Basic metab olic 2000 panel - Serum or Plasm a urea nitrogen/cre atinine [mass ratio] in serum or plasma 20.5 low: 6high: 26 Not Available Not Available 09/20/2024 17:24:46 11/27/1911/27/2023 Basic metab olic 2000 panel - Serum or Plasm a glomerular filtration rate [volume rate/area] in serum, plasma or blood by creatinine-b ased formula (CKD-epi 2020)/1.73 sq M >90 text: >90 mL/min /1.73 M2 NOTE: eGFR is not calcu lated for patie nts <18 years of age or gende r unkno wn. This is an estim ated GFR calcu latio n using the new CKD EPI creat inine equat ion witho ut race and so does not requi re a corre ction facto r for race. This estim ated GFR shoul d not be used for calcu latin g drug doses . Not Available Not Available 09/20/2024 17:24:46 11/27/1911/27/2023 Basic metab olic 2000 panel - Serum or Plasm a interpretati on and review of laboratory results Abnorm al Not Available Not Available 17:24:46 11/27/1911/27/2023 Phosp hate [Mass /volu me] in Serum or Plasm a phosphate [mass/volume ] in serum or plasma 3.7 text: 2.5 - 4.9 mg/dL Not Available Not Available 09/20/2024 17:24:46 11/27/1911/27/2023 Magne sium [Mass /volu me] in Serum or Plasm a magnesium [mass/volume ] in serum or plasma 1.8 text: 1.8 - 2.4 mg/dL Not Available Not Available 09/20/2024 17:24:46 11/27/1911/27/2023 Gluco se [Mass /volu me] in Blood by Autom ated test strip glucose [mass/volume ] in blood by automated test strip 169 mg/dL low: 70mg/d Lhigh: 99mg/d L high Not Available Not Available 09/20/2024 17:24:46 11/27/19 24 11/27/2023 Gluco se [Mass /volu me] in Blood by Autom ated test strip interpretati on and review of laboratory results Abnorm al Not Available Not Available 17:24:46 11/27/19 24 11/27/2023 Gluco se [Mass /volu me] in Blood by Autom ated test strip glucose [mass/volume ] in blood by automated test strip 193 mg/dL low: 70mg/d Lhigh: 99mg/d L high Not Available Not Available 09/20/2024 17:24:46 11/27/19 24 11/27/2023 Gluco se [Mass /volu me] in Blood by Autom ated test strip interpretati on and review of laboratory results Abnorm al Not Available Not Available 17:24:46 11/27/19 24 11/27/2023 Gluco se [Mass /volu me] in Blood by Autom ated test strip glucose [mass/volume ] in blood by automated test strip 224 mg/dL low: 70mg/d Lhigh: 99mg/d L high Not Available Not Available 09/20/2024 17:24:45 11/27/19 24 11/27/2023 Gluco se [Mass /volu me] in Blood by Autom ated test strip interpretati on and review of laboratory results Abnorm al Not Available Not Available 17:24:45 11/27/19 24 11/27/2023 Gluco se [Mass /volu me] in Blood by Autom ated test strip glucose [mass/volume ] in blood by automated test strip 297 mg/dL low: 70mg/d Lhigh: 99mg/d L high Not Available Not Available 09/20/2024 17:24:45 11/27/19 24 11/27/2023 Gluco se [Mass /volu me] in Blood by Autom ated test strip interpretati on and review of laboratory results Abnorm al Not Available Not Available 17:24:45 11/27/19 24 11/27/2023 Basic metab olic 2000 panel - Serum or Plasm a glucose [mass/volume ] in serum or plasma 349 text: 70 - 99 mg/dL high Not Available Not Available 09/20/2024 17:24:45 11/27/19 24 11/27/2023 Basic metab olic 1999 panel - Serum or Plasm a urea nitrogen [mass/volume ] in serum or plasma 27 text: 7 - 18 mg/dL high Not Available Not Available 09/20/2024 17:24:45 11/27/19 24 11/27/2023 Basic metab olic 1999 panel - Serum or Plasm a creatinine [mass/volume ] in serum or plasma 1.14 text: 0.7 - 1.3 mg/dL Not Available Not Available 09/20/2024 17:24:45 11/27/19 24 11/27/2023 Basic metab olic 1999 panel - Serum or Plasm a sodium [moles/volum e] in serum or plasma 143 text: 136 - 145 mmol/L Not Available Not Available 09/20/2024 17:24:45 11/27/19 24 11/27/2023 Basic metab olic 1999 panel - Serum or Plasm a potassium [moles/volum e] in serum or plasma 4.4 text: 3.5 - 5.1 mmol/L Not Available Not Available 09/20/2024 17:24:45 11/27/19 24 11/27/2023 Basic metab olic 1999 panel - Serum or Plasm a chloride [moles/volum e] in serum or plasma 108 text: 97 - 115 mmol/L Not Available Not Available 09/20/2024 17:24:45 11/27/19 24 11/27/2023 Basic metab olic 1999 panel - Serum or Plasm a carbon dioxide, total [moles/volum e] in serum or plasma 14.1 text: 21 - 32 mmol/L low Not Available Not Available 09/20/2024 17:24:45 11/27/19 24 11/27/2023 Basic Victorious olic 1999 panel - Serum or Plasm a calcium [mass/volume ] in serum or plasma 8.7 text: 8.5 - 10.1 mg/dL Not Available Not Available 09/20/2024 17:24:45 11/27/19 24 11/27/2023 Basic Victorious olic 1999 panel - Serum or Plasm a anion gap in serum or plasma by calculation 20.9 text: 2 - 10 mmol/L high Not Available Not Available 09/20/2024 17:24:45 11/27/1911/27/2023 Basic metab olic 2000 panel - Serum or Plasm a urea nitrogen/cre atinine [mass ratio] in serum or plasma 23.7 low: 6high: 26 Not Available Not Available 09/20/2024 17:24:45 11/27/19 24 11/27/2023 Basic metab olic 2000 panel - Serum or Plasm a glomerular filtration rate [volume rate/area] in serum, plasma or blood by creatinine-b ased formula (CKD-epi 2020)/1.73 sq M >90 text: >90 mL/min /1.73 M2 NOTE: eGFR is not calcu lated for patie nts <18 years of age or gende r unkno wn. This is an estim ated GFR calcu latio n using the new CKD EPI creat inine equat ion witho ut race and so does not requi re a corre ction facto r for race. This estim ated GFR shoul d not be used for calcu latin g drug doses . Not Available Not Available 09/20/2024 17:24:45 11/27/1911/27/2023 Basic metab olic 2000 panel - Serum or Plasm a interpretati on and review of laboratory results Abnorm al Not Available Not Available 17:24:45 11/27/19 24 11/27/2023 Gluco se [Mass /volu me] in Blood by Autom ated test strip glucose [mass/volume ] in blood by automated test strip 361 mg/dL low: 70mg/d Lhigh: 99mg/d L high Not Available Not Available 09/20/2024 17:24:45 11/27/1911/27/2023 Gluco se [Mass /volu me] in Blood by Autom ated test strip interpretati on and review of laboratory results Abnorm al Not Available Not Available 17:24:45 11/28/1911/28/2023 Gluco se [Mass /volu me] in Blood by Autom ated test strip glucose [mass/volume ] in blood by automated test strip 157 mg/dL low: 70mg/d Lhigh: 99mg/d L high Not Available Not Available 09/20/2024 17:24:47 11/28/19 24 11/28/2023 Gluco se [Mass /volu me] in Blood by Autom ated test strip interpretati on and review of laboratory results Abnorm al Not Available Not Available 17:24:47 11/28/19 24 11/28/2023 Gluco se [Mass /volu me] in Blood by Autom ated test strip glucose [mass/volume ] in blood by automated test strip 253 mg/dL low: 70mg/d Lhigh: 99mg/d L high Not Available Not Available 09/20/2024 17:24:47 11/28/19 24 11/28/2023 Gluco se [Mass /volu me] in Blood by Autom ated test strip interpretati on and review of laboratory results Abnorm al Not Available Not Available 17:24:47 11/28/1911/28/2023 Basic metab olic 2000 panel - Serum or Plasm a glucose [mass/volume ] in serum or plasma 252 text: 70 - 99 mg/dL high Not Available Not Available 09/20/2024 17:24:47 11/28/1911/28/2023 Basic metab olic 1999 panel - Serum or Plasm a urea nitrogen [mass/volume ] in serum or plasma 11 text: 7 - 18 mg/dL Not Available Not Available 09/20/2024 17:24:47 11/28/1911/28/2023 Basic metab olic 1999 panel - Serum or Plasm a creatinine [mass/volume ] in serum or plasma 0.9 text: 0.7 - 1.3 mg/dL Not Available Not Available 09/20/2024 17:24:47 11/28/1911/28/2023 Basic metab olic 1999 panel - Serum or Plasm a sodium [moles/volum e] in serum or plasma 145 text: 136 - 145 mmol/L Not Available Not Available 09/20/2024 17:24:47 11/28/19 24 11/28/2023 Basic metab olic 2000 panel - Serum or Plasm a potassium [moles/volum e] in serum or plasma 3.9 text: 3.5 - 5.1 mmol/L Not Available Not Available 09/20/2024 17:24:47 10/07/11/28/2023 Basic metab [facility] 1999 panel - Serum or Plasm a chloride [moles/volum e] in serum or plasma 109 text: 97 - 115 mmol/L Not Available Not Available 09/20/2024 17:24:47 11/28/1911/28/2023 [facility] 1999 panel - Serum or Plasm a carbon dioxide, total [moles/volum e] in serum or plasma 22.5 text: 21 - 32 mmol/L Not Available Not Available 09/20/2024 17:24:47 11/28/1911/28/2023 [facility] 1999 panel - Serum or Plasm a calcium [mass/volume ] in serum or plasma 9.6 text: 8.5 - 10.1 mg/dL Not Available Not Available 09/20/2024 17:24:47 11/28/1911/28/2023 [facility] 1999 panel - Serum or Plasm a anion gap in serum or plasma by calculation 13.5 text: 2 - 10 mmol/L high Not Available Not Available 09/20/2024 17:24:47 11/28/1911/28/2023 [facility] 1999 panel - Serum or Plasm a urea nitrogen/cre atinine [mass ratio] in serum or plasma 12.2 low: 6high: 26 Not Available Not Available 09/20/2024 17:24:47 11/28/1911/28/2023 [facility] 1999 panel - Serum or Plasm a glomerular filtration rate [volume rate/area] in serum, plasma or blood by creatinine-b ased formula (CKD-epi 2020)/1.73 sq M >90 text: >90 mL/min /1.73 M2 NOTE: eGFR is not calcu lated for patie nts <18 years of age or gende r unkno wn. This is an estim ated GFR calcu latio n using the new CKD EPI creat inine equat ion witho ut race and so does not requi re a corre ction facto r for race. This estim ated GFR shoul d not be used for calcu latin g drug doses . Not Available Not Available 09/20/2024 17:24:47 11/28/19 24 11/28/2023 [facility] 1999 panel - Serum or Plasm a interpretati on and review of laboratory results Abnorm al Not Available Not Available 17:24:47 11/28/19 24 11/28/2023 CBC W Auto Diffe renti al panel - Blood leukocytes [#/volume] in blood by automated count 8.25 text: 4.5 - 11.0 x10'3/ uL Not Available Not Available 09/20/2024 17:24:47 11/28/19 24 11/28/2023 CBC W Auto Diffe renti al panel - Blood erythrocytes [#/volume] in blood by automated count 4.64 text: 4.70 - 6.10 x10'6/ uL low Not Available Not Available 09/20/2024 17:24:47 11/28/19 24 11/28/2023 CBC W Auto Diffe renti al panel - Blood hemoglobin [mass/volume ] in blood 14.1 text: 14.0 - 18.0 g/dL Not Available Not Available 09/20/2024 17:24:47 11/28/19 24 11/28/2023 CBC W Auto Diffe renti al panel - Blood hematocrit [volume fraction] of blood by calculation 43.8 % low: 43%hig h: 54% Not Available Not Available 09/20/2024 17:24:47 11/28/1911/28/2023 CBC W Auto Diffe renti al panel - Blood MCV [entitic mean volume] in red blood cells 94.4 text: 80.0 - 94.0 fL high Not Available Not Available 09/20/2024 17:24:47 11/28/19 24 11/28/2023 CBC W Auto Diffe renti al panel - Blood MCH [entitic mass] 30.4 pg low: 27pghi gh: 31pg Not Available Not Available 09/20/2024 17:24:47 11/28/19 24 11/28/2023 CBC W Auto Diffe renti al panel - Blood MCHC [entitic mass/volume] in red blood cells 32.2 text: 32.0 - 36.0 g/dL Not Available Not Available 09/20/2024 17:24:47 11/28/19 24 11/28/2023 CBC W Auto Diffe renti al panel - Blood RDW 14.4 % low: 11.5%h igh: 14.5% Not Available Not Available 09/20/2024 17:24:47 11/28/19 24 11/28/2023 CBC W Auto Diffe renti al panel - Blood platelets [#/volume] in blood 320 text: 130 - 400 x10'3/ uL Not Available Not Available 09/20/2024 17:24:47 11/28/19 24 11/28/2023 CBC W Auto Diffe renti al panel - Blood platelet [entitic mean volume] in blood 9.5 text: 9.3 - 12.2 fL Not Available Not Available 09/20/2024 17:24:47 11/28/1911/28/2023 CBC W Auto Diffe renti al panel - Blood differential cell count method - blood AUTOMA TORRES DIFFER ENTIAL Not Available Not Available 17:24:47 11/28/1911/28/2023 CBC W Auto Diffe renti al panel - Blood neutrophils/ leukocytes in blood by automated count 73.4 % Not Available Not Available 08/23 17:24:47 11/28/19 24 11/28/2023 CBC W Auto Diffe renti al panel - Blood lymphocytes/ leukocytes in blood by automated count 16.7 % Not Available Not Available 08/23 17:24:47 11/28/1911/28/2023 CBC W Auto Diffe renti al panel - Blood monocytes/le ukocytes in blood by automated count 6.5 % Not Available Not Available 08/23 17:24:47 11/28/19 24 11/28/2023 CBC W Auto Diffe renti al panel - Blood eosinophils/ leukocytes in blood by automated count 1.6 % Not Available Not Available 08/23 17:24:47 11/28/19 24 11/28/2023 CBC W Auto Diffe renti al panel - Blood basophils/le ukocytes in blood by automated count 1.1 % Not Available Not Available 08/23 17:24:47 11/28/19 24 11/28/2023 CBC W Auto Diffe renti al panel - Blood immature granulocytes /leukocytes in blood by automated count 0.7 % Not Available Not Available 08/23 17:24:47 11/28/19 24 11/28/2023 CBC W Auto Diffe renti al panel - Blood neutrophils [#/volume] in blood 6.05 text: 1.80 - 7.70 x10'3/ uL Not Available Not Available 09/20/2024 17:24:47 11/28/19 24 11/28/2023 CBC W Auto Diffe renti al panel - Blood lymphocytes [#/volume] in blood 1.38 text: 1.00 - 4.80 x10'3/ uL Not Available Not Available 09/20/2024 17:24:47 11/28/19 24 11/28/2023 CBC W Auto Diffe renti al panel - Blood monocytes [#/volume] in blood 0.54 text: 0.30 - 0.82 x10'3/ uL Not Available Not Available 09/20/2024 17:24:47 11/28/19 24 11/28/2023 CBC W Auto Diffe renti al panel - Blood eosinophils [#/volume] in blood 0.13 text: 0.04 - 0.54 x10'3/ uL Not Available Not Available 09/20/2024 17:24:47 11/28/19 24 11/28/2023 CBC W Auto Diffe renti al panel - Blood basophils [#/volume] in blood 0.09 text: 0.01 - 0.08 x10'3/ uL high Not Available Not Available 09/20/2024 17:24:47 11/28/19 24 11/28/2023 CBC W Auto Diffe renti al panel - Blood immature granulocytes [#/volume] in blood 0.06 text: 0.00 - 0.49 x10'3/ uL Not Available Not Available 09/20/2024 17:24:47 11/28/19 24 11/28/2023 CBC W Auto Diffe renti al panel - Blood interpretati on and review of laboratory results Abnorm al Not Available Not Available 17:24:47 01/29/20 20 01/29/2020 XR, abdom en No observ ation record ed. [email or web address] Not Available 2019 19:11:52 11/28/19 24 ECG 12-le ad [facility] [place] [address] [facility] [place] [address], [place] Test Date: 2023-02 0-06 Pat Name: DEX Love ment: 41 [address] ID: [id number] Room: [id number] Gender : Male Techni devin: KH : 2000-02 0-05 Reques torres By: OKSANA Ng Order Number : [id number] Bebeto aguilar MD: Parveen Galicia Measur ements Interv als Wittmann Rate: 146 P: 65 VT: 121 QRS: [...] at -6-2 024 23:30: 38 CDT [email or web address] [facility] [address] [facility], [place], [address], 12/14/2023 15:12:37 12/02/19 24 XR, chest [facility] [place] [address] [facility] [place] [address] [facility] [address] [place] [id number] EXAMIN ATION: Chest X-Ray 1 View ACCESS ION: [id number] EXAM DATE/T ODALYS: 2023 5:50 PM REASON FOR EXAM: Cough. Patipancho t has Down syndro me. COMPAR MACY: [...] ==== 1. NO ACUTE CARDIO PULMON FRANKY FINDIN GS. Referr ed By: Franco campbell Signed By: Kyler chinchilla MD on 2023 6:29 PM Interp reted By: Kyler chinchilla MD, 2023 6:27 PM [email or web address], [place], [address], 12/14/2023 15:12:37 Result Notes Documentation Provider Name and Address Organization Details Recorded Time Xr, Chest : [facility] [place] [address] [address] EXAMINATION: Chest X-Ray 1 View EXAM DATE/TIME: [...] Kyler Wise MD, 12/02/2023 6:27 PM Ciera Serra MD Attn: Accounting,[address] [facility], [place], [address], [place] - [facility] 12/14/2023 15:12:38 Problems Name Problem SNOMED Code Status Onset Date Resolution Date Notes Provider Name and Address Organization Details Recorded Time Reflex sympathetic dystrophy of lower extremity Active 012 Nixon Rosario Attn: Jeremi aguilar,[address] 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 Patient : 2000. Patient . Karina Davis [facility] 12/15/2023 10:33:20 Consult Note : [place] [address] Patient Name: DEX HUMPHRIES Date of : 2000 Med Rec #: [id number] Date of Service: 11/26/2023 Disch Date: Alumni Relations Coordinator Consult Date of Admission: 11/26/23 Chief Complaint: DKA, agitation Consult ordered by: Rafael Kang DO Name: Dex Humphries Age: 23-year-old Sex: male History of Present Illness Dex Humphries is a(n) 23-year-old male with a [...] Past Medical History: Diagnosis Date Diabetes mellitus ([facility]) Down syndrome, unspecified ([facility]) History reviewed. No pertinent surgical history. Social [...] Physical Exam Filed Vitals: 11/26/23 1841 11/26/23 [id number]/26/23192411/26/232040 BP: (!) 138/99 110/66 Pulse: Resp: Temp: [...] No results for input(s): PH, PCO2, PO2, [id number], BICARBWB, BASEDEFICIT, BASEEXCESS in the last 168 hours. 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 [place] body weight (IBW) was used to determine target ordered volume for Crystalloid Fluid Administration. Last Recorded Weight 11/26/231914 Weight: 70.8 kg (156 lb) [place] body weight: 52.3 kg (115 lb 4.8 [...] 10:51 PM Cierra Villarreal MD Attn: Accounting,[address] [place], [address], [facility] 11/30/2023 09:18:30 Consult Note : [place] [address] Patient Name: DEX HUMPHRIES Date of : 2000 Med Rec #: [id number] Date of Service: 11/26/2023 Disch Date: Alumni Relations Coordinator Consult Date of Admission: 11/26/23 Chief Complaint: DKA, agitation Consult ordered by: Rafael Kang DO Name: Dex Humphries Age: 23-year-old Sex: male History of Present Illness Dex Humphries is a(n) 23-year-old male with a [...] Diabetes mellitus (CMS/HCC HHS/HCC) Down syndrome, unspecified ([facility]/HCC) History reviewed. No pertinent surgical history. Social [...] vomiting. Physical Exam Filed Vitals: 11/26/23 1841 11/26/23191411/26/23192411/26/232040 BP: (!) 138/99 110/66 Pulse: Resp: Temp: [...] No results for input(s): PH, PCO2, PO2, [id number], BICARBWB, BASEDEFICIT, BASEEXCESS in the last 168 hours. 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 [place] body weight (IBW) was used to determine target ordered volume for Crystalloid Fluid Administration. Last Recorded Weight 11/26/231914 Weight: 70.8 kg (156 lb) [place] body weight: 52.3 kg (115 lb 4.8 [...] Payan DO 11/26/23 10:14 PM Signed by: LCEVE PAYAN 11/26/2023 10:57 PM Cierra Villarreal MD Attn: Accounting,[address] , [place], [address], [place] [facility] 11/30/2023 09:18:44 Consult Note : [facility] [place] [address] Patient Name: DEX HUMPHRIES Date of : 2000 Med Rec #: [id number] Date of Service: 11/26/2023 Disch Date: Alumni Relations Coordinator Consult Date of Admission: 11/26/23 Chief Complaint: DKA, agitation Consult ordered by: Rafael Kang DO Name: Dex Humphries Age: 23-year-old Sex: male History of Present Illness Dex Humphries is a(n) 23-year-old male with a [...] Past Medical History: Diagnosis Date Diabetes mellitus ([facility]/HCC HHS/HCC) Down syndrome, unspecified (HHS/HCC) History reviewed. [...] vomiting. Physical Exam Filed Vitals: 11/26/23 1841 11/26/23191411/26/23192411/26/232040 BP: (!) 138/99 110/66 Pulse: Resp: Temp: [...] No results for input(s): PH, PCO2, PO2, [id number], BICARBWB, BASEDEFICIT, BASEEXCESS in the last 168 hours. 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 [place] body weight (IBW) was used to determine target ordered volume for Crystalloid Fluid Administration. Last Recorded Weight 11/26/231914 Weight: 70.8 kg (156 lb) [place] body weight: 52.3 kg (115 lb 4.8 [...] 11/26/2023 11:13 PM Cierra Villarreal MD Attn: Accounting,[address] [facility], [place], [address], [facility] 11/30/2023 09:18:50 Medical Equipment None Reported. Allergies Allergen ID Allergen Name Allergen Category Reaction Reaction Severity Criticality Documentation Date Start Date Code Code System Note Provider Name and Address Organization Details Recorded Time 005880 latex environme nt,medica tion Not available Not available Not available 01/20/20182014 06990 91 RxNorm Other react ions and sever ities : 'Skin React ions' . Nixon Rosario Attn: Jeremi aguilar,[address] [facility], [place], [address], [facility] 0 11:50:51 30413 Substance with sulfonami de structure and antibacte rial mechanism of action (substanc e) medicatio n rash Not available Not available 09/27/2016 89275 8003 SNOMED Avani Goldstein, [place] null, [place] [facility] 7 14:56:07 Medications Name Sig Start Date Stop Date Status Note LastModified by Organization Details LastModified Time propylthiourac il 50 mg tablet TAKE 2 TABLETS BY MOUTH EVERY 8 HOURS active Not Available Not Available No t Available Glucagon Emergency Kit 1 mg solution for injection active Not Available Not Availabl e Not Available Lantus U-100 Insulin 100 unit/mL subcutaneous solution INJECT 14 UNITS UNDER THE SKIN EVERY MORNING. DISCARD AFTER 28 DAYS. active Not Available Not Available No t Available propranolol 10 mg tablet TAKE 1 TABLET BY MOUTH EVERY 12 HOURS. HOLD IF SYSTOLIC BLOOD PRESSURE IS LESS THAN 100 OR HEART RATE IS LESS THAN 50 active Not Available Not Available No t Available insulin lispro (U-100) 100 unit/mL subcutaneous solution INJECT UNDER THE SKIN PER SLIDING SCALE FOUR TIMES DAILY. MAX DAILY DOSE OF 35 UNITS active Not Available Not Available No t Available methimazole 10 mg tablet TAKE 1 TABLET BY MOUTH DAILY active Not Available Not Available No t Available Ketostix strips active Not Available Not Available Not Available Lantus Solostar U-100 Insulin 100 unit/mL (3 mL) subcutaneous pen INJECT 20 UNITS UNDER THE SKIN EVERY EVENING active Not Available Not Available No t Available Precision Xtra B-Ketone strips IF BLOOD SUGAR ABOVE 300 active Not Available Not Available No t Available Accu-Chek FastClix Lancing Device active Not Available Not Availab le Not Available TRUEplus Insulin 0.3 mL 31 gauge x 5/16 syringe USE SIX TIMES EVERY DAY. active Not Available Not Available No t [...] Available OneTouch Delica Plus Lancet 33 gauge USE TO TEST FIVE TIMES DAILY. active Not Available Not Available No t Available Gvoke HypoPen 2-Pack 1 mg/0.2 mL subcutaneous auto-injector active Not Available Not Availabl e Not Available Contour Plus Test Strip USE FOUR TIMES DAILY DIRECTED TO TEST BLOOD SUGAR active Not Available Not Available No t Available Contour Plus Blue Meter USE TO MONITOR BLOOD SUGAR SIX TIMES DAILY active Not Available Not Available No t Available Vitals Date Recorded Body temperature Body height Body mass index (BMI) Body weight Heart rate Oxygen saturation Oxygen saturation in Arterial blood by Pulse oximetry Systolic And Diastolic Provider Name and Address Organization Details Last Updated DateTime 4 97.8 [degF] 149.86 cm 34.8 kg/m2 95511.2 4 g 108 /min 98 % 98 % 125/87 mm[Hg] Kristin Good MA [facility] 4 14:51:22 Date Recorded Body height Body mass index (BMI) Body weight Oxygen saturation Oxygen saturation in Arterial blood by Pulse oximetry Body temperature Heart rate Systolic And Diastolic Provider Name and Address Organization Details Last Updated DateTime 5 149.86 cm 25.7 kg/m2 92446.2 3 g 96 % 96 % 97.8 [degF] 66 /min 102/57 mm[Hg] Kristin Good [facility] 5 09:38:50 Social History Question Answer Notes LastModified by [employer] Details LastModified Time Tobacco Smoking Status Never Smoker Edna humphreys [facility] 10/16/2018 16:54:05 What Was The Date Of Your Most Recent Tobacco Screening? 10/02/2024 [email or web address] Information not available 10/02/2024 Sex: Unknown Functional Status Question Answer Note LastModified by [employer] Details LastModified Time Do you or have you ever used smokeless tobacco? Never used smokeless tobacco [email or web address] Information not available 08/13/2019 Do you or have you ever used e-cigarettes or vape? Never used electronic cigarettes [facility] Information not available 08/13/2019 Mental Status None recorded. Family History Nothing Reported. Medical History No medical history recorded. Immunizations Vaccine Type Date Status Note Provider Nam e and Address Organization Details Recorded Time Influenza, split virus, quadrivalent, PF 6 completed Cierra Villarreal MD Attn: Accounting,[address] [place], [address], [place] [facility] 12/06/2019 11:50:57 Influenza, split virus, quadrivalent, PF 4 completed Cierra Villarreal MD Attn: Accounting,[address] [place], [address], [place] [facility] 12/06/2019 11:50:57 COVID-19, mRNA, LNP-S, PF, 30 mcg/0.3 mL dose 1 completed Tana Hand[place], [place] [facility] 12/18/2020 12:59:38 COVID-19, mRNA, LNP-S, PF, 30 mcg/0.3 mL dose 1 completed [place] [facility] 12/18/2020 12:59:43 Influenza, split virus, quadrivalent, PF 6 completed Not Available [facility] 10/02/2024 09:26:57 Influenza, split virus, quadrivalent, PF 7 completed Not Available [facility] 10/02/2024 09:26:57 Influenza, split virus, quadrivalent, PF 0 completed Not Available [facility] 10/02/2024 09:26:57 COVID-19, mRNA, LNP-S, PF, 30 mcg/0.3 mL dose 1 completed Not Available [facility] 10/02/2024 09:26:57 Influenza, split virus, quadrivalent, PF 1 completed Not Available [facility] 10/02/2024 09:26:57 Influenza, split virus, quadrivalent, PF 2 completed Not Available [facility] 10/02/2024 09:26:57 COVID-19, mRNA, LNP-S, bivalent, PF, 30 mcg/0.3 mL dose 3 completed Not Available [facility] 10/02/2024 09:26:57 Influenza, MDCK, quadrivalent, PF 3 completed Not Available [facility] 10/02/2024 09:26:57 COVID-19, mRNA, LNP-S, PF, ayla-sucrose, 30 mcg/0.3 mL 3 completed Not Available [facility] 10/02/2024 09:26:57 Influenza, split virus, trivalent, PF 4 completed Not Available [facility] 10/02/2024 09:26:57 COVID-19, mRNA, LNP-S, PF, ayla-sucrose, 30 mcg/0.3 mL 4 completed Not Available [facility] 10/02/2024 09:26:57 Influenza, split virus, quadrivalent, PF 8 completed Not Available [facility] 03/10/2019 02:49:14 meningococcal MCV4P 9 completed Not Available [facility] 03/10/2019 02:43:38 DTaP-IPV 3 completed Cierra Villarreal MD Attn: Accounting,[address] [place], [address], [place] [facility] 12/06/2019 11:53:42 AJfH-Xzw-OAR 3 completed Cierra Villarreal MD Attn: Accounting,[address] [place], [address], [place] [facility] 12/06/2019 11:53:43 VGuO-Vio-PET 3 completed Cierra Villarreal MD Attn: Accounting,[address] [place], [address], [place] [facility] 12/06/2019 11:53:42 DTP-Hib 4 completed Cierra Villarreal MD Attn: Accounting,[address] [place], [address], [place] [facility] 12/06/2019 11:53:42 DTaP-IPV 6 completed Cierra Villarreal MD Attn: Accounting,[address], [place], [address], [place] [facility] 12/06/2019 11:53:42 Tdap 4 completed Cierra Villarreal MD Attn: Accounting,[address], [place], [address], [place] [facility] 12/06/2019 11:53:43 Hep B, adolescent or pediatric 2 completed Cierra Villarreal MD Attn: Accounting,[address], [place], [address], [place] [facility] 12/06/2019 11:53:43 Hep B, adolescent or pediatric 3 completed Cierra Villarreal MD Attn: Accounting,[address] [facility], [place], [address], [place] [facility] 12/06/2019 11:53:42 Hep B, adolescent or pediatric 3 completed Cierra Villarreal MD Attn: Accounting,[address] [facility], [place], [address], [place] [facility] 12/06/2019 11:53:43 MMR 4 completed Cierra Villarreal MD Attn: Accounting,[address] [facility], [place], [address], [place] [facility] 12/06/2019 11:53:42 MMR 6 completed Cierra Villarreal MD Attn: Accounting,[address], [place], [address], [place] [facility] 12/06/2019 11:53:42 varicella 4 completed Cierra Villarreal MD Attn: Accounting,[address] [facility], [place], [address], [place] [facility] 12/06/2019 11:53:42 varicella 8 completed Cierra Villarreal MD Attn: Accounting,[address] [facility], [place], [place], [address] [place] [address], [place] [facility] 12/06/2019 11:53:43 meningococcal MCV4P 4 completed Cierra Villarreal MD Attn: Accounting,[address] [facility], [place], [place], [address] [place] [address], [place] [facility] 12/06/2019 11:53:42 Hep A, unspecified formulation 1 completed Cierra Villarreal MD Attn: Accounting,[address] [facility], [place], [place], [address] [place] [address], [place] [facility] 12/06/2019 11:53:42 Hep A, unspecified formulation 4 completed Cierra Villarreal MD Attn: Accounting,[address] [facility], [place], [place], [address] [place] [address], [place] [facility] 12/06/2019 11:53:42 influenza, unspecified formulation 4 completed Cierra Villarreal MD Attn: Accounting,[address] [facility], [place], [place], [address] [place] [address], [place] [facility] 12/06/2019 11:53:42 influenza, unspecified formulation 5 completed Cierra Villarreal MD Attn: Accounting,[address] [facility], [place], [place], [address] [place] [address], [place] [facility] 12/06/2019 11:53:43 influenza, unspecified formulation 8 completed Cierra Villarreal MD Attn: Accounting,[address] [facility], [place], [place], [address] [place] [address], [place] [facility] 12/06/2019 11:53:43 influenza, unspecified formulation 9 completed Cierra Villarreal MD Attn: Accounting,[address] [facility], [place], [place], [address] [place] [address], [place] [facility] 12/06/2019 11:53:42 influenza, unspecified formulation 1 completed Cierra Villarreal MD Attn: Accounting,[address] [facility], [place], [place], [address] [place] [address], [place] [facility] 12/06/2019 11:53:43 influenza, unspecified formulation 3 completed Cierra Villarreal MD Attn: Accounting,[address], [place], [address], [facility] 12/06/2019 11:50:57 Past Encounters Encounter ID Performer Location Encounter Start Date Encounter Closed Date Diagnosis/Indication Diagnosis SNOMED-CT Code Diagnosis ICD10 Code Diagnosis IMO Codes Diagnosis Note [id number] Tracy cline MD [facility] ([address]) [address] [place] [address] 09/27/2016 14:42:02 09/28/2016 13:30:51 History and physical examination, sports participation 787811639 Z02.5 - History of Downs Syndrome. Mom denies cardiac defects but pt sees cardiologi st regularly- Mom denies hearing defects, visual acuity defects- Discussed weight and importance of eating healthy as a family despite pt being predispose d to obesity- Discussed risk of thyroid disorder but mom denies symptoms at this time- Will require modificati on of sports in school which he [id number] Cierra Villarreal MD [place] [address] [address] 12/13/2017 10:37:54 12/15/2017 10:49:42 Active or passive immunization 255600493 Z23 [id number] Cierra Villarreal MD [place] [address] [facility] [address] [place] [address] 01/20/2018 16:23:14 01/30/2018 10:18:03 Well child 608390174 Z00.129 Discussed diet, exercise and puberty. 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 He is due for his blood work with endocrin and will follow up in a few months if nothing comes of the endocrin work up . [id number] [facility] [address] [address] 09/24/2019 12:37:32 09/25/2019 13:38:12 Loss of hair 237854895 L65.9 resolved- blood work normal likely related to stress. Encouraged healthy hair care. 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 Autistic disorder 446919 003 F84.0 overall stable with lots of family support. He is unable to perform self care [id number] ROSARIO CARRILLO MD [address] [address] 09/06/2023 14:36:34 09/08/2023 12:12:11 Autism spectrum disorder 45574239 F84.0 - Pts mother wanted the pt to have state ID- Filled in the form: Applicatio n for an [place] Person with a disability indentific ation card.- His mother had no concerns in the officePlan :- apt PRN [id number] [facility] [address] [place] [address] 10/02/2024 09:26:12 10/16/2024 13:22:18 Physical examination 1691175 Z00.00 [id number] Mother of pt had DHS PE form for him- Filled PE form- no acute concerns today Health Concerns Section Related Observation LastModified by Organization Detai ls LastModified Time None Recorded Concern Status LastModified by Organization Details LastModified Time None Recorded Advance Directives Directive None Recorded Payers Insurance Date Sequence Insurance Name Policy Number Policy Lane Covered Member ID Lane Member ID Guarantor Name 10/02/2024 1 [facility] - DOS PRIOR TO 2020 (MEDICAID REPLACEMENT - HMO) Dex Humphries [id number] Bernice Humphries 11/05/2024 1 [facility] (MEDICAID HMO) [id number] Dex Humphries [id number] Bernice Humphries 10/02/2024 1 [facility] (MEDICAID HMO) Dex Humphries [id number] Bernice Humphries Notes Date Note Type Note Provider Name and Address Organization Details Recorded Time 08/13/2019 text/html Generic HPI TemplateReported by PatientOver the last few months has had increasing thinning of hair- with 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 Cierra Villarreal MD Attn: Accounting[address] [place], [address], [facility] 08/19/2019 22:17:57 09/24/2019 text/html Generic HPI TemplateReported by PatientHair has improved thickness and was seen by endocrine and blood work was normal. Cierra Villarreal MD Attn: Accounting,[address] [place], [address], [facility] 09/24/2019 15:51:59 12/06/2019 text/html Generic HPI TemplateReported by PatientOverall doing well. He has T1DM and follows with endocrine. Mother reports he is very picky eater and has difficulty communicating. Cierra Villarreal MD Attn: Accounting,[address] [facility], [place], [address], [facility] 12/09/2019 11:49:53 09/06/2023 text/html 22 yr old adult with ASD here with parents. Parents brought in application for [place] person with disability identification card form filled in. Mother states she has no concerns today. MARIBEL HO MD Attn: Accounting,[address] [facility], [place], [address], [facility] 09/08/2023 10:27:06 10/02/2024 text/html ROS as noted in the HPI 23 yr old brought in my mother to have DHS physical form filled. No acute concerns today Adalberto Nicole MD Attn: Accounting,[address] [facility], [place], [address], [facility] 10/15/2024 12:00:55
--- OUTSIDE RECORDS SUMMARY | 2024-12-06 17:25 | XMS_ITS | Encounter Summary ---
Author Organization [facility] Address [address] [facility] [address] [facility] [place] [address] Care Team Providers Care Wearing Apparel Shaker Name Role Phone Cierra Villarreal MD Primary Care Provider Encounter Details Date Type Department Care Team (Late st Contact Info) Description 11/13/2018 Telephone [facility] Pediatrics - Diabetes [address] [address] Alber Fiore APRN-[facility] [place] [address] Social History Tobacco Use Types Packs/Day Years Used Date Smoking Tobacco: Never Smokeless Tobacco: Never Alcohol Use Standard Drinks/Week Comments No 0 (1 standard drink = 0.6 oz pur e alcohol) Sex and Gender Information Value Date Recorded Sex Assigned at Not on file 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
--- OUTSIDE RECORDS SUMMARY | 2024-12-06 17:25 | XMS_ITS | Encounter Summary ---
Author Organization [facility] Address [address] [facility] [place] [address] Care Team Providers Care Direct Support Specialist Name Role Phone Marilu Westfall MD Primary Care Provider [phone] Cierra Villarreal MD Primary Care Provider [phone] Encounter Details Date Type Department Care Team (Late st Contact Info) Description 10/05/2017 Telephone 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
--- OUTSIDE RECORDS SUMMARY | 2024-12-06 17:25 | XMS_ITS | Encounter Summary ---
Author Organization [facility] Address [address] [place] [address] Care Team Providers Care Roll Shop Supervisor Name Role Phone Cierra Villarreal MD Primary Care Provider Reason for Visit * Reason Comments Refill Request Encounter Details Date Type Department Care Team (Late st Contact Info) Description 05/05/2019 Refill [facility] Pediatrics - Diabetes [address] [address] Denia Greenberg MD Refill Request Social History Tobacco Use Types Packs/Day Years Used Date Smoking Tobacco: Never Smokeless Tobacco: Never Alcohol Use Standard Drinks/Week Comments No 0 (1 standard drink = 0.6 oz pur e alcohol) Sex and Gender Information Value Date Recorded Sex Assigned at Not on file 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
--- OUTSIDE RECORDS SUMMARY | 2024-12-06 17:25 | XMS_ITS | Encounter Summary ---
Author Organization [facility] Address [address] [facility] [place] [address] Care Team Providers Care Die Press Operator Name Role Phone Cierra Villarreal MD Primary Care Provider [phone] Marilu Westfall MD Primary Care Provider [phone] Cierra Villarreal MD Primary Care Provider [phone] Reason for Visit * Reason Onset Date Comments Letter 10/18/2014 Please send an u pdated letter with the new lunch carb ratio of 1 per [address] [facility] [phone] Encounter Details Date Type Department Care Team (Late st Contact Info) Description 10/18/2014 Telephone [facility] Pediatrics - Diabetes [address] [address] Denia Greenberg MD Letter (Please send an updated letter with the new lunch carb ratio of 1 per [address] 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
--- OUTSIDE RECORDS SUMMARY | 2024-12-06 17:25 | XMS_ITS | Encounter Summary ---
Author Organization [facility] Address [address] [facility] [place] [address] Care Team Providers Care Green Building Materials Designer Name Role Phone Cierra Villarreal MD Primary Care Provider [phone] Marilu Westfall MD Primary Care Provider [phone] Cierra Villarreal MD Primary Care Provider [phone] Reason for Visit * Reason Onset Date Comments Refill Request 05/09/2017 insulin syringes , [facility] Encounter Details Date Type Department Care Team (Late st Contact Info) Description 05/09/2017 Telephone [facility] Pediatrics - Endocrinology [address] [place] [address] Denia Greenberg MD Refill Request (insulin syringes, [facility]) Social History Tobacco Use Types Packs/Day Years Used Date Smoking Tobacco: Never Smokeless Tobacco: Never Alcohol Use Standard Drinks/Week Comments No 0 (1 standard drink = 0.6 oz pur e alcohol) Sex and Gender Information Value Date Recorded Sex Assigned at Not on file 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
--- OUTSIDE RECORDS SUMMARY | 2024-12-06 17:25 | XMS_ITS | Encounter Summary ---
Author Organization [facility] Address [address] [facility] [place] [address] Care Team Providers Care Powdered Sugar Pulverizer Operator Name Role Phone Cierra Villarreal MD Primary Care Provider [phone] Marilu Westfall MD Primary Care Provider [phone] Cierra Villarreal MD Primary Care Provider [phone] Encounter Details Date Type Department Care Team (Late st Contact Info) Description 01/10/2017 Telephone [facility] - Diabetes [address] [address] Denia Greenberg MD Social History Tobacco Use Types Packs/Day Years Used Date Smoking Tobacco: Never Smokeless Tobacco: Never Alcohol Use Standard Drinks/Week Comments No 0 (1 standard drink = 0.6 oz pur e alcohol) Sex and Gender Information Value Date Recorded Sex Assigned at Not on file 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 Answer Date of Assessment Author No 02/03/2015 9:09 AM FURNACE COMBINATION ANALYST Betzaida Zuniga RN * Is person blind [...] on filedocumented in this encounter Care Teams Powdered Sugar Pulverizer Operator Relationship Specialty Start Date End Date Cierra Villarreal MD [address] [place] [phone] PCP - General Family Medicine 11/27/13 05/31/17 Marilu Westfall MD [address] [place] [address] PCP - General 06/01/17 06/12/18 Cierra Villarreal MD [address] [place] [phone] PCP - General Family Medicine 06/13/18 documented as of this encounter
--- OUTSIDE RECORDS SUMMARY | 2024-12-06 17:25 | XMS_ITS | Encounter Summary ---
Author Organization [facility] Address [address] [facility] [place] [address] Care Team Providers Care Underwater Trapper Name Role Phone Cierra Villarreal MD Primary Care Provider [phone] Reason for Visit * Reason Onset Date Comments MEDICATION REFILL 04/06/2021 Encounter Details Date Type Department Care Team (Late st Contact Info) Description 04/06/2021 Refill [facility] Pediatrics - Diabetes [facility] [address] [place] [address] Jelena Pack, ONCOLOGY PHARMACIST-NAPHTHALENE STILL OPERATOR [address] [place] [address] MEDICATION REFILL Social History Tobacco Use Types [...] on file 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 SERVICE ESTABLISHMENT ATTENDANT Gender Identity Not on file Sexual Orientation [...] uncontrolled documented in this encounter Care Teams Underwater Trapper Relationship Specialty Start Date End Date Cierra Villarreal MD [address] [place] [phone] PCP - General Family Medicine 06/13/18 documented as of this encounter
--- OUTSIDE RECORDS SUMMARY | 2024-12-06 17:25 | XMS_ITS | Encounter Summary ---
Author Organization [facility] Address [address] 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 No 11/02/2022 10:50 AM Jordyn Matthew RN Is person blind or have seri ous difficulty seeing? No 11/02/2022 10:50 AM Jordyn Matthew RN Does person have serious difficulty walking/climbing stairs? No 11/02/2022 10:50 AM Jordyn Matthew RN Does person have difficulty dressing/bathing? Yes 11/02/2022 10:50 AM Jordyn Matthew RN Does person have difficulty doing errands alone? Yes 11/02/2022 10:50 AM Jordyn Matthew RN Does person have difficulty concentrating/remembering/making decisions? Yes 11/02/2022 10:50 AM Jordyn Matthew RN * Question Answer Date of Assessment Author Q1: How often do you have a drink containing alcohol? Never 11/02/2022 7:51 AM Belen Etienne RN * Is person deaf or have [...] uncontrolled documented in this encounter Care Teams Jewelry Casting Model Maker Apprentice Relationship Specialty Start Date End Date Cierra Villarreal MD [address] [place], [place] [phone] PCP - General Family Medicine 06/13/18 documented as of this encounter
--- OUTSIDE RECORDS SUMMARY | 2024-12-06 17:25 | XMS_ITS | Encounter Summary ---
Author Organization [facility] Address [address] [facility] [place] [address] Care Team Providers Care Manager Contracting Name Role Phone Cierra Villarreal MD Primary Care Provider [phone] Reason for Visit * Reason Comments Refill Request Encounter Details Date Type Department Care Team (Late st Contact Info) Description 08/20/2020 Refill [facility] Pediatrics - Diabetes [address] [address] Alber Fiore APRN-TECHNICAL PROJECT MANAGER [address] [place] [address] Refill Request Social History Tobacco Use Types Packs/Day Years Used Date Smoking Tobacco: Never Smokeless Tobacco: Never Alcohol Use Standard Drinks/Week Comments No 0 (1 standard drink = 0.6 oz pur e alcohol) Sex and Gender Information Value Date Recorded Sex Assigned at Not on file 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 DIRECTOR OF CARDIAC REHABILITATION Gender Identity Not on file Sexual Orientation [...] filedocumented in this encounter Care Teams Manager Contracting Relationship Specialty Start Date End Date Cierra Villarreal MD [address] [place] [phone] PCP - General Family Medicine 06/13/18 documented as of this encounter
--- OUTSIDE RECORDS SUMMARY | 2024-12-06 17:25 | XMS_ITS | Encounter Summary ---
Author Organization [facility] Address [address] [facility] [place] [address] Care Team Providers Care Box Sorter Name Role Phone Cierra Villarreal MD Primary Care Provider Reason for Visit * Reason Onset Date Comments Refill Request 06/25/2019 New prescription for syringes, Dex is using syringes for basaglar and admelog- 6 syringes a day, Only getting 1 box of 100 from pharmacy Encounter Details Date Type Department Care Team (Late st Contact Info) Description 06/25/2019 Telephone [facility] Pediatrics - Endocrinology [address] [place] [address] Ayaka Agarwal Refill Request (New prescription [...] on file 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
--- OUTSIDE RECORDS SUMMARY | 2024-12-06 17:25 | XMS_ITS | Encounter Summary ---
Author Organization [facility] Address [address] [facility] [place] [address] Care Team Providers Care Drapery Installer Name Role Phone Cierra Villarreal MD Primary Care Provider [phone] Marilu Westfall MD Primary Care Provider [phone] Cierra Villarreal MD Primary Care Provider [phone] Reason for Visit * Reason Onset Date Comments Refill Request 04/23/2014 [facility] on [facility]. [facility] [address] in [place]. Please change directions to test 12 times a day (not 10-12) Encounter Details Date Type Department Care Team (Late st Contact Info) Description 04/23/2014 Telephone [facility] Pediatrics - Diabetes [address] [address] Denia Greenberg MD Refill Request (Please fax rx for test strips to local [facility] as mail order will not arrive on time. [facility] [address] in [place]. Please change directions to test 12 times a day (not 10-12)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 HOSIERY BAGGER Gender Identity Not on file Sexual Orientation [...] documented as of this encounter Care Teams Drapery Installer Relationship Specialty Start Date End Date Cierra Villarreal MD [address] [place] [phone] PCP - General Family Medicine 11/27/13 05/31/17 Marilu Westfall MD [address] [place] [address] PCP - General 06/01/17 06/12/18 Cierra Villarreal MD [address] [place] [phone] PCP - General Family Medicine 06/13/18 documented as of this encounter
--- OUTSIDE RECORDS SUMMARY | 2024-12-06 17:25 | XMS_ITS | Encounter Summary ---
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 No / Unsure 02/19/2021 3:26 PM FARMWORKER [employer] documented as of this encounter Functional Status [...] on filedocumented in this encounter Care Teams Hotel Office Manager Relationship Specialty Start Date End Date Cierra Villarreal MD [address] [place] [phone] PCP - General Family Medicine 06/13/18 documented as of this encounter
--- OUTSIDE RECORDS SUMMARY | 2024-12-06 17:25 | XMS_ITS | Encounter Summary ---
Author Organization [facility] Address [address] [facility] [place] [address] Care Team Providers Care Final Inspector Name Role Phone Cierra Villarreal MD Primary Care Provider [phone] Reason for Visit * Reason Onset Date Comments MEDICATION REFILL 11/24/2020 Encounter Details Date Type Department Care Team (Late st Contact Info) Description 11/24/2020 Refill [facility] Pediatrics - Diabetes [address] [address] Denia Greenberg MD MEDICATION REFILL Social History Tobacco Use Types Packs/Day Years Used Date Smoking Tobacco: Never Smokeless Tobacco: Never Alcohol Use Standard Drinks/Week Comments No 0 (1 standard drink = 0.6 oz pur e alcohol) Sex and Gender Information Value Date Recorded Sex Assigned at Not on file 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
--- OUTSIDE RECORDS SUMMARY | 2024-12-06 17:25 | XMS_ITS | Encounter Summary ---
Author Organization [facility] Address [address] [facility] [place] [address] Care Team Providers Care Assistant Cook Name Role Phone Chrissy Richards MD Primary Care Provider [phone] Cierra Villarreal MD Primary Care Provider [phone] Marilu Westfall MD Primary Care Provider [phone] Cierra Villarreal MD Primary Care Provider [phone] Reason for Visit * Reason Onset Date Comments Refill Request 09/03/2013 Mom called, need s refill for syringes sent to [facility] [place]. Encounter Details Date Type Department Care Team (Late st Contact Info) Description 09/03/2013 Telephone [facility] Pediatrics - Diabetes [address] [address] Denia Greenberg MD Refill Request (Mom called, needs refill for syringes sent to [facility] in [place]. 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 PESTICIDE APPLICATOR Gender Identity Not on file Sexual Orientation Not on file documented as of this encounter Plan of Treatment Not on file documented as of this encounter Visit Diagnoses Not on filedocumented in this encounter Additional Health Concerns Infection Onset Date Last Indicated Resolved Time MRSA 01/28/2015 01/28/2015 10/22/2015 12:0 6 PM CDT documented as of this encounter Care Teams Assistant Cook Relationship Specialty Start Date End Date Chrissy Richards MD [address] [place] [phone] PCP - General 07/02/11 11/26/13 Cierra Villarreal MD [address] [place] [phone] PCP - General Family Medicine 11/27/13 05/31/17 Marilu Westfall MD [address] [place] [address] PCP - General 06/01/17 06/12/18 Cierra Villarreal MD [address] [place] [phone] PCP - General Family Medicine 06/13/18 documented as of this encounter
--- OUTSIDE RECORDS SUMMARY | 2024-12-06 17:25 | XMS_ITS | Encounter Summary ---
Author Organization [facility] Address [address] [facility] [address] Care Team Providers Care Securities And Real Estate Director Name Role Phone Marilu Westfall MD Primary Care Provider [phone] Cierra Villarreal MD Primary Care Provider Reason for Visit * Reason Onset Date Comments Blood Glucose (Sugar) Review 09/09/2017 Ple ase call mom to review blood sugars. She has noticed blood sugars around 2pm are in the 200-300 range lately. Encounter Details Date Type Department Care Team (Late st Contact Info) Description 09/09/2017 Telephone 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
--- OUTSIDE RECORDS SUMMARY | 2024-12-06 17:25 | XMS_ITS | Encounter Summary ---
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 Answer Date of Assessment Author No 02/09/2021 9:37 AM MORTGAGE PROTECTION SPECIALIST Guero Olguin RN * Is person blind [...] for Precision Xtra Ketone strips sent to [place] [facility] * Telephone Encounter - Cristi Tang - 10/08/2022 4:36 PM CDT School Letter faxed to [phone] documented in this encounter Plan of Treatment Not on file documented as of this encounter Visit Diagnoses Not on filedocumented in this encounter Care Teams Cable Tester Relationship Specialty Start Date End Date Cierra Villarreal MD [address] [place] [phone] PCP - General Family Medicine 06/13/18 documented as of this encounter
--- OUTSIDE RECORDS SUMMARY | 2024-12-06 17:25 | XMS_ITS | Clinical Summary ---
Author Organization [facility] Address [address] [facility] [place] [address] Care Team Providers Care Senior Cisco Network Engineer Name Role Phone Cierra Villarreal MD Primary Care Provider Source Comments [facility],non-owned Affiliates and Associated Physician Practices is amultiple site organization consisting of ambulatory clinics and hospital sitesin [place], [place], [place] and [place]. This disclosure is being madepursuant to the Care Everywhere program and may not contain all information available regarding this patient. 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 Gender Identity Not on file Sexual Orientation [...] - POCT INTERFACED (05/25/2022 11:02 AM CDT) [facility] Hemoglobin A1C POCT 7.1(H) <5.7 % 05/25/2022 11:14 AM CDT [facility] Estimated Average Glucose 157 mg/dL 05/25/2022 11:14 AM T [facility] Blood BLOOD SPECIMEN / Unknown 05/25/2022 11:02 AM CDT 05/25/2022 11:14 AM CDT Narrative [facility] - 05/25/2022 11:14 AM CDT [...] CARE ORDERABLES Final Result Performing Organization Address [facility] de Phone Number [facility] [address] [place] [id number] * MICROALB/CREAT RATIO URINE RANDOM PANEL (10/03/2018 7:43 AM CDT) Creatinine Urine 86.79 mg/dL 10/04/19 19 8:16 AM T [facility] Microalbumin Urine <0.5 <1.7 mg/dL 10/03/2018 8:16 AM T [facility] Microalbumin/Crea tinine Ratio <6 <30 mg/g 10/03/2018 8:16 AM T [facility] Urine URINE SPECIMEN OBTAINED BY CLEAN CATCH PROCEDURE / Unknown Collection / Unknown 10/03/2018 7:43 AM CDT 10/03/2018 7:55 AM CDT Alber Fiore APRN-[facility] - URINE CHEMISTRY O RDERABLES Final Result Performing Organization Address [facility] de Phone Number [facility] [address] [place] [address] * BASIC METABOLIC PANEL (CALCIUM TOTAL) (10/17/2017 12:37 PM CDT) Glucose 79 70 - 105 mg/dL 10/17/2017 2:01 PM CDT [facility] Sodium 138 136 - 145 mmol/L 10/17/2017 2:01 PM CDT [facility] Potassium 4.3 3.5 - 5.1 mmol/L 10/17/2017 2:01 PM T [facility] Chloride 107 98 - 107 mmol/L 10/17/2017 2:01 PM CDT [facility] CO2 23 20 - 28 mmol/L 10/17/2017 2:01 PM CDT [facility] Calcium 9.42 9.08 - 10.48 mg/dL 10/17/2017 2:01 PM T [facility] Anion Gap 8 5 - 20 mmol/L 10/17/2017 2:01 PM CDT [facility] BUN 17.1 5.3 - 18.7 mg/dL 10/17/2017 2:01 PM T [facility] Creatinine 0.93 0.61 - 1.07 mg/dL 10/17/2017 2:01 PM T [facility] eGFR by MDRD mL/min/1.7 3m2 10/17/2017 2:01 PM [facility] Comment: eGFR calculations are not performed for children under 18 years old. eGFR by MDRD mL/min/1.7 3m2 10/17/2017 2:01 PM T [facility] Comment: eGFR calculations are not performed for children under 18 years old. Blood BLOOD SPECIMEN / Unknown Venipuncture / Unknown 10/17/2017 12:37 PM CDT 10/17/2017 1:24 PM CDT Denia Greenberg MD LAB - CHEMISTRY ORDERABLES Shannan lebron Result [facility] [address] [place] [address] from Last 3 Months or Most Recently Relevant to Health Maintenance Insurance [facility] [employer] [facility] Care Teams Senior Cisco Network Engineer Relationship Specialty Start Date End Date Cierra Villarreal MD [address] [place] [phone] PCP - General Family Medicine 06/13/18
--- OUTSIDE RECORDS SUMMARY | 2024-12-06 17:25 | XMS_ITS | Encounter Summary ---
Author Organization [facility] Address [address] [facility] [place] [address] Care Team Providers Care Surface Ship Usw Supervisor Name Role Phone Cierra Villarreal MD Primary Care Provider [phone] Marilu Westfall MD Primary Care Provider [phone] Cierra Villarreal MD Primary Care Provider [phone] Reason for Visit * Reason Onset Date Comments Blood Sugar Problem 10/24/2014 Mom is still noticing elevated blood sugars at the mid-afternoon check (between 1:15-2:00PM). Please call to review blood sugars and further changes that need to be made. 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
--- OUTSIDE RECORDS SUMMARY | 2024-12-06 17:25 | XMS_ITS | Encounter Summary ---
Author Organization [facility] Address [address] [facility] [place] [address] Care Team Providers Care Ship Cleaner Name Role Phone Cierra Villarreal MD Primary Care Provider [phone] Marilu Westfall MD Primary Care Provider [phone] Cierra Villarreal MD Primary Care Provider [phone] Reason for Visit * Reason Onset Date Comments MEDICATION REFILL 11/29/2013 Encounter Details Date Type Department Care Team (Late st Contact Info) Description 11/29/2013 Refill [facility] - Diabetes [address] [address] Keely Frye, DRUG SAFETY COORDINATOR-CHIEF CLINICAL OFFICER Retired MEDICATION REFILL Social History Tobacco Use Types Packs/Day Years Used Date Smoking Tobacco: Never Alcohol Use Standard Drinks/Week Comments Not Asked 0 (1 standard drink = 0.6 oz pur e alcohol) Sex and Gender Information Value Date Recorded Sex Assigned at Not on file 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 FISH 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 Gender Identity Not on file Sexual Orientation Not on file documented as of this encounter Plan of Treatment Not on file documented as of this encounter Visit Diagnoses Not on filedocumented in this encounter Additional Health Concerns Infection Onset Date Last Indicated Resolved Time MRSA 01/28/2015 01/28/2015 10/22/2015 12:0 6 PM CDT documented as of this encounter Care Teams Ship Cleaner Relationship Specialty Start Date End Date Cierra Villarreal MD [address] [facility] [address] [place] [address] PCP - General Family Medicine 11/27/13 05/31/17 Marilu Westfall MD [address] [place] [address] PCP - General 06/01/17 06/12/18 Cierra Villarreal MD [address] [facility] [address] [place] [address] PCP - General Family Medicine 06/13/18 documented as of this encounter
--- OUTSIDE RECORDS SUMMARY | 2024-12-06 17:25 | XMS_ITS | Encounter Summary ---
Author Organization [facility] Address [address] [facility] [place] [address] Care Team Providers Care Dimensional Inspector Name Role Phone Cierra Villarreal MD Primary Care Provider [phone] Marilu Westfall MD Primary Care Provider [phone] Cierra Villarreal MD Primary Care Provider [phone] Reason for Visit * Reason Onset Date Comments MEDICATION REFILL 10/01/2015 Encounter Details Date Type Department Care Team (Late st Contact Info) Description 10/01/2015 Refill 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 Answer Date of Assessment Author No 02/03/2015 9:09 AM MACHINE HEEL SEAT FITTER Betzaida Zuniga RN * Is person blind [...] Answer Entry Date Author 02/03/2015 9:09 AM eBtzaida Alexis RN documented in this encounter Miscellaneous Notes * Telephone Encounter - Tammi Lopes, RN - 10/01/2015 2:48 PM CDT Received prior authorization for accuchek test strips. Called and spoke with pharmacy. Pharmacy informed me they [place]. They can only get 200 test strips every 20 days with[place]ight [place] Medicaid. Pharmacist ran through [employer] ultra mini meter and test strips 200 [...] documented as of this encounter Care Teams Dimensional Inspector Relationship Specialty Start Date End Date Cierra Villarreal MD [address] [place] [phone] PCP - General Family Medicine 11/27/13 05/31/17 Marilu Westfall MD [address] [place] [address] PCP - General 06/01/17 06/12/18 Cierra Villarreal MD [address] [place], [place] [phone] PCP - General Family Medicine 06/13/18 documented as of this encounter
--- OUTSIDE RECORDS SUMMARY | 2024-12-06 17:25 | XMS_ITS | Encounter Summary ---
Author Organization [facility] Address [address] [facility] [place] [address] Care Team Providers Care Carpet Cutter Name Role Phone Chrissy Richards MD Primary Care Provider [phone] Cierra Villarreal MD Primary Care Provider [phone] Marilu Westfall MD Primary Care Provider [phone] Cierra Villarreal MD Primary Care Provider [phone] Reason for Visit * Reason Onset Date Comments General 10/12/2013 Encounter Details Date Type Department Care Team (Late st Contact Info) Description 10/12/2013 Telephone [facility] Pediatrics - Diabetes [address] [address] Denia Greenberg MD General Social History Tobacco Use Types Packs/Day Years Used Date Smoking Tobacco: Never Alcohol Use Standard Drinks/Week Comments Not Asked 0 (1 standard drink = 0.6 oz pur e alcohol) Sex and Gender Information Value Date Recorded Sex Assigned at Not on file Legal Sex Male 5:41 AM CLINIC MD ASSOCIATE Gender Identity Not on file Sexual Orientation Not on file documented as of this encounter Miscellaneous Notes * Telephone Encounter - Robbie Fonseca RN - 10/12/2013 4:50 PM CDT Our office was notified that we need to call the [facility] help desk [phone] to get a 4 prescription override for test strips for bg testing 5- 6x/day, [facility] [phone]. I called at [phone], office closed at [phone]. Notified mother. documented in this encounter Plan of Treatment Not on file documented as of this encounter Visit Diagnoses Not on filedocumented in this encounter Additional Health Concerns Infection Onset Date Last Indicated Resolved Time MRSA 01/28/2015 01/28/2015 10/22/2015 12:0 6 PM CDT documented as of this encounter Care Teams Carpet Cutter Relationship Specialty Start Date End Date Chrissy Richards MD [address] [place] [phone] PCP - General 07/02/11 11/26/13 Cierra Villarreal MD [address] [place] [phone] PCP - General Family Medicine 11/27/13 05/31/17 Marilu Westfall MD [address] [place] [address] PCP - General 06/01/17 06/12/18 Cierra Villarreal MD [address] [place] [phone] PCP - General Family Medicine 06/13/18 documented as of this encounter
--- OUTSIDE RECORDS SUMMARY | 2024-12-06 17:25 | XMS_ITS | Encounter Summary ---
Author Organization [facility] Address [address] [facility] [place] [address] Care Team Providers Care Curator Of Education Name Role Phone Cierra Villarreal MD Primary Care Provider [phone] Reason for Visit * Reason Comments Refill Request Encounter Details Date Type Department Care Team (Late st Contact Info) Description 11/16/2020 Refill [facility] Pediatrics - Diabetes [address] [address] Denia Greenberg MD Refill Request Social History Tobacco Use Types Packs/Day Years Used Date Smoking Tobacco: Never Smokeless Tobacco: Never Alcohol Use Standard Drinks/Week Comments No 0 (1 standard drink = 0.6 oz pur e alcohol) Sex and Gender Information Value Date Recorded Sex Assigned at Not on file 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
--- OUTSIDE RECORDS SUMMARY | 2024-12-06 17:25 | XMS_ITS | Encounter Summary ---
Author Organization [facility] Address [address] [facility] [place] [address] Care Team Providers Care Donor Processor Name Role Phone Cierra Villarreal MD Primary Care Provider Encounter Details Date Type Department Care Team (Late st Contact Info) Description 11/11/2020 Telephone [facility] Pediatrics - Diabetes [address] [address] Denia Greenberg MD Social History Tobacco Use Types Packs/Day Years Used Date Smoking Tobacco: Never Smokeless Tobacco: Never Alcohol Use Standard Drinks/Week Comments No 0 (1 standard drink = 0.6 oz pur e alcohol) Sex and Gender Information Value Date Recorded Sex Assigned at Not on file Legal Sex Male 5:41 AM PARTS IDENTIFICATION TECHNICIAN Gender Identity Not on file Sexual [...] nose since Tuesday. I referred mom to information technology officer. States bgs have been elevated. Negative ketones. [...] on filedocumented in this encounter Care Teams Donor Processor Relationship Specialty Start Date End Date Cierra Villarreal MD [address] [place], [place] [phone] PCP - General Family Medicine 06/13/18 documented as of this encounter
--- OUTSIDE RECORDS SUMMARY | 2024-12-06 17:25 | XMS_ITS | Encounter Summary ---
Author Organization [facility] Address [address] [facility] [place] [address] Care Team Providers Care Agency Director Name Role Phone Cierra Villarreal MD Primary Care Provider [phone] Reason for Visit * Reason Onset Date Comments Opened In Error 12/17/2019 Encounter Details Date Type Department Care Team (Late st Contact Info) Description 12/17/[address] [facility] - Endocrinology [address] [place] [address] Alber Fiore, SCRAP CRANE OPERATOR-PULP MIXER [address] [place] [address] Opened In Error Social History Tobacco Use Types Packs/Day Years Used Date Smoking Tobacco: Never Smokeless Tobacco: Never Alcohol Use Standard Drinks/Week Comments No 0 (1 standard drink = 0.6 oz pur e alcohol) Sex and Gender Information Value Date Recorded Sex Assigned at Not on file Legal Sex Male 5:41 AM COP EXAMINER Gender Identity Not on file Sexual Orientation [...] on filedocumented in this encounter Care Teams Agency Director Relationship Specialty Start Date End Date Cierra Villarreal MD [address] [place] [phone] PCP - General Family Medicine 06/13/18 documented as of this encounter
--- OUTSIDE RECORDS SUMMARY | 2024-12-06 17:25 | XMS_ITS | Encounter Summary ---
Author Organization [facility] Address [address] [facility] [place] [address] Care Team Providers Care Engineering Systems Analyst Name Role Phone Cierra Villarreal MD Primary Care Provider [phone] Marilu Westfall MD Primary Care Provider [phone] Cierra Villarreal MD Primary Care Provider [phone] Reason for Visit * Reason Onset Date [...] (Late st Contact Info) Description 04/23/2014 Telephone [facility] Pediatrics - Diabetes [address] [address] Denia Greenberg MD Refill Request (Please change [...] on file Legal Sex Male 5:41 AM TRAINS SERVICE CONDUCTOR Gender Identity Not on file Sexual Orientation [...] documented as of this encounter Care Teams Engineering Systems Analyst Relationship Specialty Start Date End Date Cierra Villarreal MD [address] [place] [phone] PCP - General Family Medicine 11/27/13 05/31/17 Marilu Westfall MD [address] [place] [address] PCP - General 06/01/17 06/12/18 Cierra Villarreal MD [address] [place] [phone] PCP - General Family Medicine 06/13/18 documented as of this encounter
--- OUTSIDE RECORDS SUMMARY | 2024-12-06 17:25 | XMS_ITS | Encounter Summary ---
Author Organization [facility] Address [address] [place] [address] Care Team Providers Care Truck Driver Helper Name Role Phone Chrissy Richards MD Primary Care Provider [phone] Cierra Villarreal MD Primary Care Provider [phone] Marilu Westfall MD Primary Care Provider [phone] Cierra Villarreal MD Primary Care Provider [phone] Reason for Visit * Reason Onset Date Comments Letter for School or Work 11/01/2012 Encounter Details Date Type Department Care Team (Late st Contact Info) Description 11/01/2012 Telephone [facility] - Diabetes [address] [address] Keely Frye, CHEMICAL ENGINEERING TECHNOLOGIST-BANDER AND CELLOPHANER HELPER MACHINE Retired Letter for School or Work Social History Tobacco Use Types Packs/Day Years Used Date Smoking Tobacco: Never Alcohol Use Standard Drinks/Week Comments Not Asked 0 (1 standard drink = 0.6 oz pur e alcohol) Sex and Gender Information Value Date Recorded Sex Assigned at Not on file 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 Sex Male 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
--- OUTSIDE RECORDS SUMMARY | 2024-12-06 17:25 | XMS_ITS | Encounter Summary ---
Author Organization [facility] Address [address] [place] [address] Care Team Providers Care Braid Folder Name Role Phone Cierra Villarreal MD Primary Care Provider [phone] Marilu Westfall MD Primary Care Provider [phone] Cierra Villarreal MD Primary Care Provider [phone] Reason for Visit * Reason Onset Date Comments MEDICATION REFILL 06/26/2015 Encounter Details Date Type Department Care Team (Late st Contact Info) Description 06/26/2015 Refill [facility] - Diabetes [address] [address] Denia Greenberg MD MEDICATION REFILL Social History Tobacco Use Types Packs/Day Years Used Date Smoking Tobacco: Never Alcohol Use Standard Drinks/Week Comments No 0 (1 standard drink = 0.6 oz pur e alcohol) Sex and Gender Information Value Date Recorded Sex Assigned at Not on file Legal Sex Male 5:41 AM SLABBER LIGHT Gender Identity Not on file Sexual Orientation Not on file documented as of this encounter Functional Status * Is person deaf or have serious hearing difficulty? Answer Date of Assessment Author No 02/03/2015 9:09 AM SLABBER LIGHT Betzaida Zuniga RN * Is person blind [...] documented as of this encounter Care Teams Braid Folder Relationship Specialty Start Date End Date Cierra Villarreal MD [address] [facility] [address] [place] [phone] PCP - General Family Medicine 11/27/13 05/31/17 Marilu Westfall MD [address] [place] [address] PCP - General 06/01/17 06/12/18 Cierra Villarreal MD [address] Manuel [address] [place] [phone] PCP - General Family Medicine 06/13/18 documented as of this encounter
--- OUTSIDE RECORDS SUMMARY | 2024-12-06 17:25 | XMS_ITS | Encounter Summary ---
Author Organization [facility] Address [address] [facility] [place] [address] Care Team Providers Care Scrap Worker Name Role Phone Cierra Villarreal MD Primary Care Provider Encounter Details Date Type Department Care Team (Late st Contact Info) Description 11/15/2019 Telephone [facility] Pediatrics - Diabetes [address] [address] Alber Fiore APRN-[facility] [place] [address] Social History Tobacco Use Types Packs/Day Years Used Date Smoking Tobacco: Never Smokeless Tobacco: Never Alcohol Use Standard Drinks/Week Comments No 0 (1 standard drink = 0.6 oz pur e alcohol) Sex and Gender Information Value Date Recorded Sex Assigned at Not on file Legal Sex Male 5:41 AM LINE SERVICE ATTENDANT Gender Identity Not on file Sexual [...] 11/15/2019 11:13 AM CDT PA sent for [employer] xtra blood ketone strips. documented in this encounter Plan of Treatment Not on file documented as of this encounter Visit Diagnoses Not on filedocumented in this encounter Care Teams Scrap Worker Relationship Specialty Start Date End Date Cierra Villarreal MD [address] [place] [phone] PCP - General Family Medicine 06/13/18 documented as of this encounter
--- OUTSIDE RECORDS SUMMARY | 2024-12-06 17:26 | XMS_ITS | Clinical Summary ---
Author Organization [facility] Address [facility] [place] [address] Care Team Providers Care Hot Mill Worker Name Role Phone Jeffery Serra MD Primary Care Provider [phone] Allergies Active Allergy Reactions Criticality Noted Date [...] Noted Date Diagnosed Date DKA, type 1 11/27/2023 Immunizations Immunization Administration Dates Next Due Fluzone (IIV3, Trivalent, 0.5 ML Prefilled Syrin ge) 11/27/2023 Social History Tobacco Use Types Packs/Day [...] or pharmacy? Patient unable to respond 11/27/2023 [facility] Utilities Answer Date Recorded In the past 12 months has [employer] oil, or water [employer] threatened to shut off services in your [...] or ex-partner? No 11/27/2023 Social Connection and Isolation Panel Answer Date Recorded In a typical week, how many times do you talk on the phone with family, friends, or neighbors? Patient unable to answer 11/27/2023 How often do you get togethe r with friends or relatives? More than three times a week 11/27/2023 How often do you attend [facility] or temple services? Patient unable to answer 11/27/2023 Do you belong to any clubs o r organizations such as zoroastrian groups, unions, fraternal or athletic groups, or [...] and heating? Not hard at all 11/27/2023 [facility] [place] of Occupat ional Health - Occupational Stress Questionnaire Answer Date Recorded [...] any time in the past 12 m [facility], were you homeless or living in a fci (including now)? No 11/27/2023 Sex and Gender [...] 2024 01/06/2023, 02/24/2022, 12/03/2020, Additional history exists Influenza Adult (#1) 2024 11/27/2023, 12/27/2022, 02/09/2022, Additional history exists Hepatitis B Vaccines Completed 06/12/2002, 03/06/2002, 01/16/2002 Meningococcal Vaccine Completed 10/17/2018, 014 RSV Immunizations Under 20 Months Aged Out No longer eligible based on patient's age to complete this topic Additional Health Concerns Infection Onset Date Last Indicated MRSA Comment:11/27/23 +MRSA Nares 11/27/2023 11/27/2023 Insurance [place] [employer] [place] [employer] Advance Directives * Full Code (Latest Code Status on File) Date Activated Date Inactivated Comments 11/27/2023 1:37 AM 11/28/2023 11:51 AM Care Teams Hot Mill Worker Relationship Specialty Start Date End Date Jeffery Serra MD [address] [phone] PCP - General FAMILY PRACTICE 12/02/23
--- OUTSIDE RECORDS SUMMARY | 2024-12-06 17:26 | XMS_ITS | Encounter Summary ---
Author Organization [facility] Address [address] [facility] [place] [address] Care Team Providers Care Machine Adjuster Leader Case Trim Name Role Phone Cierra Villarreal MD Primary Care Provider [phone] Marilu Westfall MD Primary Care Provider [phone] Cierra Villarreal MD Primary Care Provider [phone] Reason for Visit * Reason Onset Date Comments Letter 08/15/2014 Mom request a le tter be mailed to [place] stating how many times Dex checks his blood sugars and uses syringes, so their machine adjuster leader case trim can request an increased amount. Blood Sugar Problem 08/15/2014 after change s made by Anat, 08/14-HS 312, 3AM 227, 08/15 AM 331, (dad did forget insulin for dinner last night) Encounter Details Date Type Department Care Team (Late st Contact Info) Description 08/15/2014 Telephone [facility] Pediatrics - Diabetes [address] [address] Denia Greenberg MD Letter (Mom request a letter be mailed to [place] stating how many times Dex checks his blood sugars and uses syringes, so their machine adjuster leader case trim can request an increased amount. ); Blood [...] file Legal Sex Male 5:41 AM MANAGER CONTACT Gender Identity Not on file Sexual Orientation [...] documented as of this encounter Care Teams Machine Adjuster Leader Case Trim Relationship Specialty Start Date End Date Cierra Villarreal MD [address] [place] [phone] PCP - General Family Medicine 11/27/13 05/31/17 Marilu Westfall MD [address] [place] [address] PCP - General 06/01/17 06/12/18 Cierra Villarreal MD [address] [phone] PCP - General Family Medicine 06/13/18 documented as of this encounter
--- OUTSIDE RECORDS SUMMARY | 2024-12-06 17:26 | XMS_ITS | Encounter Summary ---
Author Organization [facility] Address [address] [facility] [place] [address] Care Team Providers Care Club Waiter/Waitress Name Role Phone Cierra Villarreal MD Primary Care Provider [phone] Marilu Westfall MD Primary Care Provider [phone] Cierra Villarreal MD Primary Care Provider [phone] Reason for Visit * Reason Onset Date Comments MEDICATION REFILL 05/09/2017 Encounter Details Date Type Department Care Team (Late st Contact Info) Description 05/09/2017 Refill [facility] Pediatrics - Endocrinology [address] [place] [address] Abler Fiore, STEEL PLACER-WOOD BOATBUILDER [address] [place] [address] MEDICATION REFILL Social History Tobacco Use Types Packs/Day Years Used Date Smoking Tobacco: Never Smokeless Tobacco: Never Alcohol Use Standard Drinks/Week Comments No 0 (1 standard drink = 0.6 oz pur e alcohol) Sex and Gender Information Value Date Recorded Sex Assigned at Not on file Legal Sex Male 5:41 AM DISPATCHER REFINERY Gender Identity Not on file Sexual Orientation [...] uncontrolled documented in this encounter Care Teams Club Waiter/Waitress Relationship Specialty Start Date End Date Cierra Villarreal MD [address] [place] [phone] PCP - General Family Medicine 11/27/13 05/31/17 Marilu Westfall MD [address] [place] [address] PCP - General 06/01/17 06/12/18 Cierra Villarreal MD [address] [place] [phone] PCP - General Family Medicine 06/13/18 documented as of this encounter
--- OUTSIDE RECORDS SUMMARY | 2024-12-06 17:26 | XMS_ITS | Clinical Summary ---
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 [address] [place] [address] [address] [place] [address] Marianne Aparicio Med Refill 10/05/2024 2:15 PM CDT Office Visit [facility] Medicine Surgery [address] [place] [address] 5 [place] [address] Marianne Aparicio MD Graves disease (Primary Dx) 10/05/2024 10:05 AM CDT - 10/05/2024 11:59 PM CDT Hospital Encounter [facility] [address] [place] [address] Graves' disease Discharge Disposition: Discharge to home or self care from Last 3 Months Medical History Medical [...] on file Legal Sex Male 8:34 AM PROTEIN SCIENTIST Gender Identity Not on file Sexual [...] Additional history exists Covid-19 Vaccine (4 - 2024-2 6 season) 2024 12/03/2020, 05/26/2020, 05/03/2020 Influenza Vaccine (#1) 2024 [...] by: Giuseppe Omer M.D. Marianne Aparicio MD [facility] US PROCEDURES Final Result from Last [address] [place] [place] [address] [facility] Care Teams Checker And Packer Relationship Specialty Start Date End Date Pablito Villarreal MD [address] [place] [phone] PCP - General 07/14/20 Jimmy Velez MD [address] [address] Referring Physician Internal Medicine 06/06/24
--- OUTSIDE RECORDS SUMMARY | 2024-12-06 17:26 | XMS_ITS | Encounter Summary ---
Author Organization [facility] Address [address] [facility] [place] [address] Care Team Providers Care Sccm Administrator Name Role Phone Cierra Villarreal MD Primary Care Provider [phone] Marilu Westfall MD Primary Care Provider [phone] Cierra Villarreal MD Primary Care Provider [phone] Reason for Visit * Reason Onset Date Comments Refill Request 08/26/2014 has the test str ip been sent to [facility]. Encounter Details Date Type Department Care Team (Late st Contact Info) Description 08/26/2014 Telephone [facility] Pediatrics - Diabetes [address] [address] Denia Greenberg MD Refill Request (has the test strip been sent to [facility]. ) Social History Tobacco Use Types Packs/Day Years Used Date Smoking Tobacco: Never Alcohol Use Standard Drinks/Week Comments No 0 (1 standard drink = 0.6 oz pur e alcohol) Sex and Gender Information Value Date Recorded Sex Assigned at Not on file Legal Sex Male 5:41 AM MEDICAL LEAD Gender Identity Not on file Sexual Orientation [...] documented as of this encounter Care Teams Sccm Administrator Relationship Specialty Start Date End Date Cierra Villarreal MD [address] [place] [phone] PCP - General Family Medicine 11/27/13 05/31/17 Marilu Westfall MD [address] [place] [address] PCP - General 06/01/17 06/12/18 Ceirra Villarreal MD [address] [place] [phone] PCP - General Family Medicine 06/13/18 documented as of this encounter
--- OUTSIDE RECORDS SUMMARY | 2024-12-06 17:26 | XMS_ITS | Encounter Summary ---
Author Organization [facility] Address [address] [facility] [place] [address] Care Team Providers Care Air Traffic Control Specialist Center Name Role Phone Cierra Villarreal MD Primary Care Provider [phone] Marilu Westfall MD Primary Care Provider [phone] Cierra Villarreal MD Primary Care Provider [phone] Reason for Visit * Reason Onset Date Comments Letter 08/15/2014 mom called to lynn smith you received a letter from [place] regarding Dex Encounter Details Date Type Department Care Team (Late st Contact Info) Description 08/15/2014 Telephone [facility] Pediatrics - Diabetes [address] [address] Keely Frye, MENTAL HEALTH ASSOCIATE-LACTATION CONSULTANT Retired Letter (mom called to verify you received a letter from [place] regarding Dex) Social History Tobacco Use Types Packs/Day Years Used Date Smoking Tobacco: Never Alcohol Use Standard Drinks/Week Comments No 0 (1 standard drink = 0.6 oz pur e alcohol) Sex and Gender Information Value Date Recorded Sex Assigned at Not on file Legal Sex Male 5:41 AM GAS OPERATOR Gender Identity Not on file Sexual [...] Infection Onset Date Last Indicated Resolved Time [facility] 01/28/2015 01/28/2015 10/22/2015 12:0 6 PM CDT documented as of this encounter Care Teams Air Traffic Control Specialist Center Relationship Specialty Start Date End Date Cierra Villarreal MD [address] [place] [phone] PCP - General Family Medicine 11/27/13 05/31/17 Marilu Westfall MD [address] [place] [address] PCP - General 06/01/17 06/12/18 Cierra Villarreal MD [address] [place] [phone] PCP - General Family Medicine 06/13/18 documented as of this encounter
--- OUTSIDE RECORDS SUMMARY | 2024-12-06 17:26 | XMS_ITS | Encounter Summary ---
Author Organization [facility] Address [address] [facility] [place] [address] Care Team Providers Care Cleaner Housekeeping Name Role Phone Cirera Villarreal MD Primary Care Provider [phone] Marilu Westfall MD Primary Care Provider [phone] Cierra Villarreal MD Primary Care Provider [phone] Reason for Visit * Reason Onset Date Comments Blood Sugar Problem 08/13/2014 Please call mom. BS are increasing, had a runny nose but that has cleared up. BS this AM 270. Please call in the AM, has appts with other children this afternoon Encounter Details Date Type Department Care Team (Late st Contact Info) Description 08/13/2014 Telephone [facility] Pediatrics - Diabetes [address] [address] Denia Greenberg MD Blood Sugar Problem (Please [...] on file Legal Sex Male 5:41 AM ASSOCIATE PROFESSOR OF AUTOMATION Gender Identity Not on file Sexual Orientation [...] Author 01/14/2014 9:10 AM Erum Green RN documented as of this encounter [...] documented as of this encounter Care Teams Cleaner Housekeeping Relationship Specialty Start Date End Date Cierra Villarreal MD [address] [facility] [address] [place] [address] PCP - General Family Medicine 11/27/13 05/31/17 Marilu Westfall MD [address] [place] [address] PCP - General 06/01/17 06/12/18 Cierra Villarreal MD [address] [facility] [address] [place] [address] PCP - General Family Medicine 06/13/18 documented as of this encounter
[2024-12-06 17:52] LABS: Free T4 Free Thyroxine 2.50 ng/dL (0.78-2.19)
== END 2024-12-06 15:15 | disposition home or self-care (01) ==
LOC: ANHLAB 15:16
PROVIDERS: PCP Family Medicine; Visit Provider Internal Medicine
DX: E10.9 Type 1 diabetes mellitus without complications (principal); R63.4 Abnormal weight loss; E05.90 Thyrotoxicosis, unspecified without thyrotoxic crisis or storm; E05.00 Thyrotoxicosis with diffuse goiter without thyrotoxic crisis or storm
CPT/HCPCS: 36415; 80053; 84439; 84443; 84480

== ENCOUNTER 2025-01-11 14:43 | Outpatient (CLI) | payer OTHER, SELFPAY ==
--- OUTSIDE RECORDS SUMMARY | 2025-01-11 14:45 | XMS_ITS | Encounter Summary ---
Author Organization [facility] Address [address] [place] [address] Care Team Providers Care Firewall Engineer Name Role Phone Cierra Villarreal MD Primary Care Provider [phone] Encounter Details Date Type Department Care Team (Late st Contact Info) Description 06/02/2021 Telephone [facility] Pediatrics - Diabetes [facility] [address] [place] [address] Jelena Pack, TOOL MAINTENANCE TECHNICIAN-CEO & BOARD DIRECTOR [facility] [place] [address] Social History Tobacco Use Types Packs/Day Years [...] on file 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 * Telephone Encounter - Eleanor Ramos RN [...] 3:49 PM CDT Appeal letter sent to [place] for precision xtra blood ketone strips. documented in this encounter Plan of Treatment Not on file documented as of this encounter Visit Diagnoses Not on filedocumented in this encounter Care Teams Firewall Engineer Relationship Specialty Start Date End Date Cierra Villarreal MD [address] [place] [phone] PCP - General Family Medicine 06/13/18 documented as of this encounter
--- OUTSIDE RECORDS SUMMARY | 2025-01-11 14:45 | XMS_ITS | Encounter Summary ---
Author Organization [facility] Address [address] [place] [address] Care Team Providers Care Rock Cutter Name Role Phone Cierra Villarreal MD Primary Care Provider [phone] Encounter Details Date Type Department Care Team (Late st Contact Info) Description 06/09/[address] 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 Mom's e-mail: [email or web address] documented in this encounter Plan of Treatment Not on file documented as of this encounter Visit Diagnoses Not on filedocumented in this encounter Care Teams Rock Cutter Relationship Specialty Start Date End Date Cierra Villarreal MD [address] [place] [phone] PCP - General Family Medicine 06/13/18 documented as of this encounter
--- OUTSIDE RECORDS SUMMARY | 2025-01-11 14:45 | XMS_ITS | Encounter Summary ---
Author Organization [facility] Address [address] [facility] [place] [address] Care Team Providers Care Base Filler Operator Name Role Phone Marilu Westfall MD Primary Care Provider [phone] Cierra Villarreal MD Primary Care Provider [phone] Reason for Visit * Reason Onset Date Comments Refill Request 05/22/2018 Please call in t 33g Delica lancets- 30g not covered any more. If those arent covered any lancets will do. 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
--- OUTSIDE RECORDS SUMMARY | 2025-01-11 14:45 | XMS_ITS | Encounter Summary ---
Author Organization [facility] Address [address] [facility] [place] [address] Care Team Providers Care Desktop Publisher Name Role Phone Cierra Villarreal MD Primary Care Provider Encounter Details Date Type Department Care Team (Late st Contact Info) Description 04/27/2019 Telephone 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 Addendum: 05/03/19: [...] put through for precision xtra test strips. LING ATTENDANT documented in this encounter Plan of Treatment Not on file documented as of this encounter Visit Diagnoses Not on filedocumented in this encounter Care Teams Desktop Publisher Relationship Specialty Start Date End Date Cierra Villarreal MD [address] [place], [place] [phone] PCP - General Family Medicine 06/13/18 documented as of this encounter
--- OUTSIDE RECORDS SUMMARY | 2025-01-11 14:45 | XMS_ITS | Data Portability ---
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 I agree with the resident's assessment and plan as documented with the following addendum: None. Dr. Maribel Ho MD Attending Physician, [facility]. [email or web address] Not available 09/08/2023 10:27:03 10/02/2024 [id number] I was present an d available in [...] to be lower than expect ed. The [facility] s DCA assay for the measur ement [...] Call: LETICIA morris 11/25 08:[address] [facility] ([address] 3/LIBERTY MIRELES,DA[place] ) [place] [id number] 5. Not Available Not Available 09/20/2024 17:24:45 11/26/19 24 11/26/2023 Beta hydro xybut yrate [Mole s/vol ume] in Serum or Plasm a interpretati on and review of laboratory results Abnorm al Not Available Not Available 17:24:45 10/05/11/26/2023 [employer] olGunosy 1999 panel - Serum or Plasm a glucose [mass/volume ] in serum or plasma 362 text: 70 - 99 mg/dL high Not Available Not Available 09/20/2024 17:24:45 11/26/19 24 11/26/2023 [employer] 1999 panel - Serum or Plasm a urea nitrogen [mass/volume ] in serum or plasma 21 text: 7 - 18 mg/dL high Not Available Not Available 09/20/2024 17:24:45 11/26/19 24 11/26/2023 [facility] [employer] olGunosy 1999 panel - Serum or Plasm a creatinine [mass/volume ] in serum or plasma 1.11 text: 0.7 - 1.3 mg/dL Not Available Not Available 09/20/2024 17:24:45 11/26/19 24 11/26/2023 [facility] [employer] olic 1999 panel - Serum or Plasm a sodium [moles/volum e] in serum or plasma 139 text: 136 - 145 mmol/L Not Available Not Available 09/20/2024 17:24:45 11/26/19 24 11/26/2023 Compr [employer] olic 1999 panel - Serum or Plasm a potassium [moles/volum e] in serum or plasma 4.8 text: 3.5 - 5.1 mmol/L Not Available Not Available 09/20/2024 17:24:45 11/26/19 24 11/26/2023 [employer] olGunosy 1999 panel - Serum or Plasm a chloride [moles/volum e] in serum or plasma 101 text: 97 - 115 mmol/L Not Available Not Available 09/20/2024 17:24:45 11/26/19 24 11/26/2023 Compr [employer] olic 1999 panel - Serum or Plasm a carbon dioxide, total [moles/volum e] in serum or plasma 18.6 text: 21 - 32 mmol/L low Not Available Not Available 09/20/2024 17:24:45 11/26/19 24 11/26/2023 Compr [employer] olic 1999 panel - Serum or Plasm [...] Not Available Not Available 09/20/2024 17:24:45 11/26/1911/26/2023 [facility] Gunos[employer] darin Bomoda olGunosy 1999 panel - Serum or Plasm a urea nitrogen/cre atinine [mass ratio] in serum or plasma 18.9 low: 6high: 26 Not Available Not Available 09/20/2024 17:24:45 11/26/1911/26/2023 [facility] [employer] darin Bomoda olGunosy 1999 panel - Serum or Plasm a albumin/glob ulin [mass ratio] in serum or plasma 0.9 text: 1.0 - 2.0 ratio low Not Available Not Available 09/20/2024 17:24:45 11/26/1911/26/2023 [facility] [employer] 1999 panel - Serum or Plasm a [...] Not Available Not Available 09/20/2024 17:24:45 11/26/1911/26/2023 [facility] [employer] Bomoda Gunosy 1999 panel - Serum or Plasm a [...] ETJignesh myers d 11/26 09:55 AM to [facility] ICU ([address] 2/[place]) [place] [id number] 2. Read Back: Yes Not Available Not [...] Available Not Available 17:24:46 11/27/19 24 11/27/2023 [facility] 1999 panel - Serum or Plasm a glucose [mass/volume ] in serum or plasma 146 text: 70 - 99 mg/dL high Not Available Not Available 09/20/2024 17:24:46 11/27/19 24 11/27/2023 [facility] ol 1999 panel - Serum or Plasm a urea nitrogen [mass/volume ] in serum or plasma 19 text: 7 - 18 mg/dL high Not Available Not Available 09/20/2024 17:24:46 11/27/19 24 11/27/2023 [facility] 1999 panel - Serum or Plasm a creatinine [mass/volume ] in serum or plasma 1.13 text: 0.7 - 1.3 mg/dL Not Available Not Available 09/20/2024 17:24:46 11/27/19 24 11/27/2023 [facility] - Serum or Plasm a sodium [moles/volum e] in serum or plasma 148 text: 136 - 145 mmol/L high Not Available Not Available 09/20/2024 17:24:46 11/27/1911/27/2023 [facility] 1999 panel - Serum or Plasm a potassium [moles/volum e] in serum or plasma 4.4 text: 3.5 - 5.1 mmol/L Not Available Not Available 09/20/2024 17:24:46 11/27/19 24 11/27/2023 [facility] olic 1999 panel - Serum or Plasm a chloride [moles/volum e] in serum or plasma 117 text: 97 - 115 mmol/L high Not Available Not Available 09/20/2024 17:24:46 11/27/1911/27/2023 [facility] 1999 panel - Serum or Plasm a carbon dioxide, total [moles/volum e] in serum or plasma 23.1 text: 21 - 32 mmol/L Not Available Not Available 09/20/2024 17:24:46 11/27/19 24 11/27/2023 [facility] olic 1999 panel - Serum or Plasm a calcium [mass/volume ] in serum or plasma 9.3 text: 8.5 - 10.1 mg/dL Not Available Not Available 09/20/2024 17:24:46 11/27/1911/27/2023 [employer] ol 1999 panel - Serum or Plasm [...] Available 09/20/2024 17:24:45 11/27/19 24 11/27/2023 [employer] olic 1999 panel - Serum or Plasm a calcium [mass/volume ] in serum or plasma 8.7 text: 8.5 - 10.1 mg/dL Not Available Not Available 09/20/2024 17:24:45 11/27/19 24 11/27/2023 [facility] [employer] olic 1999 panel - Serum or Plasm [...] Not Available 09/20/2024 17:24:47 10/07/11/28/2023 [facility] 1999 panel - Serum or Plasm a chloride [moles/volum e] in serum or plasma 109 text: 97 - 115 mmol/L Not Available Not Available 09/20/2024 17:24:47 11/28/1911/28/2023 [facility] 1999 panel - Serum or Plasm a carbon dioxide, total [moles/volum e] in serum or plasma 22.5 text: 21 - 32 mmol/L Not Available Not Available 09/20/2024 17:24:47 11/28/1911/28/2023 [facility] 1999 panel - Serum or Plasm a calcium [mass/volume ] in serum or plasma 9.6 text: 8.5 - 10.1 mg/dL Not Available Not Available 09/20/2024 17:24:47 11/28/1911/28/2023 [employer] [facility] 1999 panel - Serum or Plasm a anion gap in serum or plasma by calculation 13.5 text: 2 - 10 mmol/L high Not Available Not Available 09/20/2024 17:24:47 11/28/1911/28/2023 [facility] 1999 panel - Serum or Plasm a urea nitrogen/cre atinine [mass ratio] in serum or plasma 12.2 low: 6high: 26 Not Available Not Available 09/20/2024 17:24:47 11/28/1911/28/2023 [employer] [facility] 1999 panel - Serum or Plasm a [...] Not Available 09/20/2024 17:24:47 11/28/19 24 11/28/2023 [employer] [facility] 1999 panel - Serum or Plasm a [...] [place] [address] [address] [facility] [place] [address], [place] Test Date: 2023-02 0-06 Pat Name: DEX Love ment: 41 S[address] carr ID: [id number] Room: [id number] Gender : Male Techni devin: KH : 2000-02 0-05 Reques torres By: OKSANA Ng Order Number : [id number] Bebeto aguilar MD: Parveen Galicia Measur ements Interv als [place] Rate: 146 P: 65 MO: 121 QRS: 73 QRSD: 93 T: 19 [...] at -6-2 024 23:30: 38 CDT [email or web address] [facility] 1 [facility], [place], [address], 12/14/2023 15:12:37 12/02/19 24 XR, chest [facility] [place] [address] [facility] [place] 1 [facility] [address] [place] [address] EXAMIN ATION: Chest X-Ray 1 View ACCESS ION: [id number] EXAM DATE/T ODALYS: 2023 5:50 PM REASON [...] Kyler chinchilla MD, 2023 6:27 PM [email or web address], [place], [address], 12/14/2023 15:12:37 Result Notes Documentation Provider Name and Address Organization Details Recorded Time Xr, Chest : [facility] [place] [address] [address] EXAMINATION: Chest X-Ray 1 View EXAM DATE/TIME: [...] 6:27 PM Ciera Serra MD Attn: Accounting,[address] [facility], [place], [address], [place] [facility] 12/14/2023 15:12:38 Problems Name Problem SNOMED Code Status Onset Date Resolution Date Notes Provider Name and Address Organization Details Recorded Time Reflex sympathetic dystrophy of lower extremity Active 012 Nixon Rosario Attn: Jeremi aguilar,[address] 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 Patient : 2000. Patient . Karina Davis [facility] 12/15/2023 10:33:20 Consult Note : [place] [address] Patient Name: DEX HUMPHRIES Date of : 2000 Med Rec #: [id number] Date of Service: 11/26/2023 Disch Date: Entry Level Financial Analyst Consult Date of Admission: 11/26/23 Chief Complaint: [...] Past Medical History: Diagnosis Date Diabetes mellitus ([facility]) Down syndrome, unspecified ([facility]) History reviewed. No pertinent surgical history. Social [...] No results for input(s): PH, PCO2, PO2, [id number], BICARBWB, BASEDEFICIT, BASEEXCESS in the last 168 hours. Physician/MACHINE GUN MECHANIC/PA can use ideal body weight (IBW) to determine the target ordered volume for Crystalloid Fluid Administration if all of the following conditions are met. [place] body weight (IBW) was used to determine target ordered volume for Crystalloid Fluid Administration. Last Recorded Weight 11/26/231914 Weight: 70.8 kg (156 lb) [place] body weight: 52.3 kg (115 lb 4.8 [...] 10:51 PM Cierra Villarreal MD Attn: Accounting,[address] [place], [address], [facility] 11/30/2023 09:18:30 Consult Note : [place] [address] Patient Name: DEX HUMPHRIES Date of : 2000 Med Rec #: [id number] Date of Service: 11/26/2023 Disch Date: Entry Level Financial Analyst Consult Date of Admission: 11/26/23 Chief Complaint: [...] Diabetes mellitus (CMS/HCC HHS/HCC) Down syndrome, unspecified ([facility]/HCC) History reviewed. No pertinent surgical history. [...] No results for input(s): PH, PCO2, PO2, [id number], BICARBWB, BASEDEFICIT, BASEEXCESS in the last 168 hours. Physician/MACHINE GUN MECHANIC/PA can use ideal body weight (IBW) to determine the target ordered volume for Crystalloid Fluid Administration if all of the following conditions are met. [place] body weight (IBW) was used to determine target ordered volume for Crystalloid Fluid Administration. Last Recorded Weight 11/26/231914 Weight: 70.8 kg (156 lb) [place] body weight: 52.3 kg (115 lb 4.8 [...] Villarreal MD Attn: Accounting,[address] , [place], [address], [place] [facility] 11/30/2023 09:18:44 Consult Note : [facility] [place] [address] Patient Name: DEX HUMPHRIES Date of : 2000 Med Rec #: [id number] Date of Service: 11/26/2023 Disch Date: Entry Level Financial Analyst Consult Date of Admission: 11/26/23 Chief Complaint: [...] Past Medical History: Diagnosis Date Diabetes mellitus ([facility]/HCC HHS/HCC) Down syndrome, unspecified (HHS/HCC) History reviewed. [...] No results for input(s): PH, PCO2, PO2, L7CIOKQOCNVB, BICARBWB, BASEDEFICIT, BASEEXCESS in the last 168 hours. Physician/MACHINE GUN MECHANIC/PA can use ideal body weight (IBW) to determine the target ordered volume for Crystalloid Fluid Administration if all of the following conditions are met. [place] body weight (IBW) was used to determine target ordered volume for Crystalloid Fluid Administration. Last Recorded Weight 11/26/231914 Weight: 70.8 kg (156 lb) [place] body weight: 52.3 kg (115 lb 4.8 [...] 11:13 PM Cierra Villarreal MD Attn: Accounting,[address] [facility], [place], [address], [facility] 11/30/2023 09:18:50 Medical Equipment None Reported. Allergies Allergen ID Allergen Name Allergen Category Reaction Reaction Severity Criticality Documentation Date Start Date Code Code System Note Provider Name and Address Organization Details Recorded Time 767121 latex environme nt,medica tion Not available Not available Not available 01/20/20182014 06960 91 RxNorm Other react ions and sever ities : 'Skin React ions' . Nixon Rosario Attn: Jeremi aguilar,[address] [facility], [place], [address], [facility] 0 11:50:51 67865 Substance with sulfonami de structure and antibacte rial mechanism of action (substanc e) medicatio n rash Not available Not available 09/27/2016 25799 8003 SNOMED Avani Goldstein, [place] null, [place] [...] (BMI) Body weight Heart rate Oxygen saturation Systolic And Diastolic Provider Name and Address Organization Details Last Updated DateTime 4 97.8 [degF] 149.86 cm 34.8 kg/m2 12944.2 4 g 108 /min 98 % 125/87 mm[Hg] Kristin Good MA [facility] 4 14:51:22 Date Recorded Body height Body mass index (BMI) Body weight Oxygen saturation Body temperature Heart rate Systolic And Diastolic Provider Name and Address Organization Details Last Updated DateTime 5 149.86 cm 25.7 kg/m2 45526.2 3 g 96 % 97.8 [degF] 66 /min 102/57 mm[Hg] Kristin Good MA [facility] 5 09:38:50 Social History Question Answer Notes LastModified by [employer] Details LastModified Time Tobacco Smoking Status Never Smoker Edna humphreys [facility] 10/16/2018 16:54:05 What Was The Date Of Your Most Recent Tobacco Screening? 10/02/2024 tirbyma Information not available 10/02/2024 Sex: Unknown Functional Status Question Answer Note LastModified by [employer] Details LastModified Time Do you or have [...] completed Cierra Villarreal MD Attn: Accounting,[address] [place], [address], [place] [facility] 12/06/2019 11:50:57 Influenza, split virus, quadrivalent, PF 4 completed Cierra Villarreal MD Attn: Accounting,[address] [place], [address], [place] [facility] 12/06/2019 11:50:57 COVID-19, mRNA, LNP-S, PF, 30 mcg/0.3 mL dose 1 completed Tana Handley null, [place] [facility] 12/18/2020 12:59:38 COVID-19, mRNA, LNP-S, PF, 30 mcg/0.3 mL dose 1 completed Tana Hand[place], [place] [facility] 12/18/2020 12:59:43 Influenza, split virus, quadrivalent, PF 6 completed Not Available [facility] 10/02/2024 09:26:57 Influenza, split virus, quadrivalent, PF 7 completed Not Available [facility] 10/02/2024 09:26:57 Influenza, split virus, quadrivalent, PF 0 completed Not Available [facility] 10/02/2024 09:26:57 COVID-19, mRNA, LNP-S, PF, 30 mcg/0.3 mL dose 1 completed Not Available [facility] 10/02/2024 09:26:57 Influenza, split virus, quadrivalent, PF 1 completed Not Available [facility] 10/02/2024 09:26:57 Influenza, split virus, quadrivalent, PF 2 completed Not Available [facility] 10/02/2024 09:26:57 COVID-19, mRNA, LNP-S, bivalent, PF, 30 mcg/0.3 mL dose 3 completed Not Available [facility] 10/02/2024 09:26:57 Influenza, MDCK, quadrivalent, PF 3 completed Not Available [facility] 10/02/2024 09:26:57 COVID-19, mRNA, LNP-S, PF, ayla-sucrose, 30 mcg/0.3 mL 3 completed Not Available [facility] 10/02/2024 09:26:57 Influenza, split virus, trivalent, PF 4 completed Not Available [facility] 10/02/2024 09:26:57 COVID-19, mRNA, LNP-S, PF, ayla-sucrose, 30 mcg/0.3 mL 4 completed Not Available [facility] 10/02/2024 09:26:57 Influenza, split virus, quadrivalent, PF 8 completed Not Available [facility] 03/10/2019 02:49:14 meningococcal MCV4P 9 completed Not Available [facility] 03/10/2019 02:43:38 DTaP-IPV 3 completed Cierra Villarreal MD Attn: Accounting,[address] [place], [place], [address] [place] [address], [place] [facility] 12/06/2019 11:53:42 TLqR-Ipu-LOF 3 completed Cierra Villarreal MD Attn: Accounting,[address] [place], [place], [address] [place] [address], [place] [facility] 12/06/2019 11:53:43 YMpL-Qhk-EKH 3 completed Cierra Villarreal MD Attn: Accounting,[address] [place], [place], [address] [place] [address], [place] [facility] 12/06/2019 11:53:42 DTP-Hib 4 completed Cierra Villarreal MD Attn: Accounting,[address] [place], [place], [address] [place] [address], [place] [facility] 12/06/2019 11:53:42 DTaP-IPV 6 completed Cierra Villarreal MD Attn: Accounting,[address] [place], [address], [place] [facility] 12/06/2019 11:53:42 Tdap 4 completed Cierra Villarreal MD Attn: Accounting,[address] , [place], [address], [place] [facility] 12/06/2019 11:53:43 Hep B, adolescent or pediatric 2 completed Cierra Villarreal MD Attn: Accounting,[address] [facility], [place], [address], [place] [facility] 12/06/2019 11:53:43 Hep B, adolescent or pediatric 3 completed Cierra Villarreal MD Attn: Accounting,[address] [facility], [place], [address], [place] [facility] 12/06/2019 11:53:42 Hep B, adolescent or pediatric 3 completed Cierra Villarreal MD Attn: Accounting,[address] [facility], [place], [address], [place] [facility] 12/06/2019 11:53:43 MMR 4 completed Cierra Villarreal MD Attn: Accounting,[address] [facility], [place], [address], [place] [facility] 12/06/2019 11:53:42 MMR 6 completed Cierra Villarreal MD Attn: Accounting,[address] [facility], [place], [address], [place] [facility] 12/06/2019 11:53:42 varicella 4 completed Cierra Villarreal MD Attn: Accounting,[address] [facility], [place], [address], [place] [facility] 12/06/2019 11:53:42 varicella 8 completed Cierra Villarreal MD Attn: Accounting,[address] [facility], [place], [address], [place] [facility] 12/06/2019 11:53:43 meningococcal MCV4P 4 completed Cierra Villarreal MD Attn: Accounting,[address] [facility], [place], [place], [address] [place] [address], [place] [facility] 12/06/2019 11:53:42 Hep A, unspecified formulation 1 completed Cierra Villarreal MD Attn: Accounting,[address] [facility], [place], [place], [address] [place] [address], [place] [facility] 12/06/2019 11:53:42 Hep A, unspecified formulation 4 completed Cierra Villarreal MD Attn: Accounting,[address] [facility], [place], [place], [address] [place] [address], [place] [facility] 12/06/2019 11:53:42 influenza, unspecified formulation 4 completed Cierra Villarreal MD Attn: Accounting,[address] [facility], [place], [place], [address] [place] [address], [place] [facility] 12/06/2019 11:53:42 influenza, unspecified formulation 5 completed Cierra Villarreal MD Attn: Accounting,[address] [facility], [place], [place], [address] [place] [address], [place] [facility] 12/06/2019 11:53:43 influenza, unspecified formulation 8 completed Cierra Villarreal MD Attn: Accounting,[address] [facility], [place], [place], [address] [place] [address], [place] [facility] 12/06/2019 11:53:43 influenza, unspecified formulation 9 completed Cierra Villarreal MD Attn: Accounting,[address] [facility], [place], [place], [address] [place] [address], [place] [facility] 12/06/2019 11:53:42 influenza, unspecified formulation 1 completed Cierra Villarreal MD Attn: Accounting,[address] [facility], [place], [address], [place] [facility] 12/06/2019 11:53:43 influenza, unspecified formulation 3 completed Cierra Villarreal MD Attn: Accounting,[address], [place], [address], [facility] 12/06/2019 11:50:57 Past Encounters Encounter ID Performer Location Encounter Start Date Encounter Closed Date Diagnosis/Indication Diagnosis SNOMED-CT Code Diagnosis ICD10 Code Diagnosis IMO Codes Diagnosis Note [id number] Tracy Alcantar-MD Nadya Wilkins FP ([address]) [address] [place] [address] 09/27/2016 14:42:02 09/28/2016 13:30:51 History and physical examination, sports participation 362607401 Z02.5 - History of Downs Syndrome. Mom denies cardiac defects but pt sees cardiologi st regularly- Mom denies hearing defects, visual acuity defects- Discussed weight and importance of eating healthy as a family despite pt being predispose d to obesity- Discussed risk of thyroid disorder but mom denies symptoms at this time- Will require modificati on of sports in school which he [id number] MD Luc Rosario [address] [facility] [address] [place] [address] 12/13/2017 10:37:54 12/15/2017 10:49:42 Active or passive immunization 367845187 Z23 [id number] [facility] [address] [place] [address] 01/20/2018 16:23:14 01/30/2018 10:18:03 Well child 463707442 Z00.129 Discussed diet, exercise and puberty. Complete t risomy 21 syndrome 05534495 Q90.9 reviewed developmen t and puberty in downs syndrome [id number] MD Luc Rosario [address] [facility] [address] [place] [address] 10/16/2018 16:33:12 10/20/2018 10:08:00 Active or passive immunization 041282531 Z23 reviewed and updated Well child visit 0113690 09 Z00.129 Reviewed healthy eating and activity [id number] MD Luc Rosario [address] [address] 08/13/2019 13:18:12 08/20/2019 12:05:11 Loss of hair 618243641 L65.9 Discussed dx and tx options- advised needs to have thyroid checked. He is due for his blood work with endocrin and will follow up in a few months if nothing comes of the endocrin work up . [id number] Cierra Villarreal MD [place] [address] [address] 09/24/2019 12:37:32 09/25/2019 13:38:12 Loss of hair 656567707 L65.9 resolved- blood work normal likely related to stress. Encouraged healthy hair care. [id number] Cierra Villarreal MD [place] [address] [address] 12/06/2019 08:27:01 12/10/2019 11:43:32 Complete trisomy 21 syndrome 41716443 Q90.9 reviewed developmen t in downs syndrome- guardian paper work completed. Autistic disorder 065857 003 F84.0 overall stable with lots of family support. He is unable to perform self care [id number] ROSARIO CARRILLO MD [address] [address] 09/06/2023 14:36:34 09/08/2023 12:12:11 Autism spectrum disorder 02519450 F84.0 - Pts mother wanted the pt to have state ID- Filled in the form: Applicatio n for an [place] Person with a disability indentific ation card.- His mother had no concerns in the officePlan :- apt PRN [id number] Cierra Villarreal MD [address] [address] 10/02/2024 09:26:12 10/16/2024 13:22:18 Physical examination 8668173 Z00.00 [id number] Mother of pt had DHS PE form [...] Lane Member ID Guarantor Name 10/02/2024 1 [facility] - DOS PRIOR TO 2020 (MEDICAID REPLACEMENT - HMO) Dex Humphries [id number] Bernice Ronit 11/05/2024 1 [facility] (MEDICAID HMO) [id number] Dex Humphries [id number] Bernice Humphries 10/02/2024 1 [facility] (MEDICAID HMO) Dex Humphries [id number] Bernice Humphries Notes Date Note Type Note Provider Name and Address Organization Details Recorded Time 08/13/2019 text/html Generic HPI TemplateReported by PatientOver the last few months has had increasing thinning of hair- with some patches that are medical assistant ob gyn but continues to have some hair growth. Cierra Villarreal MD Attn: Accounting, [address] [facility], [place], [address], [facility] 08/19/2019 22:17:57 09/24/2019 text/html Generic HPI TemplateReported by PatientHair has improved thickness and was seen by endocrine and blood work was normal. Cierra Villarreal MD Attn: Accounting, [facility], [place], [address], [facility] 09/24/2019 15:51:59 12/06/2019 text/html Generic HPI TemplateReported by PatientOverall doing well. He has T1DM and follows with endocrine. Mother reports he is very picky eater and has difficulty communicating. Cierra Villarreal MD Attn: Accounting,[address] [facility], [place], [address], [facility] 12/09/2019 11:49:53 09/06/2023 text/html 22 yr old adult with ASD here with parents. Parents brought in application for [place] person with disability identification card form filled in. Mother states she has no concerns today. MARIBEL HO MD Attn: Accounting,[address] [facility], [place], [address], [facility] 09/08/2023 10:27:06 10/02/2024 text/html ROS as noted in the HPI 23 yr old brought in my mother to have DHS physical form filled. No acute concerns today Adalberto Nicole MD Attn: Accounting,[address] [facility], [place], [address], [facility] 10/15/2024 12:00:55
--- OUTSIDE RECORDS SUMMARY | 2025-01-11 14:45 | XMS_ITS | Encounter Summary ---
Author Organization [facility] Address [address] [facility] [place] [address] Care Team Providers Care Printer Assistant Name Role Phone Cierra Villarreal MD Primary Care Provider [phone] Encounter Details Date Type Department Care Team (Late st Contact Info) Description 05/26/[address] 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 Will send for urine ketone strips. * Telephone Encounter - Cristi Tang - 05/26/2021 4:16 PM CDT PA sent through [facility] to [facility] for Precision Xtra blood ketone strips. documented in this encounter Plan of Treatment Not on file documented as of this encounter Visit Diagnoses Diagnosis Uncontrolled type 1 diabetes mellitus with hyperglycemia (HCC) documented in this encounter Care Teams Printer Assistant Relationship Specialty Start Date End Date Cierra Villarreal MD [address] [phone] PCP - General Family Medicine 06/13/18 documented as of this encounter
--- OUTSIDE RECORDS SUMMARY | 2025-01-11 14:46 | XMS_ITS | Encounter Summary ---
Author Organization [facility] Address [address] [facility] [place] [address] Care Team Providers Care Environmental Services Technician Name Role Phone Cierra Villarreal MD Primary Care Provider [phone] Encounter Details Date Type Department Care Team (Late st Contact Info) Description 03/15/2021 Telephone [facility] - Endocrinology [address] [place] [address] Aundrea Yoo, DO [address] [place] [address] Social History Tobacco Use Types Packs/Day Years [...] on file Legal Sex Male 5:41 AM EXTENSION WORK 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 No / Unsure 02/19/2021 3:26 PM EXTENSION WORK DIRECTOR documented as of this encounter Functional Status * Is person deaf or have serious hearing difficulty? Answer Date of Assessment Author No 02/09/2021 9:37 AM Guero Roy RN * Is person blind or have serious difficulty seeing? Answer Date of Assessment Author No 02/09/2021 9:37 AM EXTENSION WORK DIRECTOR Guero Olguin RN * Does person have serious difficulty walking/climbing stairs? Answer Date of Assessment Author Yes 02/09/2021 9:37 AM Guero Roy RN * Does person have difficulty dressing/bathing? Answer Date of Assessment Author Yes 10/03/2018 8:25 AM CDT Patricio Bhatti RN * Does person have difficulty doing errands alone? Answer Date of Assessment Author Yes 02/09/2021 9:37 AM EXTENSION WORK DIRECTOR Guero Olguin RN documented as of this encounter Mental Status * Does person have difficulty concentrating/remembering/making decisions? Answer Entry Date Author Yes 02/09/2021 9:37 AM Guero Roy RN documented in this encounter Miscellaneous Notes * Telephone Encounter - Laurel Reid RN - 06/09/2021 1:39 PM CDT Monae from pharmacy calling with questions in regards to Precision strips. Was sent to [facility] [phone] * Telephone Encounter - Aundrea Yoo DO - 03/15/2021 3:41 PM EXTENSION WORK DIRECTOR Endocrine after hours call Dex is a [...] 22 units at normal time on Tuesday. NSION WORK DIRECTOR documented in this encounter Plan of Treatment Not on file documented as of this encounter Visit Diagnoses Not on filedocumented in this encounter Care Teams Environmental Services Technician Relationship Specialty Start Date End Date Cierra Villarreal MD [address] [place] [phone] PCP - General Family Medicine 06/13/18 documented as of this encounter
--- OUTSIDE RECORDS SUMMARY | 2025-01-11 14:46 | XMS_ITS | Encounter Summary ---
Author Organization [facility] [employer] Address [address] [place] [address] Care Team Providers Care Construction Operations Manager Name Role Phone Cierra Villarreal MD Primary Care Provider [phone] Marilu Westfall MD Primary Care Provider [phone] Cierra Villarreal MD Primary Care Provider [phone] Reason for Visit * Reason Onset Date Comments Letter 08/15/2014 Mom request a le tter be mailed to [place] stating how many times Dex checks his blood sugars and uses syringes, so their trimming caser can request an increased amount. Blood Sugar Problem 08/15/2014 after change s made by Anat, 08/14-HS 312, 3AM 227, 08/15 AM 331, (dad did forget insulin for dinner last night) Encounter Details Date Type Department Care Team (Late st Contact Info) Description 08/15/2014 Telephone [facility] Pediatrics - Diabetes [address] [address] Deina Greenberg MD Letter (Mom request a letter be mailed to [place] stating how many times [place] checks his blood sugars and uses syringes, so their trimming caser can request an increased amount. 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
--- OUTSIDE RECORDS SUMMARY | 2025-01-11 14:46 | XMS_ITS | Encounter Summary ---
Author Organization [facility] Address [address] [facility] [place] [address] Care Team Providers Care Industrial Sales Engineer Name Role Phone Cierra Villarreal MD Primary Care Provider [phone] Marilu Westfall MD Primary Care Provider [phone] Cierra Villarreal MD Primary Care Provider [phone] Reason for Visit * Reason Onset Date Comments Refill Request 05/09/2017 insulin syringes , please refill to [facility] Encounter Details Date Type Department Care Team (Late st Contact Info) Description 05/09/2017 Telephone [facility] Pediatrics - Endocrinology [address] [place] [address] Denia Greenberg MD Refill Request (insulin syringes, please refill to [facility]) Social History Tobacco Use Types Packs/Day Years Used Date Smoking Tobacco: Never Smokeless Tobacco: Never Alcohol Use Standard Drinks/Week Comments No 0 (1 standard drink = 0.6 oz pur e alcohol) Sex and Gender Information Value Date Recorded Sex Assigned at Not on file Legal Sex Male 5:41 AM DELIVERY DIRECTOR Gender Identity Not on file Sexual [...] on filedocumented in this encounter Care Teams Industrial Sales Engineer Relationship Specialty Start Date End Date Cierra Villarreal MD [address] [facility] [address] [place] [address] PCP - General Family Medicine 11/27/13 05/31/17 Marilu Westfall MD [address] [place] [address] PCP - General 06/01/17 06/12/18 Cierra Villarreal MD [address] [facility] [address] [place] [address] PCP - General Family Medicine 06/13/18 documented as of this encounter
--- OUTSIDE RECORDS SUMMARY | 2025-01-11 14:46 | XMS_ITS | Clinical Summary ---
Author Organization [facility] Address [address] [place] [address] Care Team Providers Care Production Grader Name Role Phone Pablito Villarreal MD Primary Care Provider [phone] Jimmy Velez MD Unavailable [phone] Allergies Active Allergy Reactions Criticality Noted Date [...] 1 tablet (25 mcg total) by mouth teacher early childhood development before breakfast 1 tablet 5 Active Active [...] on file Legal Sex Male 8:34 AM DOCUMENT DESIGN SPECIALIST Gender Identity Not on file Sexual [...] 12/21/2005, 05/27/2003, Additional history exists Covid-19 Vaccine ( - 2024-2 6 season) 2024 12/03/2020, 05/26/2020, 05/03/2020 Influenza Vaccine (#1) 2024 , 12/27/2022, 02/09/2022, Additional history exists Hepatitis B Screening Completed 06/12/2002 , 03/06/2002, 01/16/2002 Varicella Vaccines Completed 10/05/2007, 02/25/2003 Insurance [facility] Care Teams Production Grader Relationship Specialty Start Date End Date Pablito Villarreal MD [address] [place] [address] PCP - General 07/14/20 Jimmy Velez MD [address] [address] Referring Physician Internal Medicine 06/06/24
--- OUTSIDE RECORDS SUMMARY | 2025-01-11 14:46 | XMS_ITS | Encounter Summary ---
Author Organization [facility] Address [address] [facility] [place] [address] Care Team Providers Care Boat Joiner Helper Name Role Phone Cierra Villarreal MD Primary Care Provider [phone] Encounter Details Date Type Department Care Team (Late st Contact Info) Description 01/21/2020 Telephone [facility] Pediatrics - Endocrinology [address] [place] [address] Alber Fiore APRN-BUILDING CONSTRUCTION TEACHER [address] [place] [address] Social History Tobacco Use Types Packs/Day Years Used Date Smoking Tobacco: Never Smokeless Tobacco: Never Alcohol Use Standard Drinks/Week Comments No 0 (1 standard drink = 0.6 oz pur e alcohol) Sex and Gender Information Value Date Recorded Sex Assigned at Not on file Legal Sex Male 5:41 AM GARBAGE COLLECTOR Gender Identity Not on file Sexual Orientation Not on file COVID-19 Exposure Response Date Recorded In the last month, have you been in contact with someone who was confirmed or suspected to have Coronavirus / COVID-19? Unable to assess 01/09/2020 1:57 PM GARBAGE COLLECTOR documented as of this encounter Functional Status [...] at 2130 01/24 give basaglar at 2300 AGE COLLECTOR documented in this encounter Plan of Treatment Not on file documented as of this encounter Visit Diagnoses Not on filedocumented in this encounter Care Teams Boat Joiner Helper Relationship Specialty Start Date End Date Cierra Villarreal MD [address] [place] [phone] PCP - General Family Medicine 06/13/18 documented as of this encounter
--- OUTSIDE RECORDS SUMMARY | 2025-01-11 14:46 | XMS_ITS | Encounter Summary ---
Author Organization [facility] Address [address] [facility] [place] [address] Care Team Providers Care Edge Dyer Name Role Phone Cierra Villarreal MD Primary Care Provider Encounter Details Date Type Department Care Team (Late st Contact Info) Description 11/13/2018 Telephone [facility] Pediatrics - Diabetes [address] [address] Alber Fiore APRN-[facility] [place] [address] Social History Tobacco Use Types Packs/Day Years Used Date Smoking Tobacco: Never Smokeless Tobacco: Never Alcohol Use Standard Drinks/Week Comments No 0 (1 standard drink = 0.6 oz pur e alcohol) Sex and Gender Information Value Date Recorded Sex Assigned at Not on file 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
--- OUTSIDE RECORDS SUMMARY | 2025-01-11 14:46 | XMS_ITS | Encounter Summary ---
Author Organization [facility] Address [address] [facility] [place] [address] Care Team Providers Care Door Framer Name Role Phone Cierra Villarreal MD Primary Care Provider [phone] Marilu Westfall MD Primary Care Provider [phone] Cierra Villarreal MD Primary Care Provider [phone] Reason for Visit * Reason Onset Date Comments Blood Sugar Problem 08/13/2014 Please call mom. BS are increasing, had a runny nose but that has cleared up. BS this AM 270. Please call in the AM, has appts with other children this afternoon Encounter Details Date Type Department Care Team (Late st Contact Info) Description 08/13/2014 Telephone [facility] Pediatrics - Diabetes [address] [address] Denia Greenberg MD Blood Sugar Problem (Please [...] on file Legal Sex Male 5:41 AM WRAPPING CHECKER Gender Identity Not on file Sexual [...] today after 1500. * Telephone Encounter - Robbei Fonseca RN - 08/13/2014 10:18 AM CDT [...] Date Cierra Villarreal MD [address] [facility] [address] [place] [address] PCP - General Family Medicine 11/27/13 05/31/17 Marilu Westfall MD [address] [place] [address] PCP - General 06/01/17 06/12/18 Cierra Villarreal MD [address] [facility] [address] [place] [address] PCP - General Family Medicine 06/13/18 documented as of this encounter
--- OUTSIDE RECORDS SUMMARY | 2025-01-11 14:46 | XMS_ITS | Encounter Summary ---
Author Organization [facility] Address [address] [facility] [place] [address] Care Team Providers Care Assistant Professor Of Chemistry Name Role Phone Cierra Villarreal MD Primary Care Provider [phone] Reason for Visit * Reason Comments Refill Request Encounter Details Date Type Department Care Team (Late st Contact Info) Description 05/05/2019 Refill [facility] Pediatrics - Diabetes [address] [address] Denia Greenberg MD Refill Request Social History Tobacco Use Types Packs/Day Years Used Date Smoking Tobacco: Never Smokeless Tobacco: Never Alcohol Use Standard Drinks/Week Comments No 0 (1 standard drink = 0.6 oz pur e alcohol) Sex and Gender Information Value Date Recorded Sex Assigned at Not on file 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
--- OUTSIDE RECORDS SUMMARY | 2025-01-11 14:46 | XMS_ITS | Encounter Summary ---
Author Organization [facility] Address [address] [facility] [place] [address] Care Team Providers Care Genetics Teacher Name Role Phone Cierra Villarreal MD Primary Care Provider [phone] Marilu Westfall MD Primary Care Provider [phone] Cierra Villarreal MD Primary Care Provider [phone] Reason for Visit * Reason Onset Date Comments Blood Sugar Problem 10/24/2014 Mom is still noticing elevated blood sugars at the mid-afternoon check (between 1:15-2:00PM). Please call to review blood sugars and further changes that need to be made. Encounter Details Date Type Department Care Team (Late st Contact Info) Description 10/24/2014 Telephone [facility] Pediatrics - Diabetes [address] [address] Denia Greenberg MD Blood Sugar Problem (Mom [...] on file Legal Sex Male 5:41 AM SEALS ENGRAVER Gender Identity Not on file Sexual Orientation [...] documented as of this encounter Care Teams Genetics Teacher Relationship Specialty Start Date End Date Cierra Villarreal MD [address] [address] PCP - General Family Medicine 11/27/13 05/31/17 Marilu Westfall MD [address] [place] [address] PCP - General 06/01/17 06/12/18 Cierra Villarreal MD [address] [facility] [address] [place] [address] PCP - General Family Medicine 06/13/18 documented as of this encounter
--- OUTSIDE RECORDS SUMMARY | 2025-01-11 14:46 | XMS_ITS | Encounter Summary ---
Author Organization [facility] Address [address] [facility] [place] [address] Care Team Providers Care Psychiatric Aide Name Role Phone Chrissy Richards MD Primary Care Provider [phone] Cierra Villarreal MD Primary Care Provider [phone] Marilu Westfall MD Primary Care Provider [phone] Cierra Villarreal MD Primary Care Provider [phone] Reason for Visit * Reason Onset Date Comments General 10/12/2013 Encounter Details Date Type Department Care Team (Late st Contact Info) Description 10/12/2013 Telephone [facility] - Diabetes [address] [address] Denia Greenberg MD General Social History Tobacco Use Types Packs/Day Years Used Date Smoking Tobacco: Never Alcohol Use Standard Drinks/Week Comments Not Asked 0 (1 standard drink = 0.6 oz pur e alcohol) Sex and Gender Information Value Date Recorded Sex Assigned at Not on file Legal Sex Male 5:41 AM DIRECTOR POWER Gender Identity Not on file Sexual Orientation Not on file documented as of this encounter Miscellaneous Notes * Telephone Encounter - Robbie Fonseca RN - 10/12/2013 4:50 PM CDT Our office was notified that we need to call the [facility] help desk [phone] to get a 4 prescription override for test strips for bg testing 5- 6x/day, [facility] [phone]. I called at [phone], office closed at [phone]. Notified mother. 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
--- OUTSIDE RECORDS SUMMARY | 2025-01-11 14:46 | XMS_ITS | Encounter Summary ---
Author Organization [facility] Address [address] [facility] [place] [address] Care Team Providers Care Hand Glass Cutter Name Role Phone Cierra Villarreal MD Primary Care Provider [phone] Marilu Westfall MD Primary Care Provider [phone] Cierra Villarreal MD Primary Care Provider [phone] Reason for Visit * Reason Onset Date Comments Letter 08/15/2014 mom called to lynn smith you received a letter from [place] regarding Dex Encounter Details Date Type Department Care Team (Late st Contact Info) Description 08/15/2014 Telephone [facility] Pediatrics - Diabetes [address] [address] Keely Frye, I O PSYCHOLOGIST-SHEET ROCK FINISHER Retired Letter (mom called to verify you received a letter from [place] regarding Dex) Social History Tobacco Use Types Packs/Day Years Used Date Smoking Tobacco: Never Alcohol Use Standard Drinks/Week Comments No 0 (1 standard drink = 0.6 oz pur e alcohol) Sex and Gender Information Value Date Recorded Sex Assigned at Not on file Legal Sex Male 5:41 AM ART COORDINATOR Gender Identity Not on file Sexual [...] Infection Onset Date Last Indicated Resolved Time [facility] 01/28/2015 01/28/2015 10/22/2015 12:0 6 PM CDT documented as of this encounter Care Teams Hand Glass Cutter Relationship Specialty Start Date End Date Cierra Villarreal MD [address] [place] [phone] PCP - General Family Medicine 11/27/13 05/31/17 Marilu Westfall MD [address] [place] [address] PCP - General 06/01/17 06/12/18 Cierra Villarreal MD [address] [place] [phone] PCP - General Family Medicine 06/13/18 documented as of this encounter
--- OUTSIDE RECORDS SUMMARY | 2025-01-11 14:46 | XMS_ITS | Encounter Summary ---
Author Organization [facility] Address [address] [facility] [place] [address] Care Team Providers Care Floor Trader Name Role Phone Cierra Villarreal MD Primary Care Provider Encounter Details Date Type Department Care Team (Late st Contact Info) Description 11/15/2019 Telephone [facility] Pediatrics - Diabetes [address] [address] Alber Fiore APRN-[facility] [place] [address] Social History Tobacco Use Types Packs/Day Years Used Date Smoking Tobacco: Never Smokeless Tobacco: Never Alcohol Use Standard Drinks/Week Comments No 0 (1 standard drink = 0.6 oz pur e alcohol) Sex and Gender Information Value Date Recorded Sex Assigned at Not on file 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 documented in this encounter Plan of Treatment Not on file documented as of this encounter Visit Diagnoses Not on filedocumented in this encounter Care Teams Floor Trader Relationship Specialty Start Date End Date Cierra Villarreal MD [address] [place] [phone] PCP - General Family Medicine 06/13/18 documented as of this encounter
--- OUTSIDE RECORDS SUMMARY | 2025-01-11 14:46 | XMS_ITS | Encounter Summary ---
Author Organization [facility] Address [address] [facility] [place] [address] Care Team Providers Care Education Sales Consultant Name Role Phone Cierra Villarreal MD Primary Care Provider [phone] Marilu Westfall MD Primary Care Provider [phone] Cierra Villarreal MD Primary Care Provider [phone] Reason for Visit * Reason Onset Date Comments Refill Request 08/26/2014 has the test str ip been sent to [facility]. Encounter Details Date Type Department Care Team (Late st Contact Info) Description 08/26/2014 Telephone [facility] Pediatrics - Diabetes [address] [address] Denia Greenberg MD Refill Request (has the test strip been sent to [facility]. 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
--- OUTSIDE RECORDS SUMMARY | 2025-01-11 14:46 | XMS_ITS | Encounter Summary ---
Author Organization [facility] Address [address] [facility] [place] [address] Care Team Providers Care Public Health Registrar Name Role Phone Cierra Villarreal MD Primary Care Provider [phone] Marilu Westfall MD Primary Care Provider [phone] Cierra Villarreal MD Primary Care Provider [phone] Encounter Details Date Type Department Care Team (Late st Contact Info) Description 01/10/2017 Telephone [facility] - Diabetes [address] [address] Denia Greenberg MD Social History Tobacco Use Types Packs/Day Years Used Date Smoking Tobacco: Never Smokeless Tobacco: Never Alcohol Use Standard Drinks/Week Comments No 0 (1 standard drink = 0.6 oz pur e alcohol) Sex and Gender Information Value Date Recorded Sex Assigned at Not on file Legal Sex Male 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 Answer Date of Assessment Author No 02/03/2015 9:09 AM CASHIER ASSISTANT Betzaida Zuniga RN * Is person [...] on filedocumented in this encounter Care Teams Public Health Registrar Relationship Specialty Start Date End Date Cierra Villarreal MD [address] [place] [phone] PCP - General Family Medicine 11/27/13 05/31/17 Marilu Westfall MD [address] [place] [address] PCP - General 06/01/17 06/12/18 Cierra Villarreal MD [address] [place] [phone] PCP - General Family Medicine 06/13/18 documented as of this encounter
--- OUTSIDE RECORDS SUMMARY | 2025-01-11 14:46 | XMS_ITS | Encounter Summary ---
Author Organization [facility] Address [address] [place] [address] Care Team Providers Care Machine Woodworking Sander Name Role Phone Cierra Villarreal MD Primary Care Provider [phone] Marilu Westfall MD Primary Care Provider [phone] Cierra Villarreal MD Primary Care Provider [phone] Reason for Visit * Reason Onset Date Comments Refill Request 04/23/2014 [facility] on [facility]. [facility] on [address] in [place]. Please change directions to test 12 times a day (not 10-12) Encounter Details Date Type Department Care Team (Late st Contact Info) Description 04/23/2014 Telephone [facility] Pediatrics - Diabetes [address] [address] Denia Greenberg MD Refill Request (Please fax rx for test strips to local [facility] as mail order will not arrive on time. [facility] on [address] in [place]. 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
--- OUTSIDE RECORDS SUMMARY | 2025-01-11 14:46 | XMS_ITS | Encounter Summary ---
Author Organization [facility] Address [address] [facility] [place] [address] Care Team Providers Care Caser Name Role Phone Cierra Villarreal MD Primary Care Provider [phone] Reason for Visit * Reason Onset Date Comments Refill Request 06/25/2019 New prescription for syringes, Dex is using syringes for basaglar and admelog- 6 syringes a day, Only getting 1 box of 100 from pharmacy Encounter Details Date Type Department Care Team (Late st Contact Info) Description 06/25/2019 Telephone [facility] Pediatrics - Endocrinology [address] [place] [address] Ayaka Agarwal Refill Request (New prescription [...] on file 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
--- OUTSIDE RECORDS SUMMARY | 2025-01-11 14:46 | XMS_ITS | Encounter Summary ---
Author Organization [facility] Address [address] [facility] [place] [address] Care Team Providers Care Chief Operator Name Role Phone Chrissy Richards MD Primary Care Provider [phone] Cierra Villarreal MD Primary Care Provider [phone] Marilu Westfall MD Primary Care Provider [phone] Cierra Villarreal MD Primary Care Provider [phone] Reason for Visit * Reason Onset Date Comments Letter for School or Work 11/01/2012 Encounter Details Date Type Department Care Team (Late st Contact Info) Description 11/01/2012 Telephone [facility] Pediatrics - Diabetes [address] [address] Keely Frye, KNITTER MACHINE-MERCHANDISE FLOW TEAM MEMBER Retired Letter for School or Work Social History Tobacco Use Types Packs/Day Years Used Date Smoking Tobacco: Never Alcohol Use Standard Drinks/Week Comments Not Asked 0 (1 standard drink = 0.6 oz pur e alcohol) Sex and Gender Information Value Date Recorded Sex Assigned at Not on file 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
--- OUTSIDE RECORDS SUMMARY | 2025-01-11 14:46 | XMS_ITS | Clinical Summary ---
Author Organization [facility] [employer] Address [address] [facility] [place] [address] Care Team Providers Care Calciner Operator Name Role Phone Cierra Villarreal MD Primary Care Provider [phone] Source Comments [facility],non-owned Affiliates and Associated Physician Practices is amultiple site organization consisting of ambulatory clinics and hospital sitesin [place], [place], [place] and [place]. This disclosure is being madepursuant to the Care Everywhere program and may not contain all information available regarding this patient. 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 Gender Identity Not on file Sexual Orientation Not on file Last Filed Vital Signs Vital Sign Reading Time Taken Comments Blood Pressure 139/107 11/22/2023 9:30 AM CDT pt removed bp multiple times Pulse 117 11/22/2023 9:30 AM CDT Temperature 36.3 C (97.4 F) 11/22/2023 8:30 AM CDT Respiratory Rate 19 11/22/2023 9:3 0 AM CDT Oxygen Saturation 94% 11/22/2023 9:5 [...] - POCT INTERFACED (05/25/2022 11:02 AM CDT) [facility] Hemoglobin A1C POCT 7.1(H) <5.7 % 05/25/2022 11:14 AM CDT [facility] Estimated Average Glucose 157 mg/dL 05/25/2022 11:14 AM T [facility] Blood BLOOD SPECIMEN / Unknown 05/25/2022 11:02 AM CDT 05/25/2022 11:14 AM CDT Narrative [facility] - 05/25/2022 11:14 AM CDT [...] National Glycohemoglobin Standardization Program (NGSP) certified method. eDnia Greenberg MD LAB - POINT OF CARE ORDERABLES Final Result Performing Organization Address [facility] de Phone Number [facility] [address] [place] [phone] * MICROALB/CREAT RATIO URINE RANDOM PANEL (10/03/2018 7:43 AM CDT) Creatinine Urine 86.79 mg/dL 10/04/19 19 8:16 AM T [facility] Microalbumin Urine <0.5 <1.7 mg/dL 10/03/2018 8:16 AM T [facility] Microalbumin/Crea tinine Ratio <6 <30 mg/g 10/03/2018 8:16 AM T [facility] Urine URINE SPECIMEN OBTAINED BY CLEAN CATCH PROCEDURE / Unknown Collection / Unknown 10/03/2018 7:43 AM CDT 10/03/2018 7:55 AM CDT Alber Fiore APRN-ENGLISH LECTURER LAB - URINE CHEMISTRY O RDERABLES Final Result Performing Organization Address [facility] de Phone Number [facility] [address] [place] [phone] * BASIC METABOLIC PANEL (CALCIUM TOTAL) (10/17/2017 12:37 PM CDT) Glucose 79 70 - 105 mg/dL 10/17/2017 2:01 PM CDT [facility] Sodium 138 136 - 145 mmol/L 10/17/2017 2:01 PM CDT [facility] Potassium 4.3 3.5 - 5.1 mmol/L 10/17/2017 2:01 PM T [facility] Chloride 107 98 - 107 mmol/L 10/17/2017 2:01 PM CDT [facility] CO2 23 20 - 28 mmol/L 10/17/2017 2:01 PM CDT [facility] Calcium 9.42 9.08 - 10.48 mg/dL 10/17/2017 2:01 PM T [facility] Anion Gap 8 5 - 20 mmol/L 10/17/2017 2:01 PM T [facility] BUN 17.1 5.3 - 18.7 mg/dL 10/17/2017 2:01 PM T [facility] Creatinine 0.93 0.61 - 1.07 mg/dL 10/17/2017 2:01 PM T [facility] eGFR by MDRD mL/min/1.7 3m2 10/17/2017 2:01 PM [facility] Comment: eGFR calculations are not performed for children under 18 years old. eGFR by MDRD mL/min/1.7 3m2 10/17/2017 2:01 PM T [facility] Comment: eGFR calculations are not performed for children under 18 years old. Blood BLOOD SPECIMEN / Unknown Venipuncture / Unknown 10/17/2017 12:37 PM CDT 10/17/2017 1:24 PM CDT Denia Greenberg MD LAB - CHEMISTRY ORDERABLES Shannan lebron Result Performing Organization Address City/State/[facility] Co de Phone Number [facility] [address] [place] [address] from Last 3 Months or Most Recently Relevant to Health Maintenance Insurance [facility] [employer] [facility] Care Teams Calciner Operator Relationship Specialty Start Date End Date Cierra Villarreal MD [address] [facility] [address] [place] [address] PCP - General Family Medicine 06/13/18
--- OUTSIDE RECORDS SUMMARY | 2025-01-11 14:46 | XMS_ITS | Encounter Summary ---
Author Organization [facility] Address [address] [facility] [place] [address] Care Team Providers Care Forest Logistics Manager Name Role Phone Cierar Villarreal MD Primary Care Provider [phone] Reason for Visit * Reason Comments Refill Request Encounter Details Date Type Department Care Team (Late st Contact Info) Description 11/16/2020 Refill [facility] Pediatrics - Diabetes [address] [address] Denia Greenberg MD Refill Request Social History Tobacco Use Types Packs/Day Years Used Date Smoking Tobacco: Never Smokeless Tobacco: Never Alcohol Use Standard Drinks/Week Comments No 0 (1 standard drink = 0.6 oz pur e alcohol) Sex and Gender Information Value Date Recorded Sex Assigned at Not on file 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
--- OUTSIDE RECORDS SUMMARY | 2025-01-11 14:46 | XMS_ITS | Encounter Summary ---
Author Organization [facility] Address [address] [facility] [place] [address] Care Team Providers Care Journeyman Pipe Fitter Name Role Phone Chrissy Richards MD Primary Care Provider [phone] Cierra Villarreal MD Primary Care Provider [phone] Marilu Westfall MD Primary Care Provider [phone] Cierra Villarreal MD Primary Care Provider [phone] Reason for Visit * Reason Onset Date Comments Refill Request 09/03/2013 Mom called, need s refill for syringes sent to [facility] in [place]. Encounter Details Date Type Department Care Team (Late st Contact Info) Description 09/03/2013 Telephone [facility] Pediatrics - Diabetes [address] [address] Denia Greenberg MD Refill Request (Mom called, needs refill for syringes sent to [facility] in [place]. 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
--- OUTSIDE RECORDS SUMMARY | 2025-01-11 14:46 | XMS_ITS | Encounter Summary ---
Author Organization [facility] Address [address] [facility] [place] [address] Care Team Providers Care Vacuum Bottle Assembler Name Role Phone Cierra Villarreal MD Primary Care Provider [phone] Reason for Visit * Reason Comments Refill Request Encounter Details Date Type Department Care Team (Late st Contact Info) Description 08/20/2020 Refill [facility] Pediatrics - Diabetes [address] [address] Alber Fiore APRN-FINISHED GARMENT INSPECTOR [address] [place] [address] Refill Request Social History Tobacco Use Types Packs/Day Years Used Date Smoking Tobacco: Never Smokeless Tobacco: Never Alcohol Use Standard Drinks/Week Comments No 0 (1 standard drink = 0.6 oz pur e alcohol) Sex and Gender Information Value Date Recorded Sex Assigned at Not on file 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
--- OUTSIDE RECORDS SUMMARY | 2025-01-11 14:46 | XMS_ITS | Encounter Summary ---
Author Organization [facility] Address [address] [facility] [place] [address] Care Team Providers Care Quantitative Strategy Analyst Name Role Phone Marilu Westfall MD Primary Care Provider [phone] Cierra Villarreal MD Primary Care Provider [phone] Reason for Visit * Reason Onset Date Comments Blood Glucose (Sugar) Review 09/09/2017 Ple ase call mom to review blood sugars. She has noticed blood sugars around 2pm are in the 200-300 range lately. Encounter Details Date Type Department Care Team (Late st Contact Info) Description 09/09/2017 Telephone [facility] Pediatrics - Endocrinology [address] [place] [address] Ayaka Agarwal Blood Glucose (Sugar) Review (Please [...] on file Legal Sex Male 5:41 AM CLINICAL INFORMATICS DIRECTOR Gender Identity Not on file Sexual [...] on filedocumented in this encounter Care Teams Quantitative Strategy Analyst Relationship Specialty Start Date End Date Marilu Westfall MD [address] [place] [address] PCP - General 06/01/17 06/12/18 Cierra Villarreal MD [address] [place] [phone] PCP - General Family Medicine 06/13/18 documented as of this encounter
--- OUTSIDE RECORDS SUMMARY | 2025-01-11 14:46 | XMS_ITS | Encounter Summary ---
Author Organization [facility] Address [address] [facility] [address] Care Team Providers Care Loading Inspector Name Role Phone Cierra Villarreal MD Primary Care Provider [phone] Marilu Westfall MD Primary Care Provider [phone] Cierra Villarreal MD Primary Care Provider [phone] Reason for Visit * Reason Onset Date Comments MEDICATION REFILL 06/26/2015 Encounter Details Date Type Department Care Team (Late st Contact Info) Description 06/26/2015 Refill [facility] - Diabetes [address] [address] Denia Greenberg MD MEDICATION REFILL Social History Tobacco Use Types Packs/Day Years Used Date Smoking Tobacco: Never Alcohol Use Standard Drinks/Week Comments No 0 (1 standard drink = 0.6 oz pur e alcohol) Sex and Gender Information Value Date Recorded Sex Assigned at Not on file 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 Answer Date of Assessment Author No 02/03/2015 9:09 AM DESIGN ENGINEER AGRICULTURAL EQUIPMENT Betzaida Zuniga RN * Is person blind [...] documented as of this encounter Care Teams Loading Inspector Relationship Specialty Start Date End Date Cierra Villarreal MD [address] [facility] [address] [place] [phone] PCP - General Family Medicine 11/27/13 05/31/17 Marilu Westfall MD [address] [place] [address] PCP - General 06/01/17 06/12/18 Cierra Villarreal MD [address] [facility] [address] [place] [phone] PCP - General Family Medicine 06/13/18 documented as of this encounter
--- OUTSIDE RECORDS SUMMARY | 2025-01-11 14:46 | XMS_ITS | Encounter Summary ---
Author Organization [facility] Address [address] [facility] [place] [address] Care Team Providers Care Police Aide Name Role Phone Cierra Villarreal MD Primary Care Provider [phone] Encounter Details Date Type Department Care Team (Late st Contact Info) Description 11/11/2020 Telephone [facility] Pediatrics - Diabetes [address] [address] Denia Greenberg MD Social History Tobacco Use Types Packs/Day Years Used Date Smoking Tobacco: Never Smokeless Tobacco: Never Alcohol Use Standard Drinks/Week Comments No 0 (1 standard drink = 0.6 oz pur e alcohol) Sex and Gender Information Value Date Recorded Sex Assigned at Not on file 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 I referred mom to manager mass. States bgs have been elevated. Negative ketones. [...] on filedocumented in this encounter Care Teams Police Aide Relationship Specialty Start Date End Date Cierra Villarreal MD [address] [place], [place] [phone] PCP - General Family Medicine 06/13/18 documented as of this encounter
--- OUTSIDE RECORDS SUMMARY | 2025-01-11 14:46 | XMS_ITS | Encounter Summary ---
Author Organization [facility] Address [address] [facility] [place] [address] Care Team Providers Care Water Taxi Ferry Operator Name Role Phone Marilu Westfall MD Primary Care Provider [phone] Cierra Villarreal MD Primary Care Provider Encounter Details Date Type Department Care Team (Late st Contact Info) Description 10/05/2017 Telephone 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
--- OUTSIDE RECORDS SUMMARY | 2025-01-11 14:46 | XMS_ITS | Encounter Summary ---
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 Yes 11/02/2022 10:50 AM oJrdyn Matthew RN * Question Answer Date of [...] uncontrolled documented in this encounter Care Teams Submarine Worker Relationship Specialty Start Date End Date Cierra Villarreal MD [address] [place], [place] [phone] PCP - General Family Medicine 06/13/18 documented as of this encounter
--- OUTSIDE RECORDS SUMMARY | 2025-01-11 14:46 | XMS_ITS | Encounter Summary ---
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 Gender Identity Not on file Sexual Orientation [...] Author 01/14/2014 9:10 AM Patricio rGeen RN documented as of this encounter Mental [...] documented as of this encounter Care Teams Radiology Interventional Physician Relationship Specialty Start Date End Date Cierra Villarreal MD [address] [place] [phone] PCP - General Family Medicine 11/27/13 05/31/17 Marilu Westfall MD [address] [place] [address] PCP - General 06/01/17 06/12/18 Cierra Villarreal MD [address] [place] [phone] PCP - General Family Medicine 06/13/18 documented as of this encounter
--- OUTSIDE RECORDS SUMMARY | 2025-01-11 14:46 | XMS_ITS | Encounter Summary ---
Author Organization [facility] Address [address] [place] [address] Care Team Providers Care City Administrator Name Role Phone Cierra Villarreal MD Primary Care Provider [phone] Encounter Details Date Type Department Care Team (Late st Contact Info) Description 10/08/2022 Telephone [facility] Pediatrics - Diabetes [address] [address] Denia Greenberg MD Social History [...] file Legal Sex Male 5:41 AM MANAGER FINANCIAL Gender Identity Not on file Sexual Orientation Not on file documented as of this encounter Functional Status * Is person deaf or have serious hearing difficulty? Answer Date of Assessment Author No 02/09/2021 9:37 AM MANAGER FINANCIAL Guero Olguin RN * Is person blind [...] for Precision Xtra Ketone strips sent to [facility] through [employer] * Telephone Encounter - Cristi Tang - 10/08/2022 4:36 PM CDT School Letter faxed to [phone] documented in this encounter Plan of Treatment Not on file documented as of this encounter Visit Diagnoses Not on filedocumented in this encounter Care Teams City Administrator Relationship Specialty Start Date End Date Cierra Villarreal MD [address] [place] [phone] PCP - General Family Medicine 06/13/18 documented as of this encounter
--- OUTSIDE RECORDS SUMMARY | 2025-01-11 14:46 | XMS_ITS | Encounter Summary ---
Author Organization [facility] Address [address] [place] [address] Care Team Providers Care Inspector Wreath Name Role Phone Cierra Villarreal MD Primary Care Provider [phone] Reason for Visit * Reason Onset Date Comments Opened In Error 12/17/2019 Encounter Details Date Type Department Care Team (Late st Contact Info) Description 12/17/2019 Refill [facility] Pediatrics - Endocrinology [address] [facility] 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
--- OUTSIDE RECORDS SUMMARY | 2025-01-11 14:46 | XMS_ITS | Encounter Summary ---
Author Organization [facility] Address [address] [facility] [place] [address] Care Team Providers Care Development Consultant Name Role Phone Cierra Villarreal MD Primary Care Provider Encounter Details Date Type Department Care Team (Late st Contact Info) Description 08/21/2019 Telephone [facility] Pediatrics - Diabetes [address] [address] Alber Fiore, VARGHESE-SPECIAL SERVICE OFFICER [address] [place] [address] Social History Tobacco Use Types Packs/Day Years Used Date Smoking Tobacco: Never Smokeless Tobacco: Never Alcohol Use Standard Drinks/Week Comments No 0 (1 standard drink = 0.6 oz pur e alcohol) Sex and Gender Information Value Date Recorded Sex Assigned at Not on file 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
--- OUTSIDE RECORDS SUMMARY | 2025-01-11 14:46 | XMS_ITS | Encounter Summary ---
Author Organization [facility] Address [address] [facility] [place] [address] Care Team Providers Care Assembler Dielectric Heater Name Role Phone Cierra Villarreal MD Primary Care Provider [phone] Reason for Visit * Reason Onset Date Comments MEDICATION REFILL 04/06/2021 Encounter Details Date Type Department Care Team (Late st Contact Info) Description 04/06/2021 Refill [facility] Pediatrics - Diabetes [facility] [address] [place] [address] Jelena Pack, FIRE EXTINGUISHER MECHANIC-DOCTOR OF PODIATRIC MEDICINE [address] [place] [address] MEDICATION REFILL Social History Tobacco Use Types [...] file 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
--- OUTSIDE RECORDS SUMMARY | 2025-01-11 14:46 | XMS_ITS | Encounter Summary ---
Author Organization [facility] Address [address] [place] [address] Care Team Providers Care Director Of Community Life Name Role Phone Cierra Villarreal MD Primary Care Provider Reason for Visit * Reason Onset Date Comments MEDICATION REFILL 11/24/2020 Encounter Details Date Type Department Care Team (Late st Contact Info) Description 11/24/2020 Refill [facility] Pediatrics - Diabetes [address] [address] Denia Greenberg MD MEDICATION REFILL Social History Tobacco Use Types Packs/Day Years Used Date Smoking Tobacco: Never Smokeless Tobacco: Never Alcohol Use Standard Drinks/Week Comments No 0 (1 standard drink = 0.6 oz pur e alcohol) Sex and Gender Information Value Date Recorded Sex Assigned at Not on file 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
--- OUTSIDE RECORDS SUMMARY | 2025-01-11 14:46 | XMS_ITS | Encounter Summary ---
Author Organization [facility] Address [address] [facility] [place] [address] Care Team Providers Care Patient Access Coordinator Name Role Phone Cierra Villarreal MD Primary Care Provider [phone] Marilu Westfall MD Primary Care Provider [phone] Cierra Villarreal MD Primary Care Provider [phone] Reason for Visit * Reason Onset Date Comments Letter 10/18/2014 Please send an u pdated letter with the new lunch carb ratio of 1 per 8 to the [facility] [phone] Encounter Details Date Type Department Care Team (Late st Contact Info) Description 10/18/2014 Telephone [facility] Pediatrics - Diabetes [address] [address] Denia Greenberg MD Letter (Please send an updated letter with the new lunch carb ratio of 1 per 8 to the [facility] [phone]) Social History Tobacco Use Types Packs/Day Years Used Date Smoking Tobacco: Never Alcohol Use Standard Drinks/Week Comments No 0 (1 standard drink = 0.6 oz pur e alcohol) Sex and Gender Information Value Date Recorded Sex Assigned at Not on file 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
--- OUTSIDE RECORDS SUMMARY | 2025-01-11 14:46 | XMS_ITS | Encounter Summary ---
Author Organization [facility] Address [address] [facility] [place] [address] Care Team Providers Care Wastewater Project Manager Name Role Phone Cierra Villarreal MD Primary Care Provider [phone] Marilu Westfall MD Primary Care Provider [phone] Cierra Villarreal MD Primary Care Provider [phone] Reason for Visit * Reason Onset Date Comments MEDICATION REFILL 10/01/2015 Encounter Details Date Type Department Care Team (Late st Contact Info) Description 10/01/[address] 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 Answer Date of Assessment Author No 02/03/2015 9:09 AM TOOL DESIGN CHECKER Betzaida Zuniga RN * Is person blind [...] Pharmacy informed me they switched [place] straight [place]. They can only get 200 test strips every 20 days withstraight [place]. Pharmacist ran through [employer] ultra mini meter and test strips 200 [...] documented as of this encounter Care Teams Wastewater Project Manager Relationship Specialty Start Date End Date Cierra Villarreal MD [address] [place] [phone] PCP - General Family Medicine 11/27/13 05/31/17 Marilu Westfall MD [address] [place] [address] PCP - General 06/01/17 06/12/18 Cierra Villarreal MD [address] [place], [place] [phone] PCP - General Family Medicine 06/13/18 documented as of this encounter
--- OUTSIDE RECORDS SUMMARY | 2025-01-11 14:46 | XMS_ITS | Encounter Summary ---
Author Organization [facility] Address [address] [place] [address] Care Team Providers Care Account Support Manager Name Role Phone Cierra Villarreal MD Primary Care Provider [phone] Marilu Westfall MD Primary Care Provider [phone] Cierra Villarreal MD Primary Care Provider [phone] Reason for Visit * Reason Onset Date Comments MEDICATION REFILL 11/29/2013 Encounter Details Date Type Department Care Team (Late st Contact Info) Description 11/29/2013 Refill [facility] - Diabetes [address] [address] Keely Frye, GLUE COOK-TECHNICAL SERVICES ANALYST Retired MEDICATION REFILL Social History Tobacco Use Types Packs/Day Years Used Date Smoking Tobacco: Never Alcohol Use Standard Drinks/Week Comments Not Asked 0 (1 standard drink = 0.6 oz pur e alcohol) Sex and Gender Information Value Date Recorded Sex Assigned at Not on file 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 Gender Identity Not on file Sexual Orientation Not on file documented as of this encounter Plan of Treatment Not on file documented as of this encounter Visit Diagnoses Not on filedocumented in this encounter Additional Health Concerns Infection Onset Date Last Indicated Resolved Time MRSA 01/28/2015 01/28/2015 10/22/2015 12:0 6 PM CDT documented as of this encounter Care Teams Account Support Manager Relationship Specialty Start Date End Date Cierra Villarreal MD [address] [facility] [address] [place] [phone] PCP - General Family Medicine 11/27/13 05/31/17 Marilu Westfall MD [address] [place] [address] PCP - General 06/01/17 06/12/18 Cierra Villarreal MD [address] [facility] [address] [place] [phone] PCP - General Family Medicine 06/13/18 documented as of this encounter
--- OUTSIDE RECORDS SUMMARY | 2025-01-11 14:46 | XMS_ITS | Encounter Summary ---
Author Organization [facility] Address [address] [place] [address] Care Team Providers Care Law Professor Name Role Phone Chrissy Richards MD Primary Care Provider [phone] Cierra Villarreal MD Primary Care Provider [phone] Marilu Westfall MD Primary Care Provider [phone] Cierra Villarreal MD Primary Care Provider [phone] Reason for Visit * Reason Onset Date Comments Blood Sugar Problem 12/18/2012 Please call mom to review blood sugars and make changes Encounter Details Date Type Department Care Team (Late st Contact Info) Description 12/18/2012 Telephone [facility] Pediatrics - Diabetes [address] [address] Denia Greenberg MD Blood Sugar Problem (Please [...] file 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 Gender Identity Not on file Sexual Orientation Not on file documented as of this encounter Plan of Treatment Not on file documented as of this encounter Visit Diagnoses Not on filedocumented in this encounter Additional Health Concerns Infection Onset Date Last Indicated Resolved Time MRSA 01/28/2015 01/28/2015 10/22/2015 12:0 6 PM CDT documented as of this encounter Care Teams Law Professor Relationship Specialty Start Date End Date Chrissy Richards MD [address] [place] [phone] PCP - General 07/02/11 11/26/13 Cierra Villarreal MD [address] [place] [phone] PCP - General Family Medicine 11/27/13 05/31/17 Marilu Westfall MD [address] [place] [phone] PCP - General 06/01/17 06/12/18 Cierra Villarreal MD [address] [place] [phone] PCP - General Family Medicine 06/13/18 documented as of this encounter
--- OUTSIDE RECORDS SUMMARY | 2025-01-11 14:46 | XMS_ITS | Encounter Summary ---
Author Organization [facility] Address [address] [facility] [place] [address] Care Team Providers Care Negative Developer Name Role Phone Cierra Villarreal MD Primary Care Provider [phone] Marilu Westfall MD Primary Care Provider [phone] Cierra Villarreal MD Primary Care Provider [phone] Reason for Visit * Reason Onset Date Comments MEDICATION REFILL 05/09/2017 Encounter Details Date Type Department Care Team (Late st Contact Info) Description 05/09/2017 Refill [facility] Pediatrics - Endocrinology [address] [place] [address] Alber Fiore, RELIEF DOCKING MASTER-BUSINESS QUALITY ASSURANCE ANALYST [address] [place] [address] MEDICATION REFILL Social History Tobacco Use Types Packs/Day Years Used Date Smoking Tobacco: Never Smokeless Tobacco: Never Alcohol Use Standard Drinks/Week Comments No 0 (1 standard drink = 0.6 oz pur e alcohol) Sex and Gender Information Value Date Recorded Sex Assigned at Not on file Legal Sex Male 5:41 AM SECTION HAND Gender Identity Not on file Sexual [...] of Assessment Author No 02/03/2015 9:09 AM Btezaida Alexis RN * Does person have difficulty [...] uncontrolled documented in this encounter Care Teams Negative Developer Relationship Specialty Start Date End Date Cierra Villarreal MD [address] [place] [phone] PCP - General Family Medicine 11/27/13 05/31/17 Marilu Westfall MD [address] [place] [phone] PCP - General 06/01/17 06/12/18 Cierra Villarreal MD [address] [place] [phone] PCP - General Family Medicine 06/13/18 documented as of this encounter
--- OUTSIDE RECORDS SUMMARY | 2025-01-11 14:46 | XMS_ITS | Clinical Summary ---
Author Organization [facility] Address Critical access hospital[address] [place] [address] Care Team Providers Care Concrete Tile Machine Operator Name Role Phone Jeffery Serra MD Primary Care Provider [phone] Allergies Active Allergy Reactions Criticality Noted Date [...] or pharmacy? Patient unable to respond 11/27/2023 [facility] Utilities Answer Date Recorded In the past 12 months has [employer], oil, or water [employer] threatened to shut off services in your [...] week 11/27/2023 How often do you attend [facility] or hinduism services? Patient unable to answer 11/27/2023 Do you belong to any clubs o r organizations such as christian groups, unions, fraternal or athletic groups, or [...] and heating? Not hard at all 11/27/2023 [facility] [place] of Occupat ional Health - Occupational Stress [...] any time in the past 12 m [facility], were you homeless or living [...] history exists COVID-19 Vaccine ( - season) 2024 01/06/2023, 02/24/2022, 12/03/2020, Additional history exists Influenza Adult (#1) 2024 11/27/2023, 12/27/2022, 02/09/2022, Additional history exists Hepatitis B Vaccines Completed 06/12/2002, 03/06/2002, 01/16/2002 Hepatitis A Vaccines Completed 10/08/2013, 12/11/19 11 Meningococcal Vaccine Completed 10/17/2018, 014 RSV Immunizations Under 20 Months Aged Out No longer eligible based on patient's age to complete this topic Additional Health Concerns Infection Onset Date Last Indicated MRSA Comment:11/27/23 +MRSA Nares 11/27/2023 11/27/2023 Insurance RUTH MEDICAID RUTH MED[place]ID Advance Directives * Full Code (Latest Code Status on File) Date Activated Date Inactivated Comments 11/27/2023 1:37 AM 11/28/2023 11:51 AM Care Teams Concrete Tile Machine Operator Relationship Specialty Start Date End Date Jeffery Serra MD [address] [phone] PCP - General FAMILY PRACTICE 12/02/23
--- OUTSIDE RECORDS SUMMARY | 2025-01-11 14:46 | XMS_ITS | Encounter Summary ---
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 No / Unsure 02/19/2021 3:26 PM INTERNATIONAL SPECIALIST documented as of this encounter Functional Status [...] on filedocumented in this encounter Care Teams Sheetfed Press Operator Relationship Specialty Start Date End Date Cierra Villarreal MD [address] [place] [phone] PCP - General Family Medicine 06/13/18 documented as of this encounter
--- OUTSIDE RECORDS SUMMARY | 2025-01-11 14:46 | XMS_ITS | Encounter Summary ---
Author Organization [facility] Address [address] [facility] [place] [address] Care Team Providers Care Documentation Lead Name Role Phone Cierra Villarreal MD Primary Care Provider [phone] Marilu Westfall MD Primary Care Provider [phone] Cierra Villarreal MD Primary Care Provider [phone] Reason for Visit * Reason Onset Date Comments Blood Sugar Problem 02/20/2015 Encounter Details Date Type Department Care Team (Late st Contact Info) Description 02/20/2015 Telephone [facility] Pediatrics - Endocrinology [facility] [place] [address] Denia Greenberg MD Blood Sugar Problem Social History Tobacco Use Types Packs/Day Years Used Date Smoking Tobacco: Never Alcohol Use Standard Drinks/Week Comments No 0 (1 standard drink = 0.6 oz pur e alcohol) Sex and Gender Information Value Date Recorded Sex Assigned at Not on file 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 Answer Date of Assessment Author No 02/03/2015 9:09 AM ELECTRICAL PROSPECTOR Betzaida Zuniga RN * Is person blind [...] at length. Mom to call as needed. TRICAL PROSPECTOR documented in this encounter Plan of Treatment Not on file documented as of this encounter Visit Diagnoses Not on filedocumented in this encounter Additional Health Concerns Infection Onset Date Last Indicated Resolved Time MRSA 01/28/2015 01/28/2015 10/22/2015 12:0 6 PM CDT documented as of this encounter Care Teams Documentation Lead Relationship Specialty Start Date End Date Cierra Villarreal MD [address] [phone] PCP - General Family Medicine 11/27/13 05/31/17 Marilu Westfall MD [address] [place] [address] PCP - General 06/01/17 06/12/18 Cierra Villarreal MD [address] [phone] PCP - General Family Medicine 06/13/18 documented as of this encounter
[2025-01-11 15:24] LABS: Free T4 Free Thyroxine 1.94 ng/dL (0.78-2.19)
[2025-01-11 15:38] LABS: Thyroid Stimulating Hormone < 0.015 uIU/mL (0.465-4.680); Total Triiodothyronine (T3) 1.39 NG/ML (0.82-1.58)
== END 2025-01-11 14:44 | disposition home or self-care (01) ==
LOC: ANHLAB 14:44
PROVIDERS: PCP Family Medicine; Visit Provider Internal Medicine
DX: E10.9 Type 1 diabetes mellitus without complications (principal); R63.4 Abnormal weight loss; E05.90 Thyrotoxicosis, unspecified without thyrotoxic crisis or storm; E05.00 Thyrotoxicosis with diffuse goiter without thyrotoxic crisis or storm
CPT/HCPCS: 36415; 84439; 84443; 84480